=== PATIENT | female | born 1940 | race Caucasian/White ===

== ENCOUNTER 2019-12-03 12:30 | Outpatient (CLI) | payer MEDICARE, OTHER, SELFPAY ==
[2019-12-03 13:28] LABS: Basophils % 0.3 %; Eosinophils # 0.1 10^3/uL (0.0-0.8); Eosinophils % 0.9 %; Hemoglobin 12.8 g/dL (11.5-15.3); Lymphocytes # 2.5 10^3/uL (0.8-4.8); Lymphocytes % 27.5 %; Mean Corpuscular HGB Conc 30.5 g/dL (30.0-36.0); Mean Corpuscular Volume 98.4 fL (81-99); Mean Platelet Volume 10.6 fL (7.4-10.4); Monocytes # 0.7 10^3/uL (0.2-0.9); Monocytes % 7.2 %; Neutrophils # 5.8 10^3/uL (1.8-7.7); Neutrophils % 63.5 %; Nucleated Red Blood Cells % 0 %; Platelet Count 279 10^3/cmm (130-400); Red Blood Count 4.27 10^6/uL (4.1-5.3); Red Cell Distribution Width 13.2 % (12.1-15.1); White Blood Count 9.1 10^3/uL (4.0-10.0)
[2019-12-03 13:45] LABS: Alanine Aminotransferase 6 U/L (0-33); Albumin Level 4.1 g/dL (3.5-5.2); Alkaline Phosphatase 78 IU/L (35-105); Anion Gap 18.6 (5-19); Aspartate Amino Transferase 10 U/L (0-32); Blood Urea Nitrogen 12 mg/dL (8-23); Calcium 9.4 mg/Dl (8.8-10.2); Carbon Dioxide 26 mmol/L (22-29); Chloride 99 mmol/L (98-107); Globulin 2.2 g/dL (1.3-4.6); Glucose 191 mg/dL (74-106); Potassium 4.6 mmol/L (3.5-5.1); Sodium 139 mmol/L (136-145); Total Bilirubin 0.2 mg/dL (0.15-1.2); Total Protein 6.3 g/dL (6.6-8.7)
== END 2019-12-03 12:31 | disposition home or self-care (01) ==
LOC: ONCMED 12:39
PROVIDERS: Family Provider Family Medicine; Visit Provider Internal Medicine Hematology & Oncology
DX: C50.412 Malignant neoplasm of upper-outer quadrant of left female breast (principal)
CPT/HCPCS: 80053; 85025; 86300

== ENCOUNTER 2019-12-07 10:39 | Outpatient (CLI) | payer MEDICARE, OTHER, SELFPAY ==
[2019-12-07] MEDS: denosumab 120 mg SDV SUBCUT (12:11)
--- NOTE | 2019-12-07 14:18 | ONC FU_ITS ---
Dr. 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 She had presented with a palpable mass in the left breast. The mammogram from 03/11/2013 showed a new stellate density in the left breast, corresponding to 1.3 cm lesion on ultrasound. On 04/02/2013 she underwent a lumpectomy of the left breast with a sentinel lymph node biopsy. Her surgical pathology showed a grade 2 infiltrating ductal carcinoma measuring 2.8 cm. Margins were negative, and there was no involvement in 3 sentinel lymph nodes. Her prognostic markers showed ER 95%, NC 95%, and HER-2/aldair 1+ by IHC, amplification ratio by FISH of 1.05. She was first seen by Dr. Rose on 04/13/2013. An Oncotype DX was low score 14 corresponding to 9% chance of distal recurrence following hormonal treatment. Adjuvant chemotherapy was not recommended. DEXA scan on 04/16/2013 showed normal bone density. She was given radiation to the left breast, completed on 07/09/2013 to a total dose of 5940 cGy. Adjuvant hormonal therapy with anastrozole 1 mg daily was initiated in June of 2013. Her medical illnesses include hypertension, hyperlipidemia, type II diabetes with peripheral neuropathy, coronary artery disease, GERD, hypothyroidism, essential tremor, degenerative arthritis, and depression. She is a nonsmoker. INTERIM HISTORY: She was hospitalized on 01/18/2017 with elevated blood pressure and chest pain. She was discharged home on amlodipine 5 mg daily, HCTZ 25 mg daily, and Spironolactone 25 mg daily. She had evidence of chronic diastolic heart failure. Echocardiogram showed adequate LV ejection fraction of 61%, but with grade 3 diastolic dysfunction. follow-up visit on 02/13/2017. At that time she was reporting significant increase in her back and joint pain, and her anastrozole was stopped . She was then seen by Dr. Jorge on 03/19/2017, and she then continued her hormonal therapy with tamoxifen 20 mg daily. her bone pain improved since she was off the anastrozole, She took tamoxifen till 01/22/2018 because of progressive substernal discomfort/back pain, which did improve with discontinuation of tamoxifen. So patient completed about 4-1/2 year of adjuvant hormonal therapy and decided not to take any other hormone therapy for remaining 6 months. Follow-up mammogram done on 07/02/2019 showed benign findings and follow-up in one year Echocardiogram done on 07/07/2019 showed ejection fraction more than 60% As per patient she did develop left neck pain in the first week of June 2019, along with left facial pain and swelling, her PMD gave her steroids and antibiotics with that but improved and then developed headache on left side for which she underwent CT scan of head on 10/20/2019 which showed no acute intracranial hemorrhage or edema But a new lytic area involving left formen magnum and ring of C1. Early metastatic lesion should be considered and bone scan was recommended Bone scan done on 08/24/2019 showed negative for metastatic disease. CT scan of abdomen pelvis done on 08/21/2019 for abdominal pain showed mild thickening with inflammatory stranding involving sigmoid colon in the left lower quadrant consistent with mild acute diverticulitis Hepatomegaly with diffuse fatty infiltration of the liver. Widemouth ventral abdominal wall hernia containing nonobstructed loops of small and large bowel. Next Left adnexal low-attenuation lesion measuring 4.1 x 4.2 cm this is indeterminant and neoplasm not excluded. CT PET scan done on 08/29/2019 showed 1.6 cm lesion in the left half of T7 vertebral body with an SUV of 15.9, indicating osseous metastatic disease. No additional osseous lesions are present. 2 cm soft tissue deposit along the surface of diaphragm at the medial right lung SUV 10.5, indicating malignant deposit. Additionally, there is an FDG positive right hilar lymph node likely malignant.And left ovarian mass seen on CT scan of chest abdomen done recently is a ovarian cyst and is FDG negative The C1 lesion was not in the field of view of current CT PET scan study Dr. Cat, senior it business analyst was asked to review CT PET scan and correlate with CT scan of chest abdomen done on 08/21/2019 and bone scan done on 08/24/2019, as per his evaluation,.diaphragmatic implant is present on CT scan done in July 2019 and is unchanged in size on the current study. The left ovarian cyst is morphologically identical as well. Osseous lesion at T7 is not clearly evident on the bone scan, and expected finding as this lesion is not evident on CT scan image, but is clearly present with FDG, collectively this pattern indicates a very recently developed metastasis. Came for follow-up, denies any specific complaints, no nausea vomiting, no fever or chills, no headaches but occasionally hot flashes otherwise tolerating Femara/Xgeva well. Medications: AmLODIPine Besylate 1 (5 mg) Tablet Oral daily, Aspirin 1 (81 mg) Tablet Oral daily, Calcium 500+D 1 (500-400 mg - Units) Tablet Oral daily, Carbidopa-Levodopa ER 1 Tablet (of 50-200 mg) Tablet, controlled release Oral daily, Carvedilol 1.5 (25 mg) Tablet Oral b.i.d., Cetirizine HCl 1 Tablet (of 10 mg) Oral, Cipro 1 Tablet (of 500 mg) Oral q 12 hours PRN, Coreg 0.5 Tablet (of 25 mg) Oral b.i.d., Docusate Sodium 1 (100 mg) Tablet Oral PRN, Furosemide 1 Tablet (of 20 mg) Oral daily, HYDROcodone-Acetaminophen 1 Tablet (of 5-325 mg) Oral q 4 hours PRN, Isosorbide Mononitrate CR 1 (120 mg) Tablet SR 24 HR Oral daily, Levothyroxine Sodium 1 (88 mcg) Tablet Oral daily, Losartan Potassium 1 (50 mg) Tablet Oral daily, Magnesium Oxide 1 (400 mg) Capsule Oral daily, MetFORMIN HCl 1 (500 mg) Tablet Oral b.i.d., Nitroglycerin Tablet, sublingual Sublingual PRN, Ondansetron HCl 1 - 2 Tablet (of 4 mg) Oral q 4 hours PRN, oxyCODONE HCl 1 Tablet (of 5 mg) Oral t.i.d. PRN, Potassium Chloride Rasheeda ER 1 (10 meq) Tablet, controlled release Oral daily, Pravastatin Sodium 1 (80 mg) Tablet Oral daily, predniSONE 2 Tablet (of 20 mg) Oral daily, PreserVision AREDS 1 Tablet Oral daily, Primidone 1 (50 mg) Tablet Oral b.i.d., Ranitidine HCl 1 (300 mg) Tablet Oral b.i.d., TraZODone HCl 1.5 (100 mg) Tablet Oral daily, Tresiba FlexTouch 20 Units Subcutaneous daily, Vitamin D 1 (2000 Units) Tablet Oral daily, Zofran 1 Tablet (of 4 mg) Oral q 4 hours PRN Allergies: bandaids , IBUPROFEN, Latex Gloves, Naproxen, and TraMADol HCl. Review of Systems: Constitutional - Her energy level is low. Appetite is low and weight is stable. No fever, chills, hot flashes, or night sweats, ENMT - Positive for sinus congestion/drainage. No mouth sores. No sore throat or difficulty swallowing, Hematologic/Lymphatic - No abnormal bruising or bleeding, Respiratory - She has occasional shortness of breath. No pleuritic pain or hemoptysis, Cardiovascular - Occasional chest pain, Gastrointestinal - No nausea or vomiting. No heartburn or acid reflux. No diarrhea. Positive for constipation, Genitourinary (F) - No dysuria or hematuria. No urinary frequency. No urgency or incontinence, Musculoskeletal - Positive for back and neck pain, Neurologic - No headache or dizziness. No numbness/paresthesias or other focal neurologic symptoms, Psychiatric - No anxiety or depression. She has had trouble sleeping at night since having sinus problems around three weeks ago. Vital Signs: Performed on Dec 07, 2019 11:38 Height - 66.00 in Weight - 271.8 lbs (HIGH) BSA - 2.28 sq.m BMI - 43.87 (HIGH) Temperature - 97.1 F (LOW) Pulse - 76 /min Respiration - 16 /min BP - 125/66 mm(hg) O2 Sat - 90 % (LOW) Pain - 4 Performance Status: 2 - Ambulatory/capable of all self-care, unable to perform any work activities. Up and about more than 50% of waking hours. (ECOG) Physical Examination: Respiratory - Lungs are clear to auscultation without rhonchi or wheezing, Cardiovascular - Regular rate and rhythm of heart, Extremities - no edema. Lab/Imaging: Test performed on Dec 03, 2019 12:45 Glucose 191 mg/dL BUN 12 mg/dL Creatinine 0.7 mg/dL Cr Clearance (Est) 130.9900 mL/min Sodium 139 mmol/L Potassium 4.6 mmol/L Chloride 99 mmol/L CO2 26 mmol/L Calcium 9.4 mg/dL Protein, Total 6.3 g/dL Albumin 4.1 g/dL Globulin 2.2 g/dL Bilirubin, Total 0.2 mg/dL Alkaline Phosphatase 78 IU/L AST (SGOT) 10 IU/L ALT (SGPT) 6 IU/L WBC 9.1 10^9/L RBC 4.27 10^12/L HGB 12.8 g/dL HCT 42.0 % MCV 98.4 fl MCH 30.0 pg MCHC 30.5 g/dL RDW 13.2 % Platelet Count 279 10^9/L MPV 10.6 fL Lymphocytes 2.5 10^9/L Neutrophils 0.0 10 3/uL Monocytes 0.7 10^9/L Eosinophils 0.1 10^9/L Basophils 0.0 10^9/L Neutrophil % 0.9 % Manual Lymphocytes 27.5 % Manual Monocytes 7.2 % Manual Eosinophils 0.9 % Manual Basophils 0.3 % NRBCs 0.0 /100 WBC Test performed on Oct 01, 2019 09:20 Anion Gap 20.8 Lymphocyte % 24.2 % Monocyte % 7.0 % Eosinophil % 0.9 % Basophils % 0.3 % CA 27.29 107.9 U/mL Impression: 1. Patient with grade 2 infiltrating ductal carcinoma the left breast, stage IIA (T2, N0, M0), ER/NC positive and HER-2/aldair nonamplified. Oncotype DX score was low risk, and adjuvant chemotherapy was not recommended. 2. She underwent left breast lumpectomy with axillary sentinel lymph node biopsy on 04/02/2013. 3. She was given radiation to the left breast, completed on 07/09/2013 to a total dose of 5940 cGy. 4. Adjuvant hormonal therapy with anastrozole 1mg daily was initiated in June 2013. Her other medical illnesses include: 4. Hypertension. 5. Hyperlipidemia. 6. Type II diabetes with peripheral neuropathy. 7. Coronary artery disease. 8. Chronic diastolic congestive heart failure. 9. GERD. 10. Hypothyroidism. 11. Essential tremor. 12. Degenerative arthritis. Chronic left leg swelling since left knee replacement about her ago 13. Depression. In January 2017 the anastrozole was stopped due to increased musculoskeletal pain. Her symptoms improve off the medication. In February she continued her adjuvant hormonal therapy with tamoxifen 20 mg daily. She has since then been doing better other than she has developed an itchy skin eruption, which likely is due to tamoxifen.Tamoxifen discontinued on 01/22/2018 because of substernal discomfort/back pain which improved with discontinuation of tamoxifenT he patient has completed 4-1/2 year of hormone therapy and now doesn't want to take anymore. Follow-up mammogram done on 07/02/[address] showed benign findings. And CT scan of head done on 08/20/2019, ordered by PMD for left-sided headache and left neck pain showed no acute intracranial hemorrhage or edema but new lytic area involving left foramen magnum and ring of C1, early metastatic lesion should be considered clinically, bone scan was recommended Plan: Discussed with patient regarding her labs white blood count 9.1 hemoglobin 12.8 crit 42 platelets 279,000 CMP within normal limit except glucose 191 and CA-27-29 is pending Clinically, patient is doing well, tolerating Femara well but with expected side effects e.g. occasionally hot flashes. And we'll proceed with her next monthly dose of Xgeva today as patient minimum bone lesion seen on her previous CT PET scan we will consider changing Xgeva to every 3 months. So she will return to clinic in 3 months with CBC CMP and CA-27-29 and follow-up CT PET scan to assess disease response. Signed By: Octaviano Marsh M.D. <<Signature on File>>
== END 2019-12-07 10:40 | disposition home or self-care (01) ==
LOC: ONCMED 10:44
PROVIDERS: Family Provider Family Medicine; Visit Provider Internal Medicine Hematology & Oncology
DX: C79.51 Secondary malignant neoplasm of bone (principal); C50.412 Malignant neoplasm of upper-outer quadrant of left female breast; Z17.0 Estrogen receptor positive status [ER+]; E78.5 Hyperlipidemia, unspecified; E11.42 Type 2 diabetes mellitus with diabetic polyneuropathy; I25.10 Atherosclerotic heart disease of native coronary artery without angina pectoris; I11.0 Hypertensive heart disease with heart failure; I50.32 Chronic diastolic (congestive) heart failure; K21.9 Gastro-esophageal reflux disease without esophagitis; E03.9 Hypothyroidism, unspecified; R25.1 Tremor, unspecified; M19.90 Unspecified osteoarthritis, unspecified site; F32.9 Major depressive disorder, single episode, unspecified; K76.0 Fatty (change of) liver, not elsewhere classified; K43.9 Ventral hernia without obstruction or gangrene; Z79.811 Long term (current) use of aromatase inhibitors; Z79.82 Long term (current) use of aspirin; Z79.891 Long term (current) use of opiate analgesic; Z96.652 Presence of left artificial knee joint; Z92.3 Personal history of irradiation
CPT/HCPCS: 96372; 99214; J0897

== ENCOUNTER 2019-12-25 11:42 | Outpatient (CLI) | payer MEDICARE, OTHER, SELFPAY ==
--- NOTE | 2019-12-25 | XR_ITS ---
WS: [id number] RIGHT FOOT: 3 VIEW(S) TECHNIQUE: PA, oblique and lateral. HISTORY: RIGHT FOOT PAIN COMPARISON: None available. No acute fracture or dislocation. Mild narrowing of the interphalangeal joints and also the tarsometatarsal articulations. Mild flatten ing of the second and third metatarsal heads. Small calcaneal spur and enthesopathy at the Achilles tendon attachment. XR/XR foot RT min 3V* [id number] IMPRESSION: 1. No fracture. 2. Mild changes of osteoarthritis.
== END 2019-12-25 11:43 | disposition home or self-care (01) ==
LOC: RADOUTREAD 12-28 07:21
PROVIDERS: Family Provider Family Medicine; Visit Provider Nurse Practitioner
DX: Z76.89 Persons encountering health services in other specified circumstances (principal)

== ENCOUNTER 2020-03-10 16:13 | Outpatient (CLI) | payer MEDICARE, OTHER, SELFPAY ==
[2020-03-09 17:10] LABS: Basophils % 0.2 %; Eosinophils # 0.1 10^3/uL (0.0-0.8); Eosinophils % 0.9 %; Hematocrit 42.5 % (37.0-47.0); Hemoglobin 13.1 g/dL (11.5-15.3); Lymphocytes # 2.8 10^3/uL (0.8-4.8); Lymphocytes % 28.3 %; Mean Corpuscular HGB Conc 30.8 g/dL (30.0-36.0); Mean Corpuscular Hemoglobin 30.9 pg (28.0-34.0); Mean Corpuscular Volume 100.2 fL (81-99); Mean Platelet Volume 11.5 fL (7.4-10.4); Monocytes # 0.7 10^3/uL (0.2-0.9); Monocytes % 7.5 %; Neutrophils # 6.1 10^3/uL (1.8-7.7); Nucleated Red Blood Cells % 0 %; Platelet Count 229 10^3/cmm (130-400); Red Blood Count 4.24 10^6/uL (4.1-5.3); Red Cell Distribution Width 14.6 % (12.1-15.1); White Blood Count 9.9 10^3/uL (4.0-10.0)
[2020-03-09 18:32] LABS: Alanine Aminotransferase 7 U/L (0-33); Albumin Level 3.7 g/dL (3.5-5.2); Alkaline Phosphatase 71 IU/L (35-105); Anion Gap 22.1 (5-19); Aspartate Amino Transferase 8 U/L (0-32); Blood Urea Nitrogen 17 mg/dL (8-23); Calcium 9.1 mg/dL (8.5-10.5); Carbon Dioxide 24 mmol/L (22-29); Chloride 96 mmol/L (98-107); Globulin 2.6 g/dL (1.3-4.6); Glucose 321 mg/dL (65-115); Osmolality Calculated 295 mOsm/kg (285-295); Potassium 4.1 mmol/L (3.5-5.1); Sodium 138 mmol/L (136-145); Total Bilirubin 0.3 mg/dL (0.15-1.2); Total Protein 6.3 g/dL (6.6-8.7)
[2020-03-10] MEDS: denosumab 120 mg SDV SUBCUT (17:18)
--- NOTE | 2020-03-10 17:31 | ONC FU_ITS ---
Dr. Marsh follow up note Patient: Sheron Leyva Unit #: [id number]: 1940 Dicatated By: Octaviano Marsh M.D.Date of Visit:Mar 10, 2020 Onc Med Follow-up/Prog Note History of Present Illness: This is a 79 year-old woman with grade 2 infiltrating ductal carcinoma the left breast, stage IIA (T2, N0, M0), ER/KY positive and HER-2/aldair nonamplified. She had presented with a palpable mass in the left breast. The mammogram from 03/11/2013 showed a new stellate density in the left breast, corresponding to 1.3 cm lesion on ultrasound. On 04/02/2013 she underwent a lumpectomy of the left breast with a sentinel lymph node biopsy. Her surgical pathology showed a grade 2 infiltrating ductal carcinoma measuring 2.8 cm. Margins were negative, and there was no involvement in 3 sentinel lymph nodes. Her prognostic markers showed ER 95%, KY 95%, and HER-2/aldair 1+ by IHC, amplification ratio by FISH of 1.05. She was first seen by Dr. Rose on 04/13/2013. An Oncotype DX was low score 14 corresponding to 9% chance of distal recurrence following hormonal treatment. Adjuvant chemotherapy was not recommended. DEXA scan on 04/16/2013 showed normal bone density. She was given radiation to the left breast, completed on 07/09/2013 to a total dose of 5940 cGy. Adjuvant hormonal therapy with anastrozole 1 mg daily was initiated in June of 2013. Her medical illnesses include hypertension, hyperlipidemia, type II diabetes with peripheral neuropathy, coronary artery disease, GERD, hypothyroidism, essential tremor, degenerative arthritis, and depression. She is a nonsmoker. INTERIM HISTORY: She was hospitalized on 01/18/2017 with elevated blood pressure and chest pain. She was discharged home on amlodipine 5 mg daily, HCTZ 25 mg daily, and Spironolactone 25 mg daily. She had evidence of chronic diastolic heart failure. Echocardiogram showed adequate LV ejection fraction of 61%, but with grade 3 diastolic dysfunction. follow-up visit on 02/13/2017. At that time she was reporting significant increase in her back and joint pain, and her anastrozole was stopped . She was then seen by Dr. Jorge on 03/19/2017, and she then continued her hormonal therapy with tamoxifen 20 mg daily. her bone pain improved since she was off the anastrozole, She took tamoxifen till 01/22/2018 because of progressive substernal discomfort/back pain, which did improve with discontinuation of tamoxifen. So patient completed about 4-1/2 year of adjuvant hormonal therapy and decided not to take any other hormone therapy for remaining 6 months. Follow-up mammogram done on 07/02/2019 showed benign findings and follow-up in one year Echocardiogram done on 07/07/2019 showed ejection fraction more than 60% As per patient she did develop left neck pain in the first week of June 2019, along with left facial pain and swelling, her PMD gave her steroids and antibiotics with that but improved and then developed headache on left side for which she underwent CT scan of head on 10/20/2019 which showed no acute intracranial hemorrhage or edema But a new lytic area involving left formen magnum and ring of C1. Early metastatic lesion should be considered and bone scan was recommended Bone scan done on 08/24/2019 showed negative for metastatic disease. CT scan of abdomen pelvis done on 08/21/2019 for abdominal pain showed mild thickening with inflammatory stranding involving sigmoid colon in the left lower quadrant consistent with mild acute diverticulitis Hepatomegaly with diffuse fatty infiltration of the liver. [place] ventral abdominal wall hernia containing nonobstructed loops of small and large bowel. Next Left adnexal low-attenuation lesion measuring 4.1 x 4.2 cm this is indeterminant and neoplasm not excluded. CT PET scan done on 08/29/2019 showed 1.6 cm lesion in the left half of T7 vertebral body with an SUV of 15.9, indicating osseous metastatic disease. No additional osseous lesions are present. 2 cm soft tissue deposit along the surface of diaphragm at the medial right lung SUV 10.5, indicating malignant deposit. Additionally, there is an FDG positive right hilar lymph node likely malignant.And left ovarian mass seen on CT scan of chest abdomen done recently is a ovarian cyst and is FDG negative The C1 lesion was not in the field of view of current CT PET scan study Dr. Cat,radiologist was asked to review CT PET scan and correlate with CT scan of chest abdomen done on 08/21/2019 and bone scan done on 08/24/2019, as per his evaluation,.diaphragmatic implant is present on CT scan done in July 2019 and is unchanged in size on the current study. The left ovarian cyst is morphologically identical as well. Osseous lesion at T7 is not clearly evident on the bone scan, and expected finding as this lesion is not evident on CT scan image, but is clearly present with FDG, collectively this pattern indicates a very recently developed metastasis. Follow-up CT PET scan done on 03/05/2020 showed interval sterilization of osseous metastatic disease at T7 Resolution of right diaphragmatic implant and right hilar adenopathy consistent with complete response to the therapy Came for follow-up, denies any specific complaints, no fever or chills, no nausea or vomiting no diarrhea constipation, no new bony pains but chronic bilateral hip discomfort/pain due to arthritis. Occasionally hot flashes otherwise tolerating Femara/Xgeva well Medications: AmLODIPine Besylate 1 (5 mg) Tablet Oral daily, Aspirin 1 (81 mg) Tablet Oral daily, Calcium 500+D 1 (500-400 mg - Units) Tablet Oral daily, Carbidopa-Levodopa ER 1 Tablet (of 50-200 mg) Tablet, controlled release Oral daily, Carvedilol 1.5 (25 mg) Tablet Oral b.i.d., Cetirizine HCl 1 Tablet (of 10 mg) Oral, Cipro 1 Tablet (of 500 mg) Oral q 12 hours PRN, Coreg 0.5 Tablet (of 25 mg) Oral b.i.d., Docusate Sodium 1 (100 mg) Tablet Oral PRN, Furosemide 1 Tablet (of 20 mg) Oral daily, HYDROcodone-Acetaminophen 1 Tablet (of 5-325 mg) Oral q 4 hours PRN, Isosorbide Mononitrate CR 1 (120 mg) Tablet SR 24 HR Oral daily, Levothyroxine Sodium 1 (88 mcg) Tablet Oral daily, Losartan Potassium 1 (50 mg) Tablet Oral daily, Magnesium Oxide 1 (400 mg) Capsule Oral daily, MetFORMIN HCl 1 (500 mg) Tablet Oral b.i.d., Mucinex Allergy Tablet Oral, Nitroglycerin Tablet, sublingual Sublingual PRN, Ondansetron HCl 1 - 2 Tablet (of 4 mg) Oral q 4 hours PRN, oxyCODONE HCl 1 Tablet (of 5 mg) Oral t.i.d. PRN, Potassium Chloride Rasheeda ER 1 (10 meq) Tablet, controlled release Oral daily, Pravastatin Sodium 1 (80 mg) Tablet Oral daily, predniSONE 2 Tablet (of 20 mg) Oral daily, PreserVision AREDS 1 Tablet Oral daily, Primidone 1 (50 mg) Tablet Oral b.i.d., Ranitidine HCl 1 (300 mg) Tablet Oral b.i.d., TraZODone HCl 1.5 (100 mg) Tablet Oral daily, Tresiba FlexTouch 20 Units Subcutaneous daily, Vitamin D 1 (2000 Units) Tablet Oral daily, Zofran 1 Tablet (of 4 mg) Oral q 4 hours PRN Allergies: bandaids , IBUPROFEN, Latex Gloves, Naproxen, and TraMADol HCl. Review of Systems: Review of Systems is not available for this patient. Vital Signs: Performed on Mar 10, 2020 16:22 Height - 66.00 in Weight - 270.6 lbs (LOW) BSA - 2.27 sq.m BMI - 43.68 (HIGH) Temperature - 96.9 F (LOW) Pulse - 104 /min (HIGH) Respiration - 22 /min BP - 142/73 mm(hg) (HIGH) O2 Sat - 91 % (LOW) Pain - 7 Performance Status: 1 - No physically strenuous activity, but ambulatory and able to carry out light or sedentary work (e.g. office work, light house work). (ECOG) Physical Examination: Respiratory - Lungs are clear, Cardiovascular - Regular rate and rhythm, Extremities - no visible edema or rash. Lab/Imaging: Test performed on Dec 03, 2019 12:45 Glucose 191 mg/dL BUN 12 mg/dL Creatinine 0.7 mg/dL Cr Clearance (Est) 130.9900 mL/min Sodium 139 mmol/L Potassium 4.6 mmol/L Chloride 99 mmol/L CO2 26 mmol/L Calcium 9.4 mg/dL Protein, Total 6.3 g/dL Albumin 4.1 g/dL Globulin 2.2 g/dL Bilirubin, Total 0.2 mg/dL Alkaline Phosphatase 78 IU/L AST (SGOT) 10 IU/L ALT (SGPT) 6 IU/L WBC 9.1 10^9/L RBC 4.27 10^12/L HGB 12.8 g/dL HCT 42.0 % MCV 98.4 fl MCH 30.0 pg MCHC 30.5 g/dL RDW 13.2 % Platelet Count 279 10^9/L MPV 10.6 fL Lymphocytes 2.5 10^9/L Neutrophils 0.0 10 3/uL Monocytes 0.7 10^9/L Eosinophils 0.1 10^9/L Basophils 0.0 10^9/L Neutrophil % 0.9 % Manual Lymphocytes 27.5 % Manual Monocytes 7.2 % Manual Eosinophils 0.9 % Manual Basophils 0.3 % NRBCs 0.0 /100 WBC Test performed on Oct 01, 2019 09:20 Anion Gap 20.8 Lymphocyte % 24.2 % Monocyte % 7.0 % Eosinophil % 0.9 % Basophils % 0.3 % CA 27.29 107.9 U/mL Impression: 1. Patient with grade 2 infiltrating ductal carcinoma the left breast, stage IIA (T2, N0, M0), ER/KY positive and HER-2/aldair nonamplified. Oncotype DX score was low risk, and adjuvant chemotherapy was not recommended. 2. She underwent left breast lumpectomy with axillary sentinel lymph node biopsy on 04/02/2013. 3. She was given radiation to the left breast, completed on 07/09/2013 to a total dose of 5940 cGy. 4. Adjuvant hormonal therapy with anastrozole 1mg daily was initiated in June 2013. Her other medical illnesses include: 4. Hypertension. 5. Hyperlipidemia. 6. Type II diabetes with peripheral neuropathy. 7. Coronary artery disease. 8. Chronic diastolic congestive heart failure. 9. GERD. 10. Hypothyroidism. 11. Essential tremor. 12. Degenerative arthritis. Chronic left leg swelling since left knee replacement about her ago 13. Depression. In January 2017 the anastrozole was stopped due to increased musculoskeletal pain. Her symptoms improve off the medication. In February she continued her adjuvant hormonal therapy with tamoxifen 20 mg daily. She has since then been doing better other than she has developed an itchy skin eruption, which likely is due to tamoxifen.Tamoxifen discontinued on 01/22/2018 because of substernal discomfort/back pain which improved with discontinuation of tamoxifenT he patient has completed 4-1/2 year of hormone therapy and now doesn't want to take anymore. Follow-up mammogram done on 07/02/[address] showed benign findings. And CT scan of head done on 08/20/2019, ordered by PMD for left-sided headache and left neck pain showed no acute intracranial hemorrhage or edema but new lytic area involving left foramen magnum and ring of C1, early metastatic lesion should be considered clinically, bone scan was recommended Plan: Discussed with patient regarding her labs white blood count 9.9 hemoglobin 13.1 crit 42.5 platelets 229,000 CMP within normal limit except glucose [address] PET scan findings Clinically, patient is doing well with no signs symptoms suggestive of disease progression and tolerating daily Femara and 3 monthly Xgeva well and her follow-up CT PET scan shows excellent response to the therapy now with resolution of right diaphragmatic implant and right hilar lymphadenopathy And interval sterilization of osseous metastatic disease at T7 And no evidence of active disease as per CT PET scan. At this point we'll continue with daily Femara and proceed with her 3 monthly Xgeva today and then change to every 6 months along with vitamin D and calcium supplements next She will return to clinic in 6 months with CBC CMP and CA-27-29 and for dose of Xgeva. Signed By: Octaviano Marsh M.D. <<Signature on File>>
[2020-03-11 10:12] LABS: CA 27.29 54 U/mL (<38)
== END 2020-03-10 16:14 | disposition home or self-care (01) ==
LOC: ONCMED 16:16
PROVIDERS: Family Provider Family Medicine; Visit Provider Internal Medicine Hematology & Oncology
DX: C50.412 Malignant neoplasm of upper-outer quadrant of left female breast (principal); C79.51 Secondary malignant neoplasm of bone; Z17.0 Estrogen receptor positive status [ER+]; E78.5 Hyperlipidemia, unspecified; E11.42 Type 2 diabetes mellitus with diabetic polyneuropathy; I11.0 Hypertensive heart disease with heart failure; I50.32 Chronic diastolic (congestive) heart failure; K21.9 Gastro-esophageal reflux disease without esophagitis; E03.9 Hypothyroidism, unspecified; G25.0 Essential tremor; M19.90 Unspecified osteoarthritis, unspecified site; F32.9 Major depressive disorder, single episode, unspecified; M25.462 Effusion, left knee; Z79.811 Long term (current) use of aromatase inhibitors; Z79.899 Other long term (current) drug therapy; Z96.652 Presence of left artificial knee joint
CPT/HCPCS: 36415; 80053; 85025; 86300; 96372; 99214; J0897

== ENCOUNTER 2020-03-23 17:11 | Outpatient (CLI) | payer MEDICARE, OTHER, SELFPAY ==
[2020-03-23 20:28] LABS: NT Pro B Type Natriuretic Pept 259 pg/mL (0-450)
== END 2020-03-23 17:12 | disposition home or self-care (01) ==
LOC: LAB 17:18
PROVIDERS: Family Provider Family Medicine; Visit Provider Nurse Practitioner Family
DX: Z01.89 Encounter for other specified special examinations (principal)
CPT/HCPCS: 83880

== ENCOUNTER → 2020-06-08 14:35 | Outpatient (BNVA) | payer MEDICARE, OTHER, SELFPAY | PROVIDERS: Family Provider Family Medicine; PCP Family Medicine; Visit Provider Internal Medicine Cardiovascular Disease | DX: M79.89 Other specified soft tissue disorders (principal); R06.02 Shortness of breath; I50.33 Acute on chronic diastolic (congestive) heart failure; I25.10 Atherosclerotic heart disease of native coronary artery without angina pectoris; E78.2 Mixed hyperlipidemia; I34.0 Nonrheumatic mitral (valve) insufficiency; I11.0 Hypertensive heart disease with heart failure | CPT/HCPCS: 80048; 83880 ==

== ENCOUNTER 2020-08-26 13:41 | Outpatient (CLI) | payer MEDICARE, OTHER, SELFPAY ==
--- NOTE | 2020-08-26 13:50 | MM_ITS ---
WS: [id number] BILATERAL DIGITAL DIAGNOSTIC MAMMOGRAM MAMMOGRAPHY WITH CAD CLINICAL INFORMATION: HX OF BREAST CA COMPARISON: and June 25, 2018 TECHNIQUE: Bilateral CC, MLO, and ML views. FINDINGS: Scattered fibroglandular densities bilaterally. Stable postoperative changes with parenchymal scarrin g upper outer left breast. Punctate and vascular calcifications. No suspicious focal mass, asymmetry, calcifications, or architectural distortion. No evidence of lauren gnancy. MM/[place] [id number] IMPRESSION: BI-RADS: 2-Benign FOLLOW UP: 1 Year Follow-up Recommend return to annual diagnostic mammography.
== END 2020-08-26 13:42 | disposition home or self-care (01) ==
LOC: ONCMED 13:42
PROVIDERS: PCP Family Medicine; Visit Provider Internal Medicine Hematology & Oncology
DX: C50.412 Malignant neoplasm of upper-outer quadrant of left female breast (principal); Z17.0 Estrogen receptor positive status [ER+]; Z85.3 Personal history of malignant neoplasm of breast
CPT/HCPCS: 77066

== ENCOUNTER 2020-09-07 11:48 | Outpatient (CLI) | payer MEDICARE, OTHER, SELFPAY ==
[2020-09-07 14:21] LABS: Basophils % 0.2 %; Eosinophils # 0.1 10^3/uL (0.0-0.8); Eosinophils % 1.2 %; Hematocrit 42.2 % (37.0-47.0); Hemoglobin 13.3 g/dL (11.5-15.3); Lymphocytes # 2.5 10^3/uL (0.8-4.8); Lymphocytes % 30.2 %; Mean Corpuscular HGB Conc 31.5 g/dL (30.0-36.0); Mean Corpuscular Volume 98.4 fL (81-99); Monocytes # 0.6 10^3/uL (0.2-0.9); Monocytes % 7.5 %; Neutrophils # 5.05 10^3/uL (1.8-7.7); Neutrophils % 60.3 %; Nucleated Red Blood Cells % 0 %; Platelet Count 259 10^3/cmm (130-400); Red Blood Count 4.29 10^6/uL (4.1-5.3); White Blood Count 8.4 10^3/uL (4.0-10.0)
[2020-09-07 14:36] LABS: Alanine Aminotransferase < 5 U/L (0-33); Alkaline Phosphatase 85 IU/L (35-105); Anion Gap 18.9 (5-19); Aspartate Amino Transferase 12 U/L (0-32); Blood Urea Nitrogen 14 mg/dL (8-23); Calcium 9.4 mg/dL (8.5-10.5); Carbon Dioxide 28 mmol/L (22-29); Chloride 95 mmol/L (98-107); Globulin 2.5 g/dL (1.3-4.6); Glucose 168 mg/dL (65-115); Osmolality Calculated 290 mOsm/kg (285-295); Potassium 3.9 mmol/L (3.5-5.1); Sodium 138 mmol/L (136-145); Total Bilirubin 0.3 mg/dL (0.15-1.2); Total Protein 6.5 g/dL (6.6-8.7)
[2020-09-12 16:38] LABS: CA 27.29 67 U/mL (<38)
== END 2020-09-07 11:49 | disposition home or self-care (01) ==
LOC: ONCMED 14:27
PROVIDERS: PCP Family Medicine; Visit Provider Internal Medicine Hematology & Oncology
DX: C50.412 Malignant neoplasm of upper-outer quadrant of left female breast (principal); Z17.0 Estrogen receptor positive status [ER+]; E03.9 Hypothyroidism, unspecified; E78.2 Mixed hyperlipidemia; F32.9 Major depressive disorder, single episode, unspecified; E11.42 Type 2 diabetes mellitus with diabetic polyneuropathy; I10 Essential (primary) hypertension; I25.10 Atherosclerotic heart disease of native coronary artery without angina pectoris; K21.9 Gastro-esophageal reflux disease without esophagitis; M19.90 Unspecified osteoarthritis, unspecified site
CPT/HCPCS: 80053; 85025; 86300

== ENCOUNTER 2020-09-08 05:55 | Outpatient (CLI) | payer MEDICARE, OTHER, SELFPAY ==
[2020-09-08] MEDS: denosumab 120 mg SDV SUBCUT (15:00)
--- NOTE | 2020-09-08 17:00 | ONC FU_ITS ---
Dr. 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 She had presented with a palpable mass in the left breast. The mammogram from 03/11/2013 showed a new stellate density in the left breast, corresponding to 1.3 cm lesion on ultrasound. On 04/02/2013 she underwent a lumpectomy of the left breast with a sentinel lymph node biopsy. Her surgical pathology showed a grade 2 infiltrating ductal carcinoma measuring 2.8 cm. Margins were negative, and there was no involvement in 3 sentinel lymph nodes. Her prognostic markers showed ER 95%, NV 95%, and HER-2/aldair 1+ by IHC, amplification ratio by FISH of 1.05. She was first seen by Dr. Rose on 04/13/2013. An Oncotype DX was low score 14 corresponding to 9% chance of distal recurrence following hormonal treatment. Adjuvant chemotherapy was not recommended. DEXA scan on 04/16/2013 showed normal bone density. She was given radiation to the left breast, completed on 07/09/2013 to a total dose of 5940 cGy. Adjuvant hormonal therapy with anastrozole 1 mg daily was initiated in June of 2013. Her medical illnesses include hypertension, hyperlipidemia, type II diabetes with peripheral neuropathy, coronary artery disease, GERD, hypothyroidism, essential tremor, degenerative arthritis, and depression. She is a nonsmoker. INTERIM HISTORY: She was hospitalized on 01/18/2017 with elevated blood pressure and chest pain. She was discharged home on amlodipine 5 mg daily, HCTZ 25 mg daily, and Spironolactone 25 mg daily. She had evidence of chronic diastolic heart failure. Echocardiogram showed adequate LV ejection fraction of 61%, but with grade 3 diastolic dysfunction. follow-up visit on 02/13/2017. At that time she was reporting significant increase in her back and joint pain, and her anastrozole was stopped . She was then seen by Dr. Jorge on 03/19/2017, and she then continued her hormonal therapy with tamoxifen 20 mg daily. her bone pain improved since she was off the anastrozole, She took tamoxifen till 01/22/2018 because of progressive substernal discomfort/back pain, which did improve with discontinuation of tamoxifen. So patient completed about 4-1/2 year of adjuvant hormonal therapy and decided not to take any other hormone therapy for remaining 6 months. Follow-up mammogram done on 07/02/2019 showed benign findings and follow-up in one year Echocardiogram done on 07/07/2019 showed ejection fraction more than 60% As per patient she did develop left neck pain in the first week of June 2019, along with left facial pain and swelling, her PMD gave her steroids and antibiotics with that but improved and then developed headache on left side for which she underwent CT scan of head on 10/20/2019 which showed no acute intracranial hemorrhage or edema But a new lytic area involving left formen magnum and ring of C1. Early metastatic lesion should be considered and bone scan was recommended Bone scan done on 08/24/2019 showed negative for metastatic disease. CT scan of abdomen pelvis done on 08/21/2019 for abdominal pain showed mild thickening with inflammatory stranding involving sigmoid colon in the left lower quadrant consistent with mild acute diverticulitis Hepatomegaly with diffuse fatty infiltration of the liver. Widemouth ventral abdominal wall hernia containing nonobstructed loops of small and large bowel. Next Left adnexal low-attenuation lesion measuring 4.1 x 4.2 cm this is indeterminant and neoplasm not excluded. CT PET scan done on 08/29/2019 showed 1.6 cm lesion in the left half of T7 vertebral body with an SUV of 15.9, indicating osseous metastatic disease. No additional osseous lesions are present. 2 cm soft tissue deposit along the surface of diaphragm at the medial right lung SUV 10.5, indicating malignant deposit. Additionally, there is an FDG positive right hilar lymph node likely malignant.And left ovarian mass seen on CT scan of chest abdomen done recently is a ovarian cyst and is FDG negative The C1 lesion was not in the field of view of current CT PET scan study Dr. Cat,radiologist was asked to review CT PET scan and correlate with CT scan of chest abdomen done on 08/21/2019 and bone scan done on 08/24/2019, as per his evaluation,.diaphragmatic implant is present on CT scan done in July 2019 and is unchanged in size on the current study. The left ovarian cyst is morphologically identical as well. Osseous lesion at T7 is not clearly evident on the bone scan, and expected finding as this lesion is not evident on CT scan image, but is clearly present with FDG, collectively this pattern indicates a very recently developed metastasis. Due to her elevated tumor marker and abnormal CT scan/PET scan she was started on Femara 2.5 mg along with monthly Xgeva on September 01, 2019 Follow-up CT PET scan done on 03/05/2020 showed interval sterilization of osseous metastatic disease at T7 Resolution of right diaphragmatic implant and right hilar adenopathy consistent with complete response to the therapy and Xgeva was changed to every 3-month on May 07, 2020And continued with daily Femara along with vitamin D and calcium supplement Came for follow-up, denies any specific complaints today, no fever chills, no nausea or vomiting, no diarrhea or constipation no hot flashes, tolerating Femara/vitamin D/calcium well along with 3 monthly Xgeva. Medications: AmLODIPine Besylate 1 (5 mg) Tablet Oral daily, Aspirin 1 (81 mg) Tablet Oral daily, Calcium 500+D 1 (500-400 mg - Units) Tablet Oral daily, Carbidopa-Levodopa ER 1 Tablet (of 50-200 mg) Tablet, controlled release Oral daily, Carvedilol 1.5 (25 mg) Tablet Oral b.i.d., Cetirizine HCl 1 Tablet (of 10 mg) Oral, Docusate Sodium 1 (100 mg) Tablet Oral PRN, Furosemide 1 Tablet (of 40 mg) Oral b.i.d., HYDROcodone-Acetaminophen 1 Tablet (of 5-325 mg) Oral q 4 hours PRN, Isosorbide Mononitrate CR 1 (120 mg) Tablet SR 24 HR Oral daily, Levothyroxine Sodium 1 (88 mcg) Tablet Oral daily, Losartan Potassium 1 (100 mg) Tablet Oral daily, Magnesium Oxide 1 (400 mg) Capsule Oral daily, MetFORMIN HCl 1 (500 mg) Tablet Oral b.i.d., Mucinex Allergy Tablet Oral, Nitroglycerin Tablet, sublingual Sublingual PRN, Ondansetron HCl 1 - 2 Tablet (of 4 mg) Oral q 4 hours PRN, oxyCODONE HCl 1 Tablet (of 5 mg) Oral t.i.d. PRN, Potassium Chloride Rasheeda ER 1 (10 meq) Tablet, controlled release Oral daily, Pravastatin Sodium 1 (80 mg) Tablet Oral daily, PreserVision AREDS 1 Tablet Oral daily, Primidone 1 (50 mg) Tablet Oral b.i.d., TraZODone HCl 1.5 (100 mg) Tablet Oral daily, Tresiba FlexTouch 20 Units Subcutaneous daily, Vitamin D 1 (2000 Units) Tablet Oral daily Allergies: bandaids , IBUPROFEN, Latex Gloves, Naproxen, and TraMADol HCl. Review of Systems: Review of Systems is not available for this patient. Vital Signs: Performed on Sep 08, 2020 14:07 Height - 66.00 in Weight - 268.4 lbs (LOW) BSA - 2.27 sq.m BMI - 43.32 (HIGH) Temperature - 98.6 F Pulse - 72 /min Respiration - 20 /min BP - 144/71 mm(hg) (HIGH) O2 Sat - 97 % Pain - 4 Performance Status: 2 - Ambulatory/capable of all self-care, unable to perform any work activities. Up and about more than 50% of waking hours. (ECOG) Physical Examination: Respiratory - Lungs are clear to auscultation, Cardiovascular - Regular rate and rhythm of heart, Gastrointestinal - Soft, bowel sounds present, Extremities - 1+ edema bilaterally. Lab/Imaging: Most recent lab results are not available for this patient. Impression: [address] scan of head done on 08/20/2019, ordered by PMD for left-sided headache and left neck pain showed no acute intracranial hemorrhage or edema but new lytic area involving left foramen magnum and ring of C1, early metastatic lesion should be considered clinically, bone scan was recommendedAnd follow-up CT PET scan done on August 29, 2019 showed 1.6 cm lesion in the left top of T7 vertebral body with SUV of 15.9 indicating of osseous metastatic disease. No additional osseous lesions seen. 2 cm soft tissue deposit along the surface of the diaphragm at the medial right lung SUV 10.5 indicating malignant deposit and additional FDG positive right hilar lymph node and left ovarian mass seen on CT scan of abdomen done recently showed no FDG uptake. Patient was started on Femara/vitamin D/calcium/Xgeva on September 01, 2019 h/o . 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 Oncotype DX score was low risk, and adjuvant chemotherapy was not recommended. 2. She underwent left breast lumpectomy with axillary sentinel lymph node biopsy on 04/02/2013. 3. She was given radiation to the left breast, completed on 07/09/2013 to a total dose of 5940 cGy. 4. Adjuvant hormonal therapy with anastrozole 1mg daily was initiated in June 2013. Her other medical illnesses include: 4. Hypertension. 5. Hyperlipidemia. 6. Type II diabetes with peripheral neuropathy. 7. Coronary artery disease. 8. Chronic diastolic congestive heart failure. 9. GERD. 10. Hypothyroidism. 11. Essential tremor. 12. Degenerative arthritis. Chronic left leg swelling since left knee replacement about her ago 13. Depression. In January 2017 the anastrozole was stopped due to increased musculoskeletal pain. Her symptoms improve off the medication. In February she continued her adjuvant hormonal therapy with tamoxifen 20 mg daily. She has since then been doing better other than she has developed an itchy skin eruption, which likely is due to tamoxifen.Tamoxifen discontinued on 01/22/2018 because of substernal discomfort/back pain which improved with discontinuation of tamoxifenT he patient has completed 4-1/2 year of hormone therapy and now doesn't want to take anymore. Follow-up mammogram done on 07/02/2019 showed benign findings. Plan: Discussed with patient regarding her labs white blood count 8.4 hemoglobin 13.3 hematocrit 42.2 platelets 259,000 CMP within normal limit except glucose 168 CA 27-29 is pending Clinically, patient doing well with no signs symptom suggestive of disease progression, tolerating Femara/vitamin D/calcium well, will proceed with her scheduled dose of Xgeva today and then she will return to clinic in 6 months with CBC CMP and CT PET scan and CA 27-29 Signed By: Octaviano Marsh M.D. <<Signature on File>>
== END 2020-09-08 05:56 | disposition home or self-care (01) ==
LOC: ONCMED 05:57
PROVIDERS: PCP Family Medicine; Visit Provider Internal Medicine Hematology & Oncology
DX: C50.412 Malignant neoplasm of upper-outer quadrant of left female breast (principal); C79.51 Secondary malignant neoplasm of bone; Z17.0 Estrogen receptor positive status [ER+]; Z79.811 Long term (current) use of aromatase inhibitors; Z79.899 Other long term (current) drug therapy; E78.5 Hyperlipidemia, unspecified; E11.42 Type 2 diabetes mellitus with diabetic polyneuropathy; I25.10 Atherosclerotic heart disease of native coronary artery without angina pectoris; I11.0 Hypertensive heart disease with heart failure; I50.32 Chronic diastolic (congestive) heart failure; K21.9 Gastro-esophageal reflux disease without esophagitis; E03.9 Hypothyroidism, unspecified; G25.0 Essential tremor; M19.90 Unspecified osteoarthritis, unspecified site; M79.89 Other specified soft tissue disorders; F32.9 Major depressive disorder, single episode, unspecified; Z96.652 Presence of left artificial knee joint
CPT/HCPCS: 96372; 99214; J0897

== ENCOUNTER → 2020-12-15 14:38 | Outpatient (BNVA) | payer MEDICARE, OTHER, SELFPAY | PROVIDERS: PCP Family Medicine; Visit Provider Internal Medicine Cardiovascular Disease | DX: I50.33 Acute on chronic diastolic (congestive) heart failure (principal); I50.32 Chronic diastolic (congestive) heart failure; I25.10 Atherosclerotic heart disease of native coronary artery without angina pectoris; I10 Essential (primary) hypertension; E78.2 Mixed hyperlipidemia; I34.0 Nonrheumatic mitral (valve) insufficiency | CPT/HCPCS: 80048; 83880 ==

== ENCOUNTER 2021-03-07 18:07 | Outpatient (CLI) | payer MEDICARE, OTHER, SELFPAY ==
[2021-03-07 18:54] LABS: Basophils % 0.4 %; Eosinophils # 0.1 10^3/uL (0.0-0.8); Eosinophils % 1.4 %; Hematocrit 38.3 % (37.0-47.0); Hemoglobin 12.1 g/dL (11.5-15.3); Lymphocytes % 34.5 %; Mean Corpuscular HGB Conc 31.6 g/dL (30.0-36.0); Mean Corpuscular Hemoglobin 30.9 pg (28.0-34.0); Mean Platelet Volume 10.4 fL (7.4-10.4); Monocytes # 0.7 10^3/uL (0.2-0.9); Monocytes % 8.4 %; Neutrophils # 4.69 10^3/uL (1.8-7.7); Neutrophils % 54.7 %; Nucleated Red Blood Cells % 0 %; Platelet Count 244 10^3/cmm (130-400); Red Blood Count 3.91 10^6/uL (4.1-5.3); Red Cell Distribution Width 13.6 % (12.1-15.1); White Blood Count 8.6 10^3/uL (4.0-10.0)
[2021-03-07 19:33] LABS: Alanine Aminotransferase < 5 U/L (0-33); Albumin Level 3.7 g/dL (3.5-5.2); Alkaline Phosphatase 70 IU/L (35-105); Anion Gap 14.9 (5-19); Aspartate Amino Transferase 10 U/L (0-32); Blood Urea Nitrogen 14 mg/dL (8-23); Calcium 8.2 mg/dL (8.5-10.5); Carbon Dioxide 30 mmol/L (22-29); Chloride 100 mmol/L (98-107); Globulin 2.1 g/dL (1.3-4.6); Glucose 160 mg/dL (65-115); Osmolality Calculated 296 mOsm/kg (285-295); Potassium 3.9 mmol/L (3.5-5.1); Sodium 141 mmol/L (136-145); Total Bilirubin 0.2 mg/dL (0.15-1.2); Total Protein 5.8 g/dL (6.6-8.7)
[2021-03-09 08:02] LABS: CA 27.29 94 U/mL (<38)
== END 2021-03-07 18:08 | disposition home or self-care (01) ==
PROVIDERS: PCP Family Medicine; Visit Provider Internal Medicine Hematology & Oncology
DX: C50.412 Malignant neoplasm of upper-outer quadrant of left female breast (principal); Z17.0 Estrogen receptor positive status [ER+]; E03.9 Hypothyroidism, unspecified; E78.2 Mixed hyperlipidemia; F32.9 Major depressive disorder, single episode, unspecified; G62.9 Polyneuropathy, unspecified; I10 Essential (primary) hypertension; I25.10 Atherosclerotic heart disease of native coronary artery without angina pectoris; K21.9 Gastro-esophageal reflux disease without esophagitis; M19.90 Unspecified osteoarthritis, unspecified site
CPT/HCPCS: 80053; 85025; 86300

== ENCOUNTER 2021-03-08 13:48 | Outpatient (CLI) | payer MEDICARE, OTHER, SELFPAY ==
--- NOTE | 2021-03-08 16:09 | ONC FU_ITS ---
Dr. 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 She had presented with a palpable mass in the left breast. The mammogram from 03/11/2013 showed a new stellate density in the left breast, corresponding to 1.3 cm lesion on ultrasound. On 04/02/2013 she underwent a lumpectomy of the left breast with a sentinel lymph node biopsy. Her surgical pathology showed a grade 2 infiltrating ductal carcinoma measuring 2.8 cm. Margins were negative, and there was no involvement in 3 sentinel lymph nodes. Her prognostic markers showed ER 95%, NV 95%, and HER-2/aldair 1+ by IHC, amplification ratio by FISH of 1.05. She was first seen by Dr. Rose on 04/13/2013. An Oncotype DX was low score 14 corresponding to 9% chance of distal recurrence following hormonal treatment. Adjuvant chemotherapy was not recommended. DEXA scan on 04/16/2013 showed normal bone density. She was given radiation to the left breast, completed on 07/09/2013 to a total dose of 5940 cGy. Adjuvant hormonal therapy with anastrozole 1 mg daily was initiated in June of 2013. Her medical illnesses include hypertension, hyperlipidemia, type II diabetes with peripheral neuropathy, coronary artery disease, GERD, hypothyroidism, essential tremor, degenerative arthritis, and depression. She is a nonsmoker. INTERIM HISTORY: She was hospitalized on 01/18/2017 with elevated blood pressure and chest pain. She was discharged home on amlodipine 5 mg daily, HCTZ 25 mg daily, and Spironolactone 25 mg daily. She had evidence of chronic diastolic heart failure. Echocardiogram showed adequate LV ejection fraction of 61%, but with grade 3 diastolic dysfunction. follow-up visit on 02/13/2017. At that time she was reporting significant increase in her back and joint pain, and her anastrozole was stopped . She was then seen by Dr. Jorge on 03/19/2017, and she then continued her hormonal therapy with tamoxifen 20 mg daily. her bone pain improved since she was off the anastrozole, She took tamoxifen till 01/22/2018 because of progressive substernal discomfort/back pain, which did improve with discontinuation of tamoxifen. So patient completed about 4-1/2 year of adjuvant hormonal therapy and decided not to take any other hormone therapy for remaining 6 months. Follow-up mammogram done on 07/02/2019 showed benign findings and follow-up in one year Echocardiogram done on 07/07/2019 showed ejection fraction more than 60% As per patient she did develop left neck pain in the first week of June 2019, along with left facial pain and swelling, her PMD gave her steroids and antibiotics with that but improved and then developed headache on left side for which she underwent CT scan of head on 10/20/2019 which showed no acute intracranial hemorrhage or edema But a new lytic area involving left formen magnum and ring of C1. Early metastatic lesion should be considered and bone scan was recommended Bone scan done on 08/24/2019 showed negative for metastatic disease. CT scan of abdomen pelvis done on 08/21/2019 for abdominal pain showed mild thickening with inflammatory stranding involving sigmoid colon in the left lower quadrant consistent with mild acute diverticulitis Hepatomegaly with diffuse fatty infiltration of the liver. [place] ventral abdominal wall hernia containing nonobstructed loops of small and large bowel. Next Left adnexal low-attenuation lesion measuring 4.1 x 4.2 cm this is indeterminant and neoplasm not excluded. CT PET scan done on 08/29/2019 showed 1.6 cm lesion in the left half of T7 vertebral body with an SUV of 15.9, indicating osseous metastatic disease. No additional osseous lesions are present. 2 cm soft tissue deposit along the surface of diaphragm at the medial right lung SUV 10.5, indicating malignant deposit. Additionally, there is an FDG positive right hilar lymph node likely malignant.And left ovarian mass seen on CT scan of chest abdomen done recently is a ovarian cyst and is FDG negative The C1 lesion was not in the field of view of current CT PET scan study Dr. Cat,radiologist was asked to review CT PET scan and correlate with CT scan of chest abdomen done on 08/21/2019 and bone scan done on 08/24/2019, as per his evaluation,.diaphragmatic implant is present on CT scan done in July 2019 and is unchanged in size on the current study. The left ovarian cyst is morphologically identical as well. Osseous lesion at T7 is not clearly evident on the bone scan, and expected finding as this lesion is not evident on CT scan image, but is clearly present with FDG, collectively this pattern indicates a very recently developed metastasis. Due to her elevated tumor marker and abnormal CT scan/PET scan she was started on Femara 2.5 mg along with monthly Xgeva on September 01, 2019 Follow-up CT PET scan done on 03/05/2020 showed interval sterilization of osseous metastatic disease at T7 Resolution of right diaphragmatic implant and right hilar adenopathy consistent with complete response to the therapy and Xgeva was changed to every 3-month on May 07, 2020And continued with daily Femara along with vitamin D and calcium supplement Came for follow-up, denies any specific complaints today, no fever chills, no nausea or vomiting, no diarrhea or constipation no hot flashes, tolerating Femara/vitamin D/calcium well along with 3 monthly Xgeva. Follow-up CT PET scan done on March 04, 2021 shows there is a recurrent disease in the right diaphragmatic surface implant measuring 2.7 x 1.5 cm SUV of 6.[address] PET scan done on March 05, 2020 Came for follow-up, denies any specific complaints, no fever chills, no nausea or vomiting, no diarrhea or constipation, tolerating Femara/vitamin D/calcium and 6 monthly Xgeva well Medications: AmLODIPine Besylate 1 (5 mg) Tablet Oral daily, Aspirin 1 (81 mg) Tablet Oral daily, Calcium 500+D 1 (500-400 mg - Units) Tablet Oral daily, Carbidopa-Levodopa ER 1 Tablet (of 50-200 mg) Tablet, controlled release Oral daily, Carvedilol 1.5 (25 mg) Tablet Oral b.i.d., Cetirizine HCl 1 Tablet (of 10 mg) Oral, Docusate Sodium 1 (100 mg) Tablet Oral PRN, Furosemide 1 Tablet (of 40 mg) Oral b.i.d., HYDROcodone-Acetaminophen 1 Tablet (of 5-325 mg) Oral q 4 hours PRN, Isosorbide Mononitrate CR 1 (120 mg) Tablet SR 24 HR Oral daily, Levothyroxine Sodium 1 (88 mcg) Tablet Oral daily, Losartan Potassium 1 (100 mg) Tablet Oral daily, Magnesium Oxide 1 (400 mg) Capsule Oral daily, MetFORMIN HCl 1 (500 mg) Tablet Oral b.i.d., Mucinex Allergy Tablet Oral, Nitroglycerin Tablet, sublingual Sublingual PRN, Ondansetron HCl 1 - 2 Tablet (of 4 mg) Oral q 4 hours PRN, oxyCODONE HCl 1 Tablet (of 5 mg) Oral t.i.d. PRN, Potassium Chloride Rasheeda ER 1 (10 meq) Tablet, controlled release Oral daily, Pravastatin Sodium 1 (80 mg) Tablet Oral daily, PreserVision AREDS 1 Tablet Oral daily, Primidone 1 (50 mg) Tablet Oral b.i.d., TraZODone HCl 1.5 (100 mg) Tablet Oral daily, Tresiba FlexTouch 20 Units Subcutaneous daily, Vitamin D 1 (2000 Units) Tablet Oral daily Allergies: bandaids , IBUPROFEN, Latex Gloves, Naproxen, and TraMADol HCl. Review of Systems: Review of Systems is not available for this patient. Vital Signs: Performed on Mar 08, 2021 14:29 Height - 66.00 in Temperature - 96.6 F (LOW) Pulse - 73 /min Respiration - 18 /min BP - 140/71 mm(hg) O2 Sat - 97 % Pain - 8 Fatigue - 10 Performance Status: 2 - Ambulatory/capable of all self-care, unable to perform any work activities. Up and about more than 50% of waking hours. (ECOG) Physical Examination: Respiratory - Lungs are clear to auscultation, Cardiovascular - Regular rate and rhythm of heart, Gastrointestinal - Soft, bowel sounds present, Extremities - 1+ edema bilaterally. Lab/Imaging: Most recent lab results are not available for this patient. Impression: [address] scan of head done on 08/20/2019, ordered by PMD for left-sided headache and left neck pain showed no acute intracranial hemorrhage or edema but new lytic area involving left foramen magnum and ring of C1, early metastatic lesion should be considered clinically, bone scan was recommendedAnd follow-up CT PET scan done on August 29, 2019 showed 1.6 cm lesion in the left top of T7 vertebral body with SUV of 15.9 indicating of osseous metastatic disease. No additional osseous lesions seen. 2 cm soft tissue deposit along the surface of the diaphragm at the medial right lung SUV 10.5 indicating malignant deposit and additional FDG positive right hilar lymph node and left ovarian mass seen on CT scan of abdomen done recently showed no FDG uptake. Patient was started on Femara/vitamin D/calcium/Xgeva on September 01, 2019 h/o . 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 Oncotype DX score was low risk, and adjuvant chemotherapy was not recommended. 2. She underwent left breast lumpectomy with axillary sentinel lymph node biopsy on 04/02/2013. 3. She was given radiation to the left breast, completed on 07/09/2013 to a total dose of 5940 cGy. 4. Adjuvant hormonal therapy with anastrozole 1mg daily was initiated in June 2013. Her other medical illnesses include: 4. Hypertension. 5. Hyperlipidemia. 6. Type II diabetes with peripheral neuropathy. 7. Coronary artery disease. 8. Chronic diastolic congestive heart failure. 9. GERD. 10. Hypothyroidism. 11. Essential tremor. 12. Degenerative arthritis. Chronic left leg swelling since left knee replacement about her ago 13. Depression. In January 2017 the anastrozole was stopped due to increased musculoskeletal pain. Her symptoms improve off the medication. In February she continued her adjuvant hormonal therapy with tamoxifen 20 mg daily. She has since then been doing better other than she has developed an itchy skin eruption, which likely is due to tamoxifen.Tamoxifen discontinued on 01/22/2018 because of substernal discomfort/back pain which improved with discontinuation of tamoxifenT he patient has completed 4-1/2 year of hormone therapy and now doesn't want to take anymore. Follow-up mammogram done on 07/02/2019 showed benign findings. Follow-up CT PET scan done on August 29, 2019 showed 1.6 cm lesion in the left half of T7 vertebra with SUV of 15.9 indicating bone mets, 2 cm soft tissue deposit along the surface of diaphragm at medial right lung SUV 10.5. And additional FDG positive right hilar lymph nodes and a left ovarian mass seen on CT scan of chest abdomen pelvis done previously is a ovarian cyst and is FDG negative. And her tumor marker was also elevated so she was started on Femara 2.5 mg along with monthly Xgeva on September 01, 2019, Follow-up CT PET scan done on February 03, 2020 showed sterilization of osseous metastatic disease at T7, resolution of right diaphragmatic implant and right hilar lymphadenopathy, E.g. excellent response to Femara which was continued Follow-up CT PET scan done on March 04, 2021 shows there is recurrent of disease in the right diaphragmatic surface implant measuring 2.7 x 1.5 cm with SUV of 6.7 no other abnormality seen Plan: Discussed with patient regarding her labs white blood count 8.6 hemoglobin 12.1 hematocrit 38.3 platelets 244,000 CMP within normal limits and CT PET scan which showed single right diaphragmatic surface lesion consistent with recurrence of disease Clinically, patient is doing well with no signs symptoms just of recurrence of disease but as per her follow-up CT PET scan showed there is a solitary right diaphragmatic implant lesion 2.7 x 1.5 cm with SUV of 6.7 consistent with recurrence of disease no other abnormality seen, patient is tolerating Femara very well, at this point we will discuss her CT PET scan finding with Dr. Cat if she think is a recurrence of disease, then we may consider switching her to another hormonal agent on the other hand if it is a stable finding then we will continue with same and she will return to clinic in 6 months with CBC CMP We will also consider changing her Xgeva to once a year as her follow-up CT PET scan shows no bone lesions. Signed By: Octaviano Marsh M.D. <<Signature on File>>
== END 2021-03-08 13:49 | disposition home or self-care (01) ==
LOC: ONCMED 13:54
PROVIDERS: PCP Family Medicine; Visit Provider Internal Medicine Hematology & Oncology
DX: C50.812 Malignant neoplasm of overlapping sites of left female breast (principal); Z17.0 Estrogen receptor positive status [ER+]; E03.9 Hypothyroidism, unspecified; E11.59 Type 2 diabetes mellitus with other circulatory complications; I25.10 Atherosclerotic heart disease of native coronary artery without angina pectoris; E78.5 Hyperlipidemia, unspecified; E11.42 Type 2 diabetes mellitus with diabetic polyneuropathy; I10 Essential (primary) hypertension; K21.9 Gastro-esophageal reflux disease without esophagitis; G25.0 Essential tremor; F32.9 Major depressive disorder, single episode, unspecified; Z79.811 Long term (current) use of aromatase inhibitors
CPT/HCPCS: 99214

== ENCOUNTER → 2021-10-03 14:49 | Outpatient (BNVA) | payer MEDICARE, OTHER, SELFPAY | PROVIDERS: PCP Family Medicine; Visit Provider Internal Medicine Cardiovascular Disease | DX: I11.0 Hypertensive heart disease with heart failure (principal); I50.33 Acute on chronic diastolic (congestive) heart failure; I50.32 Chronic diastolic (congestive) heart failure; R06.02 Shortness of breath; I25.10 Atherosclerotic heart disease of native coronary artery without angina pectoris; E78.2 Mixed hyperlipidemia; I34.0 Nonrheumatic mitral (valve) insufficiency | CPT/HCPCS: 80048; 83880 ==

== ENCOUNTER 2021-10-12 12:20 | Outpatient (CLI) | payer MEDICARE, OTHER, SELFPAY ==
[2021-10-12 13:28] LABS: Basophils % 0.4 %; Eosinophils # 0.1 10^3/uL (0.0-0.8); Eosinophils % 1.1 %; Hematocrit 37.1 % (37.0-47.0); Hemoglobin 12.8 g/dL (11.5-15.3); Lymphocytes # 2.6 10^3/uL (0.8-4.8); Lymphocytes % 31.5 %; Mean Corpuscular HGB Conc 34.5 g/dL (30.0-36.0); Mean Corpuscular Hemoglobin 31.8 pg (28.0-34.0); Mean Corpuscular Volume 92.3 fl (81-99); Mean Platelet Volume 10.2 fL (7.4-10.4); Monocytes # 0.6 10^3/uL (0.2-0.9); Monocytes % 7.9 %; Neutrophils # 4.76 10^3/uL (1.8-7.7); Neutrophils % 58.6 %; Nucleated Red Blood Cells % 0 %; Platelet Count 267 10^3/cmm (130-400); Red Blood Count 4.02 10^6/uL (4.1-5.3); Red Cell Distribution Width 13.3 % (12.1-15.1); White Blood Count 8.1 10^3/uL (4.0-10.0)
[2021-10-12 13:45] LABS: Alanine Aminotransferase < 5 U/L (0-33); Albumin Level 3.7 g/dL (3.5-5.2); Alkaline Phosphatase 102 IU/L (35-105); Anion Gap 18.1 (5-19); Aspartate Amino Transferase 10 U/L (0-32); Blood Urea Nitrogen 15 mg/dL (8-23); Calcium 8.5 mg/dL (8.5-10.5); Carbon Dioxide 27 mmol/L (22-29); Chloride 98 mmol/L (98-107); Globulin 2.7 g/dL (1.3-4.6); Glucose 159 mg/dL (65-115); Osmolality Calculated 292 mOsm/kg (285-295); Potassium 4.1 mmol/L (3.5-5.1); Sodium 139 mmol/L (136-145); Total Bilirubin 0.3 mg/dL (0.15-1.2); Total Protein 6.4 g/dL (6.6-8.7)
--- NOTE | 2021-10-12 16:12 | ONC FU_ITS ---
Dr. 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 She had presented with a palpable mass in the left breast. The mammogram from 03/11/2013 showed a new stellate density in the left breast, corresponding to 1.3 cm lesion on ultrasound. On 04/02/2013 she underwent a lumpectomy of the left breast with a sentinel lymph node biopsy. Her surgical pathology showed a grade 2 infiltrating ductal carcinoma measuring 2.8 cm. Margins were negative, and there was no involvement in 3 sentinel lymph nodes. Her prognostic markers showed ER 95%, IL 95%, and HER-2/aldair 1+ by IHC, amplification ratio by FISH of 1.05. She was first seen by Dr. Rose on 04/13/2013. An Oncotype DX was low score 14 corresponding to 9% chance of distal recurrence following hormonal treatment. Adjuvant chemotherapy was not recommended. DEXA scan on 04/16/2013 showed normal bone density. She was given radiation to the left breast, completed on 07/09/2013 to a total dose of 5940 cGy. Adjuvant hormonal therapy with anastrozole 1 mg daily was initiated in June of 2013. Her medical illnesses include hypertension, hyperlipidemia, type II diabetes with peripheral neuropathy, coronary artery disease, GERD, hypothyroidism, essential tremor, degenerative arthritis, and depression. She is a nonsmoker. INTERIM HISTORY: She was hospitalized on 01/18/2017 with elevated blood pressure and chest pain. She was discharged home on amlodipine 5 mg daily, HCTZ 25 mg daily, and Spironolactone 25 mg daily. She had evidence of chronic diastolic heart failure. Echocardiogram showed adequate LV ejection fraction of 61%, but with grade 3 diastolic dysfunction. follow-up visit on 02/13/2017. At that time she was reporting significant increase in her back and joint pain, and her anastrozole was stopped . She was then seen by Dr. Jorge on 03/19/2017, and she then continued her hormonal therapy with tamoxifen 20 mg daily. her bone pain improved since she was off the anastrozole, She took tamoxifen till 01/22/2018 because of progressive substernal discomfort/back pain, which did improve with discontinuation of tamoxifen. So patient completed about 4-1/2 year of adjuvant hormonal therapy and decided not to take any other hormone therapy for remaining 6 months. Follow-up mammogram done on 07/02/2019 showed benign findings and follow-up in one year Echocardiogram done on 07/07/2019 showed ejection fraction more than 60% As per patient she did develop left neck pain in the first week of June 2019, along with left facial pain and swelling, her PMD gave her steroids and antibiotics with that but improved and then developed headache on left side for which she underwent CT scan of head on 10/20/2019 which showed no acute intracranial hemorrhage or edema But a new lytic area involving left formen magnum and ring of C1. Early metastatic lesion should be considered and bone scan was recommended Bone scan done on 08/24/2019 showed negative for metastatic disease. CT scan of abdomen pelvis done on 08/21/2019 for abdominal pain showed mild thickening with inflammatory stranding involving sigmoid colon in the left lower quadrant consistent with mild acute diverticulitis Hepatomegaly with diffuse fatty infiltration of the liver. [place] ventral abdominal wall hernia containing nonobstructed loops of small and large bowel. Next Left adnexal low-attenuation lesion measuring 4.1 x 4.2 cm this is indeterminant and neoplasm not excluded. CT PET scan done on 08/29/2019 showed 1.6 cm lesion in the left half of T7 vertebral body with an SUV of 15.9, indicating osseous metastatic disease. No additional osseous lesions are present. 2 cm soft tissue deposit along the surface of diaphragm at the medial right lung SUV 10.5, indicating malignant deposit. Additionally, there is an FDG positive right hilar lymph node likely malignant.And left ovarian mass seen on CT scan of chest abdomen done recently is a ovarian cyst and is FDG negative The C1 lesion was not in the field of view of current CT PET scan study Dr. Cat,radiologist was asked to review CT PET scan and correlate with CT scan of chest abdomen done on 08/21/2019 and bone scan done on 08/24/2019, as per his evaluation,.diaphragmatic implant is present on CT scan done in July 2019 and is unchanged in size on the current study. The left ovarian cyst is morphologically identical as well. Osseous lesion at T7 is not clearly evident on the bone scan, and expected finding as this lesion is not evident on CT scan image, but is clearly present with FDG, collectively this pattern indicates a very recently developed metastasis. Due to her elevated tumor marker and abnormal CT scan/PET scan she was started on Femara 2.5 mg along with monthly Xgeva on September 01, 2019 Follow-up CT PET scan done on 03/05/2020 showed interval sterilization of osseous metastatic disease at T7 Resolution of right diaphragmatic implant and right hilar adenopathy consistent with complete response to the therapy and Xgeva was changed to every 3-month on May 07, 2020And continued with daily Femara along with vitamin D and calcium supplement Came for follow-up, denies any specific complaints today, no fever chills, no nausea or vomiting, no diarrhea or constipation no hot flashes, tolerating Femara/vitamin D/calcium well along with 3 monthly [address]geva. Follow-up CT PET scan done on March 04, 2021 shows there is a recurrent disease in the right diaphragmatic surface implant measuring 2.7 x 1.5 cm SUV of 6.[address] PET scan done on March 05, 2020 Came for follow-up, denies any specific complaints except progressive back pain, denies any trauma to her back, patient has history of chronic back problem in the past and also use a walker to move around. Denies any fever chills denies any nausea or vomiting denies any diarrhea or constipation denies any abdominal pain, tolerating Femara well otherwise Medications: AmLODIPine Besylate 1 (5 mg) Tablet Oral daily, Aspirin 1 (81 mg) Tablet Oral daily, Calcium 500+D 1 (500-400 mg - Units) Tablet Oral daily, Carbidopa-Levodopa ER 1 Tablet (of 50-200 mg) Tablet, controlled release Oral daily, Carvedilol 1.5 (25 mg) Tablet Oral b.i.d., Cetirizine HCl 1 Tablet (of 10 mg) Oral, Docusate Sodium 1 (100 mg) Tablet Oral PRN, Famotidine 1 (40 mg) Tablet Oral b.i.d., Furosemide 1 Tablet (of 40 mg) Oral b.i.d., Isosorbide Mononitrate CR 1 (120 mg) Tablet SR 24 HR Oral daily, Levothyroxine Sodium 1 (88 mcg) Tablet Oral daily, Losartan Potassium 1 (100 mg) Tablet Oral daily, Magnesium Oxide 1 (400 mg) Capsule Oral daily, MetFORMIN HCl 1 (500 mg) Tablet Oral b.i.d., Montelukast Sodium 1 (10 mg) Tablet Oral daily, Mucinex Allergy Tablet Oral, Nitroglycerin Tablet, sublingual Sublingual PRN, Ondansetron HCl 1 - 2 Tablet (of 4 mg) Oral q 4 hours PRN, oxyCODONE HCl 1 Tablet (of 5 mg) Oral t.i.d. PRN, Potassium Chloride Rasheeda ER 1 (10 meq) Tablet, controlled release Oral daily, Pravastatin Sodium 1 (80 mg) Tablet Oral daily, PreserVision AREDS 1 Tablet Oral daily, Primidone 1 (50 mg) Tablet Oral b.i.d., TraZODone HCl 1.5 (100 mg) Tablet Oral daily, Tresiba FlexTouch 20 Units Subcutaneous daily, Vitamin D 1 (2000 Units) Tablet Oral daily Allergies: bandaids , IBUPROFEN, Latex Gloves, Naproxen, and TraMADol HCl. Review of Systems: Review of Systems is not available for this patient. Vital Signs: Performed on Oct 12, 2021 14:18 Height - 66.00 in Weight - 261.2 lbs (LOW) BSA - 2.24 sq.m BMI - 42.16 (HIGH) Temperature - 97.7 F (LOW) Pulse - 73 /min Respiration - 20 /min BP - 141/72 mm(hg) (HIGH) O2 Sat - 97 % Pain - 7 Fatigue - 10 Performance Status: 2 - Ambulatory/capable of all self-care, unable to perform any work activities. Up and about more than 50% of waking hours. (ECOG) Physical Examination: Respiratory - Lungs are clear to auscultation, Cardiovascular - Regular rate and rhythm of heart, Gastrointestinal - Soft, bowel sounds present, Extremities - Trace edema. Lab/Imaging: Most recent lab results are not available for this patient. Impression: [address] scan of head done on 08/20/2019, ordered by PMD for left-sided headache and left neck pain showed no acute intracranial hemorrhage or edema but new lytic area involving left foramen magnum and ring of C1, early metastatic lesion should be considered clinically, bone scan was recommendedAnd follow-up CT PET scan done on August 29, 2019 showed 1.6 cm lesion in the left top of T7 vertebral body with SUV of 15.9 indicating of osseous metastatic disease. No additional osseous lesions seen. 2 cm soft tissue deposit along the surface of the diaphragm at the medial right lung SUV 10.5 indicating malignant deposit and additional FDG positive right hilar lymph node and left ovarian mass seen on CT scan of abdomen done recently showed no FDG uptake. Patient was started on Femara/vitamin D/calcium/Xgeva on September 01, 2019 h/o . 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 Oncotype DX score was low risk, and adjuvant chemotherapy was not recommended. 2. She underwent left breast lumpectomy with axillary sentinel lymph node biopsy on 04/02/2013. 3. She was given radiation to the left breast, completed on 07/09/2013 to a total dose of 5940 cGy. 4. Adjuvant hormonal therapy with anastrozole 1mg daily was initiated in June 2013. Her other medical illnesses include: 4. Hypertension. 5. Hyperlipidemia. 6. Type II diabetes with peripheral neuropathy. 7. Coronary artery disease. 8. Chronic diastolic congestive heart failure. 9. GERD. 10. Hypothyroidism. 11. Essential tremor. 12. Degenerative arthritis. Chronic left leg swelling since left knee replacement about her ago 13. Depression. In January 2017 the anastrozole was stopped due to increased musculoskeletal pain. Her symptoms improve off the medication. In February she continued her adjuvant hormonal therapy with tamoxifen 20 mg daily. She has since then been doing better other than she has developed an itchy skin eruption, which likely is due to tamoxifen.Tamoxifen discontinued on 01/22/2018 because of substernal discomfort/back pain which improved with discontinuation of tamoxifenT he patient has completed 4-1/2 year of hormone therapy and now doesn't want to take anymore. Follow-up mammogram done on 07/02/2019 showed benign findings. Follow-up CT PET scan done on August 29, 2019 showed 1.6 cm lesion in the left half of T7 vertebra with SUV of 15.9 indicating bone mets, 2 cm soft tissue deposit along the surface of diaphragm at medial right lung SUV 10.5. And additional FDG positive right hilar lymph nodes and a left ovarian mass seen on CT scan of chest abdomen pelvis done previously is a ovarian cyst and is FDG negative. And her tumor marker was also elevated so she was started on Femara 2.5 mg along with monthly Xgeva on September 01, 2019, Follow-up CT PET scan done on February 03, 2020 showed sterilization of osseous metastatic disease at T7, resolution of right diaphragmatic implant and right hilar lymphadenopathy, E.g. excellent response to Femara which was continued Follow-up CT PET scan done on March 04, 2021 shows there is recurrent of disease in the right diaphragmatic surface implant measuring 2.7 x 1.5 cm with SUV of 6.7 no other abnormality seen Plan: Discussed with patient regarding her labs white blood count 8.1 hemoglobin 12.8 hematocrit 37.1 platelets 267,000 CMP within normal limits except glucose 159 Clinically, patient doing reasonably well with no new signs symptom except progressive chronic back pain etiology remains unclear could be musculoskeletal or metastatic disease. Patient is on Femara, tolerating well, and last PET scan done on March 04, 2021 shows recurrent disease in the right diaphragmatic surface implant measuring 2.7 x 1.5 with SUV of 6.7, Case was discussed with Dr. Cat, radiologist who suggested repeating CT PET scan in 4 to 6 months, at this point we will consider repeating her CT PET scan with special attention to diaphragmatic implant and spine in the meantime she will continue with Femara along with vitamin D and calcium and return to clinic after CT PET scan for further discussion Signed By: Octaviano Marsh M.D. <<Signature on File>>
== END 2021-10-12 12:21 | disposition home or self-care (01) ==
PROVIDERS: PCP Family Medicine; Visit Provider Internal Medicine Hematology & Oncology
DX: C50.812 Malignant neoplasm of overlapping sites of left female breast (principal); Z17.0 Estrogen receptor positive status [ER+]; C79.51 Secondary malignant neoplasm of bone; Z90.12 Acquired absence of left breast and nipple; Z79.811 Long term (current) use of aromatase inhibitors; I10 Essential (primary) hypertension; E78.5 Hyperlipidemia, unspecified; E11.42 Type 2 diabetes mellitus with diabetic polyneuropathy; E11.59 Type 2 diabetes mellitus with other circulatory complications; I25.10 Atherosclerotic heart disease of native coronary artery without angina pectoris; I50.30 Unspecified diastolic (congestive) heart failure; K21.9 Gastro-esophageal reflux disease without esophagitis; E03.9 Hypothyroidism, unspecified; G25.0 Essential tremor; M19.90 Unspecified osteoarthritis, unspecified site; F32.9 Major depressive disorder, single episode, unspecified; Z96.652 Presence of left artificial knee joint; Z79.899 Other long term (current) drug therapy; Z92.21 Personal history of antineoplastic chemotherapy; Z92.3 Personal history of irradiation
CPT/HCPCS: 36415; 80053; 85025; 99214

== ENCOUNTER 2021-11-08 08:46 | Outpatient (CLI) | payer MEDICARE, OTHER, SELFPAY ==
--- NOTE | 2021-11-08 11:05 | ONC FU_ITS ---
Dr. 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 She had presented with a palpable mass in the left breast. The mammogram from 03/11/2013 showed a new stellate density in the left breast, corresponding to 1.3 cm lesion on ultrasound. On 04/02/2013 she underwent a lumpectomy of the left breast with a sentinel lymph node biopsy. Her surgical pathology showed a grade 2 infiltrating ductal carcinoma measuring 2.8 cm. Margins were negative, and there was no involvement in 3 sentinel lymph nodes. Her prognostic markers showed ER 95%, NC 95%, and HER-2/aldair 1+ by IHC, amplification ratio by FISH of 1.05. She was first seen by Dr. Rose on 04/13/2013. An Oncotype DX was low score 14 corresponding to 9% chance of distal recurrence following hormonal treatment. Adjuvant chemotherapy was not recommended. DEXA scan on 04/16/2013 showed normal bone density. She was given radiation to the left breast, completed on 07/09/2013 to a total dose of 5940 cGy. Adjuvant hormonal therapy with anastrozole 1 mg daily was initiated in June of 2013. Her medical illnesses include hypertension, hyperlipidemia, type II diabetes with peripheral neuropathy, coronary artery disease, GERD, hypothyroidism, essential tremor, degenerative arthritis, and depression. She is a nonsmoker. INTERIM HISTORY: She was hospitalized on 01/18/2017 with elevated blood pressure and chest pain. She was discharged home on amlodipine 5 mg daily, HCTZ 25 mg daily, and Spironolactone 25 mg daily. She had evidence of chronic diastolic heart failure. Echocardiogram showed adequate LV ejection fraction of 61%, but with grade 3 diastolic dysfunction. follow-up visit on 02/13/2017. At that time she was reporting significant increase in her back and joint pain, and her anastrozole was stopped . She was then seen by Dr. Jorge on 03/19/2017, and she then continued her hormonal therapy with tamoxifen 20 mg daily. her bone pain improved since she was off the anastrozole, She took tamoxifen till 01/22/2018 because of progressive substernal discomfort/back pain, which did improve with discontinuation of tamoxifen. So patient completed about 4-1/2 year of adjuvant hormonal therapy and decided not to take any other hormone therapy for remaining 6 months. Follow-up mammogram done on 07/02/2019 showed benign findings and follow-up in one year Echocardiogram done on 07/07/2019 showed ejection fraction more than 60% As per patient she did develop left neck pain in the first week of June 2019, along with left facial pain and swelling, her PMD gave her steroids and antibiotics with that but improved and then developed headache on left side for which she underwent CT scan of head on 10/20/2019 which showed no acute intracranial hemorrhage or edema But a new lytic area involving left formen magnum and ring of C1. Early metastatic lesion should be considered and bone scan was recommended Bone scan done on 08/24/2019 showed negative for metastatic disease. CT scan of abdomen pelvis done on 08/21/2019 for abdominal pain showed mild thickening with inflammatory stranding involving sigmoid colon in the left lower quadrant consistent with mild acute diverticulitis Hepatomegaly with diffuse fatty infiltration of the liver. [place] ventral abdominal wall hernia containing nonobstructed loops of small and large bowel. Next Left adnexal low-attenuation lesion measuring 4.1 x 4.2 cm this is indeterminant and neoplasm not excluded. CT PET scan done on 08/29/2019 showed 1.6 cm lesion in the left half of T7 vertebral body with an SUV of 15.9, indicating osseous metastatic disease. No additional osseous lesions are present. 2 cm soft tissue deposit along the surface of diaphragm at the medial right lung SUV 10.5, indicating malignant deposit. Additionally, there is an FDG positive right hilar lymph node likely malignant.And left ovarian mass seen on CT scan of chest abdomen done recently is a ovarian cyst and is FDG negative The C1 lesion was not in the field of view of current CT PET scan study Dr. Cat,radiologist was asked to review CT PET scan and correlate with CT scan of chest abdomen done on 08/21/2019 and bone scan done on 08/24/2019, as per his evaluation,.diaphragmatic implant is present on CT scan done in July 2019 and is unchanged in size on the current study. The left ovarian cyst is morphologically identical as well. Osseous lesion at T7 is not clearly evident on the bone scan, and expected finding as this lesion is not evident on CT scan image, but is clearly present with FDG, collectively this pattern indicates a very recently developed metastasis. Due to her elevated tumor marker and abnormal CT scan/PET scan she was started on Femara 2.5 mg along with monthly Xgeva on September 01, 2019 Follow-up CT PET scan done on 03/05/2020 showed interval sterilization of osseous metastatic disease at T7 Resolution of right diaphragmatic implant and right hilar adenopathy consistent with complete response to the therapy and Xgeva was changed to every 3-month on May 07, 2020And continued with daily Femara along with vitamin D and calcium supplement Follow-up CT PET scan done on March 04, 2021 shows there is a recurrent disease in the right diaphragmatic surface implant measuring 2.7 x 1.5 cm SUV of 6.[address] PET scan done on March 05, 2020 Follow-up CT PET scan done on October 28, 2021 showed there has been development of multiple new pulmonary nodules consistent with recurrence. Present in all 3 right lung lobes, measuring up to 1.2 cm with significant FDG activity. Right-sided diaphragmatic implant is difficult to characterize due to respiratory motion but SUV has gone up to 9.5 from 6.7. There is recurrent activity at T7 with SUV of 7.7. Right hilar uptake now has SUV of 5.4, suspicious for recurrence. s/p Femara/vitamin D/calcium well along with 3 monthly Xgeva.. Femara was discontinued on November 08, 2021 as follow-up CT PET scan shows disease progression and because of poor performance status, patient has morbid obesity, COPD on home oxygen, she was switched to Faslodex 500 mg IM day 1, 15 and 29, monthly thereafter along with Arimidex 1 mg p.o. daily Came for follow-up, denies any specific complaint except generalized weakness and fatigue, no fever chills, no nausea or vomiting, no diarrhea or constipation, no new bony pains, no mid back pain, no hemoptysis or hematemesis, no jaundice, no headaches blurred vision double vision, tolerating Femara well along with vitamin D and calcium. Patient is on home oxygen for COPD Medications: AmLODIPine Besylate 1 (5 mg) Tablet Oral daily, Aspirin 1 (81 mg) Tablet Oral daily, Calcium 500+D 1 (500-400 mg - Units) Tablet Oral daily, Carbidopa-Levodopa ER 1 Tablet (of 50-200 mg) Tablet, controlled release Oral daily, Carvedilol 1.5 (25 mg) Tablet Oral b.i.d., Cetirizine HCl 1 Tablet (of 10 mg) Oral, Docusate Sodium 1 (100 mg) Tablet Oral PRN, Famotidine 1 (40 mg) Tablet Oral b.i.d., Furosemide 1 Tablet (of 40 mg) Oral b.i.d., Isosorbide Mononitrate CR 1 (120 mg) Tablet SR 24 HR Oral daily, Levothyroxine Sodium 1 (88 mcg) Tablet Oral daily, Losartan Potassium 1 (100 mg) Tablet Oral daily, Magnesium Oxide 1 (400 mg) Capsule Oral daily, MetFORMIN HCl 1 (500 mg) Tablet Oral b.i.d., Montelukast Sodium 1 (10 mg) Tablet Oral daily, Mucinex Allergy Tablet Oral, Nitroglycerin Tablet, sublingual Sublingual PRN, Ondansetron HCl 1 - 2 Tablet (of 4 mg) Oral q 4 hours PRN, oxyCODONE HCl 1 Tablet (of 5 mg) Oral t.i.d. PRN, Potassium Chloride Rasheeda ER 1 (10 meq) Tablet, controlled release Oral daily, Pravastatin Sodium 1 (80 mg) Tablet Oral daily, PreserVision AREDS 1 Tablet Oral daily, Primidone 1 (50 mg) Tablet Oral b.i.d., TraZODone HCl 1.5 (100 mg) Tablet Oral daily, Tresiba FlexTouch 20 Units Subcutaneous daily, Vitamin D 1 (2000 Units) Tablet Oral daily Allergies: bandaids , IBUPROFEN, Latex Gloves, Naproxen, and TraMADol HCl. Review of Systems: Review of Systems is not available for this patient. Vital Signs: Vitals are not available for this patient. Performance Status: 2 - Ambulatory/capable of all self-care, unable to perform any work activities. Up and about more than 50% of waking hours. (ECOG) Physical Examination: Respiratory - Poor air entry, Cardiovascular - Regular rate and rhythm of heart, Gastrointestinal - Soft, bowel sounds present, Extremities - Trace edema bilaterally. Lab/Imaging: Most recent lab results are not available for this patient. Impression: [address] scan of head done on 08/20/2019, ordered by PMD for left-sided headache and left neck pain showed no acute intracranial hemorrhage or edema but new lytic area involving left foramen magnum and ring of C1, early metastatic lesion should be considered clinically, bone scan was recommendedAnd follow-up CT PET scan done on August 29, 2019 showed 1.6 cm lesion in the left top of T7 vertebral body with SUV of 15.9 indicating of osseous metastatic disease. No additional osseous lesions seen. 2 cm soft tissue deposit along the surface of the diaphragm at the medial right lung SUV 10.5 indicating malignant deposit and additional FDG positive right hilar lymph node and left ovarian mass seen on CT scan of abdomen done recently showed no FDG uptake. Patient was started on Femara/vitamin D/calcium/Xgeva on September 01, 2019 h/o . 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 Oncotype DX score was low risk, and adjuvant chemotherapy was not recommended. 2. She underwent left breast lumpectomy with axillary sentinel lymph node biopsy on 04/02/2013. 3. She was given radiation to the left breast, completed on 07/09/2013 to a total dose of 5940 cGy. 4. Adjuvant hormonal therapy with anastrozole 1mg daily was initiated in June 2013. Her other medical illnesses include: 4. Hypertension. 5. Hyperlipidemia. 6. Type II diabetes with peripheral neuropathy. 7. Coronary artery disease. 8. Chronic diastolic congestive heart failure. 9. GERD. 10. Hypothyroidism. 11. Essential tremor. 12. Degenerative arthritis. Chronic left leg swelling since left knee replacement about her ago 13. Depression. In January 2017 the anastrozole was stopped due to increased musculoskeletal pain. Her symptoms improve off the medication. In February she continued her adjuvant hormonal therapy with tamoxifen 20 mg daily. She has since then been doing better other than she has developed an itchy skin eruption, which likely is due to tamoxifen.Tamoxifen discontinued on 01/22/2018 because of substernal discomfort/back pain which improved with discontinuation of tamoxifenT he patient has completed 4-1/2 year of hormone therapy and now doesn't want to take anymore. Follow-up mammogram done on 07/02/2019 showed benign findings. Follow-up CT PET scan done on August 29, 2019 showed 1.6 cm lesion in the left half of T7 vertebra with SUV of 15.9 indicating bone mets, 2 cm soft tissue deposit along the surface of diaphragm at medial right lung SUV 10.5. And additional FDG positive right hilar lymph nodes and a left ovarian mass seen on CT scan of chest abdomen pelvis done previously is a ovarian cyst and is FDG negative. And her tumor marker was also elevated so she was started on Femara 2.5 mg along with monthly Xgeva on September 01, 2019, Follow-up CT PET scan done on February 03, 2020 showed sterilization of osseous metastatic disease at T7, resolution of right diaphragmatic implant and right hilar lymphadenopathy, E.g. excellent response to Femara which was continued Follow-up CT PET scan done on March 04, 2021 shows there is recurrent of disease in the right diaphragmatic surface implant measuring 2.7 x 1.5 cm with SUV of 6.7 no other abnormality seen Plan: Discussed with patient regarding her follow-up CT PET scan which was done on October 28, 2021 shows multiple new FDG positive right lung pulmonary nodules representing recurrence. Progression of right diaphragmatic implant. Recurrence of osseous metastatic disease at T7. Suspicious right hilar node Clinically, patient is doing well with no new signs symptoms but her follow-up CT PET scan shows disease progression, new pulmonary nodules and reactivation at T7 patient has no new symptoms including mid back pain, but she has morbid obesity, on home oxygen, with limited mobility, treatment including Ibrance/Faslodex or Faslodex/Arimidex or Faslodex alone were discussed, considering her poor performance status and comorbid condition and related side effect and toxicity with Ibrance, patient and her son opted for Faslodex/Arimidex. All the side effect possible benefits associated with Faslodex/Arimidex including but not limited to hot flashes, generalized weakness and fatigue, mood swings, musculoskeletal discomfort, as mentioned earlier she was started on Arimidex as adjuvant at the time of diagnosis, she took it for 3 years and then because of progressive musculoskeletal discomfort he was switched to tamoxifen. But now we will rechallenge her, if patient could not tolerate Arimidex then we may continue with Faslodex alone. Patient was advised that Ibrance/Faslodex is a preferred regimen and also there is a significant side effect related to this regimen. As mentioned above patient and her son opted for Faslodex/Arimidex, will obtain approval from her insurance and then she will return to clinic 1 month after initiating Faslodex, which will be given as a 500 mg IM day 1, day 15 and d29 followed by monthly along with a daily Arimidex and will also change her Xgeva to every month and repeat her CT PET scan in 4 months to assess the response. We will also check BRCA 1/2 status. Return to clinic 1 month after initiating hormonal therapy with CBC CMP Signed By: Octaviano Marsh M.D. <<Signature on File>>
== END 2021-11-08 08:47 | disposition home or self-care (01) ==
PROVIDERS: PCP Family Medicine; Visit Provider Internal Medicine Hematology & Oncology
DX: C79.51 Secondary malignant neoplasm of bone (principal); C50.812 Malignant neoplasm of overlapping sites of left female breast; E11.9 Type 2 diabetes mellitus without complications; I25.10 Atherosclerotic heart disease of native coronary artery without angina pectoris; K21.9 Gastro-esophageal reflux disease without esophagitis; E03.9 Hypothyroidism, unspecified; I10 Essential (primary) hypertension; Z17.0 Estrogen receptor positive status [ER+]; Z79.899 Other long term (current) drug therapy
CPT/HCPCS: 36415; 99214

== ENCOUNTER 2021-11-13 10:02 | Outpatient (CLI) | payer MEDICARE, OTHER, SELFPAY ==
[2021-11-13] MEDS: denosumab 120 mg SDV SUBCUT (10:35)
[2021-11-13] MEDS: fulvestrant 250 mg/5 mL Syringe 500 MG IM (10:55)
== END 2021-11-13 10:03 | disposition home or self-care (01) ==
LOC: ONCMED 10:09
PROVIDERS: PCP Family Medicine; Visit Provider Internal Medicine Hematology & Oncology
DX: M79.89 Other specified soft tissue disorders (principal); I25.10 Atherosclerotic heart disease of native coronary artery without angina pectoris; I50.9 Heart failure, unspecified; I10 Essential (primary) hypertension; E78.5 Hyperlipidemia, unspecified; I34.0 Nonrheumatic mitral (valve) insufficiency
CPT/HCPCS: 96372; 96402; J0897; J9395

== ENCOUNTER 2021-11-27 08:28 | Outpatient (CLI) | payer MEDICARE, MEDICAID, SELFPAY ==
[2021-11-27] MEDS: fulvestrant 250 mg/5 mL Syringe 500 MG IM (09:00)
== END 2021-11-27 08:29 | disposition home or self-care (01) ==
PROVIDERS: PCP Family Medicine; Visit Provider Internal Medicine Hematology & Oncology
DX: C50.412 Malignant neoplasm of upper-outer quadrant of left female breast (principal); Z17.0 Estrogen receptor positive status [ER+]; Z79.818 Long term (current) use of other agents affecting estrogen receptors and estrogen levels
CPT/HCPCS: 96402; J9395

== ENCOUNTER 2021-12-14 11:10 | Outpatient (CLI) | payer MEDICARE, MEDICAID, SELFPAY ==
[2021-12-14 11:52] LABS: Basophils % 0.2 %; Eosinophils # 0.1 10^3/uL (0.0-0.8); Eosinophils % 1.1 %; Hematocrit 39.5 % (37.0-47.0); Hemoglobin 12.8 g/dL (11.5-15.3); Lymphocytes # 2.3 10^3/uL (0.8-4.8); Lymphocytes % 28.1 %; Mean Corpuscular HGB Conc 32.4 g/dL (30.0-36.0); Mean Corpuscular Hemoglobin 31.5 pg (28.0-34.0); Mean Corpuscular Volume 97.3 fl (81-99); Mean Platelet Volume 9.6 fL (7.4-10.4); Monocytes # 0.5 10^3/uL (0.2-0.9); Monocytes % 6.7 %; Neutrophils # 5.09 10^3/uL (1.8-7.7); Neutrophils % 63.3 %; Nucleated Red Blood Cells % 0 %; Platelet Count 258 10^3/cmm (130-400); Red Blood Count 4.06 10^6/uL (4.1-5.3); White Blood Count 8.1 10^3/uL (4.0-10.0)
[2021-12-14 12:17] LABS: Alanine Aminotransferase < 5 U/L (0-33); Albumin Level 3.8 g/dL (3.5-5.2); Alkaline Phosphatase 102 IU/L (35-105); Anion Gap 22.6 (5-19); Aspartate Amino Transferase 11 U/L (0-32); Blood Urea Nitrogen 18 mg/dL (8-23); Calcium 8.1 mg/dL (8.5-10.5); Carbon Dioxide 23 mmol/L (22-29); Chloride 95 mmol/L (98-107); Globulin 2.6 g/dL (1.3-4.6); Glucose 207 mg/dL (65-115); Osmolality Calculated 290 mOsm/kg (285-295); Potassium 4.6 mmol/L (3.5-5.1); Sodium 136 mmol/L (136-145); Total Bilirubin 0.2 mg/dL (0.15-1.2); Total Protein 6.4 g/dL (6.6-8.7)
[2021-12-14] MEDS: denosumab 120 mg SDV SUBCUT (14:20)
[2021-12-14] MEDS: fulvestrant 250 mg/5 mL Syringe 500 MG IM (14:24)
--- NOTE | 2021-12-14 15:28 | ONC FU_ITS ---
Dr. 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 She had presented with a palpable mass in the left breast. The mammogram from 03/11/2013 showed a new stellate density in the left breast, corresponding to 1.3 cm lesion on ultrasound. On 04/02/2013 she underwent a lumpectomy of the left breast with a sentinel lymph node biopsy. Her surgical pathology showed a grade 2 infiltrating ductal carcinoma measuring 2.8 cm. Margins were negative, and there was no involvement in 3 sentinel lymph nodes. Her prognostic markers showed ER 95%, MT 95%, and HER-2/aldair 1+ by IHC, amplification ratio by FISH of 1.05. She was first seen by Dr. Rose on 04/13/2013. An Oncotype DX was low score 14 corresponding to 9% chance of distal recurrence following hormonal treatment. Adjuvant chemotherapy was not recommended. DEXA scan on 04/16/2013 showed normal bone density. She was given radiation to the left breast, completed on 07/09/2013 to a total dose of 5940 cGy. Adjuvant hormonal therapy with anastrozole 1 mg daily was initiated in June of 2013. Her medical illnesses include hypertension, hyperlipidemia, type II diabetes with peripheral neuropathy, coronary artery disease, GERD, hypothyroidism, essential tremor, degenerative arthritis, and depression. She is a nonsmoker. INTERIM HISTORY: She was hospitalized on 01/18/2017 with elevated blood pressure and chest pain. She was discharged home on amlodipine 5 mg daily, HCTZ 25 mg daily, and Spironolactone 25 mg daily. She had evidence of chronic diastolic heart failure. Echocardiogram showed adequate LV ejection fraction of 61%, but with grade 3 diastolic dysfunction. follow-up visit on 02/13/2017. At that time she was reporting significant increase in her back and joint pain, and her anastrozole was stopped . She was then seen by Dr. Jorge on 03/19/2017, and she then continued her hormonal therapy with tamoxifen 20 mg daily. her bone pain improved since she was off the anastrozole, She took tamoxifen till 01/22/2018 because of progressive substernal discomfort/back pain, which did improve with discontinuation of tamoxifen. So patient completed about 4-1/2 year of adjuvant hormonal therapy and decided not to take any other hormone therapy for remaining 6 months. Follow-up mammogram done on 07/02/2019 showed benign findings and follow-up in one year Echocardiogram done on 07/07/2019 showed ejection fraction more than 60% As per patient she did develop left neck pain in the first week of June 2019, along with left facial pain and swelling, her PMD gave her steroids and antibiotics with that but improved and then developed headache on left side for which she underwent CT scan of head on 10/20/2019 which showed no acute intracranial hemorrhage or edema But a new lytic area involving left formen magnum and ring of C1. Early metastatic lesion should be considered and bone scan was recommended Bone scan done on 08/24/2019 showed negative for metastatic disease. CT scan of abdomen pelvis done on 08/21/2019 for abdominal pain showed mild thickening with inflammatory stranding involving sigmoid colon in the left lower quadrant consistent with mild acute diverticulitis Hepatomegaly with diffuse fatty infiltration of the liver. [place] ventral abdominal wall hernia containing nonobstructed loops of small and large bowel. Next Left adnexal low-attenuation lesion measuring 4.1 x 4.2 cm this is indeterminant and neoplasm not excluded. CT PET scan done on 08/29/2019 showed 1.6 cm lesion in the left half of T7 vertebral body with an SUV of 15.9, indicating osseous metastatic disease. No additional osseous lesions are present. 2 cm soft tissue deposit along the surface of diaphragm at the medial right lung SUV 10.5, indicating malignant deposit. Additionally, there is an FDG positive right hilar lymph node likely malignant.And left ovarian mass seen on CT scan of chest abdomen done recently is a ovarian cyst and is FDG negative The C1 lesion was not in the field of view of current CT PET scan study Dr. Cat,radiologist was asked to review CT PET scan and correlate with CT scan of chest abdomen done on 08/21/2019 and bone scan done on 08/24/2019, as per his evaluation,.diaphragmatic implant is present on CT scan done in July 2019 and is unchanged in size on the current study. The left ovarian cyst is morphologically identical as well. Osseous lesion at T7 is not clearly evident on the bone scan, and expected finding as this lesion is not evident on CT scan image, but is clearly present with FDG, collectively this pattern indicates a very recently developed metastasis. Due to her elevated tumor marker and abnormal CT scan/PET scan she was started on Femara 2.5 mg along with monthly Xgeva on September 01, 2019 Follow-up CT PET scan done on 03/05/2020 showed interval sterilization of osseous metastatic disease at T7 Resolution of right diaphragmatic implant and right hilar adenopathy consistent with complete response to the therapy and Xgeva was changed to every 3-month on May 07, 2020And continued with daily Femara along with vitamin D and calcium supplement Follow-up CT PET scan done on March 04, 2021 shows there is a recurrent disease in the right diaphragmatic surface implant measuring 2.7 x 1.5 cm SUV of 6.[address] PET scan done on March 05, 2020 Follow-up CT PET scan done on October 28, 2021 showed there has been development of multiple new pulmonary nodules consistent with recurrence. Present in all 3 right lung lobes, measuring up to 1.2 cm with significant FDG activity. Right-sided diaphragmatic implant is difficult to characterize due to respiratory motion but SUV has gone up to 9.5 from 6.7. There is recurrent activity at T7 with SUV of 7.7. Right hilar uptake now has SUV of 5.4, suspicious for recurrence. s/p Femara/vitamin D/calcium well along with 3 monthly Xgeva.. Femara was discontinued on November 08, 2021 as follow-up CT PET scan shows disease progression and because of poor performance status, patient has morbid obesity, COPD on home oxygen, she was switched to Faslodex 500 mg IM day 1, 15 and 29, monthly thereafter along with Arimidex 1 mg p.o. daily,Along with monthly Xgeva Came for follow-up, denies any specific complaint except generalized weakness and fatigue, no fever chills, no nausea or vomiting, no diarrhea or constipation, no new bony pains, no mid back pain, no hemoptysis or hematemesis, no jaundice, no headaches blurred vision double vision, tolerating Femara well along with vitamin D and calcium. Patient is on home oxygen for COPD Came for follow-up, denies any specific complaint except pain in her mid back which is not fully controlled with current pain meds prescribed by PMD patient says she takes oxycodone 3 times a day. Denies any trauma to her mid back, denies any urine or stool incontinence, denies any focal weakness denies any fever chills denies any nausea or vomiting occasionally hot flashes otherwise tolerating Faslodex/Arimidex/Xgeva well Medications: AmLODIPine Besylate 1 (5 mg) Tablet Oral daily, Aspirin 1 (81 mg) Tablet Oral daily, Calcium 500+D 1 (500-400 mg - Units) Tablet Oral daily, Carbidopa-Levodopa ER 1 Tablet (of 50-200 mg) Tablet, controlled release Oral daily, Carvedilol 1.5 (25 mg) Tablet Oral b.i.d., Cetirizine HCl 1 Tablet (of 10 mg) Oral, Docusate Sodium 1 (100 mg) Tablet Oral PRN, Famotidine 1 (40 mg) Tablet Oral b.i.d., Furosemide 1 Tablet (of 40 mg) Oral b.i.d., Isosorbide Mononitrate CR 1 (120 mg) Tablet SR 24 HR Oral daily, Levothyroxine Sodium 1 (88 mcg) Tablet Oral daily, Losartan Potassium 1 (100 mg) Tablet Oral daily, Magnesium Oxide 1 (400 mg) Capsule Oral daily, MetFORMIN HCl 1 (500 mg) Tablet Oral b.i.d., Montelukast Sodium 1 (10 mg) Tablet Oral daily, Mucinex Allergy Tablet Oral, Nitroglycerin Tablet, sublingual Sublingual PRN, Ondansetron HCl 1 - 2 Tablet (of 4 mg) Oral q 4 hours PRN, oxyCODONE HCl 1 Tablet (of 5 mg) Oral t.i.d. PRN, Potassium Chloride Rasheeda ER 1 (10 meq) Tablet, controlled release Oral daily, Pravastatin Sodium 1 (80 mg) Tablet Oral daily, PreserVision AREDS 1 Tablet Oral daily, Primidone 1 (50 mg) Tablet Oral b.i.d., TraZODone HCl 1.5 (100 mg) Tablet Oral daily, Tresiba FlexTouch 20 Units Subcutaneous daily, Vitamin D 1 (2000 Units) Tablet Oral daily Allergies: bandaids , IBUPROFEN, Latex Gloves, Naproxen, and TraMADol HCl. Review of Systems: Review of Systems is not available for this patient. Vital Signs: Performed on Dec 14, 2021 14:32 Height - 66.00 in Weight - 263.6 lbs (HIGH) BSA - 2.25 sq.m BMI - 42.55 (HIGH) Temperature - 97.6 F (LOW) Pulse - 93 /min Respiration - 18 /min BP - 107/65 mm(hg) O2 Sat - 99 % Pain - 5 Fatigue - 8 Performance Status: 2 - Ambulatory/capable of all self-care, unable to perform any work activities. Up and about more than 50% of waking hours. (ECOG) Physical Examination: Respiratory - Poor air entry otherwise clear, Cardiovascular - Regular rate and rhythm of heart, Gastrointestinal - Soft, bowel sounds present, Extremities - Trace edema bilaterally. Lab/Imaging: Most recent lab results are not available for this patient. Impression: 1Disease progression per CT PET scan done on October 28, 2021 which shows development of multiple new pulmonary nodules consistent with recurrence. Present in all 3 right lung lobes, measuring up to 1.2 cm with significant FDG activity. Right-sided diaphragmatic implant is difficult to characterize due to respiratory motion but SUV has gone up to 9.5 from 6.7 previously. And recurrent activity at T7 with SUV of 7.7. Right hilar uptake now has SUV of 5.4, suspicious for recurrence, Patient was switched to Faslodex and Arimidex on November 13, 2021 Along with monthly Xgeva Follow-up CT PET scan done on March 04, 2021 shows there is recurrent of disease in the right diaphragmatic surface implant measuring 2.7 x 1.5 cm with SUV of 6.7 no other abnormality seen And CT scan of head done on 08/20/2019, ordered by PMD for left-sided headache and left neck pain showed no acute intracranial hemorrhage or edema but new lytic area involving left foramen magnum and ring of C1, early metastatic lesion should be considered clinically, bone scan was recommendedAnd follow-up CT PET scan done on August 29, 2019 showed 1.6 cm lesion in the left top of T7 vertebral body with SUV of 15.9 indicating of osseous metastatic disease. No additional osseous lesions seen. 2 cm soft tissue deposit along the surface of the diaphragm at the medial right lung SUV 10.5 indicating malignant deposit and additional FDG positive right hilar lymph node and left ovarian mass seen on CT scan of abdomen done recently showed no FDG uptake. Patient was started on Femara/vitamin D/calcium/Xgeva on September 01, 2019 h/o . 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 Oncotype DX score was low risk, and adjuvant chemotherapy was not recommended. 2. She underwent left breast lumpectomy with axillary sentinel lymph node biopsy on 04/02/2013. 3. She was given radiation to the left breast, completed on 07/09/2013 to a total dose of 5940 cGy. 4. Adjuvant hormonal therapy with anastrozole 1mg daily was initiated in June 2013. Her other medical illnesses include: 4. Hypertension. 5. Hyperlipidemia. 6. Type II diabetes with peripheral neuropathy. 7. Coronary artery disease. 8. Chronic diastolic congestive heart failure. 9. GERD. 10. Hypothyroidism. 11. Essential tremor. 12. Degenerative arthritis. Chronic left leg swelling since left knee replacement about her ago 13. Depression. In January 2017 the anastrozole was stopped due to increased musculoskeletal pain. Her symptoms improve off the medication. In February she continued her adjuvant hormonal therapy with tamoxifen 20 mg daily. She has since then been doing better other than she has developed an itchy skin eruption, which likely is due to tamoxifen.Tamoxifen discontinued on 01/22/2018 because of substernal discomfort/back pain which improved with discontinuation of tamoxifenT he patient has completed 4-1/2 year of hormone therapy and now doesn't want to take anymore. Follow-up mammogram done on 07/02/2019 showed benign findings. Follow-up CT PET scan done on August 29, 2019 showed 1.6 cm lesion in the left half of T7 vertebra with SUV of 15.9 indicating bone mets, 2 cm soft tissue deposit along the surface of diaphragm at medial right lung SUV 10.5. And additional FDG positive right hilar lymph nodes and a left ovarian mass seen on CT scan of chest abdomen pelvis done previously is a ovarian cyst and is FDG negative. And her tumor marker was also elevated so she was started on Femara 2.5 mg along with monthly Xgeva on September 01, 2019, Follow-up CT PET scan done on February 03, 2020 showed sterilization of osseous metastatic disease at T7, resolution of right diaphragmatic implant and right hilar lymphadenopathy, E.g. excellent response to Femara which was continued Genetic testing for BRCA1/2, came back negative Plan: Discussed with patient regarding her labs white blood count 8.1 hemoglobin 12.8 hematocrit 39.5 platelets 258,000 CMP within normal limit except glucose 207 Clinically, patient is doing reasonably well now in mild to moderate distress due to mid back pain probably due to 7 vertebral involvement with metastatic disease, patient has no neurological symptoms, as per patient her pain is not fully controlled with current pain medication so we will discontinue oxycodone and switch her to morphine extended release 15 mg p.o. every 12 hours and then she will take Percocet 1 to 2 tablets 4 to 6-hour as needed and then titrate up as needed., If there is a worsening of pain, will consider referral to radiation oncology. In the meantime we will continue with day 29 Faslodex and then monthly Xgeva today while she will continue with daily Arimidex and then she will return to clinic in 1 month with CMP only and for her dose of Faslodex and Xgeva,. Patient was advised to call us in case there is a worsening of mid back pain. Signed By: Octaviano Marsh M.D. <<Signature on File>>
== END 2021-12-14 11:11 | disposition home or self-care (01) ==
LOC: ONCMED 11:17
PROVIDERS: PCP Family Medicine; Visit Provider Internal Medicine Hematology & Oncology
DX: C79.51 Secondary malignant neoplasm of bone (principal); Z85.3 Personal history of malignant neoplasm of breast; I10 Essential (primary) hypertension; E11.42 Type 2 diabetes mellitus with diabetic polyneuropathy; I25.10 Atherosclerotic heart disease of native coronary artery without angina pectoris; K21.9 Gastro-esophageal reflux disease without esophagitis; F32.A Depression, unspecified; Z79.899 Other long term (current) drug therapy
CPT/HCPCS: 36415; 80053; 85025; 96372; 96402; 99215; J0897; J9395

== ENCOUNTER 2022-01-14 16:48 | Emergency (ER) | payer MEDICARE, MEDICAID, SELFPAY ==
[2022-01-14 17:11] VITALS: BP 157/72; PULSE 64; RESP 16; TEMP 36.7; O2SAT 97; BMI 43.0
--- NOTE | 2022-01-14 17:31 | ED_ITS ---
HPI - Extremity Problem General: Chief complaint: Extremity Injury, Lower Stated complaint: right hip pain loose stool Time Seen by Provider: 01/14/22 17:17 Source: patient and family Mode of arrival: ambulatory Limitations: no limitations History of Present Illness: This patient presents to the emergency department because both she and her family including her daughter who is visiting from [place] are concerned about progression of symptoms over the past weeks to months. She apparently has a history of secondary bony metastasis breast cancer as well as remote history of breast cancer. She is currently under the care of oncology. She apparently has been having stooling issues for what she ultimately describes as several months and that she has loose or perhaps watery stools without much substance. She states it does not to be seem to be affected by anything that she eats and it seems to be all watery in nature. She denies any blood in her stools. She states sometimes the color is brown sometimes it is clear than brown. She states that she does not have any associated abdominal pain. She states that she has had prior abdominal surgeries and resultant hernia as a result of those surgeries. She states that she is noted over the past several days increasing right sacral and right lower back and right hip pain without any known injury. She wonders if those symptoms are related to her stooling symptoms. Again she denies any particular injury she states the pain that she describes in her sacral area is worse with certain positional changes and twisting and turning. She states the pain does not radiate down into her lower extremity. She denies any fevers or chills. She has upcoming appointment with oncology on Saturday but decided to come to the emergency department today. Pain Consistency: intermittent Location: right Associated symptoms: Deny chest pain, fever(s) or rash Review of Systems Const: Denies: fever(s), chills or body aches Eyes: Denies: change in vision or eye discomfort ENMT: Denies: throat pain, odynophagia, ear or mastoid pain or change in hearing Card: Reports: irregular heart rhythm (She has a history of atrial fibrillation.); Denies: chest pain or palpitations Resp: Reports: dyspnea (She has a history of oxygen dependent interstitial lung disease.); Denies: productive cough or non-productive cough GI: Reports: change in bowel habits; Denies: abdominal pain, nausea, vomiting, hematemesis, diarrhea, constipation, bloating, hematochezia or melena : Denies: flank pain, difficulty voiding, urinary urgency or urinary hesitancy Musc: Reports: back pain Skin/Breast: Denies: rash, pruritus or erythema Neuro: Denies: headache(s), numbness in extremities or weakness in extremities Endo: Denies: polyuria or polydipsia Amrit/Lymph: Reports: easy bruising; Denies: easy bleeding PFSH ED PFSH: Medical History ASHD (arteriosclerotic heart disease) Breast cancer CHF (congestive heart failure) Hiatal hernia History of abdominal hernia Hyperlipidemia Hypertension Leg swelling Mitral regurgitation Peripheral neuropathy Varicose veins of both lower extremities Surgical History H/O: hysterectomy History of eye surgery History of lumpectomy of left breast History of shoulder surgery Hx of appendectomy Hx of cholecystectomy Family History Father CAD (coronary artery disease) Cancer Diabetes Mother CAD (coronary artery disease) Brother CAD (coronary artery disease) Diabetes Family/Other Chronic kidney disease (CKD) Other Hypertension Denies family history of Clotting disorder Dementia Suicide Anesthesia complication Bleeding disorder Lung disease Stroke Social History Smoking and tobacco status: never smoked Alcohol intake: never Physical Exam Narrative: EXAM NARRATIVE: She is observed to be sitting in a wheelchair during the initial evaluation. She interacted appropriately and appeared to be in no acute distress. Speech is goal-directed. Const: COMMON NORMALS: no acute distress and patient oriented x3 GENERAL APPEARANCE: cooperative and comfortable HENMT: COMMON NORMALS: normocephalic, atraumatic, hearing grossly normal bilaterally and Normal nasal mucous membranes and turbinates present HEAD & SCALP: normocephalic and atraumatic NOSE: Normal nasal mucous membranes and turbinates present Eye: COMMON NORMALS: Equal, round and reactive pupils present and EOMs intact bilaterally PUPIL: Yes Equal, round and reactive pupils present Neck/C-Spine: COMMON NORMALS: full ROM, no lymphadenopathy and no JVD Lymph: LYMPHATIC: no lymphadenopathy noted Chest: COMMONS NORMALS: normal inspection of the chest and normal palpation of entire chest wall Resp: COMMON NORMALS: normal respiratory effort, No retractions, No use of accessory muscles and clear to auscultation bilaterally AUSCULTATION: clear to auscultation bilaterally Cardio: COMMON NORMALS: no JVD, regular rate and regular rhythm RATE: regular rate RHYTHM: regular rhythm GI: COMMON NORMALS: Soft to palpation PALPATION: Yes Soft to palpation RECTAL EXAM: visual inspection normal, normal sphincter tone, External hemorrhoid(s) present, no mass(es) noted and no tenderness noted OTHER: She has a rather protuberant abdomen but it is soft. There is no rebound no guarding. She does have a palpable soft tissue mass in her right paramedian abdomen. Normal bowel sounds. Back/Pelvis: COMMON NORMALS: thoracic and lumbar spine normal to inspection OTHER: She has tenderness in her right soft tissue over the sacroiliac joint on the the lateral portion. There is no skin rashes. Twisting and turning of her trunk exacerbates her symptoms. Axial spine is nontender in the midline. No step- offs. Extremity: COMMON NORMALS: normal to inspection, capillary refill normal, no joint enlargement, no calf tenderness and no pedal edema Neuro: COMMON NORMALS: patient oriented x3, moves all extremities, no focal motor deficits and no sensory deficits noted Skin: COMMON NORMALS: no rashes or lesions noted, turgor normal and no jaundice GENERAL SKIN EXAM: no rashes or lesions noted and turgor normal Course Vital Signs: Vital signs: Vital Signs Temperature 98.1 F 01/14/22 17:11 Pulse Rate 72 01/14/22 21:00 Respiratory Rate 18 01/14/22 21:00 Blood Pressure 136/62 01/14/22 21:00 Pulse Oximetry 95 01/14/22 21:00 MDM - Extremity (Nontraumatic) Medical Decision Making Patient with history of breast cancer with metastatic lesions in bony areas comes in with because of concerns about hip and sacroiliac pain which is nontraumatic in nature. She is also had watery stools for many months. Her work-up this evening is reassuring and that there is no evidence of bowel obstruction or other acute intra-abdominal pathology. There was a question whether was a rectal mass and based upon my rectal exam within the reach of my finger there is no evidence of a rectal mass and probably her description p resents some mild colonic mucosal inflammation. She has had no hematochezia blood in her stools etc. She does freely admit that she has been using both the milk of magnesia and MiraLAX on a intense regimen to prevent any constipation because of her chronic opiate use. I think this may be contributing to her watery stools and I have advised her to be more judicious in use of these stool aids and that she may reduce her intake of either Metamucil and/or milk of magnesia and allow her stools to firm up a little bit and then adjust as needed. Again no evidence of pelvic fracture etc. She has oncology follow-up in 2 days and at that time I think they will need to review options for her bony pain. Certainly she has some arthritic pain and that may be a contributing factor as well particularly in the cold season. Both she and her daughter voiced understanding of our discussion and information is provided. Stable for discharge at this time. Medical Records I reviewed the patient's medical records. Lab Data I reviewed the patient's lab results. : 01/14/22 18:05 01/14/22 18:05 Radiology Impressions Abdomen/Pelvis CT 01/14/22 17:44 IMPRESSION: Nodular asymmetric thickening in the distal rectum may be a mass versus colitis. Correlate clinically. Nodules in the right lung base increasing in size and number compared to the prior exam consistent with metastases. Cardiomegaly. Diverticulosis without acute diverticulitis. Left renal and ovarian cysts. Surgical changes as described above. Laboratory Results WBC 9.8 10^3/uL (4.0-10.0) 01/14/22 18:05 RBC 4.11 10^6/uL (4.1-5.3) 01/14/22 18:05 Hgb 12.9 g/dL (11.5-15.3) 01/14/22 18:05 Hct 40.4 % (37.0-47.0) 01/14/22 18:05 MCV 98.3 fl (81-99) 01/14/22 18:05 MCH 31.4 pg (28.0-34.0) 01/14/22 18:05 MCHC 31.9 g/dL (30.0-36.0) 01/14/22 18:05 RDW 13.7 % (12.1-15.1) 01/14/22 18:05 Plt Count 250 10^3/cmm (130-400) 01/14/22 18:05 MPV 9.5 fL (7.4-10.4) 01/14/22 18:05 Neut % (Auto) 67.9 % 01/14/22 18:05 Lymph % (Auto) 22.9 % 01/14/22 18:05 [place] % (Auto) 7.7 % 01/14/22 18:05 Eos % (Auto) 0.9 % 01/14/22 18:05 Baso % (Auto) 0.2 % 01/14/22 18:05 Neut # (Auto) 6.63 10^3/uL (1.8-7.7) 01/14/22 18:05 Lymph # (Auto) 2.2 10^3/uL (0.8-4.8) 01/14/22 18:05 [place] # (Auto) 0.8 10^3/uL (0.2-0.9) 01/14/22 18:05 Eos # (Auto) 0.1 10^3/uL (0.0-0.8) 01/14/22 18:05 Baso # (Auto) 0.0 10^3/uL (0.0-0.1) 01/14/22 18:05 Nucleated RBC % (auto) 0 % 01/14/22 18:05 Nucleated RBCs # 0.0 /100WBC 01/14/22 18:05 Sodium 142 mmol/L (136-145) 01/14/22 18:05 Potassium 4.4 mmol/L (3.5-5.1) 01/14/22 18:05 Chloride 99 mmol/L (98-107) 01/14/22 18:05 Carbon Dioxide 32 mmol/L (22-29) H 01/14/22 18:05 Anion Gap 15.4 (5-19) 01/14/22 18:05 BUN 15 mg/dL (8-23) 01/14/22 18:05 Creatinine 0.7 mg/dL (0.5-0.9) 01/14/22 18:05 GFR Calculation Not Reportable 01/14/22 18:05 Glucose 151 mg/dL (65-115) H 01/14/22 18:05 Calculated Osmolality 298 mOsm/kg (285-295) H 01/14/22 18:05 Calcium 9.1 mg/dL (8.5-10.5) 01/14/22 18:05 Total Bilirubin 0.3 mg/dL (0.15-1.2) 01/14/22 18:05 AST 10 U/L (0-32) 01/14/22 18:05 ALT < 5 U/L (0-33) 01/14/22 18:05 Alkaline Phosphatase 85 IU/L (35-105) 01/14/22 18:05 Total Protein 6.7 g/dL (6.6-8.7) 01/14/22 18:05 Albumin 4.4 g/dL (3.5-5.2) 01/14/22 18:05 Globulin 2.3 g/dL (1.3-4.6) 01/14/22 18:05 Lipase 26 U/L (13-60) 01/14/22 18:[address] Abd/Pel: Radiologist's impression: Radiology report is reviewed. She does have evidence of diverticulosis as well as distal colon and rectum inflammation versus mass. Discharge Plan Discharge Patient Disposition: Home Clinical Impression: Breast cancer metastasized to bone, Frequent loose stools Condition: Stable Prescriptions: No Action polyethylene glycol 3350 [Miralax] 17 gram/dose powder 17 g PO DAILY 0RF docusate sodium 100 mg capsule 100 mg PO DAILY 0RF isosorbide mononitrate 120 mg tablet extended release 24 hr 120 mg PO QAM 0RF cholecalciferol (vitamin D3) PO DAILY 0RF levothyroxine 88 mcg capsule 88 mcg PO DAILY 0RF trazodone 100 mg tablet 150 mg PO DAILY 0RF potassium chloride 10 mEq capsule, extended release 10 meq PO DAILY 0RF metformin 500 mg tablet 500 mg PO BID 0RF aspirin [Adult Low Dose Aspirin] 81 mg tablet,delayed release (DR/EC) 81 mg PO DAILY 0RF magnesium oxide 400 mg magnesium tablet 400 mg PO DAILY 0RF cetirizine 10 mg tablet 10 mg PO DAILY 0RF calcium citrate malate-vit D3 250-100 mg-unit tablet 1 tab PO DAILY 0RF ondansetron 4 mg tablet,disintegrating 4 mg PO Q8H PRN0RF PreserVision AREDS [id number],[id number] tablet 2 tab PO BID 0RF letrozole 2.5 mg tablet 2.5 mg PO DAILY 0RF oxycodone 5 mg tablet 5 mg PO TID PRN0RF amlodipine 10 mg tablet 5 mg PO DAILY 0RF insulin degludec 20 each SUBCUT DAILY 0RF primidone 50 mg tablet 50 mg PO BID 0RF carvedilol 25 mg tablet 37.5 mg PO BID 0RF famotidine 40 mg tablet 40 mg PO DAILY 0RF montelukast 10 mg tablet 10 mg PO DAILY 0RF furosemide 40 mg tablet 40 mg PO BID 0RF carbidopa-levodopa 50-200 mg tablet extended release 1 tab PO QID 0RF nitroglycerin 0.4 mg tablet, sublingual 0.4 mg sublingual Q5M PRN (Reason: chest pain) 30 Days Qty: 30 3RF Rx Instructions: until response; do not exceed 3 doses per episode losartan 100 mg tablet See Rx Instructions .ROUTE .COMPLEX Qty: 90 3RF Dose Instruction: TAKE 1 TABLET BY MOUTH DAILY FOR 30 DAYS Rx Instructions: TAKE 1 TABLET BY MOUTH DAILY FOR 30 DAYS pravastatin 80 mg tablet See Rx Instructions .ROUTE .COMPLEX Qty: 90 3RF Dose Instruction: TAKE 1 TABLET BY MOUTH DAILY Rx Instructions: TAKE 1 TABLET BY MOUTH DAILY Discharge Orders: Discharge ED (Routine); Ordered 01/14/22 Ordered By: Raji Arriola Referrals: Mikael Madrigal MD [Primary Care Provider] - Discharge Diet: Usual diet Discharge Activity: Resume usual activity Patient Instructions: Opioid Safety Activity Restrictions/Additional Instructions: As we discussed reduce your intake of your bowel regimen to adjust to stool consistency. Otherwise continue all your usual medication. Follow-up with your oncologist Saturday as planned. If he had developing any worsening or persistent symptoms return to the emergency department for reevaluation. Coding Level of Care Code ED Manager Compliance for Areli Fwd Exam Comprehensive
--- NOTE | 2022-01-14 17:44 | CTR_ITS ---
PROCEDURE INFORMATION: Exam: CT Abdomen And Pelvis With Contrast Exam date and time: 01/14/2022 5:44 PM Age: 81 years old Clinical indication: Other: Change in stools, pelvic pain; Prior surgery; Surgery date: 6+ months; Surgery type: Left breast CA, bone mets. Hystorecomy, bladder, appy, hernia; Additional info: Change in stools; Mm and right si, pelvis pain TECHNIQUE: Imaging protocol: Computed tomography of the abdomen and pelvis with contrast. Radiation optimization: All CT scans at this facility use at least one of these dose optimization techniques: automated exposure control; mA and/or kV adjustment per patient size (includes targeted exams where dose is matched to clinical indication); or iterative reconstruction. Contrast material: OMNIPAQUE 300; Contrast volume: 95 ml; Contrast route: INTRAVENOUS (IV); COMPARISON: CT abdomen pelvis w con* [id number] 08/21/2019 4:49 PM RADIATION DOSE METRICS: Total DLP (mGy-cm): 1839.81 FINDINGS: Lungs: There are multiple nodules in the right lung base, measuring up to 13.2 mm, consistent with metastases. These have increased in size and number since the prior exam. Heart: Cardiomegaly with coronary artery and valvular calcifications. Liver: Normal. No mass. Gallbladder and bile ducts: Normal. No calcified stones. No ductal dilation. Pancreas: Normal. No ductal dilation. Spleen: Normal. No splenomegaly. Adrenal glands: Normal. No mass. Kidneys and ureters: Normal. No hydronephrosis. Stomach and bowel: Scattered diverticula without evidence of acute diverticulitis or perforation. There is nodular asymmetric thickening in the distal rectum which may be infectious or inflammatory colitis versus a mass. Appendix: Patient has had an appendectomy. Intraperitoneal space: Unremarkable. No free air. No significant fluid collection. Vasculature: Unremarkable. No abdominal aortic aneurysm. Lymph nodes: Unremarkable. No enlarged lymph nodes. Urinary bladder: Unremarkable as visualized. Reproductive: The patient has had a hysterectomy. There is a 3.4 cm cyst in the left ovary which is decreased from 4.6 cm on the previous exam. Bones/joints: Unremarkable. No acute fracture. Soft tissues: Surgical coils in both inguinal regions from previous hernia repairs. There is a large ventral hernia containing mesenteric fat and multiple loops of small bowel and transverse colon. No obstruction or strangulation. CT/CT abdomen pelvis w con* [id number] IMPRESSION: Nodular asymmetric thickening in the distal rectum may be a mass versus colitis. Correlate clinically. Nodules in the right lung base increasing in size and number compared to the prior exam consistent with metastases. Cardiomegaly. Diverticulosis without acute diverticulitis. Left renal and ovarian cysts. Surgical changes as described above.
[2022-01-14 18:11] LABS: Basophils % 0.2 %; Eosinophils # 0.1 10^3/uL (0.0-0.8); Eosinophils % 0.9 %; Hematocrit 40.4 % (37.0-47.0); Hemoglobin 12.9 g/dL (11.5-15.3); Lymphocytes # 2.2 10^3/uL (0.8-4.8); Lymphocytes % 22.9 %; Mean Corpuscular HGB Conc 31.9 g/dL (30.0-36.0); Mean Corpuscular Hemoglobin 31.4 pg (28.0-34.0); Mean Corpuscular Volume 98.3 fl (81-99); Mean Platelet Volume 9.5 fL (7.4-10.4); Monocytes # 0.8 10^3/uL (0.2-0.9); Monocytes % 7.7 %; Neutrophils # 6.63 10^3/uL (1.8-7.7); Neutrophils % 67.9 %; Nucleated Red Blood Cells % 0 %; Platelet Count 250 10^3/cmm (130-400); Red Blood Count 4.11 10^6/uL (4.1-5.3); Red Cell Distribution Width 13.7 % (12.1-15.1); White Blood Count 9.8 10^3/uL (4.0-10.0)
[2022-01-14 18:29] LABS: Alanine Aminotransferase < 5 U/L (0-33); Albumin Level 4.4 g/dL (3.5-5.2); Alkaline Phosphatase 85 IU/L (35-105); Anion Gap 15.4 (5-19); Aspartate Amino Transferase 10 U/L (0-32); Blood Urea Nitrogen 15 mg/dL (8-23); Calcium 9.1 mg/dL (8.5-10.5); Carbon Dioxide 32 mmol/L (22-29); Chloride 99 mmol/L (98-107); Globulin 2.3 g/dL (1.3-4.6); Glucose 151 mg/dL (65-115); Lipase 26 U/L (13-60); Osmolality Calculated 298 mOsm/kg (285-295); Potassium 4.4 mmol/L (3.5-5.1); Sodium 142 mmol/L (136-145); Total Bilirubin 0.3 mg/dL (0.15-1.2); Total Protein 6.7 g/dL (6.6-8.7)
[2022-01-14] MEDS: iohexol 300 mg/mL 100 mL Btl IV (18:50)
[2022-01-14 19:50] VITALS: BP 149/83; PULSE 66; RESP 18; O2SAT 95
--- NOTE | 2022-01-14 20:16 | PC.NURSE ---
report received from TANYA Goodson. patient comes in with c/o right hip/leg pain. denies injury. states she has stage 4 myeloma with mets. she does have mets to bone but not to that hip as of yet. she is able to bear weight but painful. no numbness or tingling.
[2022-01-14 21:00] VITALS: BP 136/62; PULSE 72; RESP 18; O2SAT 95
--- NOTE | 2022-01-14 21:08 | PC.NURSE ---
Rectal exam performed by Dr Arriola. Patient tolerated well.
[2022-01-14] MEDS: HYDROcodone-acetaminophen 5-325 mg Tablet 1 TAB PO (21:11)
[2022-01-14 21:48] VITALS: BP 136/78; PULSE 61; RESP 16; O2SAT 98
== END 2022-01-14 21:45 | disposition home or self-care (01) ==
PROVIDERS: Emergency Provider Emergency Medicine; PCP Family Medicine
DX: C50.919 Malignant neoplasm of unspecified site of unspecified female breast (principal); C79.51 Secondary malignant neoplasm of bone; R19.7 Diarrhea, unspecified; Z79.84 Long term (current) use of oral hypoglycemic drugs; Z79.82 Long term (current) use of aspirin; I11.0 Hypertensive heart disease with heart failure; I50.9 Heart failure, unspecified; E78.5 Hyperlipidemia, unspecified
CPT/HCPCS: 74177; 80053; 83690; 85025; 99283; Q9967

== ENCOUNTER 2022-01-16 08:41 | Outpatient (CLI) | payer MEDICARE, MEDICAID, SELFPAY ==
[2022-01-16 09:37] LABS: Alanine Aminotransferase < 5 U/L (0-33); Alkaline Phosphatase 78 IU/L (35-105); Anion Gap 16.3 (5-19); Aspartate Amino Transferase 10 U/L (0-32); Blood Urea Nitrogen 17 mg/dL (8-23); Calcium 8.5 mg/dL (8.5-10.5); Carbon Dioxide 28 mmol/L (22-29); Chloride 99 mmol/L (98-107); Globulin 2.6 g/dL (1.3-4.6); Glucose 184 mg/dL (65-115); Osmolality Calculated 294 mOsm/kg (285-295); Potassium 4.3 mmol/L (3.5-5.1); Sodium 139 mmol/L (136-145); Total Bilirubin 0.3 mg/dL (0.15-1.2); Total Protein 6.6 g/dL (6.6-8.7)
[2022-01-16] MEDS: fulvestrant 250 mg/5 mL Syringe 500 MG IM (11:30)
[2022-01-16] MEDS: denosumab 120 mg SDV SUBCUT (11:34)
--- NOTE | 2022-01-17 11:28 | ONC FU_ITS ---
Dr. 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 She had presented with a palpable mass in the left breast. The mammogram from 03/11/2013 showed a new stellate density in the left breast, corresponding to 1.3 cm lesion on ultrasound. On 04/02/2013 she underwent a lumpectomy of the left breast with a sentinel lymph node biopsy. Her surgical pathology showed a grade 2 infiltrating ductal carcinoma measuring 2.8 cm. Margins were negative, and there was no involvement in 3 sentinel lymph nodes. Her prognostic markers showed ER 95%, KS 95%, and HER-2/aldair 1+ by IHC, amplification ratio by FISH of 1.05. She was first seen by Dr. Rose on 04/13/2013. An Oncotype DX was low score 14 corresponding to 9% chance of distal recurrence following hormonal treatment. Adjuvant chemotherapy was not recommended. DEXA scan on 04/16/2013 showed normal bone density. She was given radiation to the left breast, completed on 07/09/2013 to a total dose of 5940 cGy. Adjuvant hormonal therapy with anastrozole 1 mg daily was initiated in June of 2013. Her medical illnesses include hypertension, hyperlipidemia, type II diabetes with peripheral neuropathy, coronary artery disease, GERD, hypothyroidism, essential tremor, degenerative arthritis, and depression. She is a nonsmoker. INTERIM HISTORY: She was hospitalized on 01/18/2017 with elevated blood pressure and chest pain. She was discharged home on amlodipine 5 mg daily, HCTZ 25 mg daily, and Spironolactone 25 mg daily. She had evidence of chronic diastolic heart failure. Echocardiogram showed adequate LV ejection fraction of 61%, but with grade 3 diastolic dysfunction. follow-up visit on 02/13/2017. At that time she was reporting significant increase in her back and joint pain, and her anastrozole was stopped . She was then seen by Dr. Jorge on 03/19/2017, and she then continued her hormonal therapy with tamoxifen 20 mg daily. her bone pain improved since she was off the anastrozole, She took tamoxifen till 01/22/2018 because of progressive substernal discomfort/back pain, which did improve with discontinuation of tamoxifen. So patient completed about 4-1/2 year of adjuvant hormonal therapy and decided not to take any other hormone therapy for remaining 6 months. Follow-up mammogram done on 07/02/2019 showed benign findings and follow-up in one year Echocardiogram done on 07/07/2019 showed ejection fraction more than 60% As per patient she did develop left neck pain in the first week of June 2019, along with left facial pain and swelling, her PMD gave her steroids and antibiotics with that but improved and then developed headache on left side for which she underwent CT scan of head on 10/20/2019 which showed no acute intracranial hemorrhage or edema But a new lytic area involving left formen magnum and ring of C1. Early metastatic lesion should be considered and bone scan was recommended Bone scan done on 08/24/2019 showed negative for metastatic disease. CT scan of abdomen pelvis done on 08/21/2019 for abdominal pain showed mild thickening with inflammatory stranding involving sigmoid colon in the left lower quadrant consistent with mild acute diverticulitis Hepatomegaly with diffuse fatty infiltration of the liver. [place] ventral abdominal wall hernia containing nonobstructed loops of small and large bowel. Next Left adnexal low-attenuation lesion measuring 4.1 x 4.2 cm this is indeterminant and neoplasm not excluded. CT PET scan done on 08/29/2019 showed 1.6 cm lesion in the left half of T7 vertebral body with an SUV of 15.9, indicating osseous metastatic disease. No additional osseous lesions are present. 2 cm soft tissue deposit along the surface of diaphragm at the medial right lung SUV 10.5, indicating malignant deposit. Additionally, there is an FDG positive right hilar lymph node likely malignant.And left ovarian mass seen on CT scan of chest abdomen done recently is a ovarian cyst and is FDG negative The C1 lesion was not in the field of view of current CT PET scan study Dr. Cat,radiologist was asked to review CT PET scan and correlate with CT scan of chest abdomen done on 08/21/2019 and bone scan done on 08/24/2019, as per his evaluation,.diaphragmatic implant is present on CT scan done in July 2019 and is unchanged in size on the current study. The left ovarian cyst is morphologically identical as well. Osseous lesion at T7 is not clearly evident on the bone scan, and expected finding as this lesion is not evident on CT scan image, but is clearly present with FDG, collectively this pattern indicates a very recently developed metastasis. Due to her elevated tumor marker and abnormal CT scan/PET scan she was started on Femara 2.5 mg along with monthly Xgeva on September 01, 2019 Follow-up CT PET scan done on 03/05/2020 showed interval sterilization of osseous metastatic disease at T7 Resolution of right diaphragmatic implant and right hilar adenopathy consistent with complete response to the therapy and Xgeva was changed to every 3-month on May 07, 2020And continued with daily Femara along with vitamin D and calcium supplement Follow-up CT PET scan done on March 04, 2021 shows there is a recurrent disease in the right diaphragmatic surface implant measuring 2.7 x 1.5 cm SUV of 6.[address] PET scan done on March 05, 2020 Follow-up CT PET scan done on October 28, 2021 showed there has been development of multiple new pulmonary nodules consistent with recurrence. Present in all 3 right lung lobes, measuring up to 1.2 cm with significant FDG activity. Right-sided diaphragmatic implant is difficult to characterize due to respiratory motion but SUV has gone up to 9.5 from 6.7. There is recurrent activity at T7 with SUV of 7.7. Right hilar uptake now has SUV of 5.4, suspicious for recurrence. s/p Femara/vitamin D/calcium well along with 3 monthly Xgeva.. Femara was discontinued on November 08, 2021 as follow-up CT PET scan shows disease progression and because of poor performance status, patient has morbid obesity, COPD on home oxygen, she was switched to Faslodex 500 mg IM day 1, 15 and 29, monthly thereafter along with Arimidex 1 mg p.o. daily,Along with monthly Xgeva Came for follow-up, denies any specific complaint except generalized weakness and fatigue, no fever chills, no nausea or vomiting, no diarrhea or constipation, no new bony pains, no mid back pain, no hemoptysis or hematemesis, no jaundice, no headaches blurred vision double vision, tolerating Femara well along with vitamin D and calcium. Patient is on home oxygen for COPD Came for follow-up, denies any specific complaint except went to [facility] on January 14, 2022 with right hip pain, CT scan of abdomen pelvis was done on January 14, 2022 showed nodules in the right lung base increase in size and number when compared to CT scan of abdomen pelvis done in July 2019, also showed nodular asymmetric thickening in the distal rectum, patient was examined by ER physician with rectal exam, as per ER note, no obvious mass was felt. And visible bones showed no acute fracture or abnormality. Patient denies any fever or chills denies any nausea or vomiting denies any diarrhea or constipation, patient is noncompliant with her pain medication Medications: AmLODIPine Besylate 1 (5 mg) Tablet Oral daily, Aspirin 1 (81 mg) Tablet Oral daily, Calcium 500+D 1 (500-400 mg - Units) Tablet Oral daily, Carbidopa-Levodopa ER 1 Tablet (of 50-200 mg) Tablet, controlled release Oral daily, Carvedilol 1.5 (25 mg) Tablet Oral b.i.d., Cetirizine HCl 1 Tablet (of 10 mg) Oral, Docusate Sodium 1 (100 mg) Tablet Oral PRN, Famotidine 1 (40 mg) Tablet Oral b.i.d., Furosemide 1 Tablet (of 40 mg) Oral b.i.d., Isosorbide Mononitrate CR 1 (120 mg) Tablet SR 24 HR Oral daily, Levothyroxine Sodium 1 (88 mcg) Tablet Oral daily, Losartan Potassium 1 (100 mg) Tablet Oral daily, Magnesium Oxide 1 (400 mg) Capsule Oral daily, MetFORMIN HCl 1 (500 mg) Tablet Oral b.i.d., Montelukast Sodium 1 (10 mg) Tablet Oral daily, Mucinex Allergy Tablet Oral, Nitroglycerin Tablet, sublingual Sublingual PRN, Ondansetron HCl 1 - 2 Tablet (of 4 mg) Oral q 4 hours PRN, oxyCODONE HCl 1 Tablet (of 5 mg) Oral t.i.d. PRN, Potassium Chloride Rasheeda ER 1 (10 meq) Tablet, controlled release Oral daily, Pravastatin Sodium 1 (80 mg) Tablet Oral daily, PreserVision AREDS 1 Tablet Oral daily, Primidone 1 (50 mg) Tablet Oral b.i.d., TraZODone HCl 1.5 (100 mg) Tablet Oral daily, Tresiba FlexTouch 20 Units Subcutaneous daily, Vitamin D 1 (2000 Units) Tablet Oral daily Allergies: bandaids , IBUPROFEN, Latex Gloves, Naproxen, and TraMADol HCl. Review of Systems: Review of Systems is not available for this patient. Vital Signs: Performed on Jan 16, 2022 11:49 Height - 66.00 in Weight - 266.4 lbs (HIGH) BSA - 2.26 sq.m BMI - 43.00 (HIGH) Temperature - 98.2 F (LOW) Pulse - 58 /min (LOW) Respiration - 16 /min BP - 127/79 mm(hg) O2 Sat - 95 % (LOW) Pain - 8 Fatigue - 8 Performance Status: 2 - Ambulatory/capable of all self-care, unable to perform any work activities. Up and about more than 50% of waking hours. (ECOG) Physical Examination: Respiratory - Poor air entry otherwise clear, Cardiovascular - Regular rate and rhythm of heart, Gastrointestinal - Soft, bowel sounds present, Extremities - 1+ edema bilaterally. Lab/Imaging: Most recent lab results are not available for this patient. Impression: 1Disease progression per CT PET scan done on October 28, 2021 which shows development of multiple new pulmonary nodules consistent with recurrence. Present in all 3 right lung lobes, measuring up to 1.2 cm with significant FDG activity. Right-sided diaphragmatic implant is difficult to characterize due to respiratory motion but SUV has gone up to 9.5 from 6.7 previously. And recurrent activity at T7 with SUV of 7.7. Right hilar uptake now has SUV of 5.4, suspicious for recurrence, Patient was switched to Faslodex and Arimidex on November 13, 2021 Along with monthly Xgeva Follow-up CT PET scan done on March 04, 2021 shows there is recurrent of disease in the right diaphragmatic surface implant measuring 2.7 x 1.5 cm with SUV of 6.7 no other abnormality seen And CT scan of head done on 08/20/2019, ordered by PMD for left-sided headache and left neck pain showed no acute intracranial hemorrhage or edema but new lytic area involving left foramen magnum and ring of C1, early metastatic lesion should be considered clinically, bone scan was recommendedAnd follow-up CT PET scan done on August 29, 2019 showed 1.6 cm lesion in the left top of T7 vertebral body with SUV of 15.9 indicating of osseous metastatic disease. No additional osseous lesions seen. 2 cm soft tissue deposit along the surface of the diaphragm at the medial right lung SUV 10.5 indicating malignant deposit and additional FDG positive right hilar lymph node and left ovarian mass seen on CT scan of abdomen done recently showed no FDG uptake. Patient was started on Femara/vitamin D/calcium/Xgeva on September 01, 2019 h/o . grade 2 infiltrating ductal carcinoma the left breast, stage IIA (T2, N0, M0), ER/KS positive and HER-2/aldair nonamplified. Oncotype DX score was low risk, and adjuvant chemotherapy was not recommended. 2. She underwent left breast lumpectomy with axillary sentinel lymph node biopsy on 04/02/2013. 3. She was given radiation to the left breast, completed on 07/09/2013 to a total dose of 5940 cGy. 4. Adjuvant hormonal therapy with anastrozole 1mg daily was initiated in June 2013. Her other medical illnesses include: 4. Hypertension. 5. Hyperlipidemia. 6. Type II diabetes with peripheral neuropathy. 7. Coronary artery disease. 8. Chronic diastolic congestive heart failure. 9. GERD. 10. Hypothyroidism. 11. Essential tremor. 12. Degenerative arthritis. Chronic left leg swelling since left knee replacement about her ago 13. Depression. In January 2017 the anastrozole was stopped due to increased musculoskeletal pain. Her symptoms improve off the medication. In February she continued her adjuvant hormonal therapy with tamoxifen 20 mg daily. She has since then been doing better other than she has developed an itchy skin eruption, which likely is due to tamoxifen.Tamoxifen discontinued on 01/22/2018 because of substernal discomfort/back pain which improved with discontinuation of tamoxifenT he patient has completed 4-1/2 year of hormone therapy and now doesn't want to take anymore. Follow-up mammogram done on 07/02/2019 showed benign findings. Follow-up CT PET scan done on August 29, 2019 showed 1.6 cm lesion in the left half of T7 vertebra with SUV of 15.9 indicating bone mets, 2 cm soft tissue deposit along the surface of diaphragm at medial right lung SUV 10.5. And additional FDG positive right hilar lymph nodes and a left ovarian mass seen on CT scan of chest abdomen pelvis done previously is a ovarian cyst and is FDG negative. And her tumor marker was also elevated so she was started on Femara 2.5 mg along with monthly Xgeva on September 01, 2019, Follow-up CT PET scan done on February 03, 2020 showed sterilization of osseous metastatic disease at T7, resolution of right diaphragmatic implant and right hilar lymphadenopathy, E.g. excellent response to Femara which was continued Genetic testing for BRCA1/2, came back negative Plan: Discussed with patient regarding her labs CMP within normal limit except glucose [address] scan of the abdomen pelvis which was done on January 14, 2022 findings, Clinically, patient doing well with no new signs symptom suggestive of disease progression, her CT scan of abdomen pelvis which was done on January 14, [address] scan of the abdomen done in July [address] PET scan. And recently done CT scan of abdomen pelvis shows visible bones showed no acute abnormality., Her right hip pain could be due to arthritis or metastatic disease but patient was not taking her pain medication as recommended, patient is supposed to be taking extended release morphine every 12 hours along with Percocet for breakthrough,. Patient was advised to take her pain medication as recommended and if there is no improvement in her pain or worsening of pain, will refer her to radiation oncology for evaluation. In the meantime we will proceed with her monthly dose of Faslodex and Xgeva today and then she will return to clinic in 1 month with CBC CMP and tumor marker CA 27-29 Signed By: Octaviano Marsh M.D. <<Signature on File>>
== END 2022-01-16 08:42 | disposition home or self-care (01) ==
PROVIDERS: PCP Family Medicine; Visit Provider Internal Medicine Hematology & Oncology
DX: Z51.11 Encounter for antineoplastic chemotherapy (principal); C79.51 Secondary malignant neoplasm of bone; Z85.3 Personal history of malignant neoplasm of breast; E66.01 Morbid (severe) obesity due to excess calories; J44.9 Chronic obstructive pulmonary disease, unspecified; Z99.81 Dependence on supplemental oxygen; Z79.899 Other long term (current) drug therapy
CPT/HCPCS: 36415; 80053; 96372; 96402; 99215; J0897; J9395

== ENCOUNTER 2022-01-29 13:53 | Outpatient (CLI) | payer MEDICARE, MEDICAID, SELFPAY ==
--- NOTE | 2022-01-29 14:40 | N.ONRAD NP_ITS ---
Radiation Oncology Consultation Patient Name: Sheron Leyva Date of : 1940 Date of Service: 01/29/2022 Attending Physician: Tonny Javier M.D. Sheron Leyva was seen in consultation this afternoon at the request of Bennett Marsh M.D. for consideration of palliative radiotherapy for the management of metastatic breast cancer. The patient was diagnosed in February 2013 with a stage IIA (T2N0), hormone receptor positive, HER-2 negative, infiltrating ductal carcinoma of the left breast. Postoperative radiotherapy was administered and adjuvant hormonal therapy was initiated in June 2013. In February 2017, the hormonal therapy was replaced with tamoxifen on account of musculoskeletal complaints related to anastrozole. However, tamoxifen was discontinued in December 2017 that was ascribed to progressive back pain. A PET scan ordered on August 29, 2019 revealed a 1.6 cm lesion within the T7 vertebral body (SUV 15.9), a 2 cm, right diaphragmatic tissue deposit, and right hilar lymphadenopathy worrisome for metastatic disease. Considering these findings, Femara and Xgeva were prescribed in August 2019. PET imaging in February 2020 demonstrated a complete response to therapy. A repeat follow-up PET scan ordered on October 28, 2021 (independently visualized in [facility]) described multiple right lung pulmonary nodules, progression of the right diaphragmatic implant, and recurrence at the T7. The patient was evaluated for palliative radiotherapy in the setting of worsening back pain likely attributable to metastatic disease within the T7 vertebral body. I discussed with Ms. Leyva the role for palliative radiotherapy. I will request a thoracic MRI prior to implementing treatment. The patient has verbalized understanding would like to proceed as recommended. The patient???s medical treatment has been discussed with Bennett Marsh M.D. Signed by: Dr. Tonny Javier 01/29/2022 2:38:18 PM
== END 2022-01-29 13:54 | disposition home or self-care (01) ==
PROVIDERS: PCP Family Medicine; Visit Provider Internal Medicine Hematology & Oncology
DX: C79.51 Secondary malignant neoplasm of bone (principal); C79.89 Secondary malignant neoplasm of other specified sites; C78.01 Secondary malignant neoplasm of right lung; Z85.3 Personal history of malignant neoplasm of breast
CPT/HCPCS: 99205

== ENCOUNTER 2022-02-08 13:11 | Outpatient (CLI) | payer MEDICARE, MEDICAID, SELFPAY ==
[2022-02-08 13:48] LABS: Basophils % 0.2 %; Eosinophils # 0.1 10^3/uL (0.0-0.8); Eosinophils % 1.1 %; Hematocrit 38.7 % (37.0-47.0); Hemoglobin 12.2 g/dL (11.5-15.3); Lymphocytes # 2.2 10^3/uL (0.8-4.8); Lymphocytes % 27.3 %; Mean Corpuscular HGB Conc 31.5 g/dL (30.0-36.0); Mean Corpuscular Hemoglobin 31.2 pg (28.0-34.0); Mean Platelet Volume 9.7 fL (7.4-10.4); Monocytes # 0.6 10^3/uL (0.2-0.9); Monocytes % 7.1 %; Neutrophils # 5.24 10^3/uL (1.8-7.7); Neutrophils % 63.8 %; Nucleated Red Blood Cells % 0 %; Platelet Count 232 10^3/cmm (130-400); Red Blood Count 3.91 10^6/uL (4.1-5.3); Red Cell Distribution Width 14.2 % (12.1-15.1); White Blood Count 8.2 10^3/uL (4.0-10.0)
[2022-02-08 14:16] LABS: Alanine Aminotransferase < 5 U/L (0-33); Alkaline Phosphatase 74 IU/L (35-105); Anion Gap 19.4 (5-19); Aspartate Amino Transferase 11 U/L (0-32); Blood Urea Nitrogen 17 mg/dL (8-23); Calcium 8.9 mg/dL (8.5-10.5); Carbon Dioxide 26 mmol/L (22-29); Chloride 101 mmol/L (98-107); Globulin 2.7 g/dL (1.3-4.6); Glucose 218 mg/dL (65-115); Osmolality Calculated 302 mOsm/kg (285-295); Potassium 4.4 mmol/L (3.5-5.1); Sodium 142 mmol/L (136-145); Total Bilirubin 0.2 mg/dL (0.15-1.2); Total Protein 6.7 g/dL (6.6-8.7)
[2022-02-08 14:38] LABS: CA 15-3 672.3 U/mL (0-25)
== END 2022-02-08 13:12 | disposition home or self-care (01) ==
LOC: ONCMED 13:18
PROVIDERS: PCP Family Medicine; Visit Provider Internal Medicine Hematology & Oncology
DX: C79.51 Secondary malignant neoplasm of bone (principal); C79.89 Secondary malignant neoplasm of other specified sites; C78.01 Secondary malignant neoplasm of right lung; Z85.3 Personal history of malignant neoplasm of breast; Z79.899 Other long term (current) drug therapy
CPT/HCPCS: 36415; 80053; 85025; 86300

== ENCOUNTER 2022-02-13 10:21 | Outpatient (CLI) | payer MEDICARE, MEDICAID, SELFPAY ==
[2022-02-13] MEDS: denosumab 120 mg SDV SUBCUT (11:45)
[2022-02-13] MEDS: fulvestrant 250 mg/5 mL Syringe 500 MG IM (11:45)
--- NOTE | 2022-02-13 20:52 | ONC FU_ITS ---
Jolly Durand Progress Note Patient: Sheron Leyva Unit #: [id number]: 1940 Dicatated By: Jolly Durand N.P.Date of Visit:Feb 13, 2022 Onc MED Follow-up/Prog Note Chief Complaint: Breast cancer. 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 She had presented with a palpable mass in the left breast. The mammogram from 03/11/2013 showed a new stellate density in the left breast, corresponding to 1.3 cm lesion on ultrasound. On 04/02/2013 she underwent a lumpectomy of the left breast with a sentinel lymph node biopsy. Her surgical pathology showed a grade 2 infiltrating ductal carcinoma measuring 2.8 cm. Margins were negative, and there was no involvement in 3 sentinel lymph nodes. Her prognostic markers showed ER 95%, OK 95%, and HER-2/aldair 1+ by IHC, amplification ratio by FISH of 1.05. She was first seen by Dr. Rose on 04/13/2013. An Oncotype DX was low score 14 corresponding to 9% chance of distal recurrence following hormonal treatment. Adjuvant chemotherapy was not recommended. DEXA scan on 04/16/2013 showed normal bone density. She was given radiation to the left breast, completed on 07/09/2013 to a total dose of 5940 cGy. Adjuvant hormonal therapy with anastrozole 1 mg daily was initiated in June of 2013. Her medical illnesses include hypertension, hyperlipidemia, type II diabetes with peripheral neuropathy, coronary artery disease, GERD, hypothyroidism, essential tremor, degenerative arthritis, and depression. She is a nonsmoker. INTERIM HISTORY: She was hospitalized on 01/18/2017 with elevated blood pressure and chest pain. She was discharged home on amlodipine 5 mg daily, HCTZ 25 mg daily, and Spironolactone 25 mg daily. She had evidence of chronic diastolic heart failure. Echocardiogram showed adequate LV ejection fraction of 61%, but with grade 3 diastolic dysfunction. follow-up visit on 02/13/2017. At that time she was reporting significant increase in her back and joint pain, and her anastrozole was stopped . She was then seen by Dr. Jorge on 03/19/2017, and she then continued her hormonal therapy with tamoxifen 20 mg daily. her bone pain improved since she was off the anastrozole, She took tamoxifen till 01/22/2018 because of progressive substernal discomfort/back pain, which did improve with discontinuation of tamoxifen. So patient completed about 4-1/2 year of adjuvant hormonal therapy and decided not to take any other hormone therapy for remaining 6 months. Follow-up mammogram done on 07/02/2019 showed benign findings and follow-up in one year Echocardiogram done on 07/07/2019 showed ejection fraction more than 60% As per patient she did develop left neck pain in the first week of June 2019, along with left facial pain and swelling, her PMD gave her steroids and antibiotics with that but improved and then developed headache on left side for which she underwent CT scan of head on 10/20/2019 which showed no acute intracranial hemorrhage or edema But a new lytic area involving left formen magnum and ring of C1. Early metastatic lesion should be considered and bone scan was recommended Bone scan done on 08/24/2019 showed negative for metastatic disease. CT scan of abdomen pelvis done on 08/21/2019 for abdominal pain showed mild thickening with inflammatory stranding involving sigmoid colon in the left lower quadrant consistent with mild acute diverticulitis Hepatomegaly with diffuse fatty infiltration of the liver. [place] ventral abdominal wall hernia containing nonobstructed loops of small and large bowel. Next Left adnexal low-attenuation lesion measuring 4.1 x 4.2 cm this is indeterminant and neoplasm not excluded. CT PET scan done on 08/29/2019 showed 1.6 cm lesion in the left half of T7 vertebral body with an SUV of 15.9, indicating osseous metastatic disease. No additional osseous lesions are present. 2 cm soft tissue deposit along the surface of diaphragm at the medial right lung SUV 10.5, indicating malignant deposit. Additionally, there is an FDG positive right hilar lymph node likely malignant.And left ovarian mass seen on CT scan of chest abdomen done recently is a ovarian cyst and is FDG negative The C1 lesion was not in the field of view of current CT PET scan study Dr. Cat,radiologist was asked to review CT PET scan and correlate with CT scan of chest abdomen done on 08/21/2019 and bone scan done on 08/24/2019, as per his evaluation,.diaphragmatic implant is present on CT scan done in July 2019 and is unchanged in size on the current study. The left ovarian cyst is morphologically identical as well. Osseous lesion at T7 is not clearly evident on the bone scan, and expected finding as this lesion is not evident on CT scan image, but is clearly present with FDG, collectively this pattern indicates a very recently developed metastasis. Due to her elevated tumor marker and abnormal CT scan/PET scan she was started on Femara 2.5 mg along with monthly Xgeva on September 01, 2019 Follow-up CT PET scan done on 03/05/2020 showed interval sterilization of osseous metastatic disease at T7 Resolution of right diaphragmatic implant and right hilar adenopathy consistent with complete response to the therapy and Xgeva was changed to every 3-month on May 07, 2020And continued with daily Femara along with vitamin D and calcium supplement Follow-up CT PET scan done on March 04, 2021 shows there is a recurrent disease in the right diaphragmatic surface implant measuring 2.7 x 1.5 cm SUV of 6.[address] PET scan done on March 05, 2020 Follow-up CT PET scan done on October 28, 2021 showed there has been development of multiple new pulmonary nodules consistent with recurrence. Present in all 3 right lung lobes, measuring up to 1.2 cm with significant FDG activity. Right-sided diaphragmatic implant is difficult to characterize due to respiratory motion but SUV has gone up to 9.5 from 6.7. There is recurrent activity at T7 with SUV of 7.7. Right hilar uptake now has SUV of 5.4, suspicious for recurrence. s/p Femara/vitamin D/calcium well along with 3 monthly Xgeva.. Femara was discontinued on November 08, 2021 as follow-up CT PET scan shows disease progression and because of poor performance status, patient has morbid obesity, COPD on home oxygen, she was switched to Faslodex 500 mg IM day 1, 15 and 29, monthly thereafter along with Arimidex 1 mg p.o. daily,Along with monthly Xgeva Went to [facility] on January 14, 2022 with right hip pain, CT scan of abdomen pelvis was done on January 14, 2022 showed nodules in the right lung base increase in size and number when compared to CT scan of abdomen pelvis done in July 2019, also showed nodular asymmetric thickening in the distal rectum, patient was examined by ER physician with rectal exam, as per ER note, no obvious mass was felt. And visible bones showed no acute fracture or abnormality. Presents today for follow-up accompanied by her son. She continues to have fatigue. Her appetite is pretty good. She has shortness of breath related to COPD and is on home oxygen. She denies any GI or problems. She has right hip and low back pain which is controlled with current pain medications. No headaches or dizziness. Review Of Symptoms: See above. Past Medical History: Coronary artery disease (Treated) Depression Diabetes type II (Treated) Essential Tremors (Treated) Gastroesophageal reflux disease (Treated) Hyperlipidemia (Treated) Hypertension (Treated) Hypothyroidism (Treated) Osteoarthritis (Treated) Peripheral neuropathy (diabetes related.) (Treated) Past Surgical History: Angiogram Appendectomy Cataract removal Cholecystectomy Arthroscopy in 2012 - left knee..Dr Contreras Knee surgery in 2012 Ct bone density in 2012 Axillary sentinal node biopsy in 2012 - left Breast biopsy in 2012 - left Excisional biopsy in 2012 - left breast mass...Dr Hope Colonoscopy in 2009 Hysterectomy in 2002 Allergies: bandaids , IBUPROFEN, Latex Gloves, Naproxen, and TraMADol HCl. Medications: AmLODIPine Besylate 1 (5 mg) Tablet Oral daily Aspirin 1 (81 mg) Tablet Oral daily Calcium 500+D 1 (500-400 mg - Units) Tablet Oral daily Carbidopa-Levodopa ER 1 Tablet (of 50-200 mg) Tablet, controlled release Oral daily Carvedilol 1.5 (25 mg) Tablet Oral b.i.d. Cetirizine HCl 1 Tablet (of 10 mg) Oral Citalopram Hydrobromide 1 Tablet Oral daily Docusate Sodium 1 (100 mg) Tablet Oral PRN Famotidine 1 (40 mg) Tablet Oral b.i.d. Furosemide 1 Tablet (of 40 mg) Oral b.i.d. Isosorbide Mononitrate CR 1 (120 mg) Tablet SR 24 HR Oral daily Levothyroxine Sodium 1 (88 mcg) Tablet Oral daily Losartan Potassium 1 (100 mg) Tablet Oral daily Magnesium Oxide 1 (400 mg) Capsule Oral daily MetFORMIN HCl 1 (500 mg) Tablet Oral b.i.d. Montelukast Sodium 1 (10 mg) Tablet Oral daily Morphine Sulfate 1 Tablet (of 30 mg) Oral b.i.d. Mucinex Allergy Tablet Oral Nitroglycerin Tablet, sublingual Sublingual PRN Ondansetron HCl 1 - 2 Tablet (of 4 mg) Oral q 4 hours PRN oxyCODONE HCl 1 Tablet (of 5 mg) Oral t.i.d. PRN Potassium Chloride Rasheeda ER 1 (10 meq) Tablet, controlled release Oral daily Pravastatin Sodium 1 (80 mg) Tablet Oral daily PreserVision AREDS 1 Tablet Oral daily Primidone 1 (50 mg) Tablet Oral b.i.d. TraZODone HCl 1.5 (100 mg) Tablet Oral daily Tresiba FlexTouch 20 Units Subcutaneous daily Vitamin D 1 (2000 Units) Tablet Oral daily Family History: Ms. Leyva's mother at age 60: medical history includes Heart attack (cause of ). Ms. Leyva's father at age 61: medical history includes diabetes and Heart disease. Social History: Ms. Leyva is and she is retired. Ms. Leyva has never smoked. She has no history of drinking. Ms. Leyva reports the following support systems: lives with spouse, significant other, family, or friends, lives in own house, supportive family/friends willing to assist with needs, and adequate transportation available for expected visits. Her diet consists of regular meals. She indicates her activity level as: daily activities. Physical Examination: Performed on Feb 13, 2022 10:41: Height - 66.00 in, Weight - 263.2 lbs (HIGH), BSA - 2.25 sq.m, BMI - 42.48 (HIGH), Temperature - 97.7 F (LOW), Pulse - 74 /min, Respiration - 18 /min, BP - 111/70 mm(hg), O2 Sat - 92 % (LOW), Pain - 8, and Fatigue - 8. Performance Status: 2 - Ambulatory/capable of all self-care, unable to perform any work activities. Up and about more than 50% of waking hours. (ECOG) Constitutional Alert, cooperative, oriented. Mood and affect appropriate. Appears close to chronological age. Well nourished. Well developed. Respiratory Lungs are clear to auscultation without rhonchi or wheezing. Cardiovascular Regular rate and rhythm of heart without murmurs, gallops or rubs. Abdomen Non-tender, non-distended, no masses, ascites or hepatosplenomegaly. Good bowel sounds. No guarding or rebound tenderness. Extremities no edema Psychiatric Alert and oriented times three. Coherent speech. Verbalizes understanding of our discussions today. Laboratory: Most recent lab results are not available for this patient. Impression: 1Disease progression per CT PET scan done on October 28, 2021 which shows development of multiple new pulmonary nodules consistent with recurrence. Present in all 3 right lung lobes, measuring up to 1.2 cm with significant FDG activity. Right-sided diaphragmatic implant is difficult to characterize due to respiratory motion but SUV has gone up to 9.5 from 6.7 previously. And recurrent activity at T7 with SUV of 7.7. Right hilar uptake now has SUV of 5.4, suspicious for recurrence, Patient was switched to Faslodex and Arimidex on November 13, 2021 Along with monthly Xgeva Follow-up CT PET scan done on March 04, 2021 shows there is recurrent of disease in the right diaphragmatic surface implant measuring 2.7 x 1.5 cm with SUV of 6.7 no other abnormality seen And CT scan of head done on 08/20/2019, ordered by PMD for left-sided headache and left neck pain showed no acute intracranial hemorrhage or edema but new lytic area involving left foramen magnum and ring of C1, early metastatic lesion should be considered clinically, bone scan was recommendedAnd follow-up CT PET scan done on August 29, 2019 showed 1.6 cm lesion in the left top of T7 vertebral body with SUV of 15.9 indicating of osseous metastatic disease. No additional osseous lesions seen. 2 cm soft tissue deposit along the surface of the diaphragm at the medial right lung SUV 10.5 indicating malignant deposit and additional FDG positive right hilar lymph node and left ovarian mass seen on CT scan of abdomen done recently showed no FDG uptake. Patient was started on Femara/vitamin D/calcium/Xgeva on September 01, 2019 h/o . grade 2 infiltrating ductal carcinoma the left breast, stage IIA (T2, N0, M0), ER/OK positive and HER-2/aldair nonamplified. Oncotype DX score was low risk, and adjuvant chemotherapy was not recommended. 2. She underwent left breast lumpectomy with axillary sentinel lymph node biopsy on 04/02/2013. 3. She was given radiation to the left breast, completed on 07/09/2013 to a total dose of 5940 cGy. 4. Adjuvant hormonal therapy with anastrozole 1mg daily was initiated in June 2013. Her other medical illnesses include: 4. Hypertension. 5. Hyperlipidemia. 6. Type II diabetes with peripheral neuropathy. 7. Coronary artery disease. 8. Chronic diastolic congestive heart failure. 9. GERD. 10. Hypothyroidism. 11. Essential tremor. 12. Degenerative arthritis. Chronic left leg swelling since left knee replacement about her ago 13. Depression. In January 2017 the anastrozole was stopped due to increased musculoskeletal pain. Her symptoms improve off the medication. In February she continued her adjuvant hormonal therapy with tamoxifen 20 mg daily. She has since then been doing better other than she has developed an itchy skin eruption, which likely is due to tamoxifen.Tamoxifen discontinued on 01/22/2018 because of substernal discomfort/back pain which improved with discontinuation of tamoxifenT he patient has completed 4-1/2 year of hormone therapy and now doesn't want to take anymore. Follow-up mammogram done on 07/02/2019 showed benign findings. Follow-up CT PET scan done on August 29, 2019 showed 1.6 cm lesion in the left half of T7 vertebra with SUV of 15.9 indicating bone mets, 2 cm soft tissue deposit along the surface of diaphragm at medial right lung SUV 10.5. And additional FDG positive right hilar lymph nodes and a left ovarian mass seen on CT scan of chest abdomen pelvis done previously is a ovarian cyst and is FDG negative. And her tumor marker was also elevated so she was started on Femara 2.5 mg along with monthly Xgeva on September 01, 2019, Follow-up CT PET scan done on February 03, 2020 showed sterilization of osseous metastatic disease at T7, resolution of right diaphragmatic implant and right hilar lymphadenopathy, E.g. excellent response to Femara which was continued Genetic testing for BRCA1/2, came back negative Plan: CT scan of abdomen pelvis which was done on January 14, [address] scan of the abdomen done in July [address] PET scan. And recently done CT scan of abdomen pelvis shows visible bones showed no acute abnormality. A referral was placed to radiation oncology for further evaluation of bone pain. Patient has been taking her pain medication as scheduled and she is tolerating her back and right hip pain somewhat better. She will continue with her Arimidex daily and she will receive her Faslodex and Xgeva injections today. She will return to the clinic in 1 month with CBC CMP and CA 15???3. Signed By: Jolly Durand N.Joanne. <<Signature on File>>
== END 2022-02-13 10:22 | disposition home or self-care (01) ==
LOC: ONCMED 10:23
PROVIDERS: PCP Family Medicine; Visit Provider Nurse Practitioner Family
DX: Z51.11 Encounter for antineoplastic chemotherapy (principal); C79.51 Secondary malignant neoplasm of bone; C79.89 Secondary malignant neoplasm of other specified sites; C78.01 Secondary malignant neoplasm of right lung; Z85.3 Personal history of malignant neoplasm of breast; I10 Essential (primary) hypertension; E78.5 Hyperlipidemia, unspecified; E11.9 Type 2 diabetes mellitus without complications; I25.10 Atherosclerotic heart disease of native coronary artery without angina pectoris; K21.9 Gastro-esophageal reflux disease without esophagitis; E03.9 Hypothyroidism, unspecified; G25.0 Essential tremor; F32.A Depression, unspecified
CPT/HCPCS: 96372; 96402; 99215; J0897; J9395

== ENCOUNTER 2022-02-21 09:47 | Outpatient (CLI) | payer MEDICARE, MEDICAID, SELFPAY ==
--- NOTE | 2022-02-21 09:57 | MR_ITS ---
WS: [id number] MRI THORACIC SPINE WITH CONTRAST TECHNIQUE: Sagittal T1, T2 and STIR imaging. Axial T2 imaging. Post gadolinium imaging was obtained. CLINICAL INFORMATION: BREAST CANCER W/ABNORMALITY ON T7 COMPARISON: PET CT 10/28/2021 and 03/04/2021 FINDINGS: Mild thoracic kyphosis. No acute compression. Enhancing metastatic lesion with replacement normal bon e marrow signal involving the T6 vertebral body. Diffuse enhancement with a small amount of ventral e pidural enhancing disease. Paravertebral soft tissue enhancement. Additional small 5 mm enhancing les ion involving the T7 vertebral body posteriorly also compatible with metastatic disease. Enhancement extends into the LEFT T7 pedicle and posterior elements. Enhancement extending into the posterior josemanuel ments bilaterally at T6. Small amount of enhancement involving the T5 inferior endplate. Additional enhancing suspected metastatic lesion with T2 signal abnormality involving the midline spi nous process at T2 measuring 8 mm Additional enhancing lesion involving the RIGHT T12 vertebral body posteriorly extending into the ped icle. This may represent an atypical hemangioma but metastatic disease not excluded. No high-grade central canal stenosis. Mild/moderate facet arthropathy lower thoracic spine. Small RIG HT pleural effusion. Normal caliber thoracic aorta. MR/MR thoracic spine wo/w [id number] IMPRESSION: 1. Diffuse replacement of the normal bone marrow signal T6 vertebral body with enhancement compatible with metastatic disease. This extends into the posterio r elements with paravertebral soft tissue enhancement. 2. Involvement of the epidural space at the T6 level ventrally. No significant central canal stenosis. 3. Additional enhancing 5 mm metastatic lesion in the posterior RIGHT T7 verte bral body. 4. Additional enhancement extends into the posterior elements at bilateral T6 and LEFT T7. Additional enhancement involving the inferior endplate at T5. 5. Additional enhancing suspected metastatic lesion with T2 signal abnormality involving the midline spinous process at T2 measuring 8 mm 6. Additional enhancing lesion involving the RIGHT T12 vertebral body posterio rly extending into the RIGHT pedicle. This may represent an atypical hemangioma but metastatic disease not excluded. 7. Cord signal is normal.
[2022-02-21] MEDS: gadobenate dimeglumine 20 mL vial IV (11:26)
== END 2022-02-21 09:48 | disposition home or self-care (01) ==
LOC: RAD 09:50
PROVIDERS: PCP Family Medicine; Visit Provider Radiology Radiation Oncology
DX: C50.412 Malignant neoplasm of upper-outer quadrant of left female breast (principal); M48.8X4 Other specified spondylopathies, thoracic region
CPT/HCPCS: 72157

== ENCOUNTER 2022-03-20 06:40 | Outpatient (RCR) | payer MEDICARE, MEDICAID, SELFPAY ==
--- NOTE | 2022-02-26 | CT_ITS ---
Radiation Therapy Planning CT images; total exam DLP: 1264.70 mGy-cm MTDD
--- NOTE | 2022-02-28 15:34 | ONCRAD TMN_ITS ---
Radiation Oncology Treatment Management Note Patient Name: Sheron Leyva Date of : 1940 Date of Service: 02/28/2022 Attending Physician: Tonny Javier M.D. Sheron Leyva is a 81 year-old white female diagnosed with metastatic breast cancer. She was diagnosed in February 2013 with a stage IIA (T2N0), hormone receptor positive, HER-2 negative, infiltrating ductal carcinoma of the left breast. Postoperative radiotherapy was administered and adjuvant hormonal therapy was initiated in June 2013. In February 2017, the hormonal therapy was replaced with tamoxifen on account of musculoskeletal complaints related to anastrozole. However, tamoxifen was discontinued in December 2017 that was ascribed to progressive back pain. A PET scan ordered on August 29, 2019 revealed a 1.6 cm lesion within the T7 vertebral body (SUV 15.9), a 2 cm, right diaphragmatic tissue deposit, and right hilar lymphadenopathy worrisome for metastatic disease. Considering these findings, Femara and Xgeva were prescribed in August 2019. PET imaging in February 2020 demonstrated a complete response to therapy. A repeat follow-up PET scan ordered on October 28, 2021 described multiple right lung pulmonary nodules, progression of the right diaphragmatic implant, and recurrence at T7. An MRI of the thoracic spine obtained on February 21, 2022 confirmed enhancing lesions with bone marrow replacement within T2, T5-T7, and T12. The patient has received 3 Gy of a prescribed 30 Gonzalez to the T5-T7 vertebral bodies with a 3-dimensional conformal radiotherapy plan utilizing AP/PA treatment piper. Upon review of systems, she described no significant pain with her current narcotic regimen (Morphine ER 30 mg bid and Percocet prn). On physical examination, the patient weighed 261 lbs. Her temperature was 97.8 ???F and the blood pressure was 116/64 mmHg. Her pulse was 65 bpm and the respiratory rate was 18. Continue palliative radiotherapy as prescribed. Signed by: Dr. Tonny Javier 02/28/2022 3:33:03 PM
--- NOTE | 2022-03-06 15:21 | ONCRAD TMN_ITS ---
Radiation Oncology Treatment Management Note Patient Name: Sheron Leyva Date of : 1940 Date of Service: 03/06/2022 Attending Physician: Tonny Javier M.D. Sheron Leyva is a 81 year-old white female diagnosed with metastatic breast cancer. She was diagnosed in February 2013 with a stage IIA (T2N0), hormone receptor positive, HER-2 negative, infiltrating ductal carcinoma of the left breast. Postoperative radiotherapy was administered and adjuvant hormonal therapy was initiated in June 2013. In February 2017, the hormonal therapy was replaced with tamoxifen on account of musculoskeletal complaints related to anastrozole. However, tamoxifen was discontinued in December 2017 that was ascribed to progressive back pain. A PET scan ordered on August 29, 2019 revealed a 1.6 cm lesion within the T7 vertebral body (SUV 15.9), a 2 cm, right diaphragmatic tissue deposit, and right hilar lymphadenopathy worrisome for metastatic disease. Considering these findings, Femara and Xgeva were prescribed in August 2019. PET imaging in February 2020 demonstrated a complete response to therapy. A repeat follow-up PET scan ordered on October 28, 2021 described multiple right lung pulmonary nodules, progression of the right diaphragmatic implant, and recurrence at T7. An MRI of the thoracic spine obtained on February 21, 2022 confirmed enhancing lesions with bone marrow replacement within T2, T5-T7, and T12. The patient has received 15 Gy of a prescribed 30 Gonzalez to the T5-T7 vertebral bodies with a 3-dimensional conformal radiotherapy plan utilizing AP/PA treatment piper. Upon review of systems, she reported improvement in her pain. On physical examination, the patient weighed 258 lbs. Her temperature was 97.8 ???F and the blood pressure was 134/60 mmHg. Her pulse was 65 bpm and the respiratory rate was 18. Continue palliative radiotherapy as planned. Signed by: Tonny Javier 03/06/2022 3:20:15 PM
--- NOTE | 2022-03-13 14:46 | N.ONRD TS_ITS ---
Radiation OncologyTreatment Summary Patient Name: Sheron Leyva Date of : 1940 Date of Service: 03/13/2022 Attending Physician: Tonny Javier M.D. Sheron Leyva has completed palliative radiotherapy for the management of metastatic breast cancer. She was diagnosed in February 2013 with a stage IIA (T2N0), hormone receptor positive, HER-2 negative, infiltrating ductal carcinoma of the left breast. Postoperative radiotherapy was administered and adjuvant hormonal therapy was initiated in June 2013. In February 2017, the hormonal therapy was replaced with tamoxifen on account of musculoskeletal complaints related to anastrozole. However, tamoxifen was discontinued in December 2017 that was ascribed to progressive back pain. A PET scan ordered on August 29, 2019 revealed a 1.6 cm lesion within the T7 vertebral body (SUV 15.9), a 2 cm, right diaphragmatic tissue deposit, and right hilar lymphadenopathy worrisome for metastatic disease. Considering these findings, Femara and Xgeva were prescribed in August 2019. PET imaging in February 2020 demonstrated a complete response to therapy. A repeat follow-up PET scan ordered on October 28, 2021 described multiple right lung pulmonary nodules, progression of the right diaphragmatic implant, and recurrence at T7. An MRI of the thoracic spine obtained on February 21, 2022 confirmed enhancing lesions with bone marrow replacement within T2, T5-T7, and T12. Daily radiotherapy was administered between the dates of February 28, 2022 through March 13, 2022. A prescribed dose of 30 Gy was delivered in 10 fractions encompassing 14 elapsed days. The T5-T7 vertebral bodies were treated utilizing a 3-dimensional conformal radiotherapy plan with an AP/PA portal field design. The AP field utilized a 0??? gantry angle with a collimator angle of 90???. The field size measured 5 cm x 5 cm within the X-direction and 3 cm x 3 cm within the Y-direction. The SSD measured 87.9 cm with the field delivering 166 monitor units. The PA port employed a gantry angle of 180??? and a collimator angle of 90???. The field size was 5 cm x 5 cm within X-direction and 3 cm x 3 cm within the Y-direction. The planned SSD was 91.1 cm with the port allocating 193 monitor units. All treatments were performed with the [employer] linear accelerator and an isocentric technique. The dose was calculated by Anisotropic Analytic Algorithm. Photon energies of 15 MV were prescribed with the plan normalized to deliver 100% of the prescription dose to 99% of the planning target volume. Signed by: Tonny Javier 03/13/2022 2:44:03 PM
[2022-03-20 12:09] LABS: Basophils % 0.3 %; Eosinophils # 0.1 10^3/uL (0.0-0.8); Eosinophils % 1.1 %; Hematocrit 39.7 % (37.0-47.0); Hemoglobin 12.6 g/dL (11.5-15.3); Lymphocytes # 1.6 10^3/uL (0.8-4.8); Lymphocytes % 21.7 %; Mean Corpuscular HGB Conc 31.7 g/dL (30.0-36.0); Mean Corpuscular Volume 97.5 fl (81-99); Mean Platelet Volume 9.8 fL (7.4-10.4); Monocytes # 0.6 10^3/uL (0.2-0.9); Monocytes % 8.2 %; Neutrophils # 4.93 10^3/uL (1.8-7.7); Neutrophils % 68.1 %; Nucleated Red Blood Cells % 0 %; Platelet Count 226 10^3/cmm (130-400); Red Blood Count 4.07 10^6/uL (4.1-5.3); Red Cell Distribution Width 14.1 % (12.1-15.1); White Blood Count 7.2 10^3/uL (4.0-10.0)
[2022-03-20 12:56] LABS: Alanine Aminotransferase < 5 U/L (0-33); Albumin Level 3.8 g/dL (3.5-5.2); Alkaline Phosphatase 72 IU/L (35-105); Aspartate Amino Transferase 13 U/L (0-32); Blood Urea Nitrogen 15 mg/dL (8-23); Calcium 8.2 mg/dL (8.5-10.5); Carbon Dioxide 25 mmol/L (22-29); Chloride 97 mmol/L (98-107); Glucose 190 mg/dL (65-115); Osmolality Calculated 288 mOsm/kg (285-295); Sodium 136 mmol/L (136-145); Total Bilirubin 0.3 mg/dL (0.15-1.2); Total Protein 6.8 g/dL (6.6-8.7)
[2022-03-20 13:14] LABS: Anion Gap 18.6 (5-19); Potassium 4.6 mmol/L (3.5-5.1)
[2022-03-20 13:28] LABS: CA 15-3 876.2 U/mL (0-25)
[2022-03-20] MEDS: denosumab 120 mg SDV SUBCUT (14:45)
[2022-03-20] MEDS: fulvestrant 250 mg/5 mL Syringe 500 MG IM (14:45)
--- NOTE | 2022-03-21 10:06 | ONC FU_ITS ---
Dr. Marsh follow up note Patient: Sheron Leyva Unit #: [id number]: 1940 Dicatated By: Octaviano Marsh M.D.Date of Visit:Mar 20, 2022 Onc Med Follow-up/Prog Note History of Present Illness: This is a 81 year-old woman with grade 2 infiltrating ductal carcinoma the left breast, stage IIA (T2, N0, M0), ER/CO positive and HER-2/aldair nonamplified. She had presented with a palpable mass in the left breast. The mammogram from 03/11/2013 showed a new stellate density in the left breast, corresponding to 1.3 cm lesion on ultrasound. On 04/02/2013 she underwent a lumpectomy of the left breast with a sentinel lymph node biopsy. Her surgical pathology showed a grade 2 infiltrating ductal carcinoma measuring 2.8 cm. Margins were negative, and there was no involvement in 3 sentinel lymph nodes. Her prognostic markers showed ER 95%, CO 95%, and HER-2/aldair 1+ by IHC, amplification ratio by FISH of 1.05. She was first seen by Dr. Rose on 04/13/2013. An Oncotype DX was low score 14 corresponding to 9% chance of distal recurrence following hormonal treatment. Adjuvant chemotherapy was not recommended. DEXA scan on 04/16/2013 showed normal bone density. She was given radiation to the left breast, completed on 07/09/2013 to a total dose of 5940 cGy. Adjuvant hormonal therapy with anastrozole 1 mg daily was initiated in June of 2013. Her medical illnesses include hypertension, hyperlipidemia, type II diabetes with peripheral neuropathy, coronary artery disease, GERD, hypothyroidism, essential tremor, degenerative arthritis, and depression. She is a nonsmoker. INTERIM HISTORY: She was hospitalized on 01/18/2017 with elevated blood pressure and chest pain. She was discharged home on amlodipine 5 mg daily, HCTZ 25 mg daily, and Spironolactone 25 mg daily. She had evidence of chronic diastolic heart failure. Echocardiogram showed adequate LV ejection fraction of 61%, but with grade 3 diastolic dysfunction. follow-up visit on 02/13/2017. At that time she was reporting significant increase in her back and joint pain, and her anastrozole was stopped . She was then seen by Dr. Jorge on 03/19/2017, and she then continued her hormonal therapy with tamoxifen 20 mg daily. her bone pain improved since she was off the anastrozole, She took tamoxifen till 01/22/2018 because of progressive substernal discomfort/back pain, which did improve with discontinuation of tamoxifen. So patient completed about 4-1/2 year of adjuvant hormonal therapy and decided not to take any other hormone therapy for remaining 6 months. Follow-up mammogram done on 07/02/2019 showed benign findings and follow-up in one year Echocardiogram done on 07/07/2019 showed ejection fraction more than 60% As per patient she did develop left neck pain in the first week of June 2019, along with left facial pain and swelling, her PMD gave her steroids and antibiotics with that but improved and then developed headache on left side for which she underwent CT scan of head on 10/20/2019 which showed no acute intracranial hemorrhage or edema But a new lytic area involving left formen magnum and ring of C1. Early metastatic lesion should be considered and bone scan was recommended Bone scan done on 08/24/2019 showed negative for metastatic disease. CT scan of abdomen pelvis done on 08/21/2019 for abdominal pain showed mild thickening with inflammatory stranding involving sigmoid colon in the left lower quadrant consistent with mild acute diverticulitis Hepatomegaly with diffuse fatty infiltration of the liver. [place] ventral abdominal wall hernia containing nonobstructed loops of small and large bowel. Next Left adnexal low-attenuation lesion measuring 4.1 x 4.2 cm this is indeterminant and neoplasm not excluded. CT PET scan done on 08/29/2019 showed 1.6 cm lesion in the left half of T7 vertebral body with an SUV of 15.9, indicating osseous metastatic disease. No additional osseous lesions are present. 2 cm soft tissue deposit along the surface of diaphragm at the medial right lung SUV 10.5, indicating malignant deposit. Additionally, there is an FDG positive right hilar lymph node likely malignant.And left ovarian mass seen on CT scan of chest abdomen done recently is a ovarian cyst and is FDG negative The C1 lesion was not in the field of view of current CT PET scan study Dr. Cat,radiologist was asked to review CT PET scan and correlate with CT scan of chest abdomen done on 08/21/2019 and bone scan done on 08/24/2019, as per his evaluation,.diaphragmatic implant is present on CT scan done in July 2019 and is unchanged in size on the current study. The left ovarian cyst is morphologically identical as well. Osseous lesion at T7 is not clearly evident on the bone scan, and expected finding as this lesion is not evident on CT scan image, but is clearly present with FDG, collectively this pattern indicates a very recently developed metastasis. Due to her elevated tumor marker and abnormal CT scan/PET scan she was started on Femara 2.5 mg along with monthly Xgeva on September 01, 2019 Follow-up CT PET scan done on 03/05/2020 showed interval sterilization of osseous metastatic disease at T7 Resolution of right diaphragmatic implant and right hilar adenopathy consistent with complete response to the therapy and Xgeva was changed to every 3-month on May 07, 2020And continued with daily Femara along with vitamin D and calcium supplement Follow-up CT PET scan done on March 04, 2021 shows there is a recurrent disease in the right diaphragmatic surface implant measuring 2.7 x 1.5 cm SUV of 6.[address] PET scan done on March 05, 2020 Follow-up CT PET scan done on October 28, 2021 showed there has been development of multiple new pulmonary nodules consistent with recurrence. Present in all 3 right lung lobes, measuring up to 1.2 cm with significant FDG activity. Right-sided diaphragmatic implant is difficult to characterize due to respiratory motion but SUV has gone up to 9.5 from 6.7. There is recurrent activity at T7 with SUV of 7.7. Right hilar uptake now has SUV of 5.4, suspicious for recurrence. s/p Femara/vitamin D/calcium well along with 3 monthly Xgeva.. Femara was discontinued on November 08, 2021 as follow-up CT PET scan shows disease progression and because of poor performance status, patient has morbid obesity, COPD on home oxygen, she was switched to Faslodex 500 mg IM day 1, 15 and 29, monthly thereafter along with Arimidex 1 mg p.o. daily,Along with monthly Xgeva Went to [facility] on January 14, 2022 with right hip pain, CT scan of abdomen pelvis was done on January 14, 2022 showed nodules in the right lung base increase in size and number when compared to CT scan of abdomen pelvis done in July 2019, also showed nodular asymmetric thickening in the distal rectum, patient was examined by ER physician with rectal exam, as per ER note, no obvious mass was felt. And visible bones showed no acute fracture or abnormality. Here for follow-up, complaining of painful swallowing, some discomfort in mid chest especially with spicy foods, like coffee, carbonated drinks since radiation therapy to her T5-7 which she completed last week. No new bony pains, no hemoptysis or hematemesis, no jaundice, no abdominal pain, no headaches blurred or double vision tolerating Faslodex/Arimidex/Xgeva, well otherwise Medications: AmLODIPine Besylate 1 (5 mg) Tablet Oral daily, Aspirin 1 (81 mg) Tablet Oral daily, Calcium 500+D 1 (500-400 mg - Units) Tablet Oral daily, Carbidopa-Levodopa ER 1 Tablet (of 50-200 mg) Tablet, controlled release Oral daily, Carvedilol 1.5 (25 mg) Tablet Oral b.i.d., Cetirizine HCl 1 Tablet (of 10 mg) Oral, Citalopram Hydrobromide 1 Tablet Oral daily, Docusate Sodium 1 (100 mg) Tablet Oral PRN, Famotidine 1 (40 mg) Tablet Oral b.i.d., Furosemide 1 Tablet (of 40 mg) Oral b.i.d., Isosorbide Mononitrate CR 1 (120 mg) Tablet SR 24 HR Oral daily, Levothyroxine Sodium 1 (88 mcg) Tablet Oral daily, Losartan Potassium 1 (100 mg) Tablet Oral daily, Magnesium Oxide 1 (400 mg) Capsule Oral daily, MetFORMIN HCl 1 (500 mg) Tablet Oral b.i.d., Montelukast Sodium 1 (10 mg) Tablet Oral daily, Morphine Sulfate 1 Tablet (of 30 mg) Oral b.i.d., Mucinex Allergy Tablet Oral, Nitroglycerin Tablet, sublingual Sublingual PRN, Ondansetron HCl 1 - 2 Tablet (of 4 mg) Oral q 4 hours PRN, oxyCODONE HCl 1 Tablet (of 5 mg) Oral t.i.d. PRN, Potassium Chloride Rasheeda ER 1 (10 meq) Tablet, controlled release Oral daily, Pravastatin Sodium 1 (80 mg) Tablet Oral daily, PreserVision AREDS 1 Tablet Oral daily, Primidone 1 (50 mg) Tablet Oral b.i.d., TraZODone HCl 1.5 (100 mg) Tablet Oral daily, Tresiba FlexTouch 20 Units Subcutaneous daily, Vitamin D 1 (2000 Units) Tablet Oral daily Allergies: bandaids , IBUPROFEN, Latex Gloves, Naproxen, and TraMADol HCl. Review of Systems: Review of Systems is not available for this patient. Vital Signs: Performed on Mar 20, 2022 16:18 Height - 66.00 in Weight - 257.8 lbs (LOW) BSA - 2.23 sq.m BMI - 41.61 (HIGH) Temperature - 98.4 F Pulse - 78 /min Respiration - 18 /min BP - 108/67 mm(hg) O2 Sat - 92 % (LOW) Pain - 9 Fatigue - 10 Performance Status: 2 - Ambulatory/capable of all self-care, unable to perform any work activities. Up and about more than 50% of waking hours. (ECOG) Physical Examination: Respiratory - Poor air entry otherwise clear, Cardiovascular - Regular rate and rhythm of heart, Gastrointestinal - Soft, bowel sounds present, Extremities - 1+ edema bilaterally. Lab/Imaging: Most recent lab results are not available for this patient. Impression: 1Disease progression per CT PET scan done on October 28, 2021 which shows development of multiple new pulmonary nodules consistent with recurrence. Present in all 3 right lung lobes, measuring up to 1.2 cm with significant FDG activity. Right-sided diaphragmatic implant is difficult to characterize due to respiratory motion but SUV has gone up to 9.5 from 6.7 previously. And recurrent activity at T7 with SUV of 7.7. Right hilar uptake now has SUV of 5.4, suspicious for recurrence, Patient was switched to Faslodex and Arimidex on November 13, 2021 Along with monthly Xgeva Follow-up CT PET scan done on March 04, 2021 shows there is recurrent of disease in the right diaphragmatic surface implant measuring 2.7 x 1.5 cm with SUV of 6.7 no other abnormality seen And CT scan of head done on 08/20/2019, ordered by PMD for left-sided headache and left neck pain showed no acute intracranial hemorrhage or edema but new lytic area involving left foramen magnum and ring of C1, early metastatic lesion should be considered clinically, bone scan was recommendedAnd follow-up CT PET scan done on August 29, 2019 showed 1.6 cm lesion in the left top of T7 vertebral body with SUV of 15.9 indicating of osseous metastatic disease. No additional osseous lesions seen. 2 cm soft tissue deposit along the surface of the diaphragm at the medial right lung SUV 10.5 indicating malignant deposit and additional FDG positive right hilar lymph node and left ovarian mass seen on CT scan of abdomen done recently showed no FDG uptake. Patient was started on Femara/vitamin D/calcium/Xgeva on September 01, 2019 h/o . grade 2 infiltrating ductal carcinoma the left breast, stage IIA (T2, N0, M0), ER/CO positive and HER-2/aldair nonamplified. Oncotype DX score was low risk, and adjuvant chemotherapy was not recommended. 2. She underwent left breast lumpectomy with axillary sentinel lymph node biopsy on 04/02/2013. 3. She was given radiation to the left breast, completed on 07/09/2013 to a total dose of 5940 cGy. 4. Adjuvant hormonal therapy with anastrozole 1mg daily was initiated in June 2013. Her other medical illnesses include: 4. Hypertension. 5. Hyperlipidemia. 6. Type II diabetes with peripheral neuropathy. 7. Coronary artery disease. 8. Chronic diastolic congestive heart failure. 9. GERD. 10. Hypothyroidism. 11. Essential tremor. 12. Degenerative arthritis. Chronic left leg swelling since left knee replacement about her ago 13. Depression. In January 2017 the anastrozole was stopped due to increased musculoskeletal pain. Her symptoms improve off the medication. In February she continued her adjuvant hormonal therapy with tamoxifen 20 mg daily. She has since then been doing better other than she has developed an itchy skin eruption, which likely is due to tamoxifen.Tamoxifen discontinued on 01/22/2018 because of substernal discomfort/back pain which improved with discontinuation of tamoxifenT he patient has completed 4-1/2 year of hormone therapy and now doesn't want to take anymore. Follow-up mammogram done on 07/02/2019 showed benign findings. Follow-up CT PET scan done on August 29, 2019 showed 1.6 cm lesion in the left half of T7 vertebra with SUV of 15.9 indicating bone mets, 2 cm soft tissue deposit along the surface of diaphragm at medial right lung SUV 10.5. And additional FDG positive right hilar lymph nodes and a left ovarian mass seen on CT scan of chest abdomen pelvis done previously is a ovarian cyst and is FDG negative. And her tumor marker was also elevated so she was started on Femara 2.5 mg along with monthly Xgeva on September 01, 2019, Follow-up CT PET scan done on February 03, 2020 showed sterilization of osseous metastatic disease at T7, resolution of right diaphragmatic implant and right hilar lymphadenopathy, E.g. excellent response to Femara which was continued Genetic testing for BRCA1/2, came back negative Plan: Discussed with patient regarding her labs white blood count 7.2 hemoglobin 12.6 hematocrit 39.7 platelets 226,000 CMP within normal limit except glucose 190 and CEA 15 (pending Clinically, patient is doing reasonably well, her mid back pain/lower back pain has improved since treated with radiation therapy to T5-7 which she completed last week but now complaining of mid chest pain specially with swallowing especially with spicy food, etiology could be due to radiation-induced esophagitis, patient was advised to minimize carbonated drinks/coffee/spicy foods and she already using narcotics as pain medication and she was also advised to maintain hydration in the meantime we will proceed with her monthly Faslodex and Xgeva and Daily Arimidex then she will return to clinic in 1 month with CBC CMP Signed By: Octaviano Marsh M.D. <<Signature on File>>
== END 2022-03-24 23:59 | disposition home or self-care (01) ==
LOC: ONCMED 06:40
PROVIDERS: PCP Family Medicine; Visit Provider Internal Medicine Hematology & Oncology
DX: Z51.0 Encounter for antineoplastic radiation therapy (principal); Z51.11 Encounter for antineoplastic chemotherapy; C50.812 Malignant neoplasm of overlapping sites of left female breast; Z17.0 Estrogen receptor positive status [ER+]; C78.01 Secondary malignant neoplasm of right lung; C78.02 Secondary malignant neoplasm of left lung; C79.51 Secondary malignant neoplasm of bone; C77.8 Secondary and unspecified malignant neoplasm of lymph nodes of multiple regions; E55.9 Vitamin D deficiency, unspecified; M54.6 Pain in thoracic spine; K20.80 Other esophagitis without bleeding; R07.89 Other chest pain; Z79.811 Long term (current) use of aromatase inhibitors; Z79.899 Other long term (current) drug therapy
CPT/HCPCS: 36415; 77290; 77295; 77300; 77334; 77336; 77387; 77412; 80053; 85025; 86300; 96372; 96401; 96402; 99215; J0897; J9395

== ENCOUNTER → 2022-04-02 13:44 | Outpatient (BNVA) | payer MEDICARE, MEDICAID, SELFPAY | PROVIDERS: PCP Family Medicine; Visit Provider Internal Medicine Cardiovascular Disease | DX: I25.110 Atherosclerotic heart disease of native coronary artery with unstable angina pectoris (principal); I11.0 Hypertensive heart disease with heart failure; I50.32 Chronic diastolic (congestive) heart failure; I34.0 Nonrheumatic mitral (valve) insufficiency | CPT/HCPCS: 99214 ==

== ENCOUNTER 2022-04-18 12:05 | Oncology outpatient (recurring) (ONCR) | payer MEDICARE, MEDICAID, SELFPAY ==
[2022-04-18 12:58] LABS: Basophils % 0.1 %; Eosinophils # 0.1 10^3/uL (0.0-0.8); Eosinophils % 1.2 %; Hematocrit 39.5 % (37.0-47.0); Hemoglobin 12.6 g/dL (11.5-15.3); Lymphocytes % 25.3 %; Mean Corpuscular HGB Conc 31.9 g/dL (30.0-36.0); Mean Corpuscular Hemoglobin 31.8 pg (28.0-34.0); Mean Corpuscular Volume 99.7 fl (81-99); Mean Platelet Volume 9.9 fL (7.4-10.4); Monocytes # 0.6 10^3/uL (0.2-0.9); Monocytes % 7.5 %; Neutrophils # 5.08 10^3/uL (1.8-7.7); Neutrophils % 65.3 %; Nucleated Red Blood Cells % 0 %; Platelet Count 230 10^3/cmm (130-400); Red Blood Count 3.96 10^6/uL (4.1-5.3); Red Cell Distribution Width 14.2 % (12.1-15.1); White Blood Count 7.8 10^3/uL (4.0-10.0)
[2022-04-18 13:18] LABS: Alanine Aminotransferase < 5 U/L (0-33); Albumin Level 3.7 g/dL (3.5-5.2); Alkaline Phosphatase 72 IU/L (35-105); Aspartate Amino Transferase 15 U/L (0-32); Blood Urea Nitrogen 16 mg/dL (8-23); Calcium 8.6 mg/dL (8.5-10.5); Carbon Dioxide 25 mmol/L (22-29); Chloride 98 mmol/L (98-107); Globulin 2.6 g/dL (1.3-4.6); Glucose 168 mg/dL (65-115); Osmolality Calculated 291 mOsm/kg (285-295); Sodium 138 mmol/L (136-145); Total Bilirubin 0.2 mg/dL (0.15-1.2); Total Protein 6.3 g/dL (6.6-8.7)
[2022-04-18 13:23] LABS: Anion Gap 19.5 (5-19); Potassium 4.5 mmol/L (3.5-5.1)
[2022-04-18] MEDS: denosumab 120 mg SDV SUBCUT (15:11)
[2022-04-18] MEDS: fulvestrant 250 mg/5 mL Syringe 500 MG IM (15:16)
[2022-04-18 15:40] VITALS: BP 121/78; PULSE 78; RESP 18; TEMP 36.1; O2SAT 97
== END 2022-04-24 23:59 | disposition home or self-care (01) ==
LOC: ONCMED 12:07
PROVIDERS: PCP Family Medicine; Visit Provider Internal Medicine Hematology & Oncology
DX: C50.912 Malignant neoplasm of unspecified site of left female breast (principal); Z17.0 Estrogen receptor positive status [ER+]; C79.51 Secondary malignant neoplasm of bone; I11.0 Hypertensive heart disease with heart failure; I50.32 Chronic diastolic (congestive) heart failure; I25.10 Atherosclerotic heart disease of native coronary artery without angina pectoris; I34.0 Nonrheumatic mitral (valve) insufficiency
CPT/HCPCS: 80053; 85025; 96372; 96401; 99214; 99999; J0897; J9395

== ENCOUNTER 2022-05-16 09:08 | Emergency (ER) | payer MEDICARE, MEDICAID, SELFPAY ==
[2022-05-16 09:22] VITALS: BP 127/68; PULSE 69; RESP 22; TEMP 37; O2SAT 95; BMI 41.9
--- NOTE | 2022-05-16 09:32 | XR_ITS ---
WS: [id number] Exam: XR chest 1V portable [id number] Date/Time of Exam: 05/16/2022 9:34 AM Reason For Exam: dyspnea/cough Comparison 08/09/2017. There is cardiac enlargement with pulmonary vascular congestion suggesting CHF. Prominent right-sided pleural effusion noted with compressive atelectasis of the middle and lower lobes of the right lung. No pneumothorax. The mediastinum is normal in contour. Bony structures are intact. XR/XR chest 1V portable [id number] IMPRESSION: 1. Cardiac enlargement with pulmonary vascular congestion suggesting CHF. 2. Prominent right basal pleural effusion with compressive atelectasis of the m iddle and lower lobes the right lung.
--- NOTE | 2022-05-16 09:32 | ECG_ITS ---
[facility] Test Date: 2022-05-16 Pat Name: Sheron Leyva Department: Room: Gender: Female [employer] Education Director: : 1940 Requested By: Adi Ferreira Order Number: [id number] Martin MD: Ena Montes M.D. Measurements Intervals [place] Rate: 67 P: 60 [place]: 182 QRS: 4 QRSD: 132 T: 32 QT: 418 QTc: 442 Interpretive Statements SINUS RHYTHM INTRAVENTRICULAR CONDUCTION DELAY [130+ ms QRS DURATION] ANTEROSEPTAL MYOCARDIAL INFARCTION , OF INDETERMINATE AGE [40+ ms Q WAVE IN V1-V4] Compared to ECG 08/09/2017 10:47:04 Intraventricular conduction delay now present Incomplete right bundle-branch block no longer present Myocardial infarct finding still present Electronically Signed On 05-16-2022 22:27:18 CDT by Ena Montes M.D. [id number]
--- NOTE | 2022-05-16 09:55 | ED_ITS ---
HPI - SOB/Dyspnea General: Chief Complaint: Shortness of Breath/Dyspnea Stated Complaint: Sortness breath, congestion Time Seen by Provider: 05/16/22 09:16 Source: patient Mode of arrival: ambulatory Limitations: no limitations History of Present Illness: HPI Narrative: 81-year-old female presents emergency room complaining of increasing shortness of breath that began 5 days ago. Progressively worsened over that time. She has not had a fever sweats or chills. She has not really had any chest discomfort with it. She has known breast cancer with metastasis to the right l mary. He is normally on 2 L by nasal cannula increased to 3 which relieved her dyspnea. MD elicited complaint: shortness of breath Pertinent past history: other (Breast cancer with lung metastasis) Onset (ago): day(s) (5) Timing: constant Severity: moderate Exacerbating factors: lying flat, exertion and coughing Relieving factors: oxygen and rest Associated symptoms: Deny abdominal pain, chest congestion, chest pain, cough, diaphoresis, dizziness, extremity pain, fever(s), hemoptysis, lightheadedness, myalgias, nausea, orthopnea, palpitations, paresthesias, polydipsia, polyuria, rash, sense of impending doom, syncope or vomiting Treatment prior to arrival: none Review of Systems Const: Denies: fever(s), chills, fatigue, malaise or diaphoresis Card: Denies: chest pain, palpitations, lightheadedness, syncope or orthopnea Resp: Reports: dyspnea and non-productive cough; Denies: productive cough, wheezing, hemoptysis or chest congestion GI: Denies: abdominal pain, nausea or vomiting Musc: Denies: extremity pain Neuro: Denies: dizziness Endo: Denies: polyuria or polydipsia PFS ED PFSH: Medical History ASHD (arteriosclerotic heart disease) Breast cancer Breast cancer metastasized to bone CHF (congestive heart failure) Hiatal hernia History of abdominal hernia Hyperlipidemia Hypertension Leg swelling Mitral regurgitation Peripheral neuropathy Varicose veins of both lower extremities Surgical History H/O: hysterectomy History of eye surgery History of lumpectomy of left breast History of shoulder surgery Hx of appendectomy Hx of cholecystectomy Family History Father CAD (coronary artery disease) Cancer Diabetes Mother CAD (coronary artery disease) Brother CAD (coronary artery disease) Diabetes Family/Other Chronic kidney disease (CKD) Other Hypertension Denies family history of Clotting disorder Dementia Suicide Anesthesia complication Bleeding disorder Lung disease Stroke Social History Smoking and tobacco status: never smoked Alcohol intake: never Physical Exam Const: COMMON NORMALS: no acute distress GENERAL APPEARANCE: cooperative and comfortable ORIENTATION/CONSCIOUSNESS: Yes awake, Yes oriented to person, Yes oriented to place and Yes oriented to time HENMT: COMMON NORMALS: normocephalic, atraumatic and hearing grossly normal bilaterally HEAD & SCALP: normocephalic and atraumatic Neck/C-Spine: COMMON NORMALS: no JVD Resp: COMMON NORMALS: normal respiratory effort, No retractions and No use of accessory muscles AUSCULTATION: crackles Laterality: right and posterior and diminished lung sounds on the right in the lower lung piper Cardio: COMMON NORMALS: no JVD, regular rate, regular rhythm and No murmurs present (Cardio) RATE: regular rate RHYTHM: regular rhythm GI: COMMON NORMALS: Soft to palpation and No hepatosplenomegaly present A USCULTATION: Yes normoactive bowel sounds PALPATION: Yes Soft to palpation, No Tenderness to palpation present (GI), No Guarding due to palpation present (GI) and Yes No hepatosplenomegaly present Extremity: COMMON NORMALS: normal to inspection, capillary refill normal, no clubbing, cyanosis or edema, no calf tenderness and no pedal edema Neuro: SENSORIUM/ORIENTATION: Yes oriented to person, Yes oriented to place and Yes oriented to time Skin: COMMON NORMALS: no rashes or lesions noted GENERAL SKIN EXAM: no rashes or lesions noted Course Vital Signs: Vital signs: Vital Signs Temperature 98.6 F 05/16/22 09:22 Pulse Rate 69 05/16/22 09:22 Respiratory Rate 22 H 05/16/22 09:22 Blood Pressure 127/68 05/16/22 09:22 Pulse Oximetry 95 05/16/22 09:22 MDM - SOB/Dyspnea Medical Decision Making Patient has developed a right-sided pleural effusion most likely related to her tumor her oxygen saturation is well corrected with the increase in oxygen at this point we will discharge her home and set her up to see pulmonology given the fact that they are still treating this I suspect that this will recur and she may be better suited to have a drain placed and just have a thoracentesis. I called and talked to Dr. Carney and he has agreed to see her on Saturday morning this week. Medical Records I reviewed the patient's medical records. Lab Data I reviewed the patient's lab results. : 05/16/22 09:58 05/16/22 09:58 Labs/Radiology: Radiology Impressions Chest X-Ray 05/16/22 09:32 IMPRESSION: 1. Cardiac enlargement with pulmonary vascular congestion suggesting CHF. 2. Prominent right basal pleural effusion with compressive atelectasis of the middle and lower lobes the right lung. Laboratory Results WBC 8.7 10^3/uL (4.0-10.0) 05/16/22 09:58 RBC 3.99 10^6/uL (4.1-5.3) L 05/16/22 09:58 Hgb 12.5 g/dL (11.5-15.3) 05/16/22 09:58 Hct 37.8 % (37.0-47.0) 05/16/22 09:58 MCV 94.7 fl (81-99) 05/16/22 09:58 MCH 31.3 pg (28.0-34.0) 05/16/22 09:58 MCHC 33.1 g/dL (30.0-36.0) 05/16/22 09:58 RDW 14.2 % (12.1-15.1) 05/16/22 09:58 Plt Count 229 10^3/cmm (130-400) 05/16/22 09:58 MPV 9.6 fL (7.4-10.4) 05/16/22 09:58 Neut % (Auto) 76.0 % 05/16/22 09:58 Lymph % (Auto) 13.3 % 05/16/22 09:58 [place] % (Auto) 8.6 % 05/16/22 09:58 Eos % (Auto) 1.4 % 05/16/22 09:58 Baso % (Auto) 0.2 % 05/16/22 09:58 Neut # (Auto) 6.63 10^3/uL (1.8-7.7) 05/16/22 09:58 Lymph # (Auto) 1.2 10^3/uL (0.8-4.8) 05/16/22 09:58 [place] # (Auto) 0.8 10^3/uL (0.2-0.9) 05/16/22 09:58 Eos # (Auto) 0.1 10^3/uL (0.0-0.8) 05/16/22 09:58 Baso # (Auto) 0.0 10^3/uL (0.0-0.1) 05/16/22 09:58 Nucleated RBC % (auto) 0 % 05/16/22 09:58 Nucleated RBCs # 0.0 /100WBC 05/16/22 09:58 Specimen Type Arterial 05/16/22 10:10 Sample Site Radial, right 05/16/22 10:10 ABG pH 7.39 (7.35-7.45) 05/16/22 10:10 ABG pCO2 52.2 mmHg (35-45) H 05/16/22 10:10 ABG pO2 79.0 mmHg (80.0-100.0) L 05/16/22 10:10 ABG HCO3 31.9 mmol/L (22-26) H 05/16/22 10:10 ABG O2 Saturation 95.9 05/16/22 10:10 ABG Base Excess 5.8 mmol/L (-2.0-2.0) H 05/16/22 10:10 Carlos A Test Pos 05/16/22 10:10 A-a O2 Gradient 11.2 mmHg (5-10) H 05/16/22 10:10 Hematocrit 36.9 % (37-47) L 05/16/22 10:10 Hgb O2 Saturation 94.4 % (95-100) L 05/16/22 10:10 Carboxyhemoglobin 1.2 %THgb (0.4-20.1) 05/16/22 10:10 Methemoglobin 0.4 % (0.4-1.5) 05/16/22 10:10 Total Hemoglobin 12.1 g/dL (12-16) 05/16/22 10:10 Sodium 138.0 mmol/L (131-143) 05/16/22 10:10 Potassium 4.0 mmol/L (3.5-5.0) 05/16/22 10:10 Glucose 198.0 mg/dL (70-115) H 05/16/22 10:10 Ionized Calcium 1.2 mmol/L (1.1-1.4) 05/16/22 10:10 O2 Delivery Device Nc 05/16/22 10:10 O2 Liters/Min 3.0 % 05/16/22 10:10 FiO2 32.0 % 05/16/22 10:10 Charge Manager ID Cak 05/16/22 10:10 Sodium 134 mmol/L (136-145) L 05/16/22 09:58 Potassium 4.0 mmol/L (3.5-5.1) 05/16/22 09:58 Chloride 93 mmol/L (98-107) L 05/16/22 09:58 Carbon Dioxide 30 mmol/L (22-29) H 05/16/22 09:58 Anion Gap 15.0 (5-19) 05/16/22 09:58 BUN 15 mg/dL (8-23) 05/16/22 09:58 Creatinine 0.6 mg/dL (0.5-0.9) 05/16/22 09:58 GFR Calculation Not Reportable 05/16/22 09:58 Glucose 192 mg/dL (65-115) H 05/16/22 09:58 Calculated Osmolality 284 mOsm/kg (285-295) L 05/16/22 09:58 Calcium 8.7 mg/dL (8.5-10.5) 05/16/22 09:58 Total Bilirubin 0.3 mg/dL (0.15-1.2) 05/16/22 09:58 AST 11 U/L (0-32) 05/16/22 09:58 ALT < 5 U/L (0-33) 05/16/22 09:58 Alkaline Phosphatase 77 IU/L (35-105) 05/16/22 09:58 Total Protein 6.8 g/dL (6.6-8.7) 05/16/22 09:58 Albumin 3.8 g/dL (3.5-5.2) 05/16/22 09:58 Globulin 3.0 g/dL (1.3-4.6) 05/16/22 09:58 Discharge Plan Discharge Patient Disposition: Home Clinical Impression: Pleural effusion, Breast cancer metastasized to lung Condition: Stable Prescriptions: No Action polyethylene glycol 3350 [Miralax] 17 gram/dose powder 17 g PO DAILY 0RF docusate sodium 100 mg capsule 100 mg PO DAILY 0RF isosorbide mononitrate 120 mg tablet extended release 24 hr 120 mg PO QAM 0RF cholecalciferol (vitamin D3) PO DAILY 0RF trazodone 100 mg tablet 150 mg PO DAILY 0RF potassium chloride 10 mEq capsule, extended release 10 meq PO DAILY 0RF metformin 500 mg tablet 500 mg PO BID 0RF aspirin [Adult Low Dose Aspirin] 81 mg tablet,delayed release (DR/EC) 81 mg PO DAILY 0RF magnesium oxide 400 mg magnesium tablet 400 mg PO DAILY 0RF cetirizine 10 mg tablet 10 mg PO DAILY 0RF calcium citrate malate-vit D3 250-100 mg-unit tablet 1 tab PO DAILY 0RF ondansetron 4 mg tablet,disintegrating 4 mg PO Q8H PRN0RF PreserVision AREDS 7,160-113-100 [id number] tablet 2 tab PO BID 0RF amlodipine 10 mg tablet 5 mg PO DAILY 0RF insulin degludec 20 each SUBCUT DAILY 0RF primidone 50 mg tablet 50 mg PO BID 0RF carvedilol 25 mg tablet 37.5 mg PO BID 0RF famotidine 40 mg tablet 40 mg PO DAILY 0RF montelukast 10 mg tablet 10 mg PO DAILY 0RF furosemide 40 mg tablet 40 mg PO BID 0RF carbidopa-levodopa 50-200 mg tablet extended release 1 tab PO QID 0RF nitroglycerin 0.4 mg tablet, sublingual 0.4 mg sublingual Q5M PRN (Reason: chest pain) 30 Days Qty: 30 3RF Rx Instructions: until response; do not exceed 3 doses per episode anastrozole 1 mg tablet 1 mg PO DAILY 0RF levothyroxine 125 mcg tablet 125 mcg PO DAILY 0RF losartan 100 mg tablet See Rx Instructions .ROUTE .COMPLEX Qty: 90 3RF Dose Instruction: TAKE 1 TABLET BY MOUTH DAILY FOR 30 DAYS Rx Instructions: TAKE 1 TABLET BY MOUTH DAILY FOR 30 DAYS pravastatin 80 mg tablet See Rx Instructions .ROUTE .COMPLEX Qty: 90 3RF Dose Instruction: TAKE 1 TABLET BY MOUTH DAILY Rx Instructions: TAKE 1 TABLET BY MOUTH DAILY morphine 30 mg tablet extended release 30 mg PO Q12H PRN (Reason: pain) 30 Days Qty: 60 0RF oxycodone-acetaminophen 5-325 mg tablet 1 tab PO QID PRN (Reason: pain) 30 Days Qty: 90 0RF Discharge Orders: Discharge ED (Routine); Ordered 05/16/22 Ordered By: Adi Muir Referrals: Mikael Madrigal MD [Primary Care Provider] - Discharge Diet: Usual diet Discharge Activity: Limit activity as instructed Patient Instructions: Opioid Safety Activity Restrictions/Additional Instructions: Keep oxygen at 3 L/min. manager of case will make arrangements for her to follow- up with pulmonology to evaluate to drain the pleural effusion. Coding Level of Care Code ED [place] [employer] Professor for Areli Fwharvey Exam Comprehensive
[2022-05-16 10:10] LABS: Basophils % 0.2 %; Eosinophils # 0.1 10^3/uL (0.0-0.8); Eosinophils % 1.4 %; Hematocrit 37.8 % (37.0-47.0); Hemoglobin 12.5 g/dL (11.5-15.3); Lymphocytes # 1.2 10^3/uL (0.8-4.8); Lymphocytes % 13.3 %; Mean Corpuscular HGB Conc 33.1 g/dL (30.0-36.0); Mean Corpuscular Hemoglobin 31.3 pg (28.0-34.0); Mean Corpuscular Volume 94.7 fl (81-99); Mean Platelet Volume 9.6 fL (7.4-10.4); Monocytes # 0.8 10^3/uL (0.2-0.9); Monocytes % 8.6 %; Neutrophils # 6.63 10^3/uL (1.8-7.7); Nucleated Red Blood Cells % 0 %; Platelet Count 229 10^3/cmm (130-400); Red Blood Count 3.99 10^6/uL (4.1-5.3); Red Cell Distribution Width 14.2 % (12.1-15.1); White Blood Count 8.7 10^3/uL (4.0-10.0)
[2022-05-16 10:22] LABS: ABG PCO2 52.2 mmHg (35-45); ABG PH Result 7.39 (7.35-7.45); Alveolar-Arterial Oxygen Gradi 11.2 mmHg (5-10); Arterial Blood Gas Hematocrit 36.9 % (37-47); Base Excess ABG 5.8 mmol/L (-2.0-2.0); Blood Gas Allen Test Pos; Blood Gas Operator Identificat CAK; Blood Gas Sample Site Radial, right; Blood Gas Sample Type Arterial; Carboxyhemoglobin 1.2 %THgb (0.4-20.1); HCO3 ABG 31.9 mmol/L (22-26); HGB O2 Sat 94.4 % (95-100); Ionized Calcium Level - ABG 1.2 mmol/L (1.1-1.4); Methemoglobin 0.4 % (0.4-1.5); Oxygen Device NC; Oxygen Saturation ABG 95.9; Total Hemoglobin 12.1 g/dL (12-16)
[2022-05-16 10:59] LABS: Alanine Aminotransferase < 5 U/L (0-33); Albumin Level 3.8 g/dL (3.5-5.2); Alkaline Phosphatase 77 IU/L (35-105); Aspartate Amino Transferase 11 U/L (0-32); Blood Urea Nitrogen 15 mg/dL (8-23); Calcium 8.7 mg/dL (8.5-10.5); Carbon Dioxide 30 mmol/L (22-29); Chloride 93 mmol/L (98-107); Glucose 192 mg/dL (65-115); Osmolality Calculated 284 mOsm/kg (285-295); Sodium 134 mmol/L (136-145); Total Bilirubin 0.3 mg/dL (0.15-1.2); Total Protein 6.8 g/dL (6.6-8.7)
== END 2022-05-16 11:54 | disposition home or self-care (01) ==
PROVIDERS: Emergency Provider Family Medicine; PCP Family Medicine
DX: J90 Pleural effusion, not elsewhere classified (principal); C50.919 Malignant neoplasm of unspecified site of unspecified female breast; C78.00 Secondary malignant neoplasm of unspecified lung; Z79.84 Long term (current) use of oral hypoglycemic drugs; Z79.82 Long term (current) use of aspirin; Z85.830 Personal history of malignant neoplasm of bone; I11.0 Hypertensive heart disease with heart failure; I50.9 Heart failure, unspecified; E78.5 Hyperlipidemia, unspecified; Z99.81 Dependence on supplemental oxygen
CPT/HCPCS: 36600; 71045; 80051; 80053; 82330; 82805; 85025; 93005; 99283

== ENCOUNTER 2022-05-18 09:30 | Oncology outpatient (recurring) (ONCR) | payer MEDICARE, MEDICAID, SELFPAY ==
[2022-05-11] MEDS: iohexol 300 mg/mL 50 mL Btl PO (08:41)
--- NOTE | 2022-05-11 09:30 | CT_ITS ---
WS: [id number] CT CHEST, ABDOMEN AND PELVIS WITHOUT CONTRAST HISTORY: disease progression, tumor marker increasing TECHNIQUE: Contiguous 5 mm axial imaging performed through the chest, abdomen and pelvis without IV c ontrast, oral contrast has been provided. Coronal and sagittal reformats chest. Coronal and sagittal reformats through the abdomen and pelvis. All CT scans at [facility] use at least one of thes e dose optimization techniques: automated exposure control; mA and/or kV adjustment per patient size (includes targeted exams where dose is matched to clinical indication); or iterative reconstruction. CONTRAST: None DLP: 2412.71 mGy.cm COMPARISON: 01/14/2022 and 08/09/2017, PET/CT 10/28/[address]: Significant change and progression of the metastatic lesions within the chest since 01/14/20 22 and the PET/CT of 10/28/2021. Pleural nodule, 1.3 cm RIGHT upper lobe. There are numerous pleural-b ased nodules extending along the RIGHT major and minor fissures which were not present and/or progres sed since the prior study. Lobulated soft tissue extends along the diaphragmatic surface which has al so progressed. The exact measurements are difficult to obtain without IV contrast. Largest confluent nodularity along the diaphragmatic surface is at least 7.0 x 2.4 cm. Small layering RIGHT pleural eff usion has significantly increased. No left-sided pulmonary nodule or effusion. Mild fullness at the R IGHT hilum. No discrete nodule can be measured. Suspect RIGHT hilar lymph nodes. Metastatic deposit i n the pericardial fat. This lymph node measures 1.3 cm. Heart is slightly enlarged. No pericardial ef fusion. Very minimal atherosclerosis aorta. Abdomen CT: Numerous scattered low-attenuation nodules within the liver. No bile duct dilatation. Gal lbladder has been surgically removed. Normal spleen with granulomata. Marked pancreatic atrophy. No a drenal mass. No renal obstruction or mass identified. Mild atherosclerosis aorta. Large ventral abdominal wall hernia contains small bowel and colon with no obstruction. Numerous dive rticula throughout the colon. The appendix is been removed. No ascites. No lymph nodes are identified . Pelvic CT: No free fluid in the pelvis. LEFT adnexal mass stable since the prior study and consistent with an ovarian cyst measuring 2.8 cm. Metastatic sclerotic focus at T6 and probably the T7 vertebral body. There is a tiny sclerotic focus within the inferior endplate of T2. These were previously described by MRI as metastatic lesions. Scl erotic focus in the LEFT humeral head may be a bone island. Sclerotic focus within the inferior endpl ate of L5 and also in the anterior S1 vertebral body. None of these sclerotic spine lesions were pres ent on 08/09/2017 or 08/21/[address] [place] [id number] IMPRESSION: 1. Progression of metastatic nodules in the RIGHT thorax. Majority of these ar e pleural-based and extend along the fissures and diaphragmatic surface. The la rgest cluster of metastatic implants measures 7.0 x 2.4 cm along the medial jose enrique phragmatic surface. Additional paracardiac lymph node measures 1.3 cm. 2. Increasing size of a small LEFT pleural effusion. 3. Patient has known metastatic bone disease as seen on a prior recent MRI and also the bone scan. There are additional sclerotic lesion seen on this CT whic h may be treated metastases as they were not apparent on the bone scan. Most si gnificant involvement is at T6 which is positive on MRI and bone scan.. 4. Suspicious but indeterminate for metastatic lesions within the liver. There are new low-attenuation lesions within the liver. Recommend follow-up CT with IV contrast or ultrasound evaluation.
--- NOTE | 2022-05-11 09:50 | NM_ITS ---
WS: [id number] NUCLEAR MEDICINE WHOLE BODY BONE SCAN HISTORY: L BREAST CANCER-METASTATIC,BONE COMPARISON: MRI 02/21/2022. CT 05/11/2022 and prior bone scan 08/24/2019 TECHNIQUE: The patient was injected with 25.5 mCi of Technetium 99m HDP and serial whole-body scintig luis have been performed with anterior and posterior images. Focal area of intense uptake within the T6 vertebral body. This abnormal uptake extends into the supe rior endplate of T7 on the LEFT. On a recent MRI additional suspicious findings were noted at T2 and T12. These are not as apparent by bone scan imaging as the MRI exam. May be treated disease at these levels. There is a focal area of increased uptake in the central LEFT femur which is suspicious for m etastatic lesion. Prior LEFT hip arthroplasty. There is normal soft tissue uptake. Normal activity within each kidney. Degenerative uptake at the AC joints and glenohumeral joints and RIGHT knee. NM/NM bone scan whole body* [id number] IMPRESSION: 1. Metastatic bone disease is apparent at T6 and also the superior endplate of T7. Additional areas of abnormal uptake noted on the prior MRI are not apparen t at T2 or T12. 2. Focal metastatic lesion in the mid LEFT femur.
[2022-05-18 09:14] LABS: Basophils % 0.1 %; Eosinophils # 0.1 10^3/uL (0.0-0.8); Hematocrit 38.5 % (37.0-47.0); Hemoglobin 12.4 g/dL (11.5-15.3); Lymphocytes # 1.2 10^3/uL (0.8-4.8); Lymphocytes % 15.4 %; Mean Corpuscular HGB Conc 32.2 g/dL (30.0-36.0); Mean Corpuscular Hemoglobin 30.5 pg (28.0-34.0); Mean Corpuscular Volume 94.8 fl (81-99); Mean Platelet Volume 9.9 fL (7.4-10.4); Monocytes # 0.6 10^3/uL (0.2-0.9); Monocytes % 7.9 %; Neutrophils # 5.91 10^3/uL (1.8-7.7); Neutrophils % 75.1 %; Nucleated Red Blood Cells % 0 %; Platelet Count 231 10^3/cmm (130-400); Red Blood Count 4.06 10^6/uL (4.1-5.3); Red Cell Distribution Width 14.2 % (12.1-15.1); White Blood Count 7.9 10^3/uL (4.0-10.0)
[2022-05-18 09:34] LABS: Alanine Aminotransferase 6 U/L (0-33); Alkaline Phosphatase 81 IU/L (35-105); Anion Gap 15.2 (5-19); Aspartate Amino Transferase 15 U/L (0-32); Blood Urea Nitrogen 13 mg/dL (8-23); Calcium 8.6 mg/dL (8.5-10.5); Carbon Dioxide 31 mmol/L (22-29); Chloride 96 mmol/L (98-107); Glucose 255 mg/dL (65-115); Osmolality Calculated 295 mOsm/kg (285-295); Potassium 4.2 mmol/L (3.5-5.1); Sodium 138 mmol/L (136-145); Total Bilirubin 0.2 mg/dL (0.15-1.2)
[2022-05-18] MEDS: denosumab 120 mg SDV SUBCUT (12:11)
[2022-05-18] MEDS: fulvestrant 250 mg/5 mL Syringe 500 MG IM (12:11)
== END 2022-05-24 23:59 | disposition home or self-care (01) ==
PROVIDERS: PCP Family Medicine; Visit Provider Internal Medicine Hematology & Oncology
DX: C50.812 Malignant neoplasm of overlapping sites of left female breast; Z17.0 Estrogen receptor positive status [ER+]; C79.51 Secondary malignant neoplasm of bone; I50.32 Chronic diastolic (congestive) heart failure; K57.20 Diverticulitis of large intestine with perforation and abscess without bleeding; R16.0 Hepatomegaly, not elsewhere classified; K76.0 Fatty (change of) liver, not elsewhere classified; K44.9 Diaphragmatic hernia without obstruction or gangrene; Z79.818 Long term (current) use of other agents affecting estrogen receptors and estrogen levels; Z79.52 Long term (current) use of systemic steroids; Z79.899 Other long term (current) drug therapy; R97.8 Other abnormal tumor markers; C78.01 Secondary malignant neoplasm of right lung; C78.02 Secondary malignant neoplasm of left lung; I25.10 Atherosclerotic heart disease of native coronary artery without angina pectoris; I11.0 Hypertensive heart disease with heart failure; I34.0 Nonrheumatic mitral (valve) insufficiency; Z79.891 Long term (current) use of opiate analgesic; R06.02 Shortness of breath
CPT/HCPCS: 32554; 71045; 71250; 74176; 78306; 80053; 80503; 82042; 82150; 82465; 82945; 83615; 83986; 84075; 84157; 84315; 84478; 84560; 85025; 86300; 87015; 87070; 87075; 87102; 87116; 87205; 87206; 87801; 88305; 89050; 96372; 96402; 99204; 99214; 99215; A9561; J0897; J9395

== ENCOUNTER → 2022-05-18 12:22 | Day surgery (SDC) | payer MEDICARE, MEDICAID, SELFPAY ==
[2022-05-18 12:35] VITALS: BP 140/71; PULSE 61; RESP 20; TEMP 36.1; O2SAT 98
[2022-05-18 12:38] VITALS: BMI 41.0
[2022-05-18 13:32] VITALS: BP 119/57; PULSE 70; RESP 20; O2SAT 98
--- NOTE | 2022-05-18 13:37 | XR_ITS ---
WS: [id number] Exam: XR chest 1V portable [id number] Date/Time of Exam: 05/18/2022 1:37 PM Reason For Exam: post thoracentesis Comparison 05/16/2022. There is infiltrate and atelectasis in the right lower lobe. Previously noted right basal pleural eff usion has almost resolved secondary to thoracentesis. No pneumothorax is seen. Mild cardiac enlargeme nt. There is pulmonary vascular congestion suggesting some degree of the CHF. The mediastinum and oss eous thorax are unremarkable. XR/XR chest 1V portable [id number] IMPRESSION: 1. Significant reduction in right-sided pleural effusion secondary to thoracent esis. No pneumothorax. 2. Infiltrate and atelectasis in the right lower lobe. 3. Cardiac enlargement with pulmonary vascular congestion suggesting some degre e of the mild CHF.
--- NOTE | 2022-05-18 13:38 | P.PCN_ITS ---
Outpatient Procedures Thoracentesis Consent signed and on chart: Yes Time Out Performed: Yes Procedure: therapeutic thoracentesis and diagnostic thoracentesis Location: Right Local anesthetic used: lidocaine 1% Bedside ultrasound used: yes, pleural effusion confirmed and location marked Preparation: sterile prep and drape Amount of fluid obtained (mL): 820 Fluid: clear (with sediments ) Size of needle used: 6 Post Procedure Exam: awake, alert, normal BP, normal HR and normal SpO2 Post-procedure chest x-ray ordered: Yes Estimated blood loss (mL): 5 Patient Tolerated Procedure: well and no complications Procedure Note: Pulmonary & Critical Care Medicine Procedure - Ultrasound guided Thoracentesis Procedure: Ultrasound guided Right pleural effusion Thoracentesis Indication:Right Pleural effusion Screw Machine Setter(s): Felice Carpior Consent: Signed and placed in chart Anesthesia: 10 cc 1% lidocaine without epinephrine Description: Chest X ray reviewed and Right Pleural effusion was localized using ultrasound guidance and the appropriate site was marked accordingly. A time out was performed. My hands were washed immediately prior to the procedure. I wore a surgical cap, mask with protective eyewear, sterile gown and sterile gloves throughout the procedure. The patient was placed in appropriate position, area of interest was sterilized with chlorhexidine skin prep and draped in a sterile manner. 1% lidocaine was used to anesthesize the skin, subcutaneous tissue, superior aspect of the rib periosteum and parietal pleura. A finder needle was then introduced over the superior aspect of the rib to locate the pleural fluid; 10 cc straw colored fluid was aspirated. A 10-blade scalpel was used to yanci the skin at the insertion site. The [id number] needle was then introduced through the skin incision into the pleural space using negative aspiration pressure and the red colormetric indicator to confirm appropriate positioning of the needle. The thoracentesis catheter was then threaded without difficulty. 820CC Straw colored fluid With sediments was removed without difficulty. The catheter was then removed. No immediate complications were noted during the procedure. The fluid will be sent for studies. Estimated blood loss is 5 - 10 CC. Ultrasound guidance used: Yes. EBL: 5-10 cc Complications: None PCXR: A post-procedure chest x-ray did not show pneumothorax.
[2022-05-18 14:13] LABS: Body Fluid Polynuclear #Cells 0.024; Body Fluid WBC 732 /uL; Monocytes # Body Fluid 0.708
[2022-05-18 14:15] LABS: Apprearance, Body Fluid CLEAR; Color, Body Fluid YELLOW
[2022-05-18 14:23] LABS: Cyto Order Verification Order Verified
[2022-05-18 14:53] LABS: Amylase Body Fluid 21 U/L; Cholesterol Body Fluid 65 mg/dL (0-200); Fluid Alkaline Phos. 36 IU/L; LDH Body Fluid 213 U/L; Triglycerides Body Fluid 37 mg/dL (0-150); Uric Acid Body Fluid 6 mg/dL
[2022-05-18 14:54] LABS: Total Protein Pleural Fluid 4.2 g/dL
[2022-05-24 15:28] LABS: Miscellaneous Test See Scanned Lab Rpt
== END ==
PROVIDERS: Visit Provider Internal Medicine Pulmonary Disease
PROC: (CPT 32554; principal; 2022-05-18 12:00)
DX: J90 Pleural effusion, not elsewhere classified (principal)
CPT/HCPCS: 32554; 71045; 80503; 82042; 82150; 82465; 82945; 83615; 83986; 84075; 84157; 84315; 84478; 84560; 87015; 87070; 87075; 87102; 87116; 87205; 87206; 87801; 88305; 88342; 88361; 88374; 89050

== ENCOUNTER 2022-05-26 09:26 | Emergency (ER) | payer MEDICARE, MEDICAID, SELFPAY ==
--- NOTE | 2022-05-26 10:15 | PC.NURSE ---
PT PLACED ON CONTINUOUS NIBP, SPO2, AND CM
[2022-05-26 10:21] VITALS: BP 131/77; PULSE 58; RESP 18; O2SAT 99; BMI 41.1
--- NOTE | 2022-05-26 10:24 | XRR_ITS ---
PROCEDURE INFORMATION: Exam: XR Chest Exam date and time: 05/26/2022 11:20 AM Age: 81 years old Clinical indication: Shortness of breath; Additional info: SOB TECHNIQUE: Imaging protocol: Radiologic exam of the chest. Views: 1 view. COMPARISON: CR XR chest 1V portable [id number] 05/18/2022 1:53 PM FINDINGS: Lungs: Right basilar consolidation atelectasis have changed. Left lung remains clear. Pleural spaces: Unremarkable. No pleural effusion. No pneumothorax. Heart/Mediastinum: Unremarkable. No cardiomegaly. Bones/joints: Unremarkable. XR/XR chest 1V portable [id number] IMPRESSION: Right basilar consolidation and atelectasis unchanged.
--- NOTE | 2022-05-26 10:25 | ECG_ITS ---
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 Measurements Intervals [place] Rate: 57 P: 56 [place]: 185 QRS: -14 QRSD: 117 T: 32 QT: 462 QTc: 450 Interpretive Statements SINUS BRADYCARDIA POSSIBLE ANTERIOR MYOCARDIAL INFARCTION , OF INDETERMINATE AGE [30 ms Q WAVE IN V3/V4, OR R < 0.2 mV IN V4] Compared to ECG 05/16/2022 09:45:58 Sinus rhythm no longer present Intraventricular conduction delay no longer present Myocardial infarct finding still present Electronically Signed On 05-26-2022 12:27:31 CDT by Guerrero Garcia M.D. [id number]
--- NOTE | 2022-05-26 10:25 | W.ED.SOB ---
HPI - SOB/Dyspnea General: Chief Complaint: General Medical Stated Complaint: weakness, dr sent Time Seen by Provider: 05/26/22 10:13 History of Present Illness: HPI Narrative: 81-year-old female history of lung cancer presents with shortness of breath and generalized weakness. Denies any focal numbness weakness or tingling. Last week she had a right-sided pleural effusion drained. She has not received results of fluid analysis yet. She denies any lower extremity pain or swelling. States her shortness of breath continues to get worse. Denies any chest pain. Review of Systems Narrative: - CONSTITUTIONAL: Denies weight loss, fever and chills. - HEENT: Denies changes in vision and hearing. - RESPIRATORY: As above - CV: Denies palpitations and CP. - GI: Denies abdominal pain, nausea, vomiting and diarrhea. - : Denies dysuria and urinary frequency. - MSK: Denies myalgia and joint pain. - SKIN: Denies rash and pruritus. - NEUROLOGICAL: Denies headache, numbness and syncope. - PSYCHIATRIC: Denies suicidal ideation [facility] ED PFSH: Medical History ASHD (arteriosclerotic heart disease) Breast cancer Breast cancer metastasized to bone CHF (congestive heart failure) Hiatal hernia History of abdominal hernia Hyperlipidemia Hypertension Leg swelling Mitral regurgitation Peripheral neuropathy Varicose veins of both lower extremities Surgical History H/O: hysterectomy History of eye surgery History of lumpectomy of left breast History of shoulder surgery Hx of appendectomy Hx of cholecystectomy Family History Father CAD (coronary artery disease) Cancer Diabetes Mother CAD (coronary artery disease) Brother CAD (coronary artery disease) Diabetes Family/Other Chronic kidney disease (CKD) Other Hypertension Denies family history of Clotting disorder Dementia Suicide Anesthesia complication Bleeding disorder Lung disease Stroke Social History Smoking and tobacco status: never smoked Alcohol intake: never Physical Exam Narrative: EXAM NARRATIVE: - GENERAL: On 3 L by nasal cannula, this is her baseline. Alert and oriented x 3. No acute distress. Well-nourished. - EYES: EOMI. Anicteric. - HENT: Atraumatic, no C-spine tenderness. Moist mucous membranes. No scleral icterus. No cervical lymphadenopathy. - LUNGS: Clear to auscultation bilaterally. No accessory muscle use. Equal lung sounds bilaterally. No respiratory distress. - CARDIOVASCULAR: Regular rate and rhythm. No murmur. No JVD. - ABDOMEN: Soft, non-tender and non-distended. Negative CVA tenderness bilaterally, no rebound or guarding, negative Coy sign. No palpable masses. - EXTREMITIES: +1 LE edema. Non-tender. - SKIN: No rashes or lesions. Warm. - NEUROLOGIC: No meningismus or focal neurological deficits. CN II-XII grossly intact. - PSYCHIATRIC: Cooperative. Appropriate mood and affect. Course Vital Signs: Vital signs: Vital Signs Temperature 98.1 F 05/26/22 10:27 Pulse Rate 57 L 05/26/22 13:26 Respiratory Rate 19 H 05/26/22 13:26 Blood Pressure 112/52 05/26/22 13:26 Pulse Oximetry 97 05/26/22 13:26 MDM - SOB/Dyspnea Medical Decision Making 81-year-old with history of lung cancer with normal history lives with nasal cannula presents shortness of breath and generalized weakness. Denies any focal numbness weakness or tingling. She has nonfocal neurologic exam. She saturating well on her baseline 3 L by nasal cannula. EKG and troponin do not reveal any sign of acute ischemia or other acute abnormality. BNP is elevated and there is lower extremity edema. Instructed to double her home Lasix dose in the morning for the next 3 days and follow-up with primary care. COVID swab is negative. CT scan reveals small right-sided pleural effusion and pulmonary nodules. No sign of PE or focal infection. At this time I believe patient would be safe for discharge and outpatient follow-up. Return precautions provided. Plan was reviewed with the patient who expressed understanding. Questions answered. Patient will follow up with PCP. Patient discharged in stable condition. Lab Data : 05/26/22 11:35 05/26/22 11:35 Labs/Radiology: Radiology Impressions Chest X-Ray 05/26/22 10:24 IMPRESSION: Right basilar consolidation and atelectasis unchanged. Chest CTA 05/26/22 12:42 IMPRESSION: 1. No evidence of pulmonary embolus or aortic aneurysm. 2. Multiple pulmonary nodules in the right lung similar to previous study. 3. Right pleural effusion with right basilar atelectasis. Laboratory Results WBC 9.8 10^3/uL (4.0-10.0) 05/26/22 11:35 RBC 3.83 10^6/uL (4.1-5.3) L 05/26/22 11:35 Hgb 11.8 g/dL (11.5-15.3) 05/26/22 11:35 Hct 35.9 % (37.0-47.0) L 05/26/22 11:35 MCV 93.7 fl (81-99) 05/26/22 11:35 MCH 30.8 pg (28.0-34.0) 05/26/22 11:35 MCHC 32.9 g/dL (30.0-36.0) 05/26/22 11:35 RDW 13.8 % (12.1-15.1) 05/26/22 11:35 Plt Count 315 10^3/cmm (130-400) 05/26/22 11:35 MPV 9.8 fL (7.4-10.4) 05/26/22 11:35 Neut % (Auto) 67.2 % 05/26/22 11:35 Lymph % (Auto) 21.7 % 05/26/22 11:35 [place] % (Auto) 8.6 % 05/26/22 11:35 Eos % (Auto) 1.3 % 05/26/22 11:35 Baso % (Auto) 0.2 % 05/26/22 11:35 Neut # (Auto) 6.57 10^3/uL (1.8-7.7) 05/26/22 11:35 Lymph # (Auto) 2.1 10^3/uL (0.8-4.8) 05/26/22 11:35 [place] # (Auto) 0.8 10^3/uL (0.2-0.9) 05/26/22 11:35 Eos # (Auto) 0.1 10^3/uL (0.0-0.8) 05/26/22 11:35 Baso # (Auto) 0.0 10^3/uL (0.0-0.1) 05/26/22 11:35 Nucleated RBC % (auto) 0 % 05/26/22 11:35 Nucleated RBCs # 0.0 /100WBC 05/26/22 11:35 D-Dimer 3.30 ug/mIFEU (0-0.59) H 05/26/22 11:35 Sodium 138 mmol/L (136-145) 05/26/22 11:35 Potassium 3.9 mmol/L (3.5-5.1) 05/26/22 11:35 Chloride 96 mmol/L (98-107) L 05/26/22 11:35 Carbon Dioxide 30 mmol/L (22-29) H 05/26/22 11:35 Anion Gap 15.9 (5-19) 05/26/22 11:35 BUN 14 mg/dL (8-23) 05/26/22 11:35 Creatinine 0.6 mg/dL (0.5-0.9) 05/26/22 11:35 GFR Calculation Not Reportable 05/26/22 11:35 Glucose 158 mg/dL (65-115) H 05/26/22 11:35 Calculated Osmolality 290 mOsm/kg (285-295) 05/26/22 11:35 Calcium 8.2 mg/dL (8.5-10.5) L 05/26/22 11:35 Magnesium 2.1 mg/dL (1.7-2.3) 05/26/22 11:35 Total Bilirubin 0.2 mg/dL (0.15-1.2) 05/26/22 11:35 AST 14 U/L (0-32) 05/26/22 11:35 ALT < 5 U/L (0-33) 05/26/22 11:35 Alkaline Phosphatase 74 IU/L (35-105) 05/26/22 11:35 Troponin T Baseline 14 ng/L (0-10) H 05/26/22 11:35 Troponin T 120 Minute 14.33 ng/L (0-10) H 05/26/22 14:26 Delta Troponin T 0.33 ABS# (0-10) 05/26/22 14:26 NT-Pro-B Natriuret Pep 755 pg/mL (0-450) H 05/26/22 11:35 Total Protein 6.6 g/dL (6.6-8.7) 05/26/22 11:35 Albumin 3.5 g/dL (3.5-5.2) 05/26/22 11:35 Globulin 3.1 g/dL (1.3-4.6) 05/26/22 11:35 TSH 5.00 uIU/mL (0.27-4.20) H 05/26/22 11:35 Free T4 1.21 ng/dL (0.82-1.77) 05/26/22 11:35 Urine Color Yellow (Yellow) 05/26/22 12:09 Urine Appearance Clear (CLEAR) 05/26/22 12:09 Urine pH 5 (5-7) 05/26/22 12:09 Ur Specific [place] 1.020 (1.005-1.030) 05/26/22 12:09 Urine Protein Neg (Negative) 05/26/22 12:09 Urine Glucose (UA) Norm (Normal) 05/26/22 12:09 Urine Ketones Negative (Negative) 05/26/22 12:09 Urine Blood Neg (Negative) 05/26/22 12:09 Urine Nitrate Negative (Negative) 05/26/22 12:09 Urine Bilirubin Neg (Negative) 05/26/22 12:09 Urine Urobilinogen Norm mg/dL (Negative) 05/26/22 12:09 Ur Leukocyte Esterase Negative (Negative) 05/26/22 12:09 Urine RBC 0-4 /hpf (0-2) H 05/26/22 12:09 Urine WBC 0-4 /hpf (0-5) H 05/26/22 12:09 Ur Squamous Epith Cells 0-4 /hpf (0-5) H 05/26/22 12:09 Amorphous Sediment Not Reportable 05/26/22 12:09 Urine Bacteria Trace /hpf (NONE) 05/26/22 12:09 Hyaline Casts 0-4 /lpf H 05/26/22 12:09 SARS-CoV-2 Ag (Rapid) Negative (Negative) 05/26/22 11:08 EKG Data EKG 1: Other EKG Comments: Sinus bradycardia, rate of 57, no sign of acute ischemia or other acute abnormality. Discharge Plan Discharge Condition: Stable Prescriptions: No Action polyethylene glycol 3350 [Miralax] 17 gram/dose powder 17 g PO DAILY 0RF docusate sodium 100 mg capsule 100 mg PO DAILY 0RF isosorbide mononitrate 120 mg tablet extended release 24 hr 120 mg PO QAM 0RF trazodone 100 mg tablet 150 mg PO DAILY 0RF potassium chloride 10 mEq capsule, extended release 10 meq PO DAILY 0RF metformin 500 mg tablet 500 mg PO BID 0RF aspirin [Adult Low Dose Aspirin] 81 mg tablet,delayed release (DR/EC) 81 mg PO DAILY 0RF magnesium oxide 400 mg magnesium tablet 400 mg PO DAILY 0RF cetirizine 10 mg tablet 10 mg PO DAILY 0RF ondansetron 4 mg tablet,disintegrating 4 mg PO Q8H PRN (Reason: Nausea) 0RF amlodipine 10 mg tablet 5 mg PO DAILY 0RF primidone 50 mg tablet 50 mg PO BID 0RF carvedilol 25 mg tablet 37.5 mg PO BID 0RF famotidine 40 mg tablet 40 mg PO DAILY 0RF montelukast 10 mg tablet 10 mg PO DAILY 0RF furosemide 40 mg tablet 40 mg PO BID 0RF carbidopa-levodopa 50-200 mg tablet extended release 1 tab PO QID 0RF nitroglycerin 0.4 mg tablet, sublingual 0.4 mg sublingual Q5M PRN (Reason: chest pain) 30 Days Qty: 30 3RF Rx Instructions: until response; do not exceed 3 doses per episode levothyroxine 125 mcg tablet 125 mcg PO DAILY 0RF citalopram 10 mg tablet 10 mg PO DAILY 0RF morphine 30 mg tablet extended release 30 mg PO Q12H PRN (Reason: pain) 30 Days Qty: 60 0RF albuterol sulfate 90 mcg/actuation HFA aerosol inhaler 2 puff inhalation Q6H PRN (Reason: Shortness Of Breath) 0RF oxycodone-acetaminophen 5-325 mg tablet 1 tab PO QID PRN (Reason: pain) 30 Days Qty: 90 0RF losartan 100 mg tablet 100 mg PO DAILY Qty: 100 3RF Ibrance 100 mg Capsule 100 mg PO DAILY Qty: 21 0RF Rx Instructions: administer on days 1 through 21 of a 28-day treatment cycle pravastatin 80 mg tablet 80 mg PO DAILY 0RF azithromycin 250 mg Tablet 250 mg PO DAILY 0RF Rx Instructions: start on day 2 of therapy prednisone 20 mg Tablet 20 mg PO BID 0RF amoxicillin 500 mg Tablet 500 mg PO QID 0RF PreserVision AREDS [id number] Capsule 1 cap PO DAILY 0RF Tresiba FlexTouch U-100 100 unit/mL (3 mL) insulin pen 20 unit SUBCUT DAILY 0RF Referrals: Mikael Madrigal MD [Primary Care Provider] - Coding Level of Care Code ED Switch Foreman for Areli Elena
[2022-05-26 10:27] VITALS: TEMP 36.7
[2022-05-26 11:26] VITALS: BP 129/64; PULSE 56; RESP 19; O2SAT 98
[2022-05-26 11:58] LABS: SARS Covid-2 Antigen Negative (Negative)
[2022-05-26 12:09] LABS: Basophils % 0.2 %; Eosinophils # 0.1 10^3/uL (0.0-0.8); Eosinophils % 1.3 %; Hematocrit 35.9 % (37.0-47.0); Hemoglobin 11.8 g/dL (11.5-15.3); Lymphocytes # 2.1 10^3/uL (0.8-4.8); Lymphocytes % 21.7 %; Mean Corpuscular HGB Conc 32.9 g/dL (30.0-36.0); Mean Corpuscular Hemoglobin 30.8 pg (28.0-34.0); Mean Corpuscular Volume 93.7 fl (81-99); Mean Platelet Volume 9.8 fL (7.4-10.4); Monocytes # 0.8 10^3/uL (0.2-0.9); Monocytes % 8.6 %; Neutrophils # 6.57 10^3/uL (1.8-7.7); Neutrophils % 67.2 %; Nucleated Red Blood Cells % 0 %; Platelet Count 315 10^3/cmm (130-400); Red Blood Count 3.83 10^6/uL (4.1-5.3); Red Cell Distribution Width 13.8 % (12.1-15.1); White Blood Count 9.8 10^3/uL (4.0-10.0)
[2022-05-26 12:25] LABS: Troponin(5th) Baseline 14 ng/L (0-10)
--- NOTE | 2022-05-26 12:25 | ECG_ITS ---
[facility] Test Date: 2022-05-26 Pat Name: Sheron Leyva Department: Room: Gender: Female Phytopathology Teacher: : 1940 Requested By: Tommy Palm Order Number: [id number] Martin MD: Guerrero Garcia M.D. Measurements Intervals Loda Rate: 64 P: 61 HI: 191 QRS: 49 QRSD: 114 T: 55 QT: 421 QTc: 435 Interpretive Statements SINUS RHYTHM POSSIBLE ANTERIOR MYOCARDIAL INFARCTION , OF INDETERMINATE AGE [30 ms Q WAVE IN V3/V4, OR R < 0.2 mV IN V4] Compared to ECG 05/26/2022 10:48:15 Sinus bradycardia no longer present Myocardial infarct finding still present Electronically Signed On 05-27-2022 8:37:56 CDT by uGerrero Garcia M.D. [id number]
[2022-05-26 12:26] VITALS: BP 113/58; PULSE 55; RESP 17; O2SAT 97
[2022-05-26 12:37] LABS: Alanine Aminotransferase < 5 U/L (0-33); Albumin Level 3.5 g/dL (3.5-5.2); Alkaline Phosphatase 74 IU/L (35-105); Anion Gap 15.9 (5-19); Aspartate Amino Transferase 14 U/L (0-32); Blood Urea Nitrogen 14 mg/dL (8-23); Calcium 8.2 mg/dL (8.5-10.5); Carbon Dioxide 30 mmol/L (22-29); Chloride 96 mmol/L (98-107); Free T4 Free Thyroxine 1.21 ng/dL (0.82-1.77); Globulin 3.1 g/dL (1.3-4.6); Glucose 158 mg/dL (65-115); Magnesium 2.1 mg/dL (1.7-2.3); NT Pro B Type Natriuretic Pept 755 pg/mL (0-450); Osmolality Calculated 290 mOsm/kg (285-295); Potassium 3.9 mmol/L (3.5-5.1); Sodium 138 mmol/L (136-145); Total Bilirubin 0.2 mg/dL (0.15-1.2); Total Protein 6.6 g/dL (6.6-8.7)
--- NOTE | 2022-05-26 12:42 | CTR_ITS ---
PROCEDURE INFORMATION: Exam: CTA Chest With Contrast Exam date and time: 05/26/2022 1:48 PM Age: 81 years old Clinical indication: Shortness of breath; Additional info: Pe TECHNIQUE: Imaging protocol: Computed tomographic angiography of the chest with contrast. 3D rendering (Not supervised by radiologist): MIP and/or 3D reconstructed images were created by the technologist. Radiation optimization: All CT scans at this facility use at least one of these dose optimization techniques: automated exposure control; mA and/or kV adjustment per patient size (includes targeted exams where dose is matched to clinical indication); or iterative reconstruction. Contrast material: OMNI 350; Contrast volume: 77 ml; Contrast route: INTRAVENOUS (IV); COMPARISON: CTA Chest-Pulmonary [place] [id number] 08/09/2017 11:55 AM RADIATION DOSE METRICS: Total DLP (mGy-cm): 559.11 FINDINGS: Pulmonary arteries: Normal. No pulmonary emboli. Aorta: Unremarkable. No aortic aneurysm. No aortic dissection. Lungs: There are multiple metastatic nodules predominantly in the right lung base which are similar to the previous CT scan. There is left lower lobe and middle lobe atelectasis. Subsegmental atelectasis is present in the left base. Pleural spaces: An moderate right pleural effusion. No pneumothorax. Heart: Heart is enlarged. There is calcification of the coronary arteries. Lymph nodes: Unremarkable. No enlarged lymph nodes. Bones/joints: There is a sclerotic metastatic lesion in the T6 vertebral body. No acute fracture. Soft tissues: Unremarkable. CT/CT angio chest PE protcl [id number] IMPRESSION: 1. No evidence of pulmonary embolus or aortic aneurysm. 2. Multiple pulmonary nodules in the right lung similar to previous study. 3. Right pleural effusion with right basilar atelectasis.
[2022-05-26 12:54] LABS: Bacteria Urine TRACE /hpf; Bilirubin Urine Neg (Negative); Blood Urine Neg (Negative); Glucose Urine UA Norm (Normal); Hyaline Casts Urine 0-4 /lpf; Ketones Urine Negative (Negative); Leukocyte Esterase Urine Negative (Negative); Nitrate Urine Negative (Negative); Protein Urine Neg (Negative); RBC Urine 0-4 /hpf (0-2); Squamous Epithelial Cell Urine 0-4 /hpf (0-5); Urine Appearance Clear (CLEAR); Urine Color Yellow (Yellow); Urobilinogen Urine Norm (Negative); WBC Urine 0-4 /hpf (0-5); pH Urine 5 (5-7)
[2022-05-26 12:55] LABS: Add Urine Culture? No
[2022-05-26 13:26] VITALS: BP 112/52; PULSE 57; RESP 19; O2SAT 97
[2022-05-26] MEDS: iohexol 350 mg/mL 100 mL Btl IV (13:52)
[2022-05-26 14:51] LABS: Troponin 5 2HR 14.33 ng/L (0-10)
[2022-05-26 14:52] LABS: Troponin 5 2HR Delta 0.33 ABS# (0-10)
[2022-05-26] MEDS: FUROsemide 10 mg/mL SDV 4mL 40 MG IVP (15:43)
[2022-05-26 16:01] VITALS: BP 135/74; PULSE 60; O2SAT 95
== END 2022-05-26 16:02 | disposition home or self-care (01) ==
PROVIDERS: Emergency Provider Emergency Medicine; PCP Family Medicine
DX: R53.1 Weakness (principal); R06.02 Shortness of breath; Z79.84 Long term (current) use of oral hypoglycemic drugs; Z79.82 Long term (current) use of aspirin; Z79.4 Long term (current) use of insulin; Z85.3 Personal history of malignant neoplasm of breast; I11.0 Hypertensive heart disease with heart failure; I50.9 Heart failure, unspecified; E78.5 Hyperlipidemia, unspecified; Z20.822 Contact with and (suspected) exposure to COVID-19
CPT/HCPCS: 36415; 71045; 71275; 80053; 81001; 83735; 83880; 84439; 84443; 84484; 85025; 85378; 87426; 93005; 96374; 99285; J1940; Q9967

== ENCOUNTER → 2022-06-01 09:33 | Outpatient (BNVA) | payer MEDICARE, MEDICAID, SELFPAY | PROVIDERS: PCP Family Medicine; Visit Provider Internal Medicine Pulmonary Disease | DX: Z09 Encounter for follow-up examination after completed treatment for conditions other than malignant neoplasm (principal); J90 Pleural effusion, not elsewhere classified; J18.9 Pneumonia, unspecified organism; I50.32 Chronic diastolic (congestive) heart failure; C78.00 Secondary malignant neoplasm of unspecified lung; C50.919 Malignant neoplasm of unspecified site of unspecified female breast; C79.51 Secondary malignant neoplasm of bone | CPT/HCPCS: 99214 ==

== ENCOUNTER 2022-06-15 09:30 | Oncology outpatient (recurring) (ONCR) | payer MEDICARE, MEDICAID, SELFPAY ==
[2022-06-15 09:20] VITALS: BMI 41.0
[2022-06-15] MEDS: fulvestrant 250 mg/5 mL Syringe 500 MG IM (10:04)
[2022-06-15] MEDS: denosumab 120 mg SDV SUBCUT (10:04)
[2022-06-15 10:12] VITALS: BP 114/71; PULSE 18; RESP 63; TEMP 36.4; O2SAT 96
== END 2022-06-24 23:59 | disposition home or self-care (01) ==
PROVIDERS: PCP Family Medicine; Visit Provider Internal Medicine Hematology & Oncology
DX: Z51.11 Encounter for antineoplastic chemotherapy (principal); C50.919 Malignant neoplasm of unspecified site of unspecified female breast; C79.51 Secondary malignant neoplasm of bone; Z79.818 Long term (current) use of other agents affecting estrogen receptors and estrogen levels
CPT/HCPCS: 96372; 96402; 99214; J0897; J9395

== ENCOUNTER 2022-07-20 09:00 | Oncology outpatient (recurring) (ONCR) | payer MEDICARE, MEDICAID, SELFPAY ==
[2022-06-26 13:12] LABS: Basophils % 0.3 %; Eosinophils # 0.1 10^3/uL (0.0-0.8); Eosinophils % 1.3 %; Hemoglobin 11.9 g/dL (11.5-15.3); Lymphocytes # 1.4 10^3/uL (0.8-4.8); Lymphocytes % 35.2 %; Mean Corpuscular HGB Conc 33.1 g/dL (30.0-36.0); Mean Corpuscular Hemoglobin 31.6 pg (28.0-34.0); Mean Corpuscular Volume 95.5 fl (81-99); Mean Platelet Volume 9.2 fL (7.4-10.4); Monocytes # 0.2 10^3/uL (0.2-0.9); Monocytes % 5.1 %; Neutrophils # 2.24 10^3/uL (1.8-7.7); Neutrophils % 57.6 %; Nucleated Red Blood Cells % 0 %; Platelet Count 194 10^3/cmm (130-400); Red Blood Count 3.77 10^6/uL (4.1-5.3); Red Cell Distribution Width 15.8 % (12.1-15.1); White Blood Count 3.9 10^3/uL (4.0-10.0)
[2022-06-26 13:40] LABS: Alanine Aminotransferase < 5 U/L (0-33); Albumin Level 3.5 g/dL (3.5-5.2); Alkaline Phosphatase 75 IU/L (35-105); Anion Gap 16.7 (5-19); Aspartate Amino Transferase 11 U/L (0-32); Blood Urea Nitrogen 16 mg/dL (8-23); Calcium 8.8 mg/dL (8.5-10.5); Carbon Dioxide 31 mmol/L (22-29); Chloride 100 mmol/L (98-107); Globulin 2.7 g/dL (1.3-4.6); Glucose 180 mg/dL (65-115); Osmolality Calculated 302 mOsm/kg (285-295); Potassium 4.7 mmol/L (3.5-5.1); Sodium 143 mmol/L (136-145); Total Bilirubin 0.2 mg/dL (0.15-1.2); Total Protein 6.2 g/dL (6.6-8.7)
[2022-07-06 09:37] LABS: Basophils % 0.3 %; Eosinophils % 0.6 %; Hematocrit 35.6 % (37.0-47.0); Hemoglobin 11.2 g/dL (11.5-15.3); Lymphocytes # 0.9 10^3/uL (0.8-4.8); Lymphocytes % 29.2 %; Mean Corpuscular HGB Conc 31.5 g/dL (30.0-36.0); Mean Corpuscular Hemoglobin 32.7 pg (28.0-34.0); Mean Corpuscular Volume 103.8 fl (81-99); Mean Platelet Volume 9.5 fL (7.4-10.4); Monocytes # 0.3 10^3/uL (0.2-0.9); Monocytes % 8.8 %; Neutrophils # 1.94 10^3/uL (1.8-7.7); Neutrophils % 60.8 %; Nucleated Red Blood Cells % 0 %; Platelet Count 172 10^3/cmm (130-400); Red Blood Count 3.43 10^6/uL (4.1-5.3); Red Cell Distribution Width 17.6 % (12.1-15.1); White Blood Count 3.2 10^3/uL (4.0-10.0)
[2022-07-06 10:12] LABS: Alanine Aminotransferase < 5 U/L (0-33); Albumin Level 3.8 g/dL (3.5-5.2); Alkaline Phosphatase 67 IU/L (35-105); Aspartate Amino Transferase 14 U/L (0-32); Blood Urea Nitrogen 21 mg/dL (8-23); Calcium 8.3 mg/dL (8.5-10.5); Carbon Dioxide 30 mmol/L (22-29); Chloride 102 mmol/L (98-107); Creatinine Clr Calc Pharmacy 73.4311; Globulin 2.4 g/dL (1.3-4.6); Glucose 179 mg/dL (65-115); Osmolality Calculated 303 mOsm/kg (285-295); Sodium 143 mmol/L (136-145); Total Bilirubin 0.3 mg/dL (0.15-1.2); Total Protein 6.2 g/dL (6.6-8.7)
[2022-07-06 10:15] LABS: Anion Gap 15.2 (5-19); Potassium 4.2 mmol/L (3.5-5.1)
[2022-07-20 09:58] LABS: Basophils % 0.5 %; Eosinophils # 0.1 10^3/uL (0.0-0.8); Eosinophils % 1.2 %; Hematocrit 37.4 % (37.0-47.0); Hemoglobin 11.5 g/dL (11.5-15.3); Lymphocytes # 1.4 10^3/uL (0.8-4.8); Lymphocytes % 31.8 %; Mean Corpuscular HGB Conc 30.7 g/dL (30.0-36.0); Mean Corpuscular Hemoglobin 32.5 pg (28.0-34.0); Mean Corpuscular Volume 105.6 fl (81-99); Mean Platelet Volume 9.5 fL (7.4-10.4); Monocytes # 0.2 10^3/uL (0.2-0.9); Monocytes % 5.1 %; Neutrophils # 2.62 10^3/uL (1.8-7.7); Neutrophils % 60.7 %; Nucleated Red Blood Cells % 0 %; Platelet Count 295 10^3/cmm (130-400); Red Blood Count 3.54 10^6/uL (4.1-5.3); Red Cell Distribution Width 17.5 % (12.1-15.1); White Blood Count 4.3 10^3/uL (4.0-10.0)
[2022-07-20 10:23] LABS: Alanine Aminotransferase 10 U/L (0-33); Albumin Level 3.4 g/dL (3.5-5.2); Alkaline Phosphatase 141 U/L (35-105); Anion Gap 15.3 (5-19); Aspartate Amino Transferase 28 U/L (0-32); Blood Urea Nitrogen 20 mg/dL (8-23); Calcium 8.4 mg/dL (8.5-10.5); Carbon Dioxide 30 mmol/L (22-29); Chloride 98 mmol/L (98-107); Globulin 3.1 g/dL (1.3-4.6); Glucose 174 mg/dL (65-115); Osmolality Calculated 295 mOsm/kg (285-295); Potassium 4.3 mmol/L (3.5-5.1); Sodium 139 mmol/L (136-145); Total Bilirubin 0.3 mg/dL (0.15-1.2); Total Protein 6.5 g/dL (6.6-8.7)
[2022-07-20] MEDS: denosumab 120 mg SDV SUBCUT (10:54)
[2022-07-20] MEDS: fulvestrant 250 mg/5 mL Syringe 500 MG IM (11:00)
== END 2022-07-25 23:59 | disposition home or self-care (01) ==
PROVIDERS: Nurse Practitioner Family; PCP Family Medicine; Visit Provider Internal Medicine Hematology & Oncology
DX: C50.412 Malignant neoplasm of upper-outer quadrant of left female breast (principal); Z17.0 Estrogen receptor positive status [ER+]; C79.51 Secondary malignant neoplasm of bone; Z51.11 Encounter for antineoplastic chemotherapy; Z79.818 Long term (current) use of other agents affecting estrogen receptors and estrogen levels; K59.00 Constipation, unspecified; R11.0 Nausea; Z99.81 Dependence on supplemental oxygen; J44.9 Chronic obstructive pulmonary disease, unspecified; E66.01 Morbid (severe) obesity due to excess calories; Z68.41 Body mass index [BMI] 40.0-44.9, adult; R91.8 Other nonspecific abnormal finding of lung field
CPT/HCPCS: 36415; 80053; 85025; 86300; 96372; 96402; 99214; 99215; J0897; J9395

== ENCOUNTER 2022-08-21 09:00 | Oncology outpatient (recurring) (ONCR) | payer MEDICARE, MEDICAID, SELFPAY ==
[2022-08-03 09:08] LABS: Alanine Aminotransferase < 5 U/L (0-33); Albumin Level 3.5 g/dL (3.5-5.2); Alkaline Phosphatase 79 U/L (35-105); Aspartate Amino Transferase 12 U/L (0-32); Blood Urea Nitrogen 16 mg/dL (8-23); Calcium 8.8 mg/dL (8.5-10.5); Carbon Dioxide 25 mmol/L (22-29); Chloride 98 mmol/L (98-107); Creatinine Clr Calc Pharmacy 73.4311; Globulin 2.8 g/dL (1.3-4.6); Glucose 162 mg/dL (65-115); Osmolality Calculated 291 mOsm/kg (285-295); Sodium 138 mmol/L (136-145); Total Bilirubin 0.2 mg/dL (0.15-1.2); Total Protein 6.3 g/dL (6.6-8.7)
[2022-08-03 09:11] LABS: Anion Gap 19.1 (5-19); Potassium 4.1 mmol/L (3.5-5.1)
[2022-08-03 10:17] LABS: Basophils % 0.7 %; Eosinophils % 0.7 %; Hematocrit 37.8 % (37.0-47.0); Lymphocytes # 1.4 10^3/uL (0.8-4.8); Lymphocytes % 31.7 %; Mean Corpuscular HGB Conc 31.7 g/dL (30.0-36.0); Mean Corpuscular Hemoglobin 33.8 pg (28.0-34.0); Mean Corpuscular Volume 106.5 fl (81-99); Mean Platelet Volume 9.2 fL (7.4-10.4); Monocytes # 0.3 10^3/uL (0.2-0.9); Monocytes % 7.7 %; Neutrophils # 2.61 10^3/uL (1.8-7.7); Nucleated Red Blood Cells % 0 %; Platelet Count 172 10^3/cmm (130-400); Red Blood Count 3.55 10^6/uL (4.1-5.3); White Blood Count 4.4 10^3/uL (4.0-10.0)
[2022-08-20 13:14] LABS: Basophils % 0.5 %; Eosinophils # 0.1 10^3/uL (0.0-0.8); Eosinophils % 1.4 %; Hematocrit 35.7 % (37.0-47.0); Hemoglobin 11.5 g/dL (11.5-15.3); Lymphocytes # 1.8 10^3/uL (0.8-4.8); Lymphocytes % 40.8 %; Mean Corpuscular HGB Conc 32.2 g/dL (30.0-36.0); Mean Corpuscular Hemoglobin 34.4 pg (28.0-34.0); Mean Corpuscular Volume 106.9 fl (81-99); Mean Platelet Volume 9.4 fL (7.4-10.4); Monocytes # 0.3 10^3/uL (0.2-0.9); Monocytes % 6.4 %; Neutrophils % 50.4 %; Nucleated Red Blood Cells % 0 %; Platelet Count 297 10^3/cmm (130-400); Red Blood Count 3.34 10^6/uL (4.1-5.3); Red Cell Distribution Width 17.4 % (12.1-15.1); White Blood Count 4.4 10^3/uL (4.0-10.0)
[2022-08-20 13:22] LABS: Alanine Aminotransferase < 5 U/L (0-33); Albumin Level 3.8 g/dL (3.5-5.2); Alkaline Phosphatase 76 U/L (35-105); Blood Urea Nitrogen 25 mg/dL (8-23); Calcium 9.1 mg/dL (8.5-10.5); Carbon Dioxide 29 mmol/L (22-29); Chloride 97 mmol/L (98-107); Globulin 2.6 g/dL (1.3-4.6); Glucose 173 mg/dL (65-115); Osmolality Calculated 295 mOsm/kg (285-295); Sodium 138 mmol/L (136-145); Total Bilirubin 0.2 mg/dL (0.15-1.2); Total Protein 6.4 g/dL (6.6-8.7)
[2022-08-20 13:25] LABS: Anion Gap 16.5 (5-19); Aspartate Amino Transferase 14 U/L (0-32); Potassium 4.5 mmol/L (3.5-5.1)
[2022-08-21] MEDS: denosumab 120 mg SDV SUBCUT (09:43)
[2022-08-21] MEDS: fulvestrant 250 mg/5 mL Syringe 500 MG IM (09:49)
== END 2022-08-24 23:59 | disposition home or self-care (01) ==
PROVIDERS: Nurse Practitioner; PCP Family Medicine; Visit Provider Internal Medicine Hematology & Oncology
DX: C50.412 Malignant neoplasm of upper-outer quadrant of left female breast (principal); Z17.0 Estrogen receptor positive status [ER+]; C79.51 Secondary malignant neoplasm of bone; R91.1 Solitary pulmonary nodule; R59.0 Localized enlarged lymph nodes; Z79.818 Long term (current) use of other agents affecting estrogen receptors and estrogen levels; Z79.899 Other long term (current) drug therapy; M25.552 Pain in left hip
CPT/HCPCS: 36415; 80053; 85025; 86300; 96372; 96402; 99214; J0897; J9395

== ENCOUNTER 2022-09-04 11:35 | Oncology outpatient (recurring) (ONCR) | payer MEDICARE, MEDICAID, SELFPAY ==
[2022-09-04 12:37] LABS: Alanine Aminotransferase < 5 U/L (0-33); Albumin Level 3.7 g/dL (3.5-5.2); Alkaline Phosphatase 79 U/L (35-105); Anion Gap 15.6 (5-19); Aspartate Amino Transferase 13 U/L (0-32); Blood Urea Nitrogen 21 mg/dL (8-23); Calcium 8.3 mg/dL (8.5-10.5); Carbon Dioxide 31 mmol/L (22-29); Chloride 96 mmol/L (98-107); Globulin 2.7 g/dL (1.3-4.6); Glucose 152 mg/dL (65-115); Osmolality Calculated 292 mOsm/kg (285-295); Potassium 4.6 mmol/L (3.5-5.1); Sodium 138 mmol/L (136-145); Total Bilirubin 0.2 mg/dL (0.15-1.2); Total Protein 6.4 g/dL (6.6-8.7)
[2022-09-04 13:11] LABS: Basophils % 0.5 %; Eosinophils % 0.9 %; Hemoglobin 10.9 g/dL (11.5-15.3); Lymphocytes # 1.6 10^3/uL (0.8-4.8); Lymphocytes % 38.2 %; Mean Corpuscular HGB Conc 32.1 g/dL (30.0-36.0); Mean Corpuscular Volume 109.3 fl (81-99); Mean Platelet Volume 9.3 fL (7.4-10.4); Monocytes # 0.5 10^3/uL (0.2-0.9); Monocytes % 12.6 %; Neutrophils % 47.3 %; Nucleated Red Blood Cells % 0 %; Platelet Count 210 10^3/cmm (130-400); Red Blood Count 3.11 10^6/uL (4.1-5.3); Red Cell Distribution Width 17.2 % (12.1-15.1); White Blood Count 4.2 10^3/uL (4.0-10.0)
== END 2022-09-24 23:59 | disposition home or self-care (01) ==
PROVIDERS: PCP Family Medicine; Visit Provider Internal Medicine Hematology & Oncology
DX: C50.412 Malignant neoplasm of upper-outer quadrant of left female breast (principal); Z17.0 Estrogen receptor positive status [ER+]; C79.51 Secondary malignant neoplasm of bone; C78.01 Secondary malignant neoplasm of right lung; J90 Pleural effusion, not elsewhere classified; Z79.818 Long term (current) use of other agents affecting estrogen receptors and estrogen levels; Z79.899 Other long term (current) drug therapy; Z92.21 Personal history of antineoplastic chemotherapy; Z92.3 Personal history of irradiation
CPT/HCPCS: 36415; 80053; 85025; 99214

== ENCOUNTER → 2022-09-06 09:26 | Outpatient (BNVA) | payer MEDICARE, MEDICAID, SELFPAY | PROVIDERS: PCP Family Medicine; Visit Provider Internal Medicine Pulmonary Disease | DX: C50.412 Malignant neoplasm of upper-outer quadrant of left female breast (principal); I50.32 Chronic diastolic (congestive) heart failure; C79.51 Secondary malignant neoplasm of bone | CPT/HCPCS: 99213; 99214 ==

== ENCOUNTER → 2022-10-03 09:54 | Outpatient (BNVA) | payer MEDICARE, MEDICAID, SELFPAY | PROVIDERS: PCP Family Medicine; Visit Provider Surgery | DX: C50.919 Malignant neoplasm of unspecified site of unspecified female breast (principal); C79.51 Secondary malignant neoplasm of bone | CPT/HCPCS: 99203 ==

== ENCOUNTER 2022-10-08 07:33 | Day surgery (SDC) | payer MEDICARE, MEDICAID, SELFPAY ==
[2022-10-05 12:23] VITALS: BMI 40.5
--- NOTE | 2022-10-08 | SCC_ITS ---
Procedure done: 1. Placement of right subclavian vein PowerPort 2. Fluoroscopic guidance and interpretation for placement of catheter 9 seconds of fluoroscopic guidance, for a cumulative dose of 2.0 mGy, was provided to Dr. Gerber by the radiology department. C-arm images of the chest were saved for the patient's permanent record. [facility]
--- NOTE | 2022-10-08 07:36 | SC_ITS ---
WS: [id number] INTRAOPERATIVE TECHNIQUE: 2 Spot fluoroscopic images for intraoperative purposes. FLUOROSCOPY TIME: 9.0 seconds CLINICAL INFORMATION: Powerport Placement COMPARISON: None. FINDINGS: RIGHT central venous catheter placement with tip in good position distal SVC. No visualized pneumotho rax. SC/C-arm FL for CVA [id number] IMPRESSION: Images obtained for intraoperative purposes.
[2022-10-08 07:50] VITALS: BP 116/89; PULSE 63; RESP 18; TEMP 36.4; O2SAT 96
[2022-10-08] MEDS: sodium chloride 0.9% 1,000 ML 30 ML IV (08:04)
[2022-10-08 08:06] LABS: Glucose Point of Care 153 mg/dL (70-110)
--- NOTE | 2022-10-08 08:20 | ANES.PREANE2 ---
Pre-Anesthetic Assessment Height/Weight: Height 1.68 m Weight 113.852 kg Temp Pulse Resp BP Pulse Ox O2 Del Method O2 Flow Rate 97.6 F 63 18 116/89 96 3 10/08/22 07:50 10/08/22 07:50 10/08/22 07:50 10/08/22 07:50 10/08/22 07:50 10/08/22 07:51 10/08/22 07:50 Preop Diagnosis: Metastatic breast cancer Operation Date: 10/08/22 09:05 Proposed Procedures p Portacath Placement(Not Applicable) - Chidi Gerber MD Familial anesthetic complications: None Was Beta Cristian taken within 24 hours: N/A Was Clonidine taken within 24 hours: N/A Last intake: Intake Last Liquid Date 10/07/22 Last Liquid Time 20:00 Last Solid Date 10/07/22 Last Solid Time 17:00 Social No alcohol and No tobacco Exam alert, oriented x 3, clear to auscultation bilaterally and regular rate & rhythm Airway Mallampati: Class III Dentition: full Pulmonary Chronic Obstructive Pulmonary Disease and Sleep Apnea Chronic R pleural effusion (malignant), 3 L NC continuously, CPAP at night CV/HEM Coronary Artery Disease, Congestive Heart Failure, Hypertension and Myocardial Infarction GI hiatal hernia Metabolic Diabetes Mellitus, Hyperlipidemia, Morbid Obesity and Thyroid Disease Anesthetic Plan ASA status: 4 Anesthesia: MAC Risk of > 500 ml blood loss (7ml/kg in children): No Medications/Allergies Home Medications Medication Instructions Recorded Confirmed Last Taken Type aspirin 81 mg tablet,delayed 81 mg PO DAILY 12/08/19 10/05/22 10/07/22 History release (Adult Low Dose Aspirin) cetirizine 10 mg tablet 10 mg PO DAILY 12/08/19 10/08/22 10/07/22 History isosorbide mononitrate 120 mg 120 mg PO QAM 12/08/19 10/08/22 10/08/22 06:30 History tablet,extended release 24 hr magnesium oxide 400 mg PO DAILY 12/08/19 10/08/22 10/07/22 History metformin 500 mg tablet 500 mg PO BID 12/08/19 10/08/22 10/07/22 History potassium chloride 10 mEq 10 meq PO DAILY 12/08/19 10/08/22 10/07/22 History capsule,extended release trazodone 100 mg tablet 150 mg PO DAILY 12/08/19 10/08/22 10/07/22 History amlodipine 10 mg tablet 5 mg PO DAILY 06/08/20 10/08/22 10/07/22 History famotidine 40 mg tablet (Pepcid) 40 mg PO DAILY 06/08/20 10/08/22 10/07/22 History montelukast 10 mg tablet 10 mg PO DAILY 06/08/20 10/08/22 10/07/22 History carvedilol 25 mg tablet 37.5 mg PO BID 12/15/20 10/05/22 10/08/22 06:30 History docusate sodium 100 mg capsule 100 mg PO DAILY 12/15/20 10/08/22 10/07/22 History furosemide 40 mg tablet 40 mg PO BID 12/15/20 10/08/22 10/07/22 History polyethylene glycol 3350 17 17 g PO DAILY constipation 12/15/20 10/08/22 10/07/22 History gram/dose oral powder (Miralax) nitroglycerin 0.4 mg sublingual 0.4 mg sublingual Q5M PRN chest 04/03/21 10/08/22 Unknown Rx tablet pain 30 days #30 tabs carbidopa ER 50 mg-levodopa 200 mg 1 tab PO TID 10/03/21 10/08/22 10/08/22 06:30 History tablet,extended release levothyroxine 125 mcg tablet 125 mcg PO DAILY 04/02/22 10/08/22 10/08/22 06:30 History albuterol sulfate 90 mcg/actuation 2 puff inhalation Q6H PRN 05/18/22 10/08/22 10/05/22 History aerosol inhaler Shortness Of Breath citalopram 10 mg tablet (Celexa) 10 mg PO DAILY 05/18/22 10/08/22 10/07/22 History pravastatin 80 mg tablet 80 mg PO DAILY 05/18/22 10/08/22 10/07/22 History losartan 100 mg tablet 100 mg PO DAILY #100 tabs 05/21/22 10/08/22 10/07/22 Rx insulin degludec 100 unit/mL (3 20 unit SUBCUT DAILY 05/26/22 10/08/22 10/07/22 History mL) subcutaneous pen (Tresiba FlexTouch U-100 insulin) vitamins A,C,Y-axoq-gocmbo 14,320 1 cap PO DAILY 05/26/22 10/08/22 10/07/22 History unit-226 mg-200 unit capsule (PreserVision AREDS) ondansetron 4 mg disintegrating 4 mg PO TID PRN Nausea #90 tabs 07/17/22 10/08/22 10/07/22 Rx tablet prochlorperazine maleate 10 mg 10 mg PO Q4H PRN nausea and 07/17/22 10/08/22 10/07/22 Rx tablet (Compazine) vomiting #30 tabs oxycodone-acetaminophen 5 mg-325 1 tab PO QID PRN pain 30 days #90 09/27/22 10/08/22 10/07/22 Rx mg tablet tabs morphine 30 mg tablet,extended 30 mg PO Q12H pain 10/02/22 10/08/22 10/08/22 06:30 History release Allergies Allergy/AdvReac Type Severity Reaction Status Date / Time adhesive tape Allergy Unknown rash Verified 10/08/22 07:44 ibuprofen Allergy Unknown neck Verified 10/08/22 07:44 swelling tramadol Allergy Unknown elevated BP Verified 10/08/22 07:44 naproxen Allergy Swelling Verified 10/08/22 07:44 Current Medications Generic Name Dose Route Start Last Admin Trade Name Freq PRN Reason Stop Dose Admin Sodium Chloride 1,000 mls @ 30 mls/hr 10/08/22 07:45 10/08/22 08:04 Sodium Chloride 0.9% IV 10/09/22 07:44 30 mls/hr .Q24H JOHANNA Administration PFSH Anesthesia Medical History ASHD (arteriosclerotic heart disease) Breast cancer Breast cancer metastasized to bone CHF (congestive heart failure) Hiatal hernia History of abdominal hernia Hyperlipidemia Hypertension Leg swelling Mitral regurgitation Peripheral neuropathy Varicose veins of both lower extremities Surgical History H/O: hysterectomy History of eye surgery History of lumpectomy of left breast History of shoulder surgery Hx of appendectomy Hx of cholecystectomy Family History Father CAD (coronary artery disease) Cancer Diabetes Mother CAD (coronary artery disease) Brother CAD (coronary artery disease) Diabetes Family/Other Chronic kidney disease (CKD) Other Hypertension Denies family history of Clotting disorder Dementia Suicide Anesthesia complication Bleeding disorder Lung disease Stroke Social History Smoking and tobacco status: never smoked Alcohol intake: never Data Anesthesia Cardiac Studies: No Data to Display
--- NOTE | 2022-10-08 08:40 | W.PM.OPSUD ---
Surgery/Procedure H&P Update DATE OF PROCEDURE: October 08, 2022 DATE H&P PERFORMED: 10/03/22 H&P UPDATE INFORMATION: I have reviewed H&P completed within last 30 days, I have examined patient prior to procedure and Changes to prior documentation as noted here (Patient was released by cardiology for the procedure) PREOP DIAGNOSIS: Metastatic breast cancer PRIMARY INDICATION FOR PROCEDURE: The same PLANNED PROCEDURE: Operation Date: 10/08/22 09:05 Proposed Procedures p Portacath Placement(Not Applicable) - Chidi Gerber MD
[2022-10-08] MEDS: ceFAZolin 2,000 MG in sodium chloride 0.9% (plus) 50 ML 100 MG IV (09:04)
[2022-10-08] MEDS: lidocaine 1% INJ 50 mL INJECTION (09:31)
[2022-10-08] MEDS: heparin, porcine 1,000 unit/mL INJ 10 mL 10000 UNIT XX (09:39)
--- NOTE | 2022-10-08 09:47 | P.OP_ITS ---
Operative Report Date of procedure: October 08, 2022 Pre-op diagnosis: Preop Diagnosis Metastatic breast cancer Procedure done: 1. Placement of right subclavian vein PowerPort 2. Fluoroscopic guidance and interpretation for placement of catheter Implants: Right subclavian vein PowerPort Surgeon: Chidi Gerber MD Tobacco Cloth Reclaimer: a/c technician Sonya Jarrell nurse Shirin Anesthesia: MAC (steel roller Raffy Lazar) Estimated blood loss (mL): 5 Procedure: Patient was identified in the holding area and taken to the operative room and placed in supine position IV propofol was given by the anesthesia provider ,both arms were tucked,Time-out was done verifying the patient's name/date of /planned procedure and destination after the procedure, all were in agreement. SCDs confirmed to be functioning, preoperative antibiotics administered per protocol, and beta edwar protocol was confirmed, appropriate positioning of the patient was done by me. Medications were reviewed to assess for anticoagulant usage. Risks and benefits and prevention of central line associated blood stream infection (CLABSI) were discussed with the patient/CPOA, and a consent was obtained. Monitors were in place and monitored throughout the procedure. All necessary supplies were hermelinda ilable prior to start. Hand hygiene was completed prior to starting. Maximum barrier technique was utilized including a sterile gown, sterile gloves with a hat and mask. Site was was prepped with [chlorhexidine] and a full body drape was placed. 5 mL of 2% lidocaine was injected into the skin with a 25 gauge needle. Prep& drape was done under the usual sterile technique, lidocaine 2% was injec giovanni at the site of the stick, started by right sub-clavian vein stick that retrieved venous blood was obtained from the first stick, a guide wire was then threaded and under the guidance of fluoroscopy position was confirmed to be in the IVC and my interpretation, there were no PVC changes, at that point the guide wire was secured to the drapes with a hemostat and the needle was taken out, attention was then deviated towards creation of a pocket for the port were lidocaine 2% was injected using an 15 blade knife skin incision was created dissection using the Bovie to create a pocket for the Power Port to be accommodated. Hemostasis was secured, after the port being appropriately flushed it was inserted into the pocket and a tunneler was used to accommodate the catheter of the port catheter to be delivered through the incision first created at the site of the stick, at that point under fluoroscopy an estimated length was measured for the catheter and was cut at the designed level, followed by that a dilator with the sheath introduced onto the guide wire the dilator and the wire were retrieved and the catheter of the port was introduced via the sheath where it was peeled off and the catheter maintained to be in the SVC that was confirmed with fluoroscopy, and the fluoroscopy interpretation was done by me throughout the entire procedure. The port was kept in its pocket,3-0 Vicryl deep subdermal interrupted sutures, skin was then closed by 4-0 Monocryl as subcuticular closure.The port was appropriately flushed with heparin and venous blood was withdrawn without difficulty.The stick site was closed by 4-0 Monocryl and Dermabond was used followed by dressing.Count was correct at the end of the procedure.Patient tolerated the procedure well was taken to the recovery area. I was present for the whole entire procedure. Position of the catheter was checked with a postoperative chest x-ray and it was in good position without evidence of pneumothorax.
--- NOTE | 2022-10-08 09:48 | XR_ITS ---
WS: [id number] Exam: XR chest 1V portable [id number] Date/Time of Exam: 10/08/2022 9:54 AM Reason For Exam: Status post PowerPort placement right subclavian vein Compared to the intraoperative C-arm image of the chest performed earlier on the same day at 0947 page rs. A right subclavian port has been placed and ends in the lower one third of the SVC. The lungs are ful ly expanded. Mild cardiac enlargement. There is infiltrate and atelectasis in the right lower lobe an d right basal pleural effusion. The mediastinum is normal in contour. Bony structures are intact. XR/XR chest 1V portable [id number] IMPRESSION: 1. Right subclavian port in satisfactory position. 2. Infiltrate and atelectasis in the right lower lobe with right basal pleural effusion. Mild cardiac enlargement.
[2022-10-08 10:00] VITALS: BP 118/54; PULSE 62; RESP 16; TEMP 36.1; O2SAT 95
[2022-10-08 10:04] VITALS: BP 128/60; PULSE 60; RESP 16; O2SAT 95
[2022-10-08 10:10] VITALS: BP 128/53; PULSE 60; RESP 18; TEMP 36.2; O2SAT 93
[2022-10-08 10:26] VITALS: BP 126/56; PULSE 58; RESP 18; TEMP 36.5; O2SAT 95
--- NOTE | 2022-10-08 13:15 | ANE.PACU2 ---
Inpatient post-anesthesia follow up: Airway intact: Yes Vital signs: Temperature 97.7 F Pulse Rate 58 Respiratory Rate 18 Blood Pressure 126/56 Pulse Oximetry 95 Oxygen Delivery Me thod Nasal Cannula Oxygen Flow Rate 3 Fraction of Inspir ed Oxygen Hydration adequate: Yes Nausea and vomiting: No Pain level: 1 Mental status: Baseline
== END 2022-10-08 11:02 | disposition home or self-care (01) ==
PROVIDERS: PCP Family Medicine; Visit Provider Surgery
PROC: (CPT 36561; principal; 2022-10-08 09:05)
DX: C50.919 Malignant neoplasm of unspecified site of unspecified female breast (principal); J44.9 Chronic obstructive pulmonary disease, unspecified; G47.30 Sleep apnea, unspecified; Z99.81 Dependence on supplemental oxygen; I25.10 Atherosclerotic heart disease of native coronary artery without angina pectoris; I11.0 Hypertensive heart disease with heart failure; I50.9 Heart failure, unspecified; I25.2 Old myocardial infarction; E11.9 Type 2 diabetes mellitus without complications; E78.5 Hyperlipidemia, unspecified; E66.01 Morbid (severe) obesity due to excess calories; Z68.41 Body mass index [BMI] 40.0-44.9, adult; Z79.82 Long term (current) use of aspirin; Z79.4 Long term (current) use of insulin
CPT/HCPCS: 36561; 36416; 71045; 77001; 82962; C1788; J0690; J1644; J2704; J3010; J7030

== ENCOUNTER 2022-10-10 18:08 | Emergency (ER) | payer MEDICARE, MEDICAID, SELFPAY ==
--- NOTE | 2022-10-10 18:16 | CTR_ITS ---
PROCEDURE INFORMATION: Exam: CTA Chest With Contrast Exam date and time: 10/10/2022 7:04 PM Age: 82 years old Clinical indication: Dyspnea; Prior surgery; Surgery date: 6+ months; Surgery type: Port, yesterday; Additional info: Cp TECHNIQUE: Imaging protocol: Computed tomographic angiography of the chest with contrast. 3D rendering (Not supervised by radiologist): MIP and/or 3D reconstructed images were created by the technologist. Radiation optimization: All CT scans at this facility use at least one of these dose optimization techniques: automated exposure control; mA and/or kV adjustment per patient size (includes targeted exams where dose is matched to clinical indication); or iterative reconstruction. Contrast material: OMNIPAQUE 350; Contrast volume: 100 ml; Contrast route: INTRAVENOUS (IV); COMPARISON: CT angio chest PE protcl [id number] 05/26/2022 1:48 PM RADIATION DOSE METRICS: Total DLP (mGy-cm): 606.68 FINDINGS: Tubes, catheters and devices: Right [id number]-C-Ofxu with soft tissue gas bubbles around the port, consistent with recent access. Pulmonary arteries: No definite filling defects identified within the pulmonary arteries. Evaluation of the arteries is limited due to significant breathing motion artifact. Aorta: Unremarkable. No aortic aneurysm. No aortic dissection. Lungs: Dependent atelectasis in the right lung. The previous pulmonary nodules along the right major fissure have decreased in size with the largest measuring 1.3 cm. The previous subpleural nodule in the right upper lobe has near completely resolved. The previous nodule along the right minor fissure is no longer visualized. Pleural spaces: Medium right and small left pleural effusions. Heart: Cardiomegaly. Lymph nodes: Prominent middle mediastinal lymph nodes, measuring up to 1.0 cm short axis. Prominent hilar lymph nodes, right greater than left, measuring up to 1.1 cm short axis. Calcified left hilar and mediastinal lymph nodes. Liver: Numerous low-density nodules scattered throughout the liver, increased in size and number. Spleen: Calcified granulomas in the spleen. Bones/joints: Stable sclerosis of the T6 vertebral body. No acute fracture. No lytic lesion identified. Soft tissues: Unremarkable. CT/CT angio chest PE protcl [id number] IMPRESSION: 1. No evidence for pulmonary embolus. Evaluation is limited by significant breathing motion artifact. 2. Pulmonary nodules in the right lung and along the major and minor fissures have decreased significantly in size and number. This is consistent with some response to therapy. 3. Prominent mediastinal and hilar lymph nodes, suspicious for metastatic disease. 4. Moderate right pleural effusion. 5. Worsened hepatic metastatic disease.
--- NOTE | 2022-10-10 18:16 | XRR_ITS ---
PROCEDURE INFORMATION: Exam: XR Chest Exam date and time: 10/10/2022 7:32 PM Age: 82 years old Clinical indication: Angina pectoris and chest pressure and chest wall pain; Additional info: Cp TECHNIQUE: Imaging protocol: Radiologic exam of the chest. Views: 1 view. COMPARISON: CR XR chest 1V portable [id number] 10/08/2022 10:02 AM FINDINGS: Tubes, catheters and devices: Stable right Yobxll-F-Ankb with tip over the distal SVC. Lungs: Stable consolidation in the right lung base. Atelectasis or scarring in the left base. Changes of emphysema. Pleural spaces: Stable right pleural effusion. No pneumothorax. Heart/Mediastinum: Cardiomegaly. Bones/joints: Unremarkable. XR/XR chest 1V portable [id number] IMPRESSION: 1. Stable right pleural effusion and basilar atelectasis.
[2022-10-10 18:18] VITALS: BP 123/95; PULSE 82; RESP 18; TEMP 36.6; O2SAT 98; BMI 40.3
--- NOTE | 2022-10-10 18:24 | ECG_ITS ---
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 Measurements Intervals [place] Rate: 77 P: 67 FL: 185 QRS: -18 QRSD: 120 T: 69 QT: 384 QTc: 435 Interpretive Statements SINUS RHYTHM WITH OCCASIONAL ECTOPIC PREMATURE COMPLEXES ANTEROSEPTAL MYOCARDIAL INFARCTION , OF INDETERMINATE AGE [40+ ms Q WAVE IN V1-V4] Compared to ECG 05/26/2022 14:37:07 No significant changes Electronically Signed On 10-12-2022 6:27:30 MONKEY KEEPER by Miller Velazquez M.D. [id number]
--- NOTE | 2022-10-10 18:26 | W.ED.CHESTPA ---
HPI - Chest Pain General: Chief Complaint: Chest Pain Stated Complaint: Possible Heart attack Time Seen by Provider: 10/10/22 18:16 Source: patient Mode of arrival: ambulatory Limitations: no limitations History of Present Illness: 82-year-old female who has a history of breast cancer with bony metastases she states she has been having severe chest pain along with some shortness of breath over the last day states her pain is diffuse in nature rates it a 9 out of 10 and sharp in nature. She denies any vomiting or diarrhea states she did have a port recently placed she is supposed to start chemo she has not started chemo yet she has not had radiation. Denies any cough denies any fever. Associated symptoms: Deny abdominal pain, dyspnea, fever(s), nausea or vomiting Review of Systems Const: Denies: fever(s), chills, body aches or change in appetite Eyes: Denies: blurry vision or eye discomfort ENMT: Denies: throat pain or dental pain Card: Reports: chest pain Resp: Denies: dyspnea GI: Denies: abdominal pain, nausea, vomiting or diarrhea : Denies: dysuria Musc: Denies: neck pain or back pain Skin/Breast: Denies: rash Neuro: Denies: headache(s) Psych: Denies: depression Amrit/Lymph: Denies: easy bruising All/Imm: Denies: urticaria PFSH ED PFSH: Medical History ASHD (arteriosclerotic heart disease) Breast cancer Breast cancer metastasized to bone CHF (congestive heart failure) Hiatal hernia History of abdominal hernia Hyperlipidemia Hypertension Leg swelling Mitral regurgitation Peripheral neuropathy Varicose veins of both lower extremities Surgical History H/O: hysterectomy History of eye surgery History of lumpectomy of left breast History of shoulder surgery Hx of appendectomy Hx of cholecystectomy Family History Father CAD (coronary artery disease) Cancer Diabetes Mother CAD (coronary artery disease) Brother CAD (coronary artery disease) Diabetes Family/Other Chronic kidney disease (CKD) Other Hypertension Denies family history of Clotting disorder Dementia Suicide Anesthesia complication Bleeding disorder Lung disease Stroke Social History Smoking and tobacco status: never smoked Alcohol intake: never Physical Exam Const: COMMON NORMALS: patient oriented x3 HENMT: COMMON NORMALS: normocephalic and atraumatic HEAD & SCALP: normocephalic and atraumatic Eye: COMMON NORMALS: Equal, round and reactive pupils present and EOMs intact bilaterally PUPIL: Yes Equal, round and reactive pupils present Neck/C-Spine: COMMON NORMALS: full ROM and supple Chest: COMMONS NORMALS: normal inspection of the chest and normal palpation of entire chest wall Resp: COMMON NORMALS: normal respiratory effort, No retractions, No use of accessory muscles and clear to auscultation bilaterally AUSCULTATION: clear to auscultation bilaterally Cardio: COMMON NORMALS: regular rate, regular rhythm and No murmurs present (Cardio) RATE: regular rate RHYTHM: regular rhythm GI: COMMON NORMALS: Normal to inspection, nondistended, normoactive bowel sounds present, Soft to palpation, non-tender and no masses PALPATION: Yes Soft to palpation Extremity: COMMON NORMALS: normal to inspection and full ROM Neuro: COMMON NORMALS: patient oriented x3, moves all extremities and no focal motor deficits Psych: COMMON NORMALS: mental status grossly normal, Normal thought process present and cooperative THOUGHT PROCESS: Normal thought process present Skin: COMMON NORMALS: no rashes or lesions noted and no wounds GENERAL SKIN EXAM: no rashes or lesions noted Course Vital Signs: Vital signs: Vital Signs Temperature 98 F 10/10/22 18:18 Pulse Rate 72 10/10/22 21:00 Respiratory Rate 18 10/10/22 21:00 Blood Pressure 143/86 10/10/22 21:00 Pulse Oximetry 96 10/10/22 21:00 Oxygen Delivery Me thod 10/10/22 21:00 Oxygen Flow Rate 3 10/10/22 21:00 MDM - Chest Pain Medical Decision Making Patient presents for chest pain likely from her cancer initial repeat troponins are negative CT angio is normal as well she is stable for discharge she is to follow-up with PCP and return if worsening she understands agrees to plan. Lab Data 10/10/22 18:30 10/10/22 18:30 Radiology Impressions Chest CTA 10/10/22 18:16 IMPRESSION: 1. No evidence for pulmonary embolus. Evaluation is limited by significant breathing motion artifact. 2. Pulmonary nodules in the right lung and along the major and minor fissures have decreased significantly in size and number. This is consistent with some response to therapy. 3. Prominent mediastinal and hilar lymph nodes, suspicious for metastatic disease. 4. Moderate right pleural effusion. 5. Worsened hepatic metastatic disease. Chest X-Ray 10/10/22 18:16 IMPRESSION: 1. Stable right pleural effusion and basilar atelectasis. Laboratory Results WBC 5.9 10^3/uL (4.0-10.0) 10/10/22 18:30 RBC 3.33 10^6/uL (4.1-5.3) L 10/10/22 18:30 Hgb 11.8 g/dL (11.5-15.3) 10/10/22 18: Hct 36.1 % (37.0-47.0) L 10/10/22 18: MCV 108.4 fl (81-99) H 10/10/22 18: MCH 35.4 pg (28.0-34.0) H 10/10/22 18: MCHC 32.7 g/dL (30.0-36.0) 10/10/22 18: RDW 14.1 % (12.1-15.1) 10/10/22 18: Plt Count 317 10^3/cmm (130-400) 10/10/22 18:30 MPV 9.1 fL (7.4-10.4) 10/10/22 18:30 Neut % (Auto) 64.9 % 10/10/22 18: Lymph % (Auto) 21.8 % 10/10/22 18:30 [place] % (Auto) 10.4 % 10/10/22 18:30 Eos % (Auto) 1.5 % 10/10/22 18: Baso % (Auto) 0.5 % 10/10/22 18: Neut # (Auto) 3.81 10^3/uL (1.8-7.7) 10/10/22 18:30 Lymph # (Auto) 1.3 10^3/uL (0.8-4.8) 10/10/22 18:30 [place] # (Auto) 0.6 10^3/uL (0.2-0.9) 10/10/22 18:30 Eos # (Auto) 0.1 10^3/uL (0.0-0.8) 10/10/22 18:30 Baso # (Auto) 0.0 10^3/uL (0.0-0.1) 10/10/22 18:30 Nucleated RBC % (auto) 0 % 10/10/22 18:30 Nucleated RBCs # 0.0 /100WBC 10/10/22 18:30 Sodium 138 mmol/L (136-145) 10/10/22 18:30 Potassium 4.2 mmol/L (3.5-5.1) 10/10/22 18:30 Chloride 97 mmol/L (98-107) L 10/10/22 18:30 Carbon Dioxide 30 mmol/L (22-29) H 10/10/22 18:30 Anion Gap 15.2 (5-19) 10/10/22 18:30 BUN 13 mg/dL (8-23) 10/10/22 18:30 Creatinine 0.6 mg/dL (0.5-0.9) 10/10/22 18:30 GFR Calculation Not Reportable 10/10/22 18:30 Glucose 205 mg/dL (65-115) H 10/10/22 18:30 Calculated Osmolality 292 mOsm/kg (285-295) 10/10/22 18:30 Calcium 9.0 mg/dL (8.5-10.5) 10/10/22 18:30 Total Bilirubin 0.2 mg/dL (0.15-1.2) 10/10/22 18:30 AST 14 U/L (0-32) 10/10/22 18:30 ALT < 5 U/L (0-33) 10/10/22 18:30 Alkaline Phosphatase 97 U/L (35-105) 10/10/22 18:30 Troponin T Baseline 15 ng/L (0-10) H 10/10/22 18:30 Troponin T 120 Minute 16.85 ng/L (0-10) H 10/10/22 20:01 Delta Troponin T 1.85 ABS# (0-10) 10/10/22 20:01 Total Protein 7.2 g/dL (6.6-8.7) 10/10/22 18:30 Albumin 3.8 g/dL (3.5-5.2) 10/10/22 18:30 Globulin 3.4 g/dL (1.3-4.6) 10/10/22 18:30 EKG Data EKG 1: I personally reviewed and interpreted this EKG as follows: EKG interpretation date: 10/10/22 EKG interpretation time: 20:47 Interpretation: nsr hr [address] or t wave anbormalities qrs 126 qtc 428 Discharge Plan Discharge Patient Disposition: Home Clinical Impression: Chest pain Condition: Stable Prescriptions: No Action polyethylene glycol 3350 [Miralax] 17 gram/dose powder 17 g PO DAILY docusate sodium 100 mg capsule 100 mg PO DAILY isosorbide mononitrate 120 mg tablet extended release 24 hr 120 mg PO QAM trazodone 100 mg tablet 150 mg PO DAILY potassium chloride 10 mEq capsule, extended release 10 meq PO DAILY metformin 500 mg tablet 500 mg PO BID aspirin [Adult Low Dose Aspirin] 81 mg tablet,delayed release (DR/EC) 81 mg PO DAILY Hold Instructions: Resume on 10/11/22. magnesium oxide 400 mg magnesium tablet 400 mg PO DAILY cetirizine 10 mg tablet 10 mg PO DAILY amlodipine 10 mg tablet 5 mg PO DAILY carvedilol 25 mg tablet 37.5 mg PO BID famotidine [Pepcid] 40 mg tablet 40 mg PO DAILY montelukast 10 mg tablet 10 mg PO DAILY furosemide 40 mg tablet 40 mg PO BID carbidopa-levodopa 50-200 mg tablet extended release 1 tab PO TID Rx Instructions: t tablets in am, 1 tab afternoon, 1 tab PM nitroglycerin 0.4 mg tablet, sublingual 0.4 mg sublingual Q5M PRN (Reason: chest pain) 30 Days Qty: 30 3RF Rx Instructions: until response; do not exceed 3 doses per episode levothyroxine 125 mcg tablet 125 mcg PO DAILY citalopram [Celexa] 10 mg tablet 10 mg PO DAILY albuterol sulfate 90 mcg/actuation HFA aerosol inhaler 2 puff inhalation Q6H PRN (Reason: Shortness Of Breath) morphine 30 mg tablet extended release 30 mg PO Q12H losartan 100 mg tablet 100 mg PO DAILY Qty: 100 3RF ondansetron 4 mg tablet,disintegrating 4 mg PO TID PRN (Reason: Nausea) Qty: 90 2RF prochlorperazine maleate [Compazine] 10 mg tablet 10 mg PO Q4H PRN (Reason: nausea and vomiting) Qty: 30 2RF oxycodone-acetaminophen 5-325 mg tablet 1 tab PO QID PRN (Reason: pain) 30 Days Qty: 90 0RF pravastatin 80 mg tablet 80 mg PO DAILY prochlorperazine maleate [Compazine] 10 mg tablet 10 mg PO Q4H PRN (Reason: Mild Nausea) Qty: 30 3RF PreserVision AREDS [phone] [id number] Capsule 1 cap PO DAILY Tresiba FlexTouch U-100 100 unit/mL (3 mL) insulin pen 20 unit SUBCUT DAILY Discharge Orders: Discharge ED (Routine); Ordered 10/10/22 Ordered By: Delon Villalobos Referrals: Mikael Madrigal MD [Primary Care Provider] - Discharge Diet: Advance as tolerated Discharge Activity: Resume usual activity Patient Instructions: Chest Pain (ED) Coding Level of Care Code ED Lead Maintenance Technician for Chg Fwd Exam Comprehensive
[2022-10-10 18:40] LABS: Basophils % 0.5 %; Eosinophils # 0.1 10^3/uL (0.0-0.8); Eosinophils % 1.5 %; Hematocrit 36.1 % (37.0-47.0); Hemoglobin 11.8 g/dL (11.5-15.3); Lymphocytes # 1.3 10^3/uL (0.8-4.8); Lymphocytes % 21.8 %; Mean Corpuscular HGB Conc 32.7 g/dL (30.0-36.0); Mean Corpuscular Hemoglobin 35.4 pg (28.0-34.0); Mean Corpuscular Volume 108.4 fl (81-99); Mean Platelet Volume 9.1 fL (7.4-10.4); Monocytes # 0.6 10^3/uL (0.2-0.9); Monocytes % 10.4 %; Neutrophils # 3.81 10^3/uL (1.8-7.7); Neutrophils % 64.9 %; Nucleated Red Blood Cells % 0 %; Platelet Count 317 10^3/cmm (130-400); Red Blood Count 3.33 10^6/uL (4.1-5.3); Red Cell Distribution Width 14.1 % (12.1-15.1); White Blood Count 5.9 10^3/uL (4.0-10.0)
[2022-10-10 19:03] LABS: Troponin(5th) Baseline 15 ng/L (0-10)
[2022-10-10] MEDS: ondansetron 2 mg/ML SDV 2 mL 4 MG IVP (19:03)
[2022-10-10 19:05] LABS: Alanine Aminotransferase < 5 U/L (0-33); Albumin Level 3.8 g/dL (3.5-5.2); Alkaline Phosphatase 97 U/L (35-105); Anion Gap 15.2 (5-19); Aspartate Amino Transferase 14 U/L (0-32); Blood Urea Nitrogen 13 mg/dL (8-23); Carbon Dioxide 30 mmol/L (22-29); Chloride 97 mmol/L (98-107); Creatinine Clr Calc Pharmacy 71.6649; Globulin 3.4 g/dL (1.3-4.6); Glucose 205 mg/dL (65-115); Osmolality Calculated 292 mOsm/kg (285-295); Potassium 4.2 mmol/L (3.5-5.1); Sodium 138 mmol/L (136-145); Total Bilirubin 0.2 mg/dL (0.15-1.2); Total Protein 7.2 g/dL (6.6-8.7)
[2022-10-10 19:20] VITALS: BP 177/69; PULSE 77; RESP 24; O2SAT 96
[2022-10-10] MEDS: iohexol 350 mg/mL 500 mL Btl (per mL) IV (19:20)
[2022-10-10 19:21] VITALS: RESP 24; O2SAT 95
[2022-10-10] MEDS: HYDROmorphone 1 mg/mL INJ 1 mL IVP (19:21)
--- NOTE | 2022-10-10 20:16 | ECG_ITS ---
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 Measurements Intervals [place] Rate: 72 P: 62 [place]: 183 QRS: -14 QRSD: 126 T: 36 QT: 404 QTc: 444 Interpretive Statements SINUS RHYTHM ANTEROSEPTAL MYOCARDIAL INFARCTION , OF INDETERMINATE AGE [40+ ms Q WAVE IN V1-V4] Compared to ECG 10/10/2022 18:24:10 No significant changes Electronically Signed On 10-12-2022 6:33:37 MANAGER MERCHANDISE by Miller Velazquez M.D. [id number]
[2022-10-10 20:40] LABS: Troponin 5 2HR 16.85 ng/L (0-10)
[2022-10-10 20:43] LABS: Troponin 5 2HR Delta 1.85 ABS# (0-10)
[2022-10-10 21:00] VITALS: BP 143/86; PULSE 72; RESP 18; O2SAT 96
== END 2022-10-10 21:20 | disposition home or self-care (01) ==
PROVIDERS: Emergency Provider Emergency Medicine; PCP Family Medicine
DX: R07.9 Chest pain, unspecified (principal); Z79.84 Long term (current) use of oral hypoglycemic drugs; Z79.82 Long term (current) use of aspirin; Z79.4 Long term (current) use of insulin; Z85.3 Personal history of malignant neoplasm of breast; I11.0 Hypertensive heart disease with heart failure; I50.9 Heart failure, unspecified; E78.5 Hyperlipidemia, unspecified
CPT/HCPCS: 71045; 71275; 80053; 84484; 85025; 93005; 96374; 96375; 99285; J1170; J1642; J2405; Q9967

== ENCOUNTER → 2022-10-15 13:47 | Outpatient (BNVA) | payer MEDICARE, MEDICAID, SELFPAY | PROVIDERS: PCP Family Medicine; Visit Provider Internal Medicine Cardiovascular Disease | DX: I25.118 Atherosclerotic heart disease of native coronary artery with other forms of angina pectoris (principal); C50.919 Malignant neoplasm of unspecified site of unspecified female breast; E78.2 Mixed hyperlipidemia; I34.0 Nonrheumatic mitral (valve) insufficiency; I11.0 Hypertensive heart disease with heart failure; I50.32 Chronic diastolic (congestive) heart failure | CPT/HCPCS: 99214 ==

== ENCOUNTER 2022-10-19 09:54 | Emergency (ER) | payer MEDICARE, MEDICAID, SELFPAY ==
[2022-10-19 10:01] VITALS: BP 112/67; PULSE 109; RESP 16; TEMP 36.4; O2SAT 97; BMI 40.6
[2022-10-19 11:30] LABS: Basophils % 0.2 %; Eosinophils # 0.1 10^3/uL (0.0-0.8); Eosinophils % 1.4 %; Hemoglobin 12.8 g/dL (11.5-15.3); Lymphocytes # 1.4 10^3/uL (0.8-4.8); Mean Corpuscular HGB Conc 32.8 g/dL (30.0-36.0); Mean Corpuscular Hemoglobin 34.9 pg (28.0-34.0); Mean Corpuscular Volume 106.3 fl (81-99); Mean Platelet Volume 10.3 fL (7.4-10.4); Monocytes # 0.2 10^3/uL (0.2-0.9); Monocytes % 2.8 %; Neutrophils # 6.72 10^3/uL (1.8-7.7); Neutrophils % 79.1 %; Nucleated Red Blood Cells % 0 %; Platelet Count 294 10^3/cmm (130-400); Red Blood Count 3.67 10^6/uL (4.1-5.3); Red Cell Distribution Width 13.4 % (12.1-15.1); White Blood Count 8.5 10^3/uL (4.0-10.0)
--- NOTE | 2022-10-19 11:35 | ED_ITS ---
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 Symptoms began yesterday with epigastric stump she is also had several other family members who have had similar like symptoms. She not had any pain radiating to her neck or back no associated shortness of breath did not notice anything that exacerbates or relieves the discomfort. MD complaint: chest pain Pertinent past history: coronary artery disease Onset (ago): day(s) Timing of current episode: constant Onset: during rest Pain location: substernal and left chest Pain radiation: none Quality: aching and heaviness Relieving factors: nothing Exacerbating factors: nothing Associated symptoms: Reports abdominal pain; Deny diaphoresis, dyspnea, fever(s), leg edema, nausea, palpitations, sense of impending doom, syncope or vomiting Treatment prior to arrival: nitroglycerin Review of Systems Const: Reports: fatigue and malaise; Denies: fever(s), chills or diaphoresis ENMT: Denies: throat pain, ear or mastoid pain, nasal discharge or nasal congestion Card: Reports: chest pain; Denies: palpitations, irregular heart rhythm, edema, syncope or orthopnea Resp: Reports: productive cough; Denies: dyspnea, non-productive cough or wheezing GI: Reports: abdominal pain; Denies: nausea or vomiting : Denies: flank pain, difficulty voiding, dysuria, urinary frequency or urinary urgency Skin/Breast: Denies: rash or pruritus PFSH ED PFSH: Medical History (Updated 10/26/22 @ 16:43 by Eric Quintana MD) ASHD (arteriosclerotic heart disease) Breast cancer Breast cancer metastasized to bone CHF (congestive heart failure) Hiatal hernia History of abdominal hernia Hyperlipidemia Hypertension Leg swelling Mitral regurgitation Peripheral neuropathy Port-A-Cath in place Varicose veins of both lower extremities Surgical History (Updated 10/26/22 @ 16:43 by Eric Quintana MD) H/O: hysterectomy History of eye surgery History of lumpectomy of left breast History of shoulder surgery Hx of appendectomy Hx of cholecystectomy Hx of total knee replacement Family History Father CAD (coronary artery disease) Cancer Diabetes Mother CAD (coronary artery disease) Brother CAD (coronary artery disease) Diabetes Family/Other Chronic kidney disease (CKD) Other Hypertension Denies family history of Clotting disorder Dementia Suicide Anesthesia complication Bleeding disorder Lung disease Stroke Social History Smoking and tobacco status: unknown if ever smoked Alcohol intake: never Physical Exam Const: GENERAL APPEARANCE: cooperative and comfortable ORIENTATION/CONSCIOUSNESS: Yes awake, Yes oriented to person, Yes oriented to place and Yes oriented to time HENMT: COMMON NORMALS: atraumatic and hearing grossly normal bilaterally HEAD & SCALP: atraumatic Resp: COMMON NORMALS: normal respiratory effort, No retractions, No use of accessory muscles and clear to auscultation bilaterally AUSCULTATION: clear to auscultation bilaterally Cardio: COMMON NORMALS: regular rate, regular rhythm and No murmurs present (Cardio) RATE: regular rate RHYTHM: regular rhythm GI: COMMON NORMALS: Soft to palpation and No hepatosplenomegaly present AUSCULTATION: Yes normoactive bowel sounds PALPATION: Yes Soft to palpation, No Tenderness to palpation present (GI), No Guarding due to palpation present (GI) and Yes No hepatosplenomegaly present Extremity: COMMON NORMALS: normal to inspection, capillary refill normal, no clubbing, cyanosis or edema, no calf tenderness and no pedal edema Neuro: SENSORIUM/ORIENTATION: Yes oriented to person, Yes oriented to place and Yes oriented to time Skin: COMMON NORMALS: no rashes or lesions noted GENERAL SKIN EXAM: no rashes or lesions noted Course Vital Signs: Vital signs: Vital Signs Temperature 97.6 F 10/19/22 10:01 Pulse Rate 89 10/19/22 15:10 Respiratory Rate 16 10/19/22 15:10 Blood Pressure 91/59 10/19/22 15:10 Pulse Oximetry 98 10/19/22 15:10 Oxygen Delivery Me thod 10/19/22 15:10 Oxygen Flow Rate 3 10/19/22 15:10 MDM - Chest Pain Medical Decision Making Patient is in A. fib with RVR were able to get her converted and she stated rate controlled sounds like she has been that way for a while I called and talked to Dr. Ryan he recommends going starting on Eliquis with her rate controlled he feels that we can discharge her home. Will discharge home have him follow-up with cardiology within the next week return if has further problems. Medical Records I reviewed the patient's medical records. Lab Data I reviewed the patient's lab results. 10/19/22 11:25 10/19/22 11:25 Radiology Impressions Chest X-Ray 10/19/22 11:39 IMPRESSION: No substantial interval change. Small bilateral pleural effusions with right basilar airspace opacities. Lumbar Spine X-Ray 10/19/22 11:45 IMPRESSION: Degenerative changes as described above but no acute pathology detected. Thoracic Spine X-Ray 10/19/22 11:45 IMPRESSION: 1. Nonspecific opacity in the right lung base, favoring atelectasis, scarring, or pneumonia. 2. Sclerotic changes seen within the T6 appears similar to prior CT and felt to represent stable metastatic disease. 3. Mild sclerosis noted in the T7, T8 and T9 vertebral bodies anteriorly felt to correspond to osteophytes as seen on prior CT. 4. No new pathology detected. Laboratory Results WBC 8.5 10^3/uL (4.0-10.0) 10/19/22 11:25 RBC 3.67 10^6/uL (4.1-5.3) L 10/19/22 11:25 Hgb 12.8 g/dL (11.5-15.3) 10/19/22 11:25 Hct 39.0 % (37.0-47.0) 10/19/22 11:25 MCV 106.3 fl (81-99) H 10/19/22 11:25 MCH 34.9 pg (28.0-34.0) H 10/19/22 11:25 MCHC 32.8 g/dL (30.0-36.0) 10/19/22 11:25 RDW 13.4 % (12.1-15.1) 10/19/22 11:25 Plt Count 294 10^3/cmm (130-400) 10/19/22 11:25 MPV 10.3 fL (7.4-10.4) 10/19/22 11:25 Neut % (Auto) 79.1 % 10/19/22 11:25 Lymph % (Auto) 16.0 % 10/19/22 11:25 [place] % (Auto) 2.8 % 10/19/22 11:25 Eos % (Auto) 1.4 % 10/19/22 11:25 Baso % (Auto) 0.2 % 10/19/22 11:25 Neut # (Auto) 6.72 10^3/uL (1.8-7.7) 10/19/22 11:25 Lymph # (Auto) 1.4 10^3/uL (0.8-4.8) 10/19/22 11:25 [place] # (Auto) 0.2 10^3/uL (0.2-0.9) 10/19/22 11:25 Eos # (Auto) 0.1 10^3/uL (0.0-0.8) 10/19/22 11:25 Baso # (Auto) 0.0 10^3/uL (0.0-0.1) 10/19/22 11:25 Nucleated RBC % (auto) 0 % 10/19/22 11:25 Nucleated RBCs # 0.0 /100WBC 10/19/22 11:25 Sodium 136 mmol/L (136-145) 10/19/22 11:25 Potassium 4.3 mmol/L (3.5-5.1) 10/19/22 11:25 Chloride 93 mmol/L (98-107) L 10/19/22 11:25 Carbon Dioxide 30 mmol/L (22-29) H 10/19/22 11:25 Anion Gap 17.3 (5-19) 10/19/22 11:25 BUN 20 mg/dL (8-23) 10/19/22 11:25 Creatinine 0.9 mg/dL (0.5-0.9) 10/19/22 11:25 GFR Calculation Not Reportable 10/19/22 11:25 Glucose 204 mg/dL (65-115) H 10/19/22 11:25 Calculated Osmolality 290 mOsm/kg (285-295) 10/19/22 11:25 Calcium 8.9 mg/dL (8.5-10.5) 10/19/22 11:25 Total Bilirubin 0.4 mg/dL (0.15-1.2) 10/19/22 11:25 AST 19 U/L (0-32) 10/19/22 11:25 ALT < 5 U/L (0-33) 10/19/22 11:25 Alkaline Phosphatase 100 U/L (35-105) 10/19/22 11:25 Troponin T Baseline 20 ng/L (0-10) H 10/19/22 11:25 Troponin T 120 Minute 16.92 ng/L (0-10) H 10/19/22 13:28 Delta Troponin T -3.08 ABS# (0-10) L 10/19/22 13:28 Total Protein 6.8 g/dL (6.6-8.7) 10/19/22 11:25 Albumin 3.9 g/dL (3.5-5.2) 10/19/22 11:25 Globulin 2.9 g/dL (1.3-4.6) 10/19/22 11:25 Discharge Plan Discharge Patient Disposition: Home Clinical Impression: Atypical chest pain, Atrial fibrillation Condition: Stable Prescriptions: New Eliquis 5 mg tablet 5 mg PO BID Qty: 60 0RF No Action polyethylene glycol 3350 [Miralax] 17 gram/dose powder 17 g PO DAILY docusate sodium 100 mg capsule 200 mg PO DAILY isosorbide mononitrate 120 mg tablet extended release 24 hr 120 mg PO QAM trazodone 100 mg tablet 150 mg PO BEDTIME potassium chloride 10 mEq capsule, extended release 10 meq PO DAILY metformin 500 mg tablet 500 mg PO BID aspirin [Adult Low Dose Aspirin] 81 mg tablet,delayed release (DR/EC) 81 mg PO BEDTIME Hold Instructions: Resume on 10/11/22. magnesium oxide 400 mg magnesium tablet 400 mg PO DAILY cetirizine 10 mg tablet 10 mg PO DAILY amlodipine 10 mg tablet 5 mg PO DAILY carvedilol 25 mg tablet 37.5 mg PO BID famotidine [Pepcid] 40 mg tablet 40 mg PO BID montelukast 10 mg tablet 10 mg PO DAILY furosemide 40 mg tablet 40 mg PO BID carbidopa-levodopa 50-200 mg tablet extended release 1 tab PO TID Rx Instructions: take 2 tabs in AM, 1 tab in PM and 1 tab at HS levothyroxine 125 mcg tablet 125 mcg PO DAILY citalopram [Celexa] 10 mg tablet 10 mg PO BEDTIME nitroglycerin 0.4 mg tablet, sublingual 0.4 mg sublingual Q5M PRN (Reason: chest pain) 30 Days Qty: 30 3RF Rx Instructions: until response; do not exceed 3 doses per episode albuterol sulfate 90 mcg/actuation HFA aerosol inhaler 2 puff inhalation Q6H PRN (Reason: Shortness Of Breath) losartan 100 mg tablet 100 mg PO DAILY Qty: 100 3RF ondansetron 4 mg tablet,disintegrating 4 mg PO TID PRN (Reason: Nausea) Qty: 90 2RF oxycodone-acetaminophen 5-325 mg tablet 1 tab PO QID PRN (Reason: pain) 30 Days Qty: 90 0RF morphine 30 mg tablet extended release 30 mg PO Q12H 30 Days Qty: 60 0RF pravastatin 80 mg tablet 80 mg PO BEDTIME prochlorperazine maleate 10 mg Tablet 10 mg PO Q4H PRN (Reason: Nausea) PreserVision AREDS [phone] dzog-kt-dyod Capsule 1 cap PO DAILY Tresiba FlexTouch U-100 100 unit/mL (3 mL) insulin pen 20 unit SUBCUT DAILY Discharge Orders: Discharge ED (Routine); Ordered 10/19/22 Ordered By: Adi Muir Referrals: Mikael Madrigal MD [Primary Care Provider] - Discharge Diet: Usual diet Discharge Activity: Increase activity as tolerated Patient Instructions: Opioid Safety, Pain Management Activity Restrictions/Additional Instructions: You were seen today for an episode of rapid heart rate and chest discomfort. Your EKG showed atrial fibrillation which is an irregular rhythm and sometimes will increase heart rate. It resolved spontaneously you are already on carvedilol which slows the heart rate. Discussed the case with Dr. Ryan and we recommend that for anticoagulation you use Eliquis 5 mg twice a day. . Case management will call make arrangements for you to have a Holter monitor after this is completed follow-up with Dr. Ryan. Coding Level of Care Code ED Millinery Designer for Chg Fwd Exam Detailed
--- NOTE | 2022-10-19 11:39 | XRR_ITS ---
PROCEDURE INFORMATION: Exam: XR Chest Exam date and time: 10/19/2022 12:44 PM Age: 82 years old Clinical indication: Angina pectoris; Patient HX: HX breast CA w cervical mets, new back pain; Additional info: Chest pain TECHNIQUE: Imaging protocol: Radiologic exam of the chest. Views: 1 view. COMPARISON: CR (CHEST, ) 10/10/2022 7:32 PM FINDINGS: Tubes, catheters and devices: Right IJ Port-A-Cath terminates in the region of the distal SVC. Lungs: Right basilar airspace opacities. Pleural spaces: Small bilateral pleural effusions. No pneumothorax. Heart/Mediastinum: Unremarkable. No cardiomegaly. Bones/joints: Unremarkable. XR/XR chest 1V portable [id number] IMPRESSION: No substantial interval change. Small bilateral pleural effusions with right basilar airspace opacities.
--- NOTE | 2022-10-19 11:40 | ECG_ITS ---
[facility] Test Date: 2022-10-19 Pat Name: Sheron Leyva Department: Room: Gender: Female Deputy Insurance Commissioner: : 1940 Requested By: Adi Ferreira Order Number: [id number] Martin MD: Miller Velazquez M.D. Measurements Intervals [place] Rate: 107 P: 0 MT: 0 QRS: -8 QRSD: 117 T: 26 QT: 344 QTc: 461 Interpretive Statements ATRIAL FIBRILLATION WITH RAPID VENTRICULAR RESPONSE ANTEROSEPTAL MYOCARDIAL INFARCTION , OF INDETERMINATE AGE [40+ ms Q WAVE IN V1-V4] Compared to ECG 10/10/2022 20:47:25 Sinus rhythm no longer present Myocardial infarct finding still present Electronically Signed On 10-20-2022 11:06:38 GROUP RESERVATIONS COORDINATOR by Miller Velazquez M.D. [email or web address] [email or web address]/[id number]
--- NOTE | 2022-10-19 11:45 | XRR_ITS ---
PROCEDURE INFORMATION: Exam: XR Thoracic Spine Exam date and time: 10/19/2022 11:54 AM Age: 82 years old Clinical indication: Pain in thoracic spine; Patient HX: HX breast CA w cervical mets, new back pain; Additional info: Back pain. HX breast CA TECHNIQUE: Imaging protocol: Radiologic exam of the thoracic spine. Views: 3 views. Total images: 3 COMPARISON: NM bone scan whole body* [id number] 05/11/2022 9:50 AM FINDINGS: Tubes, catheters and devices: Partially visualized right port. Bones/joints: Diffuse osteopenia noted. Sclerotic changes seen within the T6 appears similar to prior CT and felt to represent stable metastatic disease. Mild sclerosis noted in the T7, T8 and T9 vertebral bodies anteriorly felt to correspond to osteophytes as seen on prior CT. Vertebral body heights are maintained. No evidence of spondylolysis nor spondylolisthesis. Soft tissues: Unremarkable. Lungs: Nonspecific opacity in the right lung base, favoring atelectasis, scarring, or pneumonia. Heart/Mediastinum: Calcified lymph nodes in the right infrahilar area. XR/XR thoracic spine 3V* [id number] IMPRESSION: 1. Nonspecific opacity in the right lung base, favoring atelectasis, scarring, or pneumonia. 2. Sclerotic changes seen within the T6 appears similar to prior CT and felt to represent stable metastatic disease. 3. Mild sclerosis noted in the T7, T8 and T9 vertebral bodies anteriorly felt to correspond to osteophytes as seen on prior CT. 4. No new pathology detected.
--- NOTE | 2022-10-19 11:45 | XRR_ITS ---
PROCEDURE INFORMATION: Exam: XR Lumbosacral Spine Exam date and time: 10/19/2022 11:54 AM Age: 82 years old Clinical indication: Low back pain; Additional info: HX breast CA w cervical mets, new back pain TECHNIQUE: Imaging protocol: Radiologic exam of the lumbosacral spine. Views: 2 or 3 views. Total images: 1 COMPARISON: NM bone scan whole body* [id number] 05/11/2022 9:50 AM FINDINGS: Bones/joints: Vertebral body heights are maintained. No evidence of spondylolysis nor spondylolisthesis. L4-S1 Facet joint degenerative changes are present. Mild scattered degenerative changes of the spine. Mild disc space height loss at L4/L5. Soft tissues: Mesh repair of the anterior abdominal wall is noted. Vasculature: Incidental venous phlebolith noted. XR/XR lumbar spine 2-3V* [id number] IMPRESSION: Degenerative changes as described above but no acute pathology detected.
[2022-10-19 11:49] LABS: Alanine Aminotransferase < 5 U/L (0-33); Albumin Level 3.9 g/dL (3.5-5.2); Alkaline Phosphatase 100 U/L (35-105); Aspartate Amino Transferase 19 U/L (0-32); Blood Urea Nitrogen 20 mg/dL (8-23); Calcium 8.9 mg/dL (8.5-10.5); Carbon Dioxide 30 mmol/L (22-29); Chloride 93 mmol/L (98-107); Globulin 2.9 g/dL (1.3-4.6); Glucose 204 mg/dL (65-115); Osmolality Calculated 290 mOsm/kg (285-295); Sodium 136 mmol/L (136-145); Total Bilirubin 0.4 mg/dL (0.15-1.2); Total Protein 6.8 g/dL (6.6-8.7)
[2022-10-19 11:51] LABS: Anion Gap 17.3 (5-19); Potassium 4.3 mmol/L (3.5-5.1)
[2022-10-19 12:03] LABS: Troponin(5th) Baseline 20 ng/L (0-10)
[2022-10-19] MEDS: aspirin 81 mg Chew Tablet 324 MG PO (12:37)
--- NOTE | 2022-10-19 13:44 | ECG_ITS ---
[facility] Test Date: 2022-10-19 Pat Name: Sheron Leyva Department: Room: Gender: Female Head Athletic Trainer: : 1940 Requested By: Adi Ferreira Order Number: [id number] Martin MD: Miller Velazquez M.D. Measurements Intervals [place] Rate: 99 P: 0 PA: 0 QRS: -32 QRSD: 121 T: 70 QT: 365 QTc: 469 Interpretive Statements ATRIAL FIBRILLATION LEFT AXIS DEVIATION [QRS AXIS < -30] LEFT BUNDLE BRANCH BLOCK [120+ ms QRS DURATION, 80+ ms Q/S IN V1/V2, 85+ ms R IN I/aVL/V5/V6] Compared to ECG 10/19/2022 10:16:30 Left-axis deviation now present Left bundle-branch block now present Myocardial infarct finding no longer present Electronically Signed On 10-20-2022 11:10:29 RECEIVING ROOM CLERK by Miller Velazquez M.D. [id number]
[2022-10-19 14:03] LABS: Troponin 5 2HR 16.92 ng/L (0-10)
[2022-10-19 14:06] LABS: Troponin 5 2HR Delta -3.08 ABS# (0-10)
[2022-10-19] MEDS: lidocaine 2% viscous 15 ML, aluminum-mag hydrox-simethicon 30 ML, sucralfate oral liq 1 GM PO (14:28)
[2022-10-19 15:10] VITALS: BP 91/59; PULSE 89; RESP 16; O2SAT 98
--- NOTE | 2022-10-24 07:25 | DCPLANNER ---
Addendum entered by Anat Styles 11/01/22 16:07: Patient had a follow up appointment scheduled with heart care - patient did attend appointment. Original Note: land acquisition manager had message to schedule an outpatient appointment for a 48 hour halter monitor. land acquisition manager faxed signed order to heart care, who will call patient with appointment information. land acquisition manager also sent notification to patients primary care physician that this test was ordered from an ER physician.
== END 2022-10-19 15:05 | disposition home or self-care (01) ==
PROVIDERS: Physician Assistant; Emergency Provider Family Medicine; PCP Family Medicine
DX: R07.89 Other chest pain (principal); I48.91 Unspecified atrial fibrillation; I25.10 Atherosclerotic heart disease of native coronary artery without angina pectoris; I11.0 Hypertensive heart disease with heart failure; I50.9 Heart failure, unspecified
CPT/HCPCS: 71045; 72072; 72100; 80053; 84484; 85025; 93005; 99285

== ENCOUNTER 2022-10-24 08:00 | Oncology outpatient (recurring) (ONCR) | payer MEDICARE, MEDICAID, SELFPAY ==
[2022-10-02 10:23] LABS: Basophils % 0.7 %; Eosinophils # 0.1 10^3/uL (0.0-0.8); Eosinophils % 1.2 %; Hematocrit 36.5 % (37.0-47.0); Hemoglobin 11.7 g/dL (11.5-15.3); Lymphocytes # 1.3 10^3/uL (0.8-4.8); Lymphocytes % 31.3 %; Mean Corpuscular HGB Conc 32.1 g/dL (30.0-36.0); Mean Corpuscular Hemoglobin 35.7 pg (28.0-34.0); Mean Corpuscular Volume 111.3 fl (81-99); Mean Platelet Volume 8.9 fL (7.4-10.4); Monocytes # 0.5 10^3/uL (0.2-0.9); Monocytes % 12.6 %; Neutrophils # 2.26 10^3/uL (1.8-7.7); Nucleated Red Blood Cells % 0 %; Platelet Count 186 10^3/cmm (130-400); Red Blood Count 3.28 10^6/uL (4.1-5.3); Red Cell Distribution Width 14.9 % (12.1-15.1); White Blood Count 4.2 10^3/uL (4.0-10.0)
[2022-10-02 10:48] LABS: Alanine Aminotransferase < 5 U/L (0-33); Albumin Level 3.7 g/dL (3.5-5.2); Alkaline Phosphatase 85 U/L (35-105); Anion Gap 13.9 (5-19); Aspartate Amino Transferase 16 U/L (0-32); Blood Urea Nitrogen 13 mg/dL (8-23); Calcium 8.8 mg/dL (8.5-10.5); Carbon Dioxide 31 mmol/L (22-29); Chloride 96 mmol/L (98-107); Globulin 3.1 g/dL (1.3-4.6); Glucose 164 mg/dL (65-115); Osmolality Calculated 288 mOsm/kg (285-295); Potassium 3.9 mmol/L (3.5-5.1); Sodium 137 mmol/L (136-145); Total Bilirubin 0.2 mg/dL (0.15-1.2); Total Protein 6.8 g/dL (6.6-8.7)
[2022-10-16 09:50] LABS: Basophils % 0.3 %; Eosinophils # 0.1 10^3/uL (0.0-0.8); Eosinophils % 1.6 %; Hematocrit 34.9 % (37.0-47.0); Lymphocytes # 1.4 10^3/uL (0.8-4.8); Lymphocytes % 19.4 %; Mean Corpuscular HGB Conc 31.5 g/dL (30.0-36.0); Mean Corpuscular Hemoglobin 34.6 pg (28.0-34.0); Mean Corpuscular Volume 109.7 fl (81-99); Mean Platelet Volume 9.3 fL (7.4-10.4); Monocytes # 0.8 10^3/uL (0.2-0.9); Monocytes % 10.6 %; Neutrophils % 67.3 %; Nucleated Red Blood Cells % 0 %; Platelet Count 279 10^3/cmm (130-400); Red Blood Count 3.18 10^6/uL (4.1-5.3); Red Cell Distribution Width 13.7 % (12.1-15.1); White Blood Count 7.4 10^3/uL (4.0-10.0)
[2022-10-16 10:24] LABS: Alanine Aminotransferase < 5 U/L (0-33); Albumin Level 3.5 g/dL (3.5-5.2); Alkaline Phosphatase 97 U/L (35-105); Anion Gap 13.3 (5-19); Aspartate Amino Transferase 12 U/L (0-32); Blood Urea Nitrogen 20 mg/dL (8-23); Calcium 9.1 mg/dL (8.5-10.5); Carbon Dioxide 34 mmol/L (22-29); Chloride 96 mmol/L (98-107); Globulin 2.9 g/dL (1.3-4.6); Glucose 180 mg/dL (65-115); Osmolality Calculated 295 mOsm/kg (285-295); Potassium 4.3 mmol/L (3.5-5.1); Sodium 139 mmol/L (136-145); Total Bilirubin 0.3 mg/dL (0.15-1.2); Total Protein 6.4 g/dL (6.6-8.7)
[2022-10-16] MEDS: sodium chloride 0.9% 250 ML 100 ML IV (11:08)
[2022-10-16] MEDS: ondansetron 2 mg/ML SDV 2 mL 8 MG IVP (11:09)
[2022-10-16 12:26] VITALS: BP 99/56; PULSE 58; RESP 18; TEMP 36.3; O2SAT 97
[2022-10-24 08:27] LABS: Basophils % 0.5 %; Eosinophils # 0.2 10^3/uL (0.0-0.8); Eosinophils % 2.9 %; Hematocrit 34.5 % (37.0-47.0); Lymphocytes # 1.9 10^3/uL (0.8-4.8); Lymphocytes % 25.7 %; Mean Corpuscular HGB Conc 31.9 g/dL (30.0-36.0); Mean Corpuscular Volume 109.9 fl (81-99); Mean Platelet Volume 10.3 fL (7.4-10.4); Monocytes # 0.7 10^3/uL (0.2-0.9); Monocytes % 9.1 %; Neutrophils # 4.44 10^3/uL (1.8-7.7); Neutrophils % 60.6 %; Nucleated Red Blood Cells % 0 %; Platelet Count 304 10^3/cmm (130-400); Red Blood Count 3.14 10^6/uL (4.1-5.3); White Blood Count 7.3 10^3/uL (4.0-10.0)
[2022-10-24 08:38] LABS: Alanine Aminotransferase < 5 U/L (0-33); Albumin Level 3.4 g/dL (3.5-5.2); Alkaline Phosphatase 79 U/L (35-105); Anion Gap 13.1 (5-19); Aspartate Amino Transferase 14 U/L (0-32); Blood Urea Nitrogen 37 mg/dL (8-23); Calcium 8.5 mg/dL (8.5-10.5); Carbon Dioxide 31 mmol/L (22-29); Chloride 97 mmol/L (98-107); Globulin 2.5 g/dL (1.3-4.6); Glucose 158 mg/dL (65-115); Osmolality Calculated 296 mOsm/kg (285-295); Potassium 4.1 mmol/L (3.5-5.1); Sodium 137 mmol/L (136-145); Total Bilirubin 0.2 mg/dL (0.15-1.2); Total Protein 5.9 g/dL (6.6-8.7)
[2022-10-24] MEDS: sodium chloride 0.9% 250 ML IV (10:15)
== END 2022-10-24 23:59 | disposition home or self-care (01) ==
PROVIDERS: PCP Family Medicine; Visit Provider Internal Medicine Hematology & Oncology
DX: C50.412 Malignant neoplasm of upper-outer quadrant of left female breast (principal); Z17.0 Estrogen receptor positive status [ER+]; C79.51 Secondary malignant neoplasm of bone; C78.01 Secondary malignant neoplasm of right lung; J90 Pleural effusion, not elsewhere classified; C78.7 Secondary malignant neoplasm of liver and intrahepatic bile duct; E86.0 Dehydration; Z79.01 Long term (current) use of anticoagulants; I48.20 Chronic atrial fibrillation, unspecified; R63.1 Polydipsia; R73.9 Hyperglycemia, unspecified; R35.89 Other polyuria; Z79.818 Long term (current) use of other agents affecting estrogen receptors and estrogen levels; Z79.899 Other long term (current) drug therapy
CPT/HCPCS: 36415; 80053; 85025; 86300; 90471; 90686; 96365; 96367; 96375; 96413; 99024; 99214; J1100; J2405; J7050; J9264

== ENCOUNTER 2022-10-26 09:55 | Inpatient (IN) | payer MEDICARE, MEDICAID, SELFPAY ==
[2022-10-26] VITALS (44 sets, daily range): BP systolic 73–119; BP diastolic 40–90; PULSE 64–128; RESP 10–29; TEMP 36.6–36.7; O2SAT 91–100; BMI 40.1
--- NOTE | 2022-10-26 10:32 | XR_ITS ---
WS: [id number] XR chest 1V portable [id number] REASON FOR EXAM: dyspnea/cough FINDINGS: Chemotherapy infusion port over the right anterolateral chest with properly positioned catheter in th e superior vena cava. Compared to the examination of 10/19/2022 there continue to be reticular and ill-defined opacities in the right lower lung and probable right pleural effusion. The heart is enlarged. XR/XR chest 1V portable [id number] IMPRESSION: Abnormal chest as above. Findings are similar to 10/19/2022 possibly more profo und.
--- NOTE | 2022-10-26 10:42 | W.ED.WEAKNES ---
HPI - Weakness General: Chief complaint: Weakness Stated complaint: Sent from heart care Time Seen by Provider: 10/26/22 10:27 Source: patient Mode of arrival: ambulatory History of Present Illness: 82-year-old female who presents to the emergency room from heart care. She has had intermittent atrial fibrillation with previous hospitalizations for the same. She has known history of breast cancer with metastasis to bone. 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 fib and rapid ventricular response. She is on carvedilol for her A. fib. She currently is not on any anticoagulation. MD Complaint: generalized weakness Onset (ago): hour(s) Duration: constant Relieving factors: none Exacerbating factors: none Associated symptoms: Reports decreased appetite and nausea; Denies chest pain, chills, confusion, melena, diaphoresis, dysuria, easy bruising, fever(s), headache(s), myalgias, rash, short of breath, syncope or vomiting Review of Systems Const: Denies: fever(s), chills, fatigue or diaphoresis ENMT: Denies: throat pain, ear or mastoid pain, nasal discharge or nasal congestion Card: Reports: palpitations and irregular heart rhythm; Denies: chest pain, edema, swelling of feet/ankles or syncope Resp: Denies: dyspnea, productive cough or non-productive cough GI: Reports: nausea; Denies: vomiting or melena : Denies: dysuria Skin/Breast: Denies: rash or pruritus Neuro: Denies: headache(s) or confusion Amrit/Lymph: Denies: easy bruising [facility] ED PFSH: Medical History ASHD (arteriosclerotic heart disease) Breast cancer Breast cancer metastasized to bone CHF (congestive heart failure) Hiatal hernia History of abdominal hernia Hyperlipidemia Hypertension Leg swelling Mitral regurgitation Peripheral neuropathy Varicose veins of both lower extremities Surgical History H/O: hysterectomy History of eye surgery History of lumpectomy of left breast History of shoulder surgery Hx of appendectomy Hx of cholecystectomy Family History Father CAD (coronary artery disease) Cancer Diabetes Mother CAD (coronary artery disease) Brother CAD (coronary artery disease) Diabetes Family/Other Chronic kidney disease (CKD) Other Hypertension Denies family history of Clotting disorder Dementia Suicide Anesthesia complication Bleeding disorder Lung disease Stroke Social History Smoking and tobacco status: unknown if ever smoked Alcohol intake: never Physical Exam Const: COMMON NORMALS: no acute distress GENERAL APPEARANCE: cooperative and comfortable ORIENTATION/CONSCIOUSNESS: Yes awake, Yes oriented to person, Yes oriented to place and Yes oriented to time HENMT: COMMON NORMALS: normocephalic, atraumatic and hearing grossly normal bilaterally HEAD & SCALP: normocephalic and atraumatic Resp: COMMON NORMALS: normal respiratory effort, No retractions, No use of accessory muscles and clear to auscultation bilaterally AUSCULTATION: clear to auscultation bilaterally Cardio: RATE: tachycardic RHYTHM: abnormal rhythm irregularly irregular GI: COMMON NORMALS: Soft to palpation and No hepatosplenomegaly present AUSCULTATION: Yes normoactive bowel sounds PALPATION: Yes Soft to palpation, No Tenderness to palpation present (GI), No Guarding due to palpation present (GI) and Yes No hepatosplenomegaly present Extremity: COMMON NORMALS: normal to inspection, capillary refill normal, no clubbing, cyanosis or edema, no calf tenderness and no pedal edema Neuro: SENSORIUM/ORIENTATION: Yes oriented to person, Yes oriented to place and Yes oriented to time Skin: COMMON NORMALS: no rashes or lesions noted GENERAL SKIN EXAM: no rashes or lesions noted Course Vital Signs: Vital signs: Vital Signs Temperature 97.8 F 10/26/22 10:07 Pulse Rate 92 10/26/22 12:06 Respiratory Rate 17 10/26/22 10:07 Blood Pressure 99/56 10/26/22 12:06 Pulse Oximetry 96 10/26/22 10:07 Oxygen Delivery Me thod 10/26/22 10:07 Oxygen Flow Rate 3 10/26/22 10:07 MDM - Weakness Medical Decision Making Patient in A. fib with RVR since been known to be in A. fib in the past required Cardizem to get her rate under control her blood pressure was low in the 90s systolic her map remained above 60. She is given 2 L of fluid. She is still requiring the Cardizem drip discussed with hospitalist will admit may need further medication adjustments. Medical Records I reviewed the patient's medical records. Lab Data I reviewed the patient's lab results. 10/26/22 10:35 10/26/22 10:35 Radiology Impressions Chest X-Ray 10/26/22 10:32 IMPRESSION: Abnormal chest as above. Findings are similar to 10/19/2022 possibly more profound. Laboratory Results WBC 8.2 10^3/uL (4.0-10.0) 10/26/22 10:35 RBC 3.16 10^6/uL (4.1-5.3) L 10/26/22 10:35 Hgb 11.1 g/dL (11.5-15.3) L 10/26/22 10:35 Hct 34.6 % (37.0-47.0) L 10/26/22 10:35 MCV 109.5 fl (81-99) H 10/26/22 10:35 MCH 35.1 pg (28.0-34.0) H 10/26/22 10:35 MCHC 32.1 g/dL (30.0-36.0) 10/26/22 10:35 RDW 14.3 % (12.1-15.1) 10/26/22 10:35 Plt Count 316 10^3/cmm (130-400) 10/26/22 10:35 MPV 10.5 fL (7.4-10.4) H 10/26/22 10:35 Neut % (Auto) 63.6 % 10/26/22 10:35 Lymph % (Auto) 20.7 % 10/26/22 10:35 [place] % (Auto) 9.6 % 10/26/22 10:35 Eos % (Auto) 4.2 % 10/26/22 10:35 Baso % (Auto) 0.2 % 10/26/22 10:35 Neut # (Auto) 5.18 10^3/uL (1.8-7.7) 10/26/22 10:35 Lymph # (Auto) 1.7 10^3/uL (0.8-4.8) 10/26/22 10:35 [place] # (Auto) 0.8 10^3/uL (0.2-0.9) 10/26/22 10:35 Eos # (Auto) 0.3 10^3/uL (0.0-0.8) 10/26/22 10:35 Baso # (Auto) 0.0 10^3/uL (0.0-0.1) 10/26/22 10:35 Nucleated RBC % (auto) 0 % 10/26/22 10:35 Nucleated RBCs # 0.0 /100WBC 10/26/22 10:35 Sodium 136 mmol/L (136-145) 10/26/22 10:35 Potassium 4.7 mmol/L (3.5-5.1) 10/26/22 10:35 Chloride 97 mmol/L (98-107) L 10/26/22 10:35 Carbon Dioxide 27 mmol/L (22-29) 10/26/22 10:35 Anion Gap 16.7 (5-19) 10/26/22 10:35 BUN 31 mg/dL (8-23) H 10/26/22 10:35 Creatinine 1.0 mg/dL (0.5-0.9) H 10/26/22 10:35 GFR Calculation Not Reportable 10/26/22 10:35 Glucose 141 mg/dL (65-115) H 10/26/22 10:35 Calculated Osmolality 291 mOsm/kg (285-295) 10/26/22 10:35 Calcium 8.8 mg/dL (8.5-10.5) 10/26/22 10:35 Total Bilirubin 0.2 mg/dL (0.15-1.2) 10/26/22 10:35 AST 14 U/L (0-32) 10/26/22 10:35 ALT < 5 U/L (0-33) 10/26/22 10:35 Alkaline Phosphatase 90 U/L (35-105) 10/26/22 10:35 Total Protein 5.9 g/dL (6.6-8.7) L 10/26/22 10:35 Albumin 3.7 g/dL (3.5-5.2) 10/26/22 10:35 Globulin 2.2 g/dL (1.3-4.6) 10/26/22 10:35 Urine Color Yellow (Yellow) 10/26/22 11:27 Urine Appearance Clear (CLEAR) 10/26/22 11:27 Urine pH 5 (5-7) 10/26/22 11:27 Ur Specific [place] 1.010 (1.005-1.030) 10/26/22 11:27 Urine Protein Neg (Negative) 10/26/22 11:27 Urine Glucose (UA) Norm (Normal) 10/26/22 11:27 Urine Ketones Negative (Negative) 10/26/22 11:27 Urine Blood Neg (Negative) 10/26/22 11:27 Urine Nitrate Negative (Negative) 10/26/22 11:27 Urine Bilirubin Neg (Negative) 10/26/22 11:27 Urine Urobilinogen Norm mg/dL (Negative) 10/26/22 11:27 Ur Leukocyte Esterase Negative (Negative) 10/26/22 11:27 Discharge Plan Discharge Patient Disposition: Admitted As Inpatient Admit Provider: Eric Quintana Clinical Impression: Atrial fibrillation with rapid ventricular response, Malignant neoplasm of upper-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
[2022-10-26] MEDS: dilTIAZem 5 mg/mL SDV 5 mL 10 MG IVP (10:45)
[2022-10-26] MEDS: sodium chloride 0.9% 1,000 ML 999 ML IV ×2 (10:45→13:04)
[2022-10-26 10:53] LABS: Basophils % 0.2 %; Eosinophils # 0.3 10^3/uL (0.0-0.8); Eosinophils % 4.2 %; Hematocrit 34.6 % (37.0-47.0); Hemoglobin 11.1 g/dL (11.5-15.3); Lymphocytes # 1.7 10^3/uL (0.8-4.8); Lymphocytes % 20.7 %; Mean Corpuscular HGB Conc 32.1 g/dL (30.0-36.0); Mean Corpuscular Hemoglobin 35.1 pg (28.0-34.0); Mean Corpuscular Volume 109.5 fl (81-99); Mean Platelet Volume 10.5 fL (7.4-10.4); Monocytes # 0.8 10^3/uL (0.2-0.9); Monocytes % 9.6 %; Neutrophils # 5.18 10^3/uL (1.8-7.7); Neutrophils % 63.6 %; Nucleated Red Blood Cells % 0 %; Platelet Count 316 10^3/cmm (130-400); Red Blood Count 3.16 10^6/uL (4.1-5.3); Red Cell Distribution Width 14.3 % (12.1-15.1); White Blood Count 8.2 10^3/uL (4.0-10.0)
[2022-10-26 11:09] LABS: Alanine Aminotransferase < 5 U/L (0-33); Albumin Level 3.7 g/dL (3.5-5.2); Alkaline Phosphatase 90 U/L (35-105); Blood Urea Nitrogen 31 mg/dL (8-23); Calcium 8.8 mg/dL (8.5-10.5); Carbon Dioxide 27 mmol/L (22-29); Chloride 97 mmol/L (98-107); Globulin 2.2 g/dL (1.3-4.6); Glucose 141 mg/dL (65-115); Osmolality Calculated 291 mOsm/kg (285-295); Sodium 136 mmol/L (136-145); Total Bilirubin 0.2 mg/dL (0.15-1.2); Total Protein 5.9 g/dL (6.6-8.7)
[2022-10-26 11:15] LABS: Anion Gap 16.7 (5-19); Aspartate Amino Transferase 14 U/L (0-32); Potassium 4.7 mmol/L (3.5-5.1)
[2022-10-26 11:40] LABS: Add Urine Microscopic? NO; Charge for UA Resulting for Rev
[2022-10-26 11:48] LABS: Bilirubin Urine Neg (Negative); Blood Urine Neg (Negative); Glucose Urine UA Norm (Normal); Ketones Urine Negative (Negative); Leukocyte Esterase Urine Negative (Negative); Nitrate Urine Negative (Negative); Protein Urine Neg (Negative); Urine Appearance Clear (CLEAR); Urine Color Yellow (Yellow); Urobilinogen Urine Norm (Negative); pH Urine 5 (5-7)
[2022-10-26] MEDS: dilTIAZem 100 MG in sodium chloride 0.9% (add-van) 100 ML IV (12:05)
--- NOTE | 2022-10-26 14:55 | PC.NURSE ---
Admit Note Patient admitted to bed 112-2 from ER via wheelchair. Covering service notified Dr. Longoria. Patient presents with Afib w/rvr, heart palpitations. Orders reviewed & will continue to monitor. Patient and/or product sales representative oriented to environment, equipment, and informed of the following as found in the admission booklet: patient rights & responsibilities, visitor policy, hand and respiratory hygiene practice. Other education includes: cardizem drip,tele monitoring, call light use. Patient and/or product sales representative verbalizes understanding.
--- NOTE | 2022-10-26 15:52 | USCV_ITS ---
Sheron Levya Age: 82 Gender: F : 1940 Exam Date: 10/26/2022 17:25 Ordering Phys: Eric Quintana MD Technologist: [email or web address] [place] [facility] [place]: afib BP: / HR: 81 Rhythm: Atrial fibrillation Technical Quality: Adequate MEASUREMENTS (Male / Female) Normal Values 2D ECHO LV Diastolic Diameter PLAX 5.0 cm 4.2 - 5.9 / 3.9 - 5.3 cm LV Systolic Diameter PLAX 4.3 cm IVS Diastolic Thickness 0.9 cm 0.6 - 1.0 / 0.6 - 0.9 cm IVS Systolic Thickness 1.1 cm LVPW Diastolic Thickness 0.8 cm 0.6 - 1.0 / 0.6 - 0.9 cm LVPW Systolic Thickness 1.0 cm LVOT Diameter 2.0 cm LV Ejection Fraction 2D Teich 32.2 % LV Ejection Fraction MOD 2C 52.0 % LV Ejection Fraction 2C AL 52.2 % LA Diameter 4.7 cm M-MODE Aortic Annulus Diameter 2.3 cm LA Ao Ratio MM 2.3 MV E Point Septal Separation 0.4 cm DOPPLER MV Area PHT 5.0 cm squared Mitral E to A Ratio 3.4 MV E' Velocity 57.5 cm/s Mitral E to MV E' Ratio 15.7 Mitral E to LV E' Lateral Ratio 13.9 Mitral E to LV E' Septal Ratio 18.1 TR Peak Velocity 284.7 cm/s TR Peak Gradient 32.4 mmHg TV Peak E Velocity 74.0 cm/s Right Atrial Pressure 6.0 mmHg Pulmonary Artery Systolic Pressu 38.4 mmHg PV Peak Velocity 110.0 cm/s FINDINGS Left Ventricle Left ventricle is normal in size. LV systolic function is borderline normal with EF of 50 to 55%. No significant regional motion normalities are seen. Right Ventricle Grossly normal Right Atrium Normal in size Left Atrium Severely dilated left atrium. Mitral Valve Mild mitral annular calcification. Mild to moderate mitral regurgitation Aortic Valve Structurally normal aortic valve. Tricuspid Valve Mild tricuspid regurgitation. RVSP is 45-50 mmHg. Moderate pulmonnary hypertension Pulmonic Valve Not well visualized. Pericardium Normal Aorta Normal in size IVC IVC is dilated CONCLUSIONS LV systolic function is borderline normal with EF of 50 to 55%. Severely dilated left atrium Mild mitral annular calcification. Mild to moderate mitral regurgitation Mild tricuspid regurgitation. Moderate pulmonary hypertension Compared to prior echocardiogram from 2019, patient now has moderate pulmonary hypertension Miller Velazquez MD (Electronically Signed) Final Date: 27 October 2022 11:24 S
--- NOTE | 2022-10-26 15:55 | P.HP_ITS ---
Providers/Chief Complaint Admitting Physician: Eric Quintana MD Primary Care Provider: Mikael Madrigal MD Chief Complaint: Sent from heart care History of Present Illness Sheron Leyva is a 82 year old female with past medical history of congestive heart failure, CAD, hypertension, mitral regurgitation, metastatic breast cancer on 10 courses of radiation, atrial fibrillation on Eliquis presented [facility] because of dizziness and found to be in atrial fibrillation with rapid ventricular response. In the ER she was started on Cardizem drip of 5. Patient denied any chest pain, difficulty in breathing, dizziness. Patient was recently in the ER for left-sided chest pain at which time with CTA PE was ruled out. Patient saw Dr. Ryan in his office since then and there was a concern for ischemic work-up which patient wanted to hold off for now. Currently patient denies of having any chest pain. Blood work in the ER showed white count 8.2, hemoglobin of 11.1, sodium of 136, chloride of 97, creatinine of 1. Review of Systems General: Reports: 10 or more systems reviewed and unremarkable except in HPI and below Const: Denies: fever(s), chills, body aches, change in appetite, change in weight, malaise, night sweats, diaphoresis, change in sleep pattern, daytime sleepiness or snoring Eyes: Denies: change in vision, blurry vision, photophobia, eye discomfort or eye discharge ENMT: Denies: throat pain, enlarged tonsils, hoarseness, mouth pain, oral sores, dry mouth, tinnitus, nasal congestion or post nasal drip Card: Denies: chest pain, palpitations, irregular heart rhythm, edema, swelling of feet/ankles, lightheadedness, syncope, pre-syncope, dyspnea on exertion, orthopnea, leg pain with exertion or acrocyanosis Resp: Denies: dyspnea, productive cough, non-productive cough, wheezing, stridor, pain on inspiration, change in phlegm color, hemoptysis or chest congestion GI: Denies: abdominal pain, nausea, vomiting, hematemesis, coffee ground emesis, dysphagia, heartburn, diarrhea, constipation, bloating, GI cramping, change in bowel habits, pain on defecation, hematochezia or melena : Denies: flank pain, dysuria, urinary frequency, urinary urgency, urinary hesitancy, nocturia or hematuria Musc: Denies: neck pain, back pain, extremity pain, joint pain, joint swelling, joint redness, joint stiffness or limited range of motion Neuro: Denies: headache(s), numbness in extremities, weakness in extremities, sensory changes, lack of coordination, difficulty walking, frequent falls, dizziness, vertigo, confusion, Slurred speech present, difficulty communicating thoughts or seizure-like activity Psych: Denies: anxiety, depression, mood swings, panic attacks, hopelessness or irritability Endo: Denies: polyuria, polydipsia, tired all the time, cold intolerance, excessive sweating, flushing or heat intolerance Amrit/Lymph: Denies: easy bruising or easy bleeding All/Imm: Denies: tongue swelling, facial swelling or acute wheezing Medications/Allergies Home Medications Medication Instructions Recorded Confirmed Last Taken Type aspirin 81 mg tablet,delayed 81 mg PO BEDTIME 12/08/19 10/26/22 10/25/22 History release (Adult Low Dose Aspirin) cetirizine 10 mg tablet 10 mg PO DAILY 12/08/19 10/26/22 10/26/22 History isosorbide mononitrate 120 mg 120 mg PO QAM 12/08/19 10/26/22 10/26/22 History tablet,extended release 24 hr magnesium oxide 400 mg PO DAILY 12/08/19 10/26/22 10/26/22 History metformin 500 mg tablet 500 mg PO BID 12/08/19 10/26/22 10/26/22 History potassium chloride 10 mEq 10 meq PO DAILY 12/08/19 10/26/22 10/26/22 History capsule,extended release trazodone 100 mg tablet 150 mg PO BEDTIME 12/08/19 10/26/22 10/25/22 History amlodipine 10 mg tablet 5 mg PO DAILY 06/08/20 10/26/22 10/26/22 History famotidine 40 mg tablet (Pepcid) 40 mg PO BID 06/08/20 10/26/22 10/26/22 History montelukast 10 mg tablet 10 mg PO DAILY 06/08/20 10/26/22 10/26/22 History carvedilol 25 mg tablet 37.5 mg PO BID 12/15/20 10/26/22 10/26/22 History docusate sodium 100 mg capsule 200 mg PO DAILY 12/15/20 10/26/22 10/26/22 History furosemide 40 mg tablet 40 mg PO BID 12/15/20 10/26/22 10/26/22 History polyethylene glycol 3350 17 17 g PO DAILY constipation 12/15/20 10/26/22 10/19/22 History gram/dose oral powder (Miralax) carbidopa ER 50 mg-levodopa 200 mg 1 tab PO TID 10/03/21 10/26/22 10/26/22 History tablet,extended release levothyroxine 125 mcg tablet 125 mcg PO DAILY 04/02/22 10/26/22 10/26/22 History albuterol sulfate 90 mcg/actuation 2 puff inhalation Q6H PRN 05/18/22 10/26/22 10/05/22 History aerosol inhaler Shortness Of Breath citalopram 10 mg tablet (Celexa) 10 mg PO BEDTIME 05/18/22 10/26/22 10/25/22 History pravastatin 80 mg tablet 80 mg PO BEDTIME 05/18/22 10/26/22 10/25/22 History losartan 100 mg tablet 100 mg PO DAILY #100 tabs 05/21/22 10/26/22 10/26/22 Rx insulin degludec 100 unit/mL (3 20 unit SUBCUT DAILY 05/26/22 10/26/22 10/26/22 History mL) subcutaneous pen (Tresiba FlexTouch U-100 insulin) vitamins A,C,L-fndc-vargtb 14,320 1 cap PO DAILY 05/26/22 10/26/22 10/26/22 History unit-226 mg-200 unit capsule (PreserVision AREDS) ondansetron 4 mg disintegrating 4 mg PO TID PRN Nausea #90 tabs 07/17/22 10/26/22 10/26/22 Rx tablet oxycodone-acetaminophen 5 mg-325 1 tab PO QID PRN pain 30 days #90 09/27/22 10/26/22 10/26/22 Rx mg tablet tabs nitroglycerin 0.4 mg sublingual 0.4 mg sublingual Q5M PRN chest 10/15/22 10/26/22 10/18/22 Rx tablet pain 30 days #30 tabs morphine 30 mg tablet,extended 30 mg PO Q12H pain 30 days #60 tabs 10/17/22 10/26/22 10/26/22 Rx release apixaban 5 mg tablet (Eliquis) 5 mg PO BID #60 tabs 10/19/22 10/26/22 10/26/22 Rx prochlorperazine maleate 10 mg 10 mg PO Q4H PRN Nausea 10/26/22 10/26/22 Unknown History tablet Allergies Allergy/AdvReac Type Severity Reaction Status Date / Time adhesive tape Allergy Unknown rash Verified 10/26/22 08:09 ibuprofen Allergy Unknown neck Verified 10/26/22 08:09 swelling tramadol Allergy Unknown elevated BP Verified 10/26/22 08:09 naproxen Allergy Swelling Verified 10/26/22 08:09 PFSH Acute PFSH: Medical History (Updated 10/26/22 @ 16:43 by Eric Quintana MD) ASHD (arteriosclerotic heart disease) Breast cancer Breast cancer metastasized to bone CHF (congestive heart failure) Hiatal hernia History of abdominal hernia Hyperlipidemia Hypertension Leg swelling Mitral regurgitation Peripheral neuropathy Port-A-Cath in place Varicose veins of both lower extremities Surgical History (Updated 10/26/22 @ 16:43 by Eric Quintana MD) H/O: hysterectomy History of eye surgery History of lumpectomy of left breast History of shoulder surgery Hx of appendectomy Hx of cholecystectomy Hx of total knee replacement Family History Father CAD (coronary artery disease) Cancer Diabetes Mother CAD (coronary artery disease) Brother CAD (coronary artery disease) Diabetes Family/Other Chronic kidney disease (CKD) Other Hypertension Denies family history of Clotting disorder Dementia Suicide Anesthesia complication Bleeding disorder Lung disease Stroke Social History Smoking and tobacco status: unknown if ever smoked Alcohol intake: never Vitals/I&O/Wt Last Vital Signs Temp 97.9 F 10/26/22 15:07 Pulse 125 H 10/26/22 15:07 Resp 20 H 10/26/22 15:07 BP 115/65 10/26/22 15:07 Pulse Ox 98 10/26/22 15:07 O2 Del Method 10/26/22 10:07 O2 Flow Rate 3 10/26/22 10:07 10/26/22 10/26/22 10/26/22 06:59 14:59 22:59 Intake Total 7.050 / 7.050 4.25 / 11.300 Balance 7.050 / 7.050 4.25 / 11.300 Weight last 48 hrs Weight 112.945 kg Physical Exam Narrative: General: No acute distress, AO x3, pleasant, 2 L oxygen supplementation HEENT: PERRLA, pupils bilaterally equal and reactive Chest:Bronchial breath sounds b/l ,decreased air entry, equal good air entry bilaterally, no more fine basal crackles CVS: S1-S2 irregularly irregular, tachycardic, pansystolic murmur at apex Abdomen: Soft, nontender, no organomegaly, bowel sounds present, morbidly obese Neuro: No focal deficits, no facial deformity, AO x3, power 5/5 in all limbs Data 10/26/22 10:35 10/26/22 10:35 A&P Assessment and plan (1) Atrial fibrillation with rapid ventricular response: Currently on Cardizem drip. Takes carvedilol 37.5 mg twice daily at home. Also on Eliquis 5 mg twice daily. Check TSH, echocardiogram. Continue with Cardizem drip. Start on oral Cardizem 60 mg every 6 hourly. We will try to wean off Cardizem drip. Continue with Eliquis. If needed can transition from carvedilol to metoprolol for better heart rate control. (2) Atypical chest pain: Being worked up as an outpatient with cardiology for possible ischemic reason. No further chest pain. Patient refused Lexiscan stress test when last seen Dr. Ryan in his office. Check A1c, lipid panel (3) ASHD (arteriosclerotic heart disease): (4) CHF (congestive heart failure): Last known echocardiogram in 2019 shows an EF of 60%, grade 2 diastolic dysfunction. No signs of diastolic heart failure for now. Recheck echocardiogram. Continue with home dose of oral Lasix and losartan. Strict input output charting, daily weights. Fluid restriction up to 2 L. Qualifiers: Heart failure type: diastolic Heart failure chronicity: chronic Qualified Code(s): I50.32 - Chronic diastolic (congestive) heart failure (5) Hypertension: Goal blood pressure less than 140/90 mmHg with mean over 65. Takes amlodipine 5 mg daily, carvedilol 37.5 mg twice daily, Imdur 120 mg daily, losartan 100 mg daily at home. Hold off on amlodipine, Imdur and carvedilol for now. We will reintroduce medications as per blood pressures. We will try to maximize Cardizem for now given atrial fibrillation with RVR. Qualifiers: Hypertension type: essential hypertension Qualified Code(s): I10 - Essential (primary) hypertension Plan Type 2 diabetes mellitus: Check A1c. Insulin sliding scale at low-dose protocol. Continue other chronic medications including carbidopa levodopa, citalopram, fam otidine, levothyroxine, morphine, oxycodone as needed. Analgesia: Home dose of morphine 30 mg twice daily, oxycodone 5 mg 4 times daily as needed Glycemic control: Low-dose protocol, check A1c Nutrition: Carb consistent cardiac diet CODE STATUS: Full code. Discussed in detail with the patient. PUD prophylaxis: Famotidine for PUD prophylaxis DVT prophylaxis: Eliquis will suffice for DVT prophylaxis Discharge planning: Home with caregiver once medically stable Admit to CSU. This documentation was created by [employer] press operator apprentice software. Every effort was made to ensure accuracy of press operator apprentice. Any obvious errors or omissions should be clarified with the author of the document. Attestations Medical Necessity Statement*: Admission for more than 2 midnights for management of atrial fibrillation with rapid ventricular response Time Spent in Patient Care: Greater than 35 minutes Coding Level of Care Code Acute Artist Suspect for [facility] Fwd Diagnoses Atrial fibrillation with rapid ventricular response I48.91 Atypical chest pain R07.89 ASHD (arteriosclerotic heart disease) I25.10 CHF (congestive heart failure) I50.32 Heart failure type: diastolic Heart failure chronicity: chronic Hypertension I10 Hypertension type: essential hypertension
[2022-10-26 16:15] LABS: D Dimer 1.73 ug/mIFEU (0-0.59)
[2022-10-26 16:31] LABS: NT Pro B Type Natriuretic Pept 2266 pg/mL (0-450); Procalcitonin 0.04 ng/mL (0-0.5); Thyroid Stimulating Hormone 13.82 uIU/mL (0.27-4.20); Vitamin B12 441 pg/mL (232-1245)
[2022-10-26 16:43] LABS: Glucose Point of Care 135 mg/dL (70-110)
[2022-10-26] MEDS: famotidine 20 mg Tablet 40 MG PO (16:43)
[2022-10-26] MEDS: dilTIAZem 60 mg Tablet PO ×2 (16:43→22:02)
[2022-10-26] MEDS: apixaban 5 mg Tablet PO (16:46)
[2022-10-26 16:48] LABS: Iron 62 ug/dL (37-145)
[2022-10-26 17:08] LABS: Folate Level > 20.0 ng/mL (4.8-37.3)
[2022-10-26 17:15] LABS: Percent Saturation 19.8 % (20-50); Total Iron Binding Capacity 313 mcg/dl; Unsaturated Iron Binding 251 ug/dL (112-347)
[2022-10-26 19:38] LABS: Free T4 Free Thyroxine 1.12 ng/dL (0.82-1.77); T3 Free 1.6 PG/ML (2.0-4.4)
[2022-10-26 19:47] LABS: Glucose Point of Care 185 mg/dL (70-110)
[2022-10-26] MEDS: ferrous gluconate 324 mg Tablet PO (21:48)
[2022-10-26] MEDS: atorvastatin 40 mg Tablet 20 MG PO (21:48)
[2022-10-26] MEDS: aspirin 81 mg EC Tablet PO (21:48)
[2022-10-26] MEDS: citalopram 20 mg Tablet 10 MG PO (21:49)
[2022-10-26] MEDS: carbidopa-levodopa ER 50-200mg Tablet 1 EACH PO (21:51)
[2022-10-26] MEDS: trazodone 100 mg Tablet 150 MG PO (21:55)
[2022-10-26] MEDS: insulin lispro 100 unit/1 mL SUBCUT (22:01)
[2022-10-27] VITALS (14 sets, daily range): BP systolic 108–135; BP diastolic 60–86; PULSE 71–116; RESP 14–24; TEMP 36.7–37.3; O2SAT 94–98
[2022-10-27] MEDS: dilTIAZem 60 mg Tablet PO ×4 (03:39→22:03)
[2022-10-27 03:49] LABS: Basophils % 0.2 %; Eosinophils # 0.3 10^3/uL (0.0-0.8); Eosinophils % 4.7 %; Hematocrit 31.5 % (37.0-47.0); Hemoglobin 9.8 g/dL (11.5-15.3); Lymphocytes # 1.4 10^3/uL (0.8-4.8); Lymphocytes % 21.7 %; Mean Corpuscular HGB Conc 31.1 g/dL (30.0-36.0); Mean Corpuscular Hemoglobin 34.8 pg (28.0-34.0); Mean Corpuscular Volume 111.7 fl (81-99); Mean Platelet Volume 10.2 fL (7.4-10.4); Monocytes # 0.8 10^3/uL (0.2-0.9); Monocytes % 12.2 %; Neutrophils # 3.87 10^3/uL (1.8-7.7); Nucleated Red Blood Cells % 0 %; Platelet Count 244 10^3/cmm (130-400); Red Blood Count 2.82 10^6/uL (4.1-5.3); Red Cell Distribution Width 14.2 % (12.1-15.1); White Blood Count 6.5 10^3/uL (4.0-10.0)
[2022-10-27 04:06] LABS: Estmated Average Glucose 157; Hemoglobin A1C 7.1 % (4.0-6.0)
[2022-10-27 04:10] LABS: Alanine Aminotransferase < 5 U/L (0-33); Alkaline Phosphatase 76 U/L (35-105); Anion Gap 10.2 (5-19); Aspartate Amino Transferase 12 U/L (0-32); Blood Urea Nitrogen 23 mg/dL (8-23); Calcium 8.2 mg/dL (8.5-10.5); Carbon Dioxide 30 mmol/L (22-29); Chloride 105 mmol/L (98-107); Chol HDL Ratio 2.69 mg/dL (0.0-4.40); Cholesterol 94 mg/dL (0-200); Creatinine Clr Calc Pharmacy 63.5595; Globulin 2.4 g/dL (1.3-4.6); Glucose 115 mg/dL (65-115); HDL Cholesterol 35 mg/dL (60-100); LDL Cholesterol Calculated 32 mg/dL (50-129); Magnesium 2.3 mg/dL (1.7-2.3); Osmolality Calculated 297 mOsm/kg (285-295); Phosphorus 3.5 mg/dL (2.5-4.5); Potassium 4.2 mmol/L (3.5-5.1); Sodium 141 mmol/L (136-145); Total Bilirubin 0.2 mg/dL (0.15-1.2); Total Protein 5.4 g/dL (6.6-8.7); Triglycerides 133 mg/dL (0-150); VLDL Cholestrol Calculation 27 mg/dL (0-30)
[2022-10-27 06:37] LABS: Glucose Point of Care 118 mg/dL (70-110)
[2022-10-27] MEDS: famotidine 20 mg Tablet 40 MG PO ×2 (08:01→18:14)
[2022-10-27] MEDS: magnesium oxide 400 mg tablet PO (08:02)
[2022-10-27] MEDS: ferrous gluconate 324 mg Tablet PO ×2 (08:02→18:14)
[2022-10-27] MEDS: levothyroxine 125 mcg Tablet PO (08:02)
[2022-10-27] MEDS: FUROsemide 40 mg Tablet PO ×2 (08:02→18:14)
[2022-10-27] MEDS: carbidopa-levodopa ER 50-200mg Tablet 1 EACH PO ×3 (08:02→20:11)
[2022-10-27] MEDS: losartan 50 mg Tablet 100 MG PO (08:02)
[2022-10-27] MEDS: apixaban 5 mg Tablet PO ×2 (08:02→18:14)
[2022-10-27] MEDS: sennosides 8.6 mg Tablet 17.2 MG PO (08:06)
[2022-10-27] MEDS: morphine ER (12 HR) 30 mg tablet PO ×2 (08:07→20:12)
[2022-10-27] MEDS: oxyCODONE-APAP 5-325 mg Tablet 1 TAB PO (08:10)
[2022-10-27 11:22] LABS: Glucose Point of Care 209 mg/dL (70-110)
[2022-10-27] MEDS: insulin lispro 100 unit/1 mL SUBCUT ×2 (12:07→16:55)
[2022-10-27 16:18] LABS: Glucose Point of Care 172 mg/dL (70-110)
[2022-10-27] MEDS: ondansetron 2 mg/ML SDV 2 mL 4 MG IVP (16:25)
--- NOTE | 2022-10-27 18:00 | ECG_ITS ---
[facility] Test Date: 2022-10-27 Pat Name: Sheron Leyva Department: Room: 112 Gender: Female Legal Billing Coordinator: : 1940 Requested By: Arsenio Manuel Order Number: [id number] Martin MD: Miller Velazquez M.D. Measurements Intervals [place] Rate: 86 P: 0 IN: 0 QRS: 212 QRSD: 127 T: 91 QT: 379 QTc: 456 Interpretive Statements ATRIAL FLUTTER/TACHYCARDIA POSSIBLE RIGHT VENTRICULAR HYPERTROPHY [SOME/ALL OF: PROMINENT R IN V1, LATE TRANSITION, RAD, ALEXI, SSS] ANTEROLATERAL MYOCARDIAL INFARCTION , AGE INDETERMINATE Compared to ECG 10/19/2022 13:44:41 Myocardial infarct finding now present Atrial fibrillation no longer present Left-axis deviation no longer present Left bundle-branch block no longer present Electronically Signed On 10-28-2022 19:58:16 RADIOTELEPHONE OPERATOR by Miller Velazquez M.D. [id number]
[2022-10-27] MEDS: ALPRAZolam 0.5 mg Tablet PO (18:14)
--- NOTE | 2022-10-27 18:39 | PC.NURSE ---
at 1800,pt stated she was having one of my spells...i just dont feel right..not a pain in my chest,but a flutter..my family prays me through it when i get this at home .bp 119/79.afib on monitor with rate of 90.o2 sat 96% on 2 l nc o2.no diaphoresis.dr vasquez notified.he ordered an ekg and one dose of xanax,as pt was very anxious.orders completed.
--- NOTE | 2022-10-27 18:52 | PM.PN ---
Subjective Subjective: This afternoon overall she is doing better. She does appear to have become tachycardic early around lunchtime heart rates up to 120s-130s. She denies chest pain. Later on in the evening having an episode of uncomfortable feeling in her chest, fluttering, not pain, but anxious. Vitals/I&O/Wt Last Vital Signs Temp 98.8 F 10/27/22 15:35 Pulse 86 10/27/22 18:13 Resp 16 10/27/22 18:13 BP 110/62 10/27/22 15:35 Pulse Ox 97 10/27/22 18:13 O2 Del Method 10/27/22 18:13 O2 Flow Rate 2 10/27/22 18:13 10/27/22 10/27/22 10/27/22 06:59 14:59 22:59 Intake Total 2200 / 2467.883 480 / 480 240 / 720 Balance 2200 / 2467.883 480 / 480 240 / 720 Weight last 48 hrs Weight 121.676 kg Weight 112.945 kg Physical Exam Const: COMMON NORMALS: alert GENERAL APPEARANCE: cooperative ORIENTATION/CONSCIOUSNESS: Yes awake HENMT: COMMON NORMALS: normocephalic, EAC's normal, Normal external nose present and moist oral mucous membranes HEAD & SCALP: normocephalic NOSE: Normal external nose present EXTERNAL AUDITORY CANAL: EAC's normal Neck/C-Spine: COMMON NORMALS: no meningeal signs Chest: CHEST: Yes Symmetrical chest wall rise Resp: COMMON NORMALS: clear to auscultation bilaterally AUSCULTATION: clear to auscultation bilaterally Cardio: COMMON NORMALS: No murmurs present (Cardio) RHYTHM: abnormal rhythm irregularly irregular GI: COMMON NORMALS: Normal to inspection, nondistended, normoactive bowel sounds present, Soft to palpation and non-tender PALPATION: Yes Soft to palpation Extremity: COMMON NORMALS: no pedal edema Neuro: COMMON NORMALS: moves all extremities SENSORIUM/ORIENTATION: Yes alert MENINGEAL SIGNS: Yes no meningeal signs Psych: COMMON NORMALS: mental status grossly normal Skin: COMMON NORMALS: no wounds RASHES: no rashes Data 10/27/22 03:29 10/27/22 03:29 Micro: Microbiology 10/26/22 16:03 MRSA Culture - Final Nose A&P Assessment and plan (1) Atrial fibrillation with rapid ventricular response: Weaned off Cardizem drip, down to Cardizem 60 mg every 6 hours. This afternoon heart rates up to 120s-130s. Later on the evening some fluttering in her chest/discomfort, anxiety. Possible Q waves in 1 and aVL on EKG. Resume beta-edwar with metoprolol 12.5 mg twice daily. Continue Eliquis 5 mg twice daily. Borderline EF 50-55%. No significant RWMA. Moderate pulmonary hypertension. Mild to moderate mitral regurgitation. Severely dilated left atrium. (2) Atypical chest pain: Being worked up as an outpatient with cardiology for possible ischemic reason. No further chest pain. Patient refused Lexiscan stress test when last seen Dr. Ryan in his office. With history of diabetes. A1c 7.1. Glucose was checked, not hypoglycemic. Would benefit from statin therapy (3) ASHD (arteriosclerotic heart disease): (4) CHF (congestive heart failure): Last known echocardiogram in 2019 shows an EF of 60%, grade 2 diastolic dysfunction. No signs of diastolic heart failure for now. Recheck echocardiogram borderline EF 50-55%. No significant RWMA. Moderate pulmonary hypertension. Mild to moderate mitral regurgitation. Severely dilated left atrium. Continue with home dose of oral Lasix and losartan. Strict input output charting, daily weights. Fluid restriction up to 2 L. Qualifiers: Heart failure chronicity: chronic Heart failure type: diastolic Qualified Code(s): I50.32 - Chronic diastolic (congestive) heart failure (5) Hypertension: Goal blood pressure less than 140/90 mmHg with mean over 65. Takes amlodipine 5 mg daily, carvedilol 37.5 mg twice daily, Imdur 120 mg daily, losartan 100 mg daily at home. Hold off on amlodipine, Imdur Qualifiers: Hypertension type: essential hypertension Qualified Code(s): I10 - Essential (primary) hypertension Plan Type 2 diabetes mellitus: A1c 7.2. Continue metformin at discharge. Insulin sliding scale at low-dose protocol. Continue other chronic medications including carbidopa levodopa, citalopram, famotidine, levothyroxine, morphine, oxycodone as needed. Analgesia: Home dose of morphine 30 mg twice daily, oxycodone 5 mg 4 times daily as needed Glycemic control: Low-dose protocol, check A1c Nutrition: Carb consistent cardiac diet CODE STATUS: Full code. Discussed in detail with the patient. PUD prophylaxis: Famotidine for PUD prophylaxis DVT prophylaxis: Eliquis will suffice for DVT prophylaxis Discharge planning: Home with caregiver once medically stable Admit to CSU. This documentation was created by [employer] smoke control supervisor software. Every effort was made to ensure accuracy of smoke control supervisor. Any obvious errors or omissions should be clarified with the author of the document. Attestations Medical Necessity Statement*: Continue admission for further rate control of A. fib with RVR. Coding Level of Care Code Acute Learning And Development Specialist for [facility] Fwd Exam Comprehensive Diagnoses Atrial fibrillation with rapid ventricular response I48.91 Atypical chest pain R07.89 ASHD (arteriosclerotic heart disease) I25.10 CHF (congestive heart failure) I50.32 Heart failure chronicity: chronic Heart failure type: diastolic Hypertension I10 Hypertension type: essential hypertension
[2022-10-27] MEDS: atorvastatin 40 mg Tablet 20 MG PO (20:12)
[2022-10-27] MEDS: aspirin 81 mg EC Tablet PO (20:12)
[2022-10-27] MEDS: citalopram 20 mg Tablet 10 MG PO (20:13)
[2022-10-27] MEDS: metoprolol tartrate 25 mg Tablet 12.5 MG PO (20:13)
[2022-10-27 20:37] LABS: Glucose Point of Care 177 mg/dL (70-110)
[2022-10-27] MEDS: trazodone 100 mg Tablet 150 MG PO (22:03)
[2022-10-28] VITALS (18 sets, daily range): BP systolic 104–144; BP diastolic 67–100; PULSE 72–131; RESP 15–28; TEMP 36.6–36.8; O2SAT 93–100
[2022-10-28] MEDS: dilTIAZem 60 mg Tablet PO ×4 (04:02→21:41)
[2022-10-28] MEDS: ondansetron 2 mg/ML SDV 2 mL 4 MG IVP ×3 (04:05→18:21)
[2022-10-28 04:06] LABS: Basophils % 0.3 %; Eosinophils # 0.3 10^3/uL (0.0-0.8); Eosinophils % 4.4 %; Hematocrit 33.6 % (37.0-47.0); Hemoglobin 10.6 g/dL (11.5-15.3); Lymphocytes # 1.7 10^3/uL (0.8-4.8); Lymphocytes % 24.1 %; Mean Corpuscular HGB Conc 31.5 g/dL (30.0-36.0); Mean Corpuscular Hemoglobin 34.8 pg (28.0-34.0); Mean Corpuscular Volume 110.2 fl (81-99); Mean Platelet Volume 10.4 fL (7.4-10.4); Monocytes % 14.6 %; Neutrophils # 3.92 10^3/uL (1.8-7.7); Neutrophils % 55.1 %; Nucleated Red Blood Cells % 0 %; Platelet Count 238 10^3/cmm (130-400); Red Blood Count 3.05 10^6/uL (4.1-5.3); Red Cell Distribution Width 14.2 % (12.1-15.1); White Blood Count 7.1 10^3/uL (4.0-10.0)
[2022-10-28] MEDS: oxyCODONE-APAP 5-325 mg Tablet 1 TAB PO ×2 (04:09→21:42)
[2022-10-28 04:33] LABS: Blood Urea Nitrogen 14 mg/dL (8-23); Calcium 8.3 mg/dL (8.5-10.5); Carbon Dioxide 30 mmol/L (22-29); Chloride 101 mmol/L (98-107); Glucose 150 mg/dL (65-115); Osmolality Calculated 291 mOsm/kg (285-295); Sodium 139 mmol/L (136-145)
[2022-10-28 06:40] LABS: Glucose Point of Care 163 mg/dL (70-110)
[2022-10-28] MEDS: carbidopa-levodopa ER 50-200mg Tablet 1 EACH PO ×3 (08:09→20:10)
[2022-10-28] MEDS: losartan 50 mg Tablet 100 MG PO (08:09)
[2022-10-28] MEDS: morphine ER (12 HR) 30 mg tablet PO ×2 (08:10→20:09)
[2022-10-28] MEDS: famotidine 20 mg Tablet 40 MG PO ×2 (08:10→17:13)
[2022-10-28] MEDS: ferrous gluconate 324 mg Tablet PO ×2 (08:11→17:13)
[2022-10-28] MEDS: FUROsemide 40 mg Tablet PO ×2 (08:11→17:14)
[2022-10-28] MEDS: apixaban 5 mg Tablet PO ×2 (08:11→17:13)
[2022-10-28] MEDS: levothyroxine 125 mcg Tablet PO (08:11)
[2022-10-28] MEDS: magnesium oxide 400 mg tablet PO (08:11)
[2022-10-28] MEDS: insulin lispro 100 unit/1 mL SUBCUT ×4 (08:13→21:43)
[2022-10-28] MEDS: metoprolol tartrate 25 mg Tablet PO ×2 (09:45→20:10)
[2022-10-28 11:13] LABS: Glucose Point of Care 198 mg/dL (70-110)
[2022-10-28 16:13] LABS: Glucose Point of Care 168 mg/dL (70-110)
--- NOTE | 2022-10-28 20:06 | PM.PN ---
Subjective Subjective: Still gets easily tachycardic even with minimal exertion, sometimes shifting around in her chair heart rates are Giurgius 120s-130s. So far maintaining blood pressures. Discussed with her increasing metoprolol dose Vitals/I&O/Wt Last Vital Signs Temp 98 F 10/28/22 20:00 Pulse 131 H 10/28/22 20:00 Resp 21 H 10/28/22 20:00 BP 133/100 10/28/22 20:00 Pulse Ox 95 10/28/22 20:00 O2 Del Method 10/28/22 08:00 O2 Flow Rate 2 10/28/22 08:00 10/28/22 10/28/22 10/28/22 06:59 14:59 22:59 Intake Total 240 / 1060 360 / 360 440 / 800 Balance 240 / 1060 360 / 360 440 / 800 Weight last 48 hrs Weight 122.289 kg Weight 121.676 kg Physical Exam Narrative: Visited by granddaughter. Const: COMMON NORMALS: alert GENERAL APPEARANCE: cooperative ORIENTATION/CONSCIOUSNESS: Yes awake HENMT: COMMON NORMALS: normocephalic, EAC's normal, Normal external nose present and moist oral mucous membranes HEAD & SCALP: normocephalic NOSE: Normal external nose present EXTERNAL AUDITORY CANAL: EAC's normal Neck/C-Spine: COMMON NORMALS: no meningeal signs Chest: CHEST: Yes Symmetrical chest wall rise Resp: COMMON NORMALS: clear to auscultation bilaterally AUSCULTATION: clear to auscultation bilaterally Cardio: COMMON NORMALS: No murmurs present (Cardio) RHYTHM: abnormal rhythm irregularly irregular GI: COMMON NORMALS: Normal to inspection, nondistended, normoactive bowel sounds present, Soft to palpation and non-tender PALPATION: Yes Soft to palpation Extremity: COMMON NORMALS: no pedal edema Neuro: COMMON NORMALS: moves all extremities SENSORIUM/ORIENTATION: Yes alert MENINGEAL SIGNS: Yes no meningeal signs Psych: COMMON NORMALS: mental status grossly normal Skin: COMMON NORMALS: no wounds RASHES: no rashes Data 10/28/22 03:39 10/28/22 03:39 A&P Assessment and plan (1) Atrial fibrillation with rapid ventricular response: Difficult to control atrial fibrillation. Heart rate still rising to 120s and 130s even with minimal exertion. Increase metoprolol dose to 25 mg twice daily. Continue Cardizem 60 mg every 6 hours. May need further escalation depending on response. Continue to optimize, goal heart rates below 110 at least at rest and with minimal exertion. Continue Eliquis 5 mg twice daily. Borderline EF 50-55%. No significant RWMA. Moderate pulmonary hypertension. Mild to moderate mitral regurgitation. Severely dilated left atrium. May benefit additionally from stress testing, reportedly had declined in the past, but states will consider currently. States she was concerned about her blood pressure going too high. (2) Atypical chest pain: Being worked up as an outpatient with cardiology for possible ischemic reason. No further chest pain. Patient refused Lexiscan stress test when last seen Dr. Ryan in his office. With history of diabetes. A1c 7.1. Glucose was checked, not hypoglycemic. Would benefit from statin therapy (3) ASHD (arteriosclerotic heart disease): (4) CHF (congestive heart failure): Last known echocardiogram in 2019 shows an EF of 60%, grade 2 diastolic dysfunction. No signs of diastolic heart failure for now. Recheck echocardiogram borderline EF 50-55%. No significant RWMA. Moderate pulmonary hypertension. Mild to moderate mitral regurgitation. Severely dilated left atrium. Continue with home dose of oral Lasix and losartan. Strict input output charting, daily weights. Fluid restriction up to 2 L. Qualifiers: Heart failure type: diastolic Heart failure chronicity: chronic Qualified Code(s): I50.32 - Chronic diastolic (congestive) heart failure (5) Hypertension: Goal blood pressure less than 140/90 mmHg with mean over 65. Takes amlodipine 5 mg daily, carvedilol 37.5 mg twice daily, Imdur 120 mg daily, losartan 100 mg daily at home. Hold off on amlodipine, Imdur Qualifiers: Hypertension type: essential hypertension Qualified Code(s): I10 - Essential (primary) hypertension Plan Type 2 diabetes mellitus: A1c 7.2. Continue metformin at discharge. Insulin sliding scale at low-dose protocol. Continue other chronic medications including carbidopa levodopa, citalopram, famotidine, levothyroxine, morphine, oxycodone as needed. Analgesia: Home dose of morphine 30 mg twice daily, oxycodone 5 mg 4 times daily as needed Glycemic control: Low-dose protocol, check A1c Nutrition: Carb consistent cardiac diet CODE STATUS: Full code. Discussed in detail with the patient. PUD prophylaxis: Famotidine for PUD prophylaxis DVT prophylaxis: Eliquis will suffice for DVT prophylaxis Discharge planning: Home with caregiver once medically stable Admit to CSU. This documentation was created by [employer] correctional therapy director software. Every effort was made to ensure accuracy of correctional therapy director. Any obvious errors or omissions should be clarified with the author of the document. Attestations Medical Necessity Statement*: Continue admission for optimization of control of A. fib with RVR. Coding Level of Care Code Acute Natural Resources Engineer for g Fwd Diagnoses Atrial fibrillation with rapid ventricular response I48.91 Atypical chest pain R07.89 ASHD (arteriosclerotic heart disease) I25.10 CHF (congestive heart failure) I50.32 Heart failure type: diastolic Heart failure chronicity: chronic Hypertension I10 Hypertension type: essential hypertension
[2022-10-28] MEDS: aspirin 81 mg EC Tablet PO (20:08)
[2022-10-28] MEDS: citalopram 20 mg Tablet 10 MG PO (20:08)
[2022-10-28] MEDS: atorvastatin 40 mg Tablet 20 MG PO (20:09)
[2022-10-28 21:24] LABS: Glucose Point of Care 225 mg/dL (70-110)
[2022-10-28] MEDS: trazodone 100 mg Tablet 150 MG PO (21:42)
[2022-10-29] VITALS (15 sets, daily range): BP systolic 96–126; BP diastolic 57–77; PULSE 75–106; RESP 14–25; TEMP 36.4–36.8; O2SAT 92–97
[2022-10-29] MEDS: dilTIAZem 60 mg Tablet PO ×4 (03:32→21:49)
[2022-10-29 04:05] LABS: Basophils % 0.4 %; Eosinophils # 0.2 10^3/uL (0.0-0.8); Eosinophils % 2.6 %; Hematocrit 36.7 % (37.0-47.0); Hemoglobin 11.4 g/dL (11.5-15.3); Lymphocytes # 2.4 10^3/uL (0.8-4.8); Mean Corpuscular HGB Conc 31.1 g/dL (30.0-36.0); Mean Corpuscular Hemoglobin 35.2 pg (28.0-34.0); Mean Corpuscular Volume 113.3 fl (81-99); Mean Platelet Volume 10.1 fL (7.4-10.4); Monocytes # 1.1 10^3/uL (0.2-0.9); Monocytes % 13.3 %; Neutrophils # 4.66 10^3/uL (1.8-7.7); Neutrophils % 54.5 %; Nucleated Red Blood Cells % 0 %; Platelet Count 235 10^3/cmm (130-400); Red Blood Count 3.24 10^6/uL (4.1-5.3); Red Cell Distribution Width 14.2 % (12.1-15.1); White Blood Count 8.5 10^3/uL (4.0-10.0)
[2022-10-29 04:27] LABS: Blood Urea Nitrogen 13 mg/dL (8-23); Calcium 8.7 mg/dL (8.5-10.5); Carbon Dioxide 33 mmol/L (22-29); Chloride 100 mmol/L (98-107); Glucose 156 mg/dL (65-115); Osmolality Calculated 295 mOsm/kg (285-295); Sodium 141 mmol/L (136-145)
[2022-10-29 06:27] LABS: Glucose Point of Care 169 mg/dL (70-110)
[2022-10-29] MEDS: insulin lispro 100 unit/1 mL SUBCUT ×4 (08:24→20:26)
[2022-10-29] MEDS: magnesium oxide 400 mg tablet PO (08:24)
[2022-10-29] MEDS: ferrous gluconate 324 mg Tablet PO ×2 (08:24→17:33)
[2022-10-29] MEDS: metoprolol tartrate 25 mg Tablet PO (08:25)
[2022-10-29] MEDS: losartan 50 mg Tablet 100 MG PO (08:25)
[2022-10-29] MEDS: FUROsemide 40 mg Tablet PO ×2 (08:25→17:33)
[2022-10-29] MEDS: sennosides 8.6 mg Tablet 17.2 MG PO (08:25)
[2022-10-29] MEDS: carbidopa-levodopa ER 50-200mg Tablet 1 EACH PO ×3 (08:25→20:32)
[2022-10-29] MEDS: apixaban 5 mg Tablet PO ×2 (08:25→17:33)
[2022-10-29] MEDS: famotidine 20 mg Tablet 40 MG PO ×2 (08:25→17:33)
[2022-10-29] MEDS: ondansetron 2 mg/ML SDV 2 mL 4 MG IVP ×2 (08:28→19:18)
[2022-10-29] MEDS: morphine ER (12 HR) 30 mg tablet PO ×2 (08:33→20:29)
--- NOTE | 2022-10-29 09:19 | PC.SOCIAL ---
IMM Update pg 2 of IMM updated and reviewed w/ patient and copy provided. Copy dated, initialed and placed in chart.
[2022-10-29] MEDS: oxyCODONE-APAP 5-325 mg Tablet 1 TAB PO ×2 (10:52→17:37)
[2022-10-29] MEDS: levothyroxine 125 mcg Tablet PO (11:10)
[2022-10-29] MEDS: lanolin oint 7 gm 1 APPLIC TOPICAL (11:16)
--- NOTE | 2022-10-29 11:20 | PC.SOCIAL ---
IMM update pg 2 of IMM updated and reviewed w/ patient. Copy provided and Copy dated, initialed and placed in chart.
[2022-10-29 11:22] LABS: Glucose Point of Care 187 mg/dL (70-110)
[2022-10-29 17:23] LABS: Glucose Point of Care 174 mg/dL (70-110)
--- NOTE | 2022-10-29 19:50 | P.PN_ITS ---
Subjective Subjective: This morning she is feeling better, but through the afternoon again heart rates increasing to 120s and 130s. Denies chest pain. Vitals/I&O/Wt Last Vital Signs Temp 97.8 F 10/29/22 11:17 Pulse 106 H 10/29/22 16:00 Resp 23 H 10/29/22 17:37 BP 126/77 10/29/22 16:00 Pulse Ox 93 10/29/22 17:37 O2 Del Method 10/29/22 11:17 O2 Flow Rate 2 10/28/22 21:10 10/29/22 10/29/22 10/29/22 06:59 14:59 22:59 Intake Total 720 / 720 360 / 1080 Balance 720 / 720 360 / 1080 Weight last 48 hrs Weight 122.016 kg Weight 122.289 kg Physical Exam Const: COMMON NORMALS: alert GENERAL APPEARANCE: cooperative ORIENTATION/CONSCIOUSNESS: Yes awake HENMT: COMMON NORMALS: normocephalic, EAC's normal, Normal external nose present and moist oral mucous membranes HEAD & SCALP: normocephalic NOSE: Normal external nose present EXTERNAL AUDITORY CANAL: EAC's normal Neck/C-Spine: COMMON NORMALS: no meningeal signs Chest: CHEST: Yes Symmetrical chest wall rise Resp: COMMON NORMALS: clear to auscultation bilaterally AUSCULTATION: clear to auscultation bilaterally Cardio: COMMON NORMALS: No murmurs present (Cardio) RHYTHM: abnormal rhythm irregularly irregular GI: COMMON NORMALS: Normal to inspection, nondistended, normoactive bowel sounds present, Soft to palpation and non-tender PALPATION: Yes Soft to palpation Extremity: COMMON NORMALS: no pedal edema Neuro: COMMON NORMALS: moves all extremities SENSORIUM/ORIENTATION: Yes alert MENINGEAL SIGNS: Yes no meningeal signs Psych: COMMON NORMALS: mental status grossly normal Skin: COMMON NORMALS: no wounds RASHES: no rashes Data 10/29/22 03:43 10/29/22 03:43 A&P Assessment and plan (1) Atrial fibrillation with rapid ventricular response: Tachycardia with minimal exertion. Increase metoprolol to 50 mg twice daily. Continue Cardizem. Continue Eliquis 5 mg twice daily. Borderline EF 50-55%. No significant RWMA. Moderate pulmonary hypertension. Mild to moderate mitral regurgitation. Severely dilated left atrium. May benefit additionally from stress testing, reportedly had declined in the past, but states will consider currently. States she was concerned about her blood pressure going too high. (2) Atypical chest pain: Being worked up as an outpatient with cardiology for possible ischemic reason. No further chest pain. She states would agree to following up with stress test. Patient refused Lexiscan stress test when last seen Dr. Ryan in his office. With history of diabetes. A1c 7.1. Glucose was checked, not hypoglycemic. Would benefit from statin therapy (3) ASHD (arteriosclerotic heart disease): (4) CHF (congestive heart failure): Last known echocardiogram in 2019 shows an EF of 60%, grade 2 diastolic dysfunction. No signs of diastolic heart failure for now. Recheck echocardiogram borderline EF 50-55%. No significant RWMA. Moderate pulmonary hypertension. Mild to moderate mitral regurgitation. Severely dilated left atrium. Continue with home dose of oral Lasix and losartan. Strict input output charting, daily weights. Fluid restriction up to 2 L. Qualifiers: Heart failure type: diastolic Heart failure chronicity: chronic Qualified Code(s): I50.32 - Chronic diastolic (congestive) heart failure (5) Hypertension: Goal blood pressure less than 140/90 mmHg with mean over 65. Takes amlodipine 5 mg daily, carvedilol 37.5 mg twice daily, Imdur 120 mg daily, losartan 100 mg daily at home. Hold off on amlodipine, Imdur Qualifiers: Hypertension type: essential hypertension Qualified Code(s): I10 - Essential (primary) hypertension Plan Type 2 diabetes mellitus: A1c 7.2. Continue metformin at discharge. Insulin sliding scale at low-dose protocol. Continue other chronic medications including carbidopa levodopa, citalopram, famotidine, levothyroxine, morphine, oxycodone as needed. Analgesia: Home dose of morphine 30 mg twice daily, oxycodone 5 mg 4 times daily as needed Glycemic control: Low-dose protocol, check A1c Nutrition: Carb consistent cardiac diet CODE STATUS: Full code. Discussed in detail with the patient. PUD prophylaxis: Famotidine for PUD prophylaxis DVT prophylaxis: Eliquis will suffice for DVT prophylaxis Discharge planning: Home with caregiver once medically stable Admit to CSU. This documentation was created by [employer] junior loan processor software. Every effort was made to ensure accuracy of junior loan processor. Any obvious errors or omissions should be clarified with the author of the document. Attestations Medical Necessity Statement*: Continue admission for optimization of control of A. fib with RVR. Coding Level of Care Code Acute Wiping Cloth Cutter for Chg Fwd Diagnoses Atrial fibrillation with rapid ventricular response I48.91 Atypical chest pain R07.89 ASHD (arteriosclerotic heart disease) I25.10 CHF (congestive heart failure) I50.32 Heart failure type: diastolic Heart failure chronicity: chronic Hypertension I10 Hypertension type: essential hypertension
[2022-10-29] MEDS: trazodone 100 mg Tablet 150 MG PO (20:28)
[2022-10-29] MEDS: aspirin 81 mg EC Tablet PO (20:28)
[2022-10-29] MEDS: metoprolol tartrate 50 mg Tablet PO (20:31)
[2022-10-29] MEDS: atorvastatin 40 mg Tablet 20 MG PO (20:32)
[2022-10-29] MEDS: citalopram 20 mg Tablet 10 MG PO (20:32)
[2022-10-30] VITALS (14 sets, daily range): BP systolic 103–134; BP diastolic 52–91; PULSE 67–142; RESP 12–26; TEMP 36.4–36.5; O2SAT 94–98
[2022-10-30] MEDS: dilTIAZem 60 mg Tablet PO ×4 (03:08→21:01)
[2022-10-30 03:25] LABS: Basophils % 0.4 %; Eosinophils # 0.3 10^3/uL (0.0-0.8); Eosinophils % 3.5 %; Hemoglobin 10.4 g/dL (11.5-15.3); Lymphocytes # 1.6 10^3/uL (0.8-4.8); Lymphocytes % 22.5 %; Mean Corpuscular HGB Conc 30.6 g/dL (30.0-36.0); Mean Corpuscular Hemoglobin 34.1 pg (28.0-34.0); Mean Corpuscular Volume 111.5 fl (81-99); Mean Platelet Volume 10.7 fL (7.4-10.4); Monocytes # 0.9 10^3/uL (0.2-0.9); Monocytes % 12.5 %; Neutrophils # 4.23 10^3/uL (1.8-7.7); Neutrophils % 59.6 %; Nucleated Red Blood Cells % 0 %; Platelet Count 204 10^3/cmm (130-400); Red Blood Count 3.05 10^6/uL (4.1-5.3); Red Cell Distribution Width 14.2 % (12.1-15.1); White Blood Count 7.1 10^3/uL (4.0-10.0)
[2022-10-30 04:00] LABS: Anion Gap 11.1 (5-19); Blood Urea Nitrogen 11 mg/dL (8-23); Calcium 8.7 mg/dL (8.5-10.5); Carbon Dioxide 33 mmol/L (22-29); Chloride 101 mmol/L (98-107); Glucose 157 mg/dL (65-115); Osmolality Calculated 295 mOsm/kg (285-295); Potassium 4.1 mmol/L (3.5-5.1); Sodium 141 mmol/L (136-145)
[2022-10-30 06:59] LABS: Glucose Point of Care 160 mg/dL (70-110)
[2022-10-30 06:59] LABS: Glucose Point of Care 214 mg/dL (70-110)
[2022-10-30] MEDS: ondansetron 2 mg/ML SDV 2 mL 4 MG IVP ×3 (08:04→19:33)
[2022-10-30] MEDS: insulin lispro 100 unit/1 mL SUBCUT ×4 (08:05→20:08)
[2022-10-30] MEDS: metoprolol tartrate 50 mg Tablet PO ×2 (09:10→20:08)
[2022-10-30] MEDS: apixaban 5 mg Tablet PO ×2 (09:10→17:24)
[2022-10-30] MEDS: sennosides 8.6 mg Tablet 17.2 MG PO (09:11)
[2022-10-30] MEDS: morphine ER (12 HR) 30 mg tablet PO ×2 (09:11→20:11)
[2022-10-30] MEDS: ferrous gluconate 324 mg Tablet PO ×2 (09:11→17:24)
[2022-10-30] MEDS: famotidine 20 mg Tablet 40 MG PO ×2 (09:11→17:25)
[2022-10-30] MEDS: losartan 50 mg Tablet 100 MG PO (09:12)
[2022-10-30] MEDS: magnesium oxide 400 mg tablet PO (09:12)
[2022-10-30] MEDS: levothyroxine 125 mcg Tablet PO (09:12)
[2022-10-30] MEDS: carbidopa-levodopa ER 50-200mg Tablet 1 EACH PO ×3 (09:12→20:08)
[2022-10-30] MEDS: FUROsemide 40 mg Tablet PO ×2 (09:12→17:24)
[2022-10-30 11:33] LABS: Glucose Point of Care 228 mg/dL (70-110)
[2022-10-30] MEDS: digoxin 250 mcg/ml INJ 2 mL IVP (12:38)
[2022-10-30] MEDS: acetaminophen 325 mg Tablet 650 MG PO (16:02)
[2022-10-30 17:08] LABS: Glucose Point of Care 182 mg/dL (70-110)
--- NOTE | 2022-10-30 17:25 | P.PN_ITS ---
Subjective Subjective: This morning heart rates again in the 120s-130s. Not subsiding significantly through the afternoon. Blood pressure soft, last night blood pressure down to as low as 96/66. She states last night felt some palpitations. Discussed with her consideration of additional options, additional treatment with second line medication digoxin with consideration of benefit and adverse effects. We will add given oft blood pressure and otherwise an adequate response to metoprolol and Cardizem. Vitals/I&O/Wt Last Vital Signs Temp 97.6 F 10/30/22 11:44 Pulse 97 10/30/22 11:44 Resp 23 H 10/30/22 11:44 BP 127/88 10/30/22 11:44 Pulse Ox 95 10/30/22 11:44 O2 Del Method 10/30/22 08:05 O2 Flow Rate 2 10/30/22 08:05 10/30/22 10/30/22 10/30/22 06:59 14:59 22:59 Intake Total 120 / 1440 400 / 400 Balance 120 / 1440 400 / 400 Weight last 48 hrs Weight 122.016 kg Weight 122.016 kg Physical Exam Narrative: Visited by granddaughter. Const: COMMON NORMALS: alert GENERAL APPEARANCE: cooperative ORIENTATION/CONSCIOUSNESS: Yes awake HENMT: COMMON NORMALS: normocephalic, EAC's normal, Normal external nose present and moist oral mucous membranes HEAD & SCALP: normocephalic NOSE: Normal external nose present EXTERNAL AUDITORY CANAL: EAC's normal Neck/C-Spine: COMMON NORMALS: no meningeal signs Chest: CHEST: Yes Symmetrical chest wall rise Resp: COMMON NORMALS: clear to auscultation bilaterally AUSCULTATION: clear to auscultation bilaterally Cardio: COMMON NORMALS: No murmurs present (Cardio) RHYTHM: abnormal rhythm irregularly irregular GI: COMMON NORMALS: Normal to inspection, nondistended, normoactive bowel sounds present, Soft to palpation and non-tender PALPATION: Yes Soft to palpation Extremity: COMMON NORMALS: no pedal edema Neuro: COMMON NORMALS: moves all extremities SENSORIUM/ORIENTATION: Yes christ rt MENINGEAL SIGNS: Yes no meningeal signs Psych: COMMON NORMALS: mental status grossly normal Skin: COMMON NORMALS: no wounds RASHES: no rashes Data 10/30/22 02:52 10/30/22 02:52 A&P Assessment and plan (1) Atrial fibrillation with rapid ventricular response: Persistent A. fib with RVR today, blood pressure soft last night down to 96/66. This morning 103/65.hold off on additional increase of metoprolol or Cardizem. Start digoxin. Cut down losartan dose. Continue Eliquis 5 mg twice daily. Borderline EF 50-55%. No significant RWMA. Moderate pulmonary hypertension. Mild to moderate mitral regurgitation. Severely dilated left atrium. May benefit additionally from stress testing, reportedly had declined in the past, but states will consider currently. States she was concerned about her blood pressure going too high. (2) Atypical chest pain: Last night had additional episode. She is needs felt like her heart was racing, fluttering. She states would agree to following up with stress test consider obtaining an outpatient basis. With history of diabetes. A1c 7.1. Glucose was checked, not hypoglycemic. Started statin. (3) ASHD (arteriosclerotic heart disease): (4) CHF (congestive heart failure): Last known echocardiogram in 2019 shows an EF of 60%, grade 2 diastolic dysfunction. No signs of diastolic heart failure for now. Recheck echocardiogram borderline EF 50-55%. No significant RWMA. Moderate pulmonary hypertension. Mild to moderate mitral regurgitation. Severely dilated left atrium. Continue with home dose of oral Lasix and losartan. Strict input output charting, daily weights. Fluid restriction up to 2 L. Qualifiers: Heart failure type: diastolic Heart failure chronicity: chronic Qualified Code(s): I50.32 - Chronic diastolic (congestive) heart failure (5) Hypertension: Goal blood pressure less than 140/90 mmHg with mean over 65. Hold off on amlodipine, Imdur. Qualifiers: Hypertension type: essential hypertension Qualified Code(s): I10 - Essential (primary) hypertension Plan Type 2 diabetes mellitus: A1c 7.2. Continue metformin at discharge. Insulin sliding scale at low-dose protocol. Continue other chronic medications including carbidopa levodopa, citalopram, famotidine, levothyroxine, morphine, oxycodone as needed. Analgesia: Home dose of morphine 30 mg twice daily, oxycodone 5 mg 4 times daily as needed Glycemic control: Low-dose protocol, check A1c Nutrition: Carb consistent cardiac diet CODE STATUS: Full code. Discussed in detail with the patient. PUD prophylaxis: Famotidine for PUD prophylaxis DVT prophylaxis: Eliquis will suffice for DVT prophylaxis Discharge planning: Home with caregiver once medically stable Admit to CSU. This documentation was created by [employer] fitness assistant software. Every effort was made to ensure accuracy of fitness assistant. Any obvious errors or omissions should be clarified with the author of the document. Attestations Medical Necessity Statement*: Continue admission for optimization of control of A. fib with RVR. Coding Level of Care Code Acute Sausage Meat Trimmer for Chg Fwd Diagnoses Atrial fibrillation with rapid ventricular response I48.91 Atypical chest pain R07.89 ASHD (arteriosclerotic heart disease) I25.10 CHF (congestive heart failure) I50.32 Heart failure type: diastolic Heart failure chronicity: chronic Hypertension I10 Hypertension type: essential hypertension
[2022-10-30] MEDS: digoxin 250 mcg/ml INJ 2 mL 125 MCG IVP (19:54)
[2022-10-30 20:07] LABS: Glucose Point of Care 220 mg/dL (70-110)
[2022-10-30] MEDS: citalopram 20 mg Tablet 10 MG PO (20:08)
[2022-10-30] MEDS: atorvastatin 40 mg Tablet 20 MG PO (20:08)
[2022-10-30] MEDS: aspirin 81 mg EC Tablet PO (20:08)
[2022-10-30] MEDS: trazodone 100 mg Tablet 150 MG PO (20:09)
[2022-10-31] VITALS (7 sets, daily range): BP systolic 114–131; BP diastolic 66–77; PULSE 75–88; RESP 12–16; O2SAT 93–97
[2022-10-31] MEDS: acetaminophen 325 mg Tablet 650 MG PO (00:07)
[2022-10-31] MEDS: dilTIAZem 60 mg Tablet PO ×2 (04:09→09:26)
[2022-10-31 04:57] LABS: Anion Gap 11.8 (5-19); Blood Urea Nitrogen 8 mg/dL (8-23); Calcium 8.5 mg/dL (8.5-10.5); Carbon Dioxide 34 mmol/L (22-29); Chloride 99 mmol/L (98-107); Digoxin 0.7 ng/mL (0.6-1.2); Glucose 151 mg/dL (65-115); Osmolality Calculated 293 mOsm/kg (285-295); Potassium 3.8 mmol/L (3.5-5.1); Sodium 141 mmol/L (136-145)
[2022-10-31 06:31] LABS: Glucose Point of Care 166 mg/dL (70-110)
[2022-10-31] MEDS: insulin lispro 100 unit/1 mL SUBCUT (09:23)
[2022-10-31] MEDS: lactulose oral liq 20 gm/30 mL UDC 10 GM PO (09:23)
[2022-10-31] MEDS: ferrous gluconate 324 mg Tablet PO (09:25)
[2022-10-31] MEDS: losartan 50 mg Tablet PO (09:25)
[2022-10-31] MEDS: digoxin 125 mcg Tablet PO (09:25)
[2022-10-31] MEDS: apixaban 5 mg Tablet PO (09:26)
[2022-10-31] MEDS: metoprolol tartrate 50 mg Tablet PO (09:26)
[2022-10-31] MEDS: FUROsemide 40 mg Tablet PO (09:26)
[2022-10-31] MEDS: magnesium oxide 400 mg tablet PO (09:26)
[2022-10-31] MEDS: levothyroxine 125 mcg Tablet PO (09:26)
[2022-10-31] MEDS: sennosides 8.6 mg Tablet 17.2 MG PO (09:26)
[2022-10-31] MEDS: famotidine 20 mg Tablet 40 MG PO (09:26)
[2022-10-31] MEDS: carbidopa-levodopa ER 50-200mg Tablet 1 EACH PO (09:26)
--- NOTE | 2022-10-31 13:37 | P.DS_ITS ---
Discharge Providers Date of Admission: 10/26/22 14:22 Date of Discharge: October 31, 2022 Attending Provider at Admission: Eric Quintana MD Attending Provider at Discharge: Arsenio Manuel Primary Care Provider: Mikael Madrigal MD Diagnoses at Discharge Discharge Diagnosis (1) Atrial fibrillation with rapid ventricular response: Status: Acute (2) Atypical chest pain: Status: Inactive (3) ASHD (arteriosclerotic heart disease): Status: Acute (4) CHF (congestive heart failure): Status: Acute Qualifiers: Heart failure type: diastolic Heart failure chronicity: chronic Qualified Code(s): I50.32 - Chronic diastolic (congestive) heart failure (5) Hypertension: Status: Acute Qualifiers: Hypertension type: essential hypertension Qualified Code(s): I10 - Essential (primary) hypertension Reason for Visit Reason for Visit: Sent from [facility] Hospital Course Hospital Course Pleasant 82-year-old lady with history of CAD, recent history of atrial fibrillation, on Eliquis, breast cancer, Parkinson's disease, was admitted after referral from her care center due to A. fib with RVR, treatment with Cardizem drip, dose of blood pressure amlodipine, carvedilol, Imdur were held hospitalization, was transitioned to Cardizem 60 mg every 6 hours, carvedilol was discontinued, and was started on metoprolol which was gradually increased due to persistent A. fib with RVR 120s-130s, especially with minimal exertion. Metoprolol dose started at 12.5 mg twice daily was gradually increased up to 50 mg twice daily, but still with inadequate control, with soft blood pressures despite decreasing dose of lisinopril. Was started on digoxin, today with good heart rate control, heart rate staying below 110 most of the day. Discussed with her ideally will not be long-term on digoxin and this medication will be able to be weaned. Please follow-up levels. Her lisinopril dose was further been decreased to 25 mg given additional room in case needed to increase metoprolol or Cardizem. Please reassess heart rate control, blood pressures. She is also referred for assessment with stress test due to underlying CAD and difficult to control atrial fibrillation. YESENIA during this hospitalization: LV systolic function is borderline normal with EF of 50 to 55%. Severely dilated left atrium Mild mitral annular calcification. Mild to moderate mitral regurgitation Mild tricuspid regurgitation. Moderate pulmonary hypertension Compared to prior echocardiogram from 2019, patient now has moderate pulmonary hypertension. During hospitalization she has stayed on baseline oxygen requirement. Physical Exam Const: COMMON NORMALS: alert GENERAL APPEARANCE: cooperative ORIENTATION/CONSCIOUSNESS: Yes awake HENMT: COMMON NORMALS: normocephalic, EAC's normal, Normal external nose present and moist oral mucous membranes HEAD & SCALP: normocephalic NOSE: Normal external nose present EXTERNAL AUDITORY CANAL: EAC's normal Neck/C-Spine: COMMON NORMALS: no meningeal signs Chest: CHEST: Yes Symmetrical chest wall rise Resp: COMMON NORMALS: clear to auscultation bilaterally AUSCULTATION: clear to auscultation bilaterally Cardio: COMMON NORMALS: No murmurs present (Cardio) RHYTHM: abnormal rhythm irregularly irregular GI: COMMON NORMALS: Normal to inspection, nondistended, normoactive bowel sounds present, Soft to palpation and non-tender PALPATION: Yes Soft to palpation Extremity: COMMON NORMALS: no pedal edema Neuro: COMMON NORMALS: moves all extremities SENSORIUM/ORIENTATION: Yes alert MENINGEAL SIGNS: Yes no meningeal signs Psych: COMMON NORMALS: mental status grossly normal Skin: COMMON NORMALS: no wounds RASHES: no rashes Discharge Data Studies Completed and Pending Completed Studies During Hospitalization Category Date Time Status XR chest 1V portable [id number] Stat Exams 10/26/22 10:32 Completed CV. echo complete* [id number] Routine Ultrasound 10/26/22 15:52 Completed Pending at discharge Category Date Time Status Basic Metabolic Panel AM LABS Lab 11/01/22 04:00 Ordered Basic Metabolic Panel AM LABS Lab 11/02/22 04:00 Ordered Radiology Impressions Chest X-Ray 10/26/22 10:32 IMPRESSION: Abnormal chest as above. Findings are similar to 10/19/2022 possibly more profound. Laboratory Results WBC 7.1 10^3/uL (4.0-10.0) 10/30/22 02:52 RBC 3.05 10^6/uL (4.1-5.3) L 10/30/22 02:52 Hgb 10.4 g/dL (11.5-15.3) L 10/30/22 02:52 Hct 34.0 % (37.0-47.0) L 10/30/22 02:52 MCV 111.5 fl (81-99) H 10/30/22 02:52 MCH 34.1 pg (28.0-34.0) H 10/30/22 02:52 MCHC 30.6 g/dL (30.0-36.0) 10/30/22 02:52 RDW 14.2 % (12.1-15.1) 10/30/22 02:52 Plt Count 204 10^3/cmm (130-400) 10/30/22 02:52 MPV 10.7 fL (7.4-10.4) H 10/30/22 02:52 Neut % (Auto) 59.6 % 10/30/22 02:52 Lymph % (Auto) 22.5 % 10/30/22 02:52 Kimble % (Auto) 12.5 % 10/30/22 02:52 Eos % (Auto) 3.5 % 10/30/22 02:52 Baso % (Auto) 0.4 % 10/30/22 02:52 Neut # (Auto) 4.23 10^3/uL (1.8-7.7) 10/30/22 02:52 Lymph # (Auto) 1.6 10^3/uL (0.8-4.8) 10/30/22 02:52 Kimble # (Auto) 0.9 10^3/uL (0.2-0.9) 10/30/22 02:52 Eos # (Auto) 0.3 10^3/uL (0.0-0.8) 10/30/22 02:52 Baso # (Auto) 0.0 10^3/uL (0.0-0.1) 10/30/22 02:52 Nucleated RBC % (auto) 0 % 10/30/22 02:52 Nucleated RBCs # 0.0 /100WBC 10/30/22 02:52 D-Dimer 1.73 ug/mIFEU (0-0.59) H 10/26/22 10:35 Sodium 141 mmol/L (136-145) 10/31/22 04:14 Potassium 3.8 mmol/L (3.5-5.1) 10/31/22 04:14 Chloride 99 mmol/L (98-107) 10/31/22 04:14 Carbon Dioxide 34 mmol/L (22-29) H 10/31/22 04:14 Anion Gap 11.8 (5-19) 10/31/22 04:14 BUN 8 mg/dL (8-23) 10/31/22 04:14 Creatinine 0.7 mg/dL (0.5-0.9) 10/31/22 04:14 GFR Calculation Not Reportable 10/31/22 04:14 Glucose 151 mg/dL (65-115) H 10/31/22 04:14 POC Glucose 166 mg/dL (70-110) H 10/31/22 06:28 Estimat Average Glucose 157 10/27/22 03:29 Hemoglobin A1c 7.1 % (4.0-6.0) H 10/27/22 03:29 Calculated Osmolality 293 mOsm/kg (285-295) 10/31/22 04:14 Calcium 8.5 mg/dL (8.5-10.5) 10/31/22 04:14 Phosphorus 3.5 mg/dL (2.5-4.5) 10/27/22 03:29 Magnesium 2.3 mg/dL (1.7-2.3) 10/27/22 03:29 Iron 62 ug/dL (37-145) 10/26/22 10:35 TIBC 313 mcg/dl 10/26/22 10:35 % Saturation 19.8 % (20-50) L 10/26/22 10:35 Unsat Iron Binding 251 ug/dL (112-347) 10/26/22 10:35 Total Bilirubin 0.2 mg/dL (0.15-1.2) 10/27/22 03:29 AST 12 U/L (0-32) 10/27/22 03:29 ALT < 5 U/L (0-33) 10/27/22 03:29 Alkaline Phosphatase 76 U/L (35-105) 10/27/22 03:29 NT-Pro-B Natriuret Pep 2266 pg/mL (0-450) H 10/26/22 10:35 Total Protein 5.4 g/dL (6.6-8.7) L 10/27/22 03:29 Albumin 3.0 g/dL (3.5-5.2) L 10/27/22 03:29 Globulin 2.4 g/dL (1.3-4.6) 10/27/22 03:29 Triglycerides 133 mg/dL (0-150) 10/27/22 03:29 Cholesterol 94 mg/dL (0-200) 10/27/22 03:29 LDL Cholesterol, Calc 32 mg/dL (50-129) L 10/27/22 03:29 Total VLDL Cholesterol 27 mg/dL (0-30) 10/27/22 03:29 HDL Cholesterol 35 mg/dL (60-100) L 10/27/22 03:29 Cholesterol/HDL Ratio 2.69 mg/dL (0.0-4.40) 10/27/22 03:29 Vitamin B12 441 pg/mL (232-1245) 10/26/22 10:35 Vitamin B12 Cancelled 10/26/22 10:35 Folate > 20.0 ng/mL (4.8-37.3) 10/26/22 10:35 Procalcitonin 0.04 ng/mL (0-0.5) 10/26/22 10:35 TSH 13.82 uIU/mL (0.27-4.20) H 10/26/22 10:35 TSH Cancelled 10/26/22 10:35 Free T4 1.12 ng/dL (0.82-1.77) 10/26/22 10:35 Free T3 1.6 PG/ML (2.0-4.4) L 10/26/22 10:35 Urine Color Yellow (Yellow) 10/26/22 11:27 Urine Appearance Clear (CLEAR) 10/26/22 11:27 Urine pH 5 (5-7) 10/26/22 11:27 Ur Specific [place] 1.010 (1.005-1.030) 10/26/22 11:27 Urine Protein Neg (Negative) 10/26/22 11:27 Urine Glucose (UA) Norm (Normal) 10/26/22 11:27 Urine Ketones Negative (Negative) 10/26/22 11:27 Urine Blood Neg (Negative) 10/26/22 11:27 Urine Nitrate Negative (Negative) 10/26/22 11:27 Urine Bilirubin Neg (Negative) 10/26/22 11:27 Urine Urobilinogen Norm mg/dL (Negative) 10/26/22 11:27 Ur Leukocyte Esterase Negative (Negative) 10/26/22 11:27 Digoxin 0.7 ng/mL (0.6-1.2) 10/31/22 04:14 Vitals Last Vital Signs Temp 97.6 F 10/30/22 11:44 Pulse 85 10/31/22 13:14 Resp 16 10/31/22 07:33 BP 131/70 10/31/22 13:23 Pulse Ox 93 10/31/22 13:23 O2 Del Method 10/31/22 07:33 O2 Flow Rate 2 10/31/22 07:33 Discharge Plan Discharge Patient Disposition: Home Condition: Stable Prescriptions: New losartan 25 mg tablet 25 mg PO DAILY Qty: 90 0RF metoprolol tartrate 50 mg Tablet 50 mg PO BID@0900,2100 Qty: 180 0RF digoxin 125 mcg (0.125 mg) Tablet 125 mcg PO DAILY Qty: 90 0RF diltiazem HCl 120 mg capsule,extended release 12 hr 120 mg PO BID Qty: 180 0RF Continued polyethylene glycol 3350 [Miralax] 17 gram/dose powder 17 g PO DAILY docusate sodium 100 mg capsule 200 mg PO DAILY trazodone 100 mg tablet 150 mg PO BEDTIME potassium chloride 10 mEq capsule, extended release 10 meq PO DAILY metformin 500 mg tablet 500 mg PO BID aspirin [Adult Low Dose Aspirin] 81 mg tablet,delayed release (DR/EC) 81 mg PO BEDTIME Hold Instructions: Resume on 10/11/22. magnesium oxide 400 mg magnesium tablet 400 mg PO DAILY cetirizine 10 mg tablet 10 mg PO DAILY famotidine [Pepcid] 40 mg tablet 40 mg PO BID montelukast 10 mg tablet 10 mg PO DAILY furosemide 40 mg tablet 40 mg PO BID carbidopa-levodopa 50-200 mg tablet extended release 1 tab PO TID Rx Instructions: take 2 tabs in AM, 1 tab in PM and 1 tab at HS levothyroxine 125 mcg tablet 125 mcg PO DAILY citalopram [Celexa] 10 mg tablet 10 mg PO BEDTIME nitroglycerin 0.4 mg tablet, sublingual 0.4 mg sublingual Q5M PRN (Reason: chest pain) 30 Days Qty: 30 3RF Rx Instructions: until response; do not exceed 3 doses per episode albuterol sulfate 90 mcg/actuation HFA aerosol inhaler 2 puff inhalation Q6H PRN (Reason: Shortness Of Breath) ondansetron 4 mg tablet,disintegrating 4 mg PO TID PRN (Reason: Nausea) Qty: 90 2RF oxycodone-acetaminophen 5-325 mg tablet 1 tab PO QID PRN (Reason: pain) 30 Days Qty: 90 0RF morphine 30 mg tablet extended release 30 mg PO Q12H 30 Days Qty: 60 0RF pravastatin 80 mg tablet 80 mg PO BEDTIME prochlorperazine maleate 10 mg Tablet 10 mg PO Q4H PRN (Reason: Nausea) PreserVision AREDS [phone] [id number] Capsule 1 cap PO DAILY Tresiba FlexTouch U-100 100 unit/mL (3 mL) insulin pen 20 unit SUBCUT DAILY Eliquis 5 mg tablet 5 mg PO BID Qty: 60 0RF Discontinued isosorbide mononitrate 120 mg tablet extended release 24 hr 120 mg PO QAM amlodipine 10 mg tablet 5 mg PO DAILY carvedilol 25 mg tablet 37.5 mg PO BID losartan 100 mg tablet 100 mg PO DAILY Qty: 100 3RF Discharge Orders: Discharge Order (Routine); Ordered 10/31/22 Ordered By: Arsenio Manuel Other Ambulatory Orders: Sestamibi Stress Test Request (Routine) Timeframe: 3 Days Facility: [facility] - Location: Cardiac Diagnostic Laboratory Ordered By: Arsenio Manuel DME: Wheelchair (Order) Location: None Selected Ordered By: Arsenio Manuel Referrals: Braden Ryan MD [Physician] - 1 month Mikael Madrigal MD [Primary Care Provider] - 4-7 days (you have an appointment with dr madrigal on 11/06/2022 at 3:00.please call the office at [phone] if you have any questions) Susan Avila FNP [Nurse Practitioner] - 1 week (you have an appt scedualed with susan avila np in heart care services 11/07/22 at 9:15.call [phone] if you have any questions) Discharge Diet: Cardiac and Diabetic Discharge Activity: Increase activity as tolerated and Oxygen as instructed Patient Instructions: Metoprolol (By mouth), Diltiazem (By mouth), Digoxin (By mouth), Heart Failure (GEN), Coronary Artery Disease (GEN), A-fib (Atrial Fibrillation) (GEN), Chronic Hypertension (GEN), Nuclear Stress Test (GEN), CHF Stoplight, Opioid Safety Activity Restrictions/Additional Instructions: Monitor heart rate and blood pressure 3 times daily while at rest, write down values to bring to your appointment. Follow-up with your primary doctor and elevator examiner. Discussed regarding digoxin, considering whether this medication can be discontinued as soon as safely possible. Please have your primary doctor and/or heart doctor follow-up digoxin levels. Your losartan dose is decreased to 25 mg, so your primary doctor and heart doctor may have room to additional increase metoprolol or Cardizem dose without decreasing her blood pressure further. Continue oxygen at home as previously to maintain oxygen saturation of 92%. Discharge Attestations Time Spent in Discharge Care*: greater than 30 min Quality Metrics Clinical Quality Measures [ No reported AMI, CVA or VTE this stay] Coding Level of Care Code Acute Chg FW DC note Diagnoses Atrial fibrillation with rapid ventricular response I48.91 Atypical chest pain R07.89 ASHD (arteriosclerotic heart disease) I25.10 CHF (congestive heart failure) I50.32 Heart failure type: diastolic Heart failure chronicity: chronic Hypertension I10 Hypertension type: essential hypertension
--- NOTE | 2022-10-31 14:36 | PC.NURSE ---
discharge instructions given and explained.pt and daughter verb understanding.discharged via w/c to exit.daughter to drive pt home
== END 2022-10-31 14:37 | disposition home or self-care (01) | DRG 309 ==
LOC: ER 13:20 → CSU 14:23
PROVIDERS: Admitting Provider Student in an Organized Health Care Education/Training Program; Emergency Provider Family Medicine; PCP Family Medicine; Visit Provider Internal Medicine
DX: I48.91 Unspecified atrial fibrillation (principal); C79.51 Secondary malignant neoplasm of bone; I50.32 Chronic diastolic (congestive) heart failure; I08.1 Rheumatic disorders of both mitral and tricuspid valves; I11.0 Hypertensive heart disease with heart failure; I25.10 Atherosclerotic heart disease of native coronary artery without angina pectoris; C50.919 Malignant neoplasm of unspecified site of unspecified female breast; E78.5 Hyperlipidemia, unspecified; E11.42 Type 2 diabetes mellitus with diabetic polyneuropathy; Z95.828 Presence of other vascular implants and grafts; G20 Parkinson's disease; I27.20 Pulmonary hypertension, unspecified; Z79.01 Long term (current) use of anticoagulants; Z79.82 Long term (current) use of aspirin; Z79.84 Long term (current) use of oral hypoglycemic drugs; Z79.891 Long term (current) use of opiate analgesic
CPT/HCPCS: 36415; 36416; 71045; 80048; 80053; 80061; 80162; 81003; 82607; 82746; 82962; 83036; 83540; 83550; 83735; 83880; 84100; 84145; 84439; 84443; 84481; 85025; 85378; 87641; 93005; 93306; 94664; 96365; 96372; 96375; 99214; 99285; J1160; J1815; J2405; J3490; J7030

== ENCOUNTER → 2022-11-07 09:23 | Outpatient (BNVA) | payer MEDICARE, MEDICAID, SELFPAY | PROVIDERS: PCP Family Medicine; Visit Provider Nurse Practitioner Family | DX: I48.91 Unspecified atrial fibrillation (principal) | CPT/HCPCS: 93005; 99214 ==

== ENCOUNTER 2022-11-13 08:34 | Emergency (ER) | payer MEDICARE, MEDICAID, SELFPAY ==
[2022-11-13 08:42] VITALS: BP 95/53; PULSE 82; RESP 16; TEMP 37.1; O2SAT 94
--- NOTE | 2022-11-13 08:46 | ECG_ITS ---
[facility] Test Date: 2022-11-13 Pat Name: Sheron Leyva Department: Room: Gender: Female [employer] T[employer]: : 1940 Requested By: Adi Ferreira Order Number: [id number] Martin MD: Miller Velazquez M.D. Measurements Intervals [place] Rate: 84 P: 0 WV: 0 QRS: 5 QRSD: 123 T: 95 QT: 377 QTc: 448 Interpretive Statements ATRIAL FIBRILLATION ANTEROSEPTAL MYOCARDIAL INFARCTION , OF INDETERMINATE AGE [40+ ms Q WAVE IN V1-V4] Compared to ECG 10/27/2022 18:03:27 Atrial flutter no longer present Atrial abnormality no longer present Myocardial infarct finding still present Electronically Signed On 11-13-2022 17:47:06 [employer]EE [employer]ATIONS SPECIALIST by Miller Velazquez M.D. [id number]
--- NOTE | 2022-11-13 08:46 | XR_ITS ---
WS: [id number] Exam: XR chest 1V portable [id number] Date/Time of Exam: 11/13/2022 8:48 AM Reason For Exam: dyspnea/cough Comparison 10/26/2022. There is persistent infiltrate and atelectasis in the right middle and lower lobes with small right p leural effusion. No significant change. Mild cardiac enlargement with increased pulmonary vascularity . Left lung is clear. The superior mediastinum is normal in contour. A right-sided subclavian port en ds at the cavoatrial junction. Bony structures are intact. XR/XR chest 1V portable [id number] IMPRESSION: 1. Persistent infiltrate and atelectasis in the right middle and lower lobes an d small right basal pleural effusion. Little change since prior study. 2. Mild cardiac enlargement unchanged.
[2022-11-13 08:48] VITALS: BP 122/83; PULSE 80; O2SAT 97
--- NOTE | 2022-11-13 08:54 | USCV_ITS ---
Sheron Leyva Age: 82 Gender: F : 1940 Exam Date: 11/13/2022 09:23 Ordering Phys: Adi Muir DO Technologist: CT Exam Location: [facility] [place]_ Indication: pain left le PROCEDURES: Venous duplex imaging was performed in only the left lower extremity. The following venous structures were evaluated: common femoral vein, profunda vein, proximal portion of the greater saphenous vein, superficial femoral vein, and the popliteal vein. In addition, the posterior tibial and peroneal trunk were evaluated. FINDINGS: Normal 2-D Doppler and augmentation and compressibility throughout the lower extremity venous structures. Additional imaging through the proximal calf veins also reveals no thrombus. Limited evaluation of the greater saphenous vein is patent with no thrombus. CONCLUSIONS No DVT left lower extremity. Dr. Tara Magdaleno DO (Electronically Signed) Final Date: 13 November 2022 10:20 S
--- NOTE | 2022-11-13 08:55 | ED_ITS ---
HPI - Extremity Problem General: Chief complaint: Extremity Injury, Lower Stated complaint: legs are swollen and increased hr Time Seen by Provider: 11/13/22 08:46 Source: patient Mode of arrival: wheelchair History of Present Illness: 82-year-old female with a known history of atrial fibrillation presents emergency room complaining of left lower extremity discomfort and swelling over the last couple of days. Triage nurses note he initially seen her heart rate was in the 140s but while there during triage she suddenly dropped her heart rate into the 80s she is feeling slightly better. She denies any chest pain or discomfort. 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 She was recently hospitalized.. She is chronically on oxygen and is maintaining normal oxygen sat on her usual 3 L/min. MD Complaint: extremity pain Onset (ago): day(s) (2) Pain Consistency: constant Location: left and lower extremity Quality: aching Relieving factors: nothing Exacerbating factors: nothing Associated symptoms: Reports arthralgias, myalgias and short of breath; Deny chest pain, fever(s) or rash Review of Systems Const: Reports: fatigue and malaise; Denies: fever(s) or chills ENMT: Denies: throat pain, ear or mastoid pain, nasal discharge or nasal congestion Card: Reports: palpitations, irregular heart rhythm, edema and swelling of feet/ankles; Denies: chest pain Resp: Denies: dyspnea, productive cough or non-productive cough GI: Denies: abdominal pain, nausea, vomiting, hematemesis, coffee ground emesis, diarrhea, constipation, bloating, hematochezia or melena : Denies: flank pain, difficulty voiding, dysuria, urinary frequency or urinary urgency Skin/Breast: Denies: rash PFS ED PFSH: Medical History ASHD (arteriosclerotic heart disease) Breast cancer Breast cancer metastasized to bone CHF (congestive heart failure) Hiatal hernia History of abdominal hernia Hyperlipidemia Hypertension Leg swelling Mitral regurgitation Peripheral neuropathy Port-A-Cath in place Varicose veins of both lower extremities Surgical History H/O: hysterectomy History of eye surgery History of lumpectomy of left breast History of shoulder surgery Hx of appendectomy Hx of cholecystectomy Hx of total knee replacement Family History Father CAD (coronary artery disease) Cancer Diabetes Mother CAD (coronary artery disease) Brother CAD (coronary artery disease) Diabetes Family/Other Chronic kidney disease (CKD) Other Hypertension Denies family history of Clotting disorder Dementia Suicide Anesthesia complication Bleeding disorder Lung disease Stroke Social History Smoking and tobacco status: unknown if ever smoked Alcohol intake: never Physical Exam Const: COMMON NORMALS: no acute distress GENERAL APPEARANCE: cooperative and comfortable ORIENTATION/CONSCIOUSNESS: Yes awake, Yes oriented to person, Yes oriented to place and Yes oriented to time HENMT: COMMON NORMALS: normocephalic, atraumatic and hearing grossly normal bilaterally HEAD & SCALP: normocephalic and atraumatic Resp: COMMON NORMALS: normal respiratory effort, No retractions, No use of accessory muscles and clear to auscultation bilaterally AUSCULTATION: clear to auscultation bilaterally Cardio: COMMON NORMALS: regular rate, regular rhythm and No murmurs present (Cardio) RATE: regular rate RHYTHM: regular rhythm GI: COMMON NORMALS: Soft to palpation and No hepatosplenomegaly present AUSCULTATION: Yes normoactive bowel sounds PALPATION: Yes Soft to palpation, No Tenderness to palpation present (GI), No Guarding due to palpation present (GI) and Yes No hepatosplenomegaly present Extremity: COMMON NORMALS: normal to inspection and capillary refill normal GENERAL: Yes edema (1+ lower extremities bilaterally) OTHER: Positive Homans' sign on the left leg mild tenderness in the medial distal thigh as well Neuro: SENSORIUM/ORIENTATION: Yes oriented to person, Yes oriented to place and Yes oriented to time Skin: COMMON NORMALS: no rashes or lesions noted GENERAL SKIN EXAM: no mckay hes or lesions noted Course Vital Signs: Vital signs: Vital Signs Temperature 98.8 F 11/13/22 08:42 Pulse Rate 74 11/13/22 11:59 Respiratory Rate 15 11/13/22 11:59 Blood Pressure 106/49 11/13/22 11:59 Pulse Oximetry 100 11/13/22 11:59 Oxygen Delivery Me thod 11/13/22 10:48 Oxygen Flow Rate 3 11/13/22 10:48 MDM - Extremity (Nontraumatic) Medical Decision Making Labs imaging and EKG reviewed in chart. Venous duplex negative. Laboratory studies reviewed she is moderately anemic at this point chronic issue she is little lower than she has been recently. Not low enough to require transfusion or precipitate symptoms at this point there is no signs of DVT no signs of cellulitis discharge patient home she says she is feeling better we will have her follow-up with her primary care doctor if not improving in the next 2 to 3 days. Medical Records I reviewed the patient's medical records. Lab Data I reviewed the patient's lab results. 11/13/22 09:21 11/13/22 09:19 Radiology Impressions Chest X-Ray 11/13/22 08:46 IMPRESSION: 1. Persistent infiltrate and atelectasis in the right middle and lower lobes and small right basal pleural effusion. Little change since prior study. 2. Mild cardiac enlargement unchanged. Laboratory Results WBC 6.5 10^3/uL (4.0-10.0) 11/13/22 09:21 RBC 2.91 10^6/uL (4.1-5.3) L 11/13/22 09:21 Hgb 9.9 g/dL (11.5-15.3) L 11/13/22 09:21 Hct 31.9 % (37.0-47.0) L 11/13/22 09:21 MCV 109.6 fl (81-99) H 11/13/22 09:21 MCH 34.0 pg (28.0-34.0) 11/13/22 09:21 MCHC 31.0 g/dL (30.0-36.0) 11/13/22 09:21 RDW 13.8 % (12.1-15.1) 11/13/22 09:21 Plt Count 176 10^3/cmm (130-400) 11/13/22 09:21 MPV 10.3 fL (7.4-10.4) 11/13/22 09:21 Neut % (Auto) 69.4 % 11/13/22 09:21 Lymph % (Auto) 8.7 % 11/13/22 09:21 Nolan % (Auto) 2.3 % 11/13/22 09:21 Eos % (Auto) 1.7 % 11/13/22 09:21 Baso % (Auto) 0.3 % 11/13/22 09:21 Neut # (Auto) 4.52 10^3/uL (1.8-7.7) 11/13/22 09:21 Lymph # (Auto) 0.6 10^3/uL (0.8-4.8) L 11/13/22 09:21 Nolan # (Auto) 0.2 10^3/uL (0.2-0.9) 11/13/22 09:21 Eos # (Auto) 0.1 10^3/uL (0.0-0.8) 11/13/22 09:21 Baso # (Auto) 0.0 10^3/uL (0.0-0.1) 11/13/22 09:21 Nucleated RBC % (auto) 0 % 11/13/22 09:21 Nucleated RBCs # 0.0 /100WBC 11/13/22 09:21 Sodium 136 mmol/L (136-145) 11/13/22 09:19 Potassium 4.5 mmol/L (3.5-5.1) 11/13/22 09:19 Chloride 95 mmol/L (98-107) L 11/13/22 09:19 Carbon Dioxide 30 mmol/L (22-29) H 11/13/22 09:19 Anion Gap 15.5 (5-19) 11/13/22 09:19 BUN 17 mg/dL (8-23) 11/13/22 09:19 Creatinine 0.8 mg/dL (0.5-0.9) 11/13/22 09:19 GFR Calculation Not Reportable 11/13/22 09:19 Glucose 257 mg/dL (65-115) H 11/13/22 09:19 Calculated Osmolality 292 mOsm/kg (285-295) 11/13/22 09:19 Calcium 8.5 mg/dL (8.5-10.5) 11/13/22 09:19 Total Bilirubin 0.5 mg/dL (0.15-1.2) 11/13/22 09:19 AST 17 U/L (0-32) 11/13/22 09:19 ALT 9 U/L (0-33) 11/13/22 09:19 Alkaline Phosphatase 169 U/L (35-105) H 11/13/22 09:19 Total Protein 6.5 g/dL (6.6-8.7) L 11/13/22 09:19 Albumin 3.1 g/dL (3.5-5.2) L 11/13/22 09:19 Globulin 3.4 g/dL (1.3-4.6) 11/13/22 09:19 Digoxin 1.1 ng/mL (0.6-1.2) 11/13/22 09:19 Discharge Plan Discharge Patient Disposition: Home Clinical Impression: Left leg pain, Leg swelling, Malignant neoplasm of upper-outer quadrant of left female breast Condition: Stable Prescriptions: Discontinued losartan 25 mg tablet 25 mg PO DAILY Qty: 90 0RF No Action polyethylene glycol 3350 [Miralax] 17 gram/dose powder 17 g PO DAILY docusate sodium 100 mg capsule 200 mg PO DAILY trazodone 100 mg tablet 150 mg PO BEDTIME potassium chloride 10 mEq capsule, extended release 10 meq PO DAILY metformin 500 mg tablet 500 mg PO BID aspirin [Adult Low Dose Aspirin] 81 mg tablet,delayed release (DR/EC) 81 mg PO BEDTIME Hold Instructions: Resume on 10/11/22. magnesium oxide 400 mg magnesium tablet 400 mg PO DAILY cetirizine 10 mg tablet 10 mg PO DAILY famotidine [Pepcid] 40 mg tablet 40 mg PO BID montelukast 10 mg tablet 10 mg PO DAILY furosemide 40 mg tablet 40 mg PO BID carbidopa-levodopa 50-200 mg tablet extended release See Rx Instructions .ROUTE .COMPLEX Rx Instructions: Take 2 tabs in AM, 2 tab at 2:30 and 2 tab at HS levothyroxine 125 mcg tablet 125 mcg PO DAILY citalopram [Celexa] 10 mg tablet 10 mg PO BEDTIME nitroglycerin 0.4 mg tablet, sublingual 0.4 mg sublingual Q5M PRN (Reason: chest pain) 30 Days Qty: 30 3RF Rx Instructions: until response; do not exceed 3 doses per episode albuterol sulfate 90 mcg/actuation HFA aerosol inhaler 2 puff inhalation Q6H PRN (Reason: Shortness Of Breath) ondansetron 4 mg tablet,disintegrating 4 mg PO TID PRN (Reason: Nausea) Qty: 90 2RF oxycodone-acetaminophen 5-325 mg tablet 1 tab PO QID PRN (Reason: pain) 30 Days Qty: 90 0RF morphine 30 mg tablet extended release 30 mg PO Q12H 30 Days Qty: 60 0RF digoxin 125 mcg (0.125 mg) tablet 62.5 mcg PO DAILY Qty: 90 0RF pravastatin 80 mg tablet 80 mg PO BEDTIME prochlorperazine maleate 10 mg Tablet 10 mg PO Q4H PRN (Reason: Nausea) metoprolol tartrate 50 mg Tablet 50 mg PO BID@0900,2100 Qty: 180 0RF diltiazem HCl 120 mg capsule,extended release 12 hr 120 mg PO BID Qty: 180 0RF PreserVision AREDS [id number] [id number] Capsule 1 cap PO DAILY Tresiba FlexTouch U-100 100 unit/mL (3 mL) insulin pen 20 unit SUBCUT DAILY Eliquis 5 mg tablet 5 mg PO BID Qty: 60 0RF Discharge Orders: Discharge ED (Routine); Ordered 11/13/22 Ordered By: Adi Muir Referrals: Mikael Madrigal MD [Primary Care Provider] - Patient Instructions: Opioid Safety, Pain Management Activity Restrictions/Additional Instructions: You were seen today for complaint of swelling and discomfort in your left leg. Ultrasound shows no evidence of DVT. Your laboratory tests are unremarkable. Your blood pressure is a little bit on the lower side recommend that you stop the losartan follow-up with your primary care doctor to recheck within the next 7 to 10 days. 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
[2022-11-13 09:31] LABS: Basophils % 0.3 %; Eosinophils # 0.1 10^3/uL (0.0-0.8); Eosinophils % 1.7 %; Hematocrit 31.9 % (37.0-47.0); Hemoglobin 9.9 g/dL (11.5-15.3); Lymphocytes # 0.6 10^3/uL (0.8-4.8); Lymphocytes % 8.7 %; Mean Corpuscular Volume 109.6 fl (81-99); Mean Platelet Volume 10.3 fL (7.4-10.4); Monocytes # 0.2 10^3/uL (0.2-0.9); Monocytes % 2.3 %; Neutrophils # 4.52 10^3/uL (1.8-7.7); Neutrophils % 69.4 %; Nucleated Red Blood Cells % 0 %; Platelet Count 176 10^3/cmm (130-400); Red Blood Count 2.91 10^6/uL (4.1-5.3); Red Cell Distribution Width 13.8 % (12.1-15.1); White Blood Count 6.5 10^3/uL (4.0-10.0)
[2022-11-13 09:50] LABS: Alanine Aminotransferase 9 U/L (0-33); Albumin Level 3.1 g/dL (3.5-5.2); Alkaline Phosphatase 169 U/L (35-105); Anion Gap 15.5 (5-19); Aspartate Amino Transferase 17 U/L (0-32); Blood Urea Nitrogen 17 mg/dL (8-23); Calcium 8.5 mg/dL (8.5-10.5); Carbon Dioxide 30 mmol/L (22-29); Chloride 95 mmol/L (98-107); Globulin 3.4 g/dL (1.3-4.6); Glucose 257 mg/dL (65-115); Osmolality Calculated 292 mOsm/kg (285-295); Potassium 4.5 mmol/L (3.5-5.1); Sodium 136 mmol/L (136-145); Total Bilirubin 0.5 mg/dL (0.15-1.2); Total Protein 6.5 g/dL (6.6-8.7)
[2022-11-13 09:59] LABS: Slide Review Slide Review Perform
[2022-11-13 10:29] LABS: Digoxin 1.1 ng/mL (0.6-1.2)
[2022-11-13 10:48] VITALS: BP 132/87; PULSE 80; RESP 19; O2SAT 97
[2022-11-13 11:59] VITALS: BP 106/49; PULSE 74; RESP 15; O2SAT 100
== END 2022-11-13 12:04 | disposition home or self-care (01) ==
PROVIDERS: Emergency Provider Family Medicine; PCP Family Medicine
DX: M79.605 Pain in left leg (principal); M79.89 Other specified soft tissue disorders; C50.412 Malignant neoplasm of upper-outer quadrant of left female breast; J90 Pleural effusion, not elsewhere classified; I51.7 Cardiomegaly
CPT/HCPCS: 36415; 71045; 80053; 80162; 85025; 93005; 93971; 99285

== ENCOUNTER 2022-11-22 08:00 | Oncology outpatient (recurring) (ONCR) | payer MEDICARE, MEDICAID, SELFPAY ==
[2022-11-07 11:25] LABS: Digoxin 2.8 ng/mL (0.6-1.2)
[2022-11-08 08:30] LABS: Basophils % 0.3 %; Eosinophils # 0.3 10^3/uL (0.0-0.8); Eosinophils % 2.9 %; Hematocrit 38.5 % (37.0-47.0); Hemoglobin 11.8 g/dL (11.5-15.3); Lymphocytes # 1.2 10^3/uL (0.8-4.8); Lymphocytes % 13.7 %; Mean Corpuscular HGB Conc 30.6 g/dL (30.0-36.0); Mean Corpuscular Hemoglobin 33.8 pg (28.0-34.0); Mean Corpuscular Volume 110.3 fl (81-99); Monocytes # 0.8 10^3/uL (0.2-0.9); Monocytes % 9.1 %; Neutrophils # 6.48 10^3/uL (1.8-7.7); Neutrophils % 73.1 %; Nucleated Red Blood Cells % 0 %; Platelet Count 238 10^3/cmm (130-400); Red Blood Count 3.49 10^6/uL (4.1-5.3); Red Cell Distribution Width 14.1 % (12.1-15.1); White Blood Count 8.9 10^3/uL (4.0-10.0)
[2022-11-08 08:57] LABS: Alanine Aminotransferase < 5 U/L (0-33); Albumin Level 3.8 g/dL (3.5-5.2); Alkaline Phosphatase 219 U/L (35-105); Aspartate Amino Transferase 17 U/L (0-32); Blood Urea Nitrogen 14 mg/dL (8-23); Calcium 9.3 mg/dL (8.5-10.5); Carbon Dioxide 33 mmol/L (22-29); Chloride 96 mmol/L (98-107); Globulin 2.7 g/dL (1.3-4.6); Glucose 219 mg/dL (65-115); Osmolality Calculated 301 mOsm/kg (285-295); Sodium 142 mmol/L (136-145); Total Bilirubin 0.3 mg/dL (0.15-1.2); Total Protein 6.5 g/dL (6.6-8.7)
[2022-11-08] MEDS: sodium chloride 0.9% 250 ML 75 ML IV (10:15)
[2022-11-08] MEDS: ondansetron 2 mg/ML SDV 2 mL 8 MG IVP (10:15)
[2022-11-08 11:50] VITALS: BP 100/60; PULSE 54; RESP 18; TEMP 36.4; O2SAT 98
[2022-11-22 08:35] LABS: Hematocrit 31.6 % (37.0-47.0); Hemoglobin 9.9 g/dL (11.5-15.3); Mean Corpuscular HGB Conc 31.3 g/dL (30.0-36.0); Mean Corpuscular Volume 108.6 fl (81-99); Mean Platelet Volume 9.2 fL (7.4-10.4); Platelet Count 401 10^3/cmm (130-400); Red Blood Count 2.91 10^6/uL (4.1-5.3); Red Cell Distribution Width 15.1 % (12.1-15.1); White Blood Count 11.1 10^3/uL (4.0-10.0)
[2022-11-22 08:58] LABS: Alanine Aminotransferase < 5 U/L (0-33); Alkaline Phosphatase 225 U/L (35-105); Aspartate Amino Transferase 24 U/L (0-32); Blood Urea Nitrogen 8 mg/dL (8-23); Calcium 8.6 mg/dL (8.5-10.5); Carbon Dioxide 34 mmol/L (22-29); Chloride 93 mmol/L (98-107); Globulin 3.2 g/dL (1.3-4.6); Glucose 185 mg/dL (65-115); Osmolality Calculated 285 mOsm/kg (285-295); Sodium 136 mmol/L (136-145); Total Bilirubin 0.2 mg/dL (0.15-1.2); Total Protein 6.2 g/dL (6.6-8.7)
[2022-11-22 09:31] LABS: Slide Review Slide Review Perform
[2022-11-22 09:36] LABS: Absolute Eosinophils 0.1 10^3/cmm (0.0-0.7); Absolute Neutrophil 8.3 10^3/cmm (1.4-6.5); Absolute Segmented Neutrophil 8.3 10/cmm (1.6-7.1); Anisocytosis 1+; Eosinophils 1 %; Lymphocytes 9 %; Monocytes Absolute 1.1 10^3/cmm (0.1-0.6); Platelet Estimate Increased (Normal); Segmented Neutrophils 75 %; Total Cells Counted 100 (0-100)
[2022-11-22 09:37] LABS: Macrocytosis 1+
== END 2022-11-24 23:59 | disposition home or self-care (01) ==
PROVIDERS: Nurse Practitioner Family; PCP Family Medicine; Visit Provider Internal Medicine Hematology & Oncology
DX: C79.51 Secondary malignant neoplasm of bone; I48.91 Unspecified atrial fibrillation; Z85.3 Personal history of malignant neoplasm of breast; Z92.3 Personal history of irradiation; I25.118 Atherosclerotic heart disease of native coronary artery with other forms of angina pectoris; C78.01 Secondary malignant neoplasm of right lung; C78.7 Secondary malignant neoplasm of liver and intrahepatic bile duct; Z79.899 Other long term (current) drug therapy
CPT/HCPCS: 36415; 36591; 80053; 80162; 85007; 85025; 96367; 96375; 96413; 99214; 99215; J1100; J2405; J7050; J9201